=== PATIENT | male | born 1950 | race Caucasian/White ===

== ENCOUNTER 2018-10-08 10:51 | Inpatient (IN) ==
[2018-10-08] MEDS ORDERED: IOPAMIDOL 100 ML BOTTLE IV ONE (10:52)
[2018-10-08] MEDS ORDERED: 0.9 % SODIUM CHLORIDE 1,000 ML IV ONE ×3 (10:55→12:29)
[2018-10-08] MEDS ORDERED: ONDANSETRON 4 MG/2 ML VIAL IV ONE (11:11)
--- NOTE | 2018-10-08 11:21 | Emergency Department Note ---
Abdominal Pain HPI - General Chief Complaint: Abdominal Pain Stated Complaint: L side abd pain, radiates to back Time Seen by Provider: 10/08/18 10:56 Source: patient Mode of arrival: ambulatory Limitations: no limitations - History of Present Illness HPI Narrative: 67-year-old male complaining of midepigastric pain which radiates to his back present for the past 3 days. He has had nausea but there is been no vomiting. He rates the pain is a 6/10 and the pain is located mostly in the midepigastric region. He has had a history of chronic pancreatitis for the past 10 years. He still uses alcohol. He states he drinks 3-4 beers a day but did have a Trang on October 02 in addition to the beer. She has a history of COPD and is oxygen dependent. Also has CHF. He states he uses no other recreational drugs but does use marijuana. Heavy smoker in the past but states he has quit smoking but chews. He states he does not drink much liquids throughout the day. His tongue does appear to be dehydrated. He states he has been told not to drink m uch alcohol or use over the tobacco but he continues. Denies any radiation of pain to the arm or axilla or jaw. Denies any chest pain but is pointing to the midepigastric region. There is been no hematemesis no melena. He is constipated. Denies urgency frequency or dysuria. He has no orthopnea type symptoms he is able to sleep in bed flat he states but is being treated for CHF. He does have some pedal edema 2+ - Related Data Home Medications Medication Instructions Recorded Confirmed [facility] fish oil PO BID 07/28/15 01/16/17 albuterol sulfate HFA 90 2 puff INHALATION .3-4XD g 07/28/15 10/08/18 mcg/actuation aerosol inhaler atorvastatin 20 mg tablet 20 mg PO QDAY 07/28/15 10/08/18 blood sugar diagnostic strips See Dose Instructions .ROUTE 07/28/15 01/16/17 .MEDSUPPLY glipizide 5 mg tablet 10 mg PO BID tab 07/28/15 10/08/18 lancets 28 gauge See Dose Instructions .ROUTE 07/28/15 01/16/17 .MEDSUPPLY metformin 1,000 mg tablet 1,000 mg PO BID 07/28/15 10/08/18 ferrous gluconate 324 mg (37.5 mg 324 mg PO QDAY 11/23/16 01/16/17 iron) tablet furosemide 20 mg tablet 40 mg PO QDAY tab 11/23/16 10/08/18 ibuprofen 200 mg tablet 200 mg PO Q6H tab 11/23/16 10/08/18 ipratropium-albuterol 0.5 mg-3 3 ml INHALATION Q8H 11/23/16 10/08/18 mg(2.5 mg base)/3 mL nebulization soln losartan 100 mg tablet 100 mg PO QDAY tab 11/23/16 10/08/18 magnesium oxide 400 mg (241.3 mg 400 mg PO TID tab 11/23/16 01/16/17 magnesium) tablet oxygen-air delivery systems device See Dose Instructions .ROUTE 11/23/1612/30 .MEDSUPPLY metformin 500 mg tablet 500 mg PO QDAY tab 09/05/18 10/08/18 fluticasone 250 mcg-salmeterol 50 1 inh INHALATION ONCE each 09/08/18 09/08/18 mcg/dose blistr powdr for inhalation Cyanocobalamin [Vitamin B12] 1,000 mcg IM MONTHLY 10/08/18 10/08/18 Allergies Allergy/AdvReac Type Severity Reaction Status Date / Time No Known Drug Allergies Allergy Verified 10/08/18 17:09 Review of Systems All systems ED: reviewed and negative except as stated. Constitutional: Denies: fever, chills Gastrointestinal: Reports: as per HPI, abdominal pain (Midepigastric pain radiating to his back), nausea. Denies: vomiting, diarrhea, constipation, hemat ochezia, melena, hematemesis, acid reflux, heart burn Genitourinary: Denies: dysuria, frequency Musculoskeletal: Denies: back pain, joint swelling Integumentary: Denies: rash, lesions Neurological: Denies: headache, weakness Psychiatric: Denies: anxiety, depression Endocrine: Denies: fatigue, heat or cold intolerance Hematological/Lymphatic: Denies: easy bleeding Allergic/Immunologic: Denies: facial swelling Abdominal Pain PMH - Past Medical History [facility] Narrative: All Active Problems (Last Updated 09/30/18 @ 15:00 by Renea Caldwell) Lobar pneumonia (Chronic) History of tonsillectomy and adenoidectomy (Chronic) Pneumonia (Chronic) Tobacco use (Chronic) Benign prostatic hyperplasia with urinary obstruction (Chronic) Lumbar radiculopathy (Chronic) Obstructive sleep apnea (Chronic) Chronic hypercapnic respiratory failure (Chronic) Chronic hypoxemic respiratory failure (Chronic) Pure hypercholesterolemia, unspecified (Chronic) Leukocytosis (Chronic) Macrocytosis (Chronic) Dependent edema (Chronic) 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) Vitamin B12 deficiency (Chronic) Pancreatitis (Chronic) CHF (congestive heart failure) (Chronic) Anemia (Chronic) Diabetes mellitus, type II (Chronic) Obesity, unspecified (Chronic) GERD (gastroesophageal reflux disease) (Chronic) Hyperglycemia (Chronic) Hyperlipidemia (Chronic) Hypertension (Chronic) Chest pain, precordial (Chronic) Lumbar radiculopathy, right (Chronic) COPD (chronic obstructive pulmonary disease) (Chronic) Hypoxemia (Chronic) Erectile dysfunction (Chronic) Hyponatremia (Chronic) Hypokalemia (Chronic) Drug-induced hepatotoxicity (Chronic) Rectal bleeding (Chronic) Smoker (Chronic) Diabetes mellitus (Chronic) Bilateral leg edema (Chronic) Varicose veins of lower extremity with inflammation, bilateral (Chronic) BPH (benign prostatic hyperplasia) (Chronic) Past Surgical History (Last Updated 09/30/18 @ 14:47 by Renea Caldwell) History of tonsillectomy and adenoidectomy (Chronic) History of colonoscopy (Chronic ~2016) History of inguinal hernia repair (Chronic) History of left cataract surgery (Chronic ~2018) Family History (Last Updated 09/05/18 @ 11:47 by Arabella Chadwick) Mother Arthritis Hypertension Father Lung cancer Hypertension Sister Hypertension Grandfather Myocardial Infarction Other Diabetes mellitus Malignant neoplasm - Social History Smoking status: Former smoker Alcohol use: Reports: Daily (He states 3-4 beers a day) Drug use: Reports: marijuana Physical Exam Limitations: no limitations General appearance: alert Head: atraumatic, normocephalic Eye: Present: normal appearance, PERRL ENT: normal exam, normal oropharynx, mucous membranes dry Neck: Present: normal inspection, full ROM Chest: Present: normal inspection, symmetric chest wall rise Respiratory: Present: normal lung sounds bilaterally. Absent: respiratory distress, rales/crackles Cardiovascular: Present: regular rate, normal rhythm. Absent: bradycardia, tachycardia Abdominal: Present: soft, tenderness, normal bowel sounds. Absent: distention, guarding, rebound, rigidity, diminished bowel sounds, hyperactive bowel sounds, hypoactive bowel sounds, organomegaly Abdominal tenderness: Present: epigastrium Extremities: Present: normal inspection, full ROM. Absent: tenderness Back: Present: normal inspection, full ROM. Absent: tenderness Neurological: Present: alert, oriented X3, CN II-XII intact, normal gait Psychiatric: Present: normal affect, normal mood Skin: Present: warm, cool, dry Course Vital Signs Temperature 97.6 F 10/08/18 10:52 Pulse Rate 125 H 10/08/18 10:52 Respiratory Rate 20 10/08/18 10:52 Blood Pressure 154/97 10/08/18 10:52 Pulse Oximetry (%) 97 10/08/18 10:52 Temperature 98.4 F 10/08/18 17:10 Pulse Rate 115 H 10/08/18 17:10 Respiratory Rate 20 10/08/18 17:10 Blood Pressure 163/95 10/08/18 17:10 Pulse Oximetry (%) 94 10/08/18 17:10 Abdominal Pain - MDM Narrative Medical decision making narrative: WBC is 20,300 the hemoglobin 12.4 hematocrit 37.5 81 segs 3 bands and 6 lymphocytes lactic acid was elevated at 2.1 blood cultures have been drawn sodium is 120 the potassium 3.6 the CO2 is 28 glucose 192 the troponin less than 0.01 lipase elevated at 257 alcohol was less than 0.01 Wild catheter was inserted and 10 probe did reveal that he does have a fever of 99.1 but the nurse did state that the probe to get up to 100 F.. also amylase elevated at 225. Chest x-ray showed a possible infiltrate patient on his third liter of fluids and Zosyn has been started. Awaiting for results of CT . Dr. Fitzgerald here to discuss CT results. The pancreas shows acute on chronic pancreatitis with some enlarged adenopathy posterior and felt continued work-up with possible biopsy of this area in the future. - Lab Data Result diagrams: 10/08/18 11:02 10/08/18 11:02 Lab Results 10/08/18 10/08/18 10/08/18 Range/Units 11:02 11:02 11:02 WBC 20.3 H (4.5-11.0) K/mcL RBC 3.91 L (4.50-5.90) M/mcL Hgb 12.4 L (13.5-16.5) g/dL Hct 37.5 L (41.0-55.0) % POC Hct (41.0-55.0) % MCV 95.8 (80.0-100.0) fL MCH 31.8 (26.0-34.0) pg MCHC 33.2 (31.0-36.0) g/dL RDW 13.2 (11.5-14.5) % Plt Count 310 (140-440) K/mcL MPV 9.0 (7.4-10.4) fL Total Counted 100 Seg Neutrophils % 81 H (38-78) % Band Neutrophils % 3 (0-10) % Lymphocytes % 6 L (15-49) % Monocytes % (Manual) 10 (1-12) % Platelet Estimate Normal (NORMAL) RBC Morphology Normal (NORMAL) VBG Lactic Acid 2.1 H (0.5-2.0) mmol/L POC Sodium (133-145) mmol/L Sodium 123 L (133-145) mmol/L POC Potassium (3.3-5.1) mmol/L Potassium 3.8 (3.3-5.1) mmol/L POC Chloride (96-108) mmol/L Chloride 80 L (96-108) mmol/L Carbon Dioxide 25 (22-30) mmol/L POC Total CO2 (22-30) mmol/L Anion Gap 18.0 H (8-16) POC BUN (8-23) mg/dl BUN 9 (8-23) mg/dl Creatinine 0.7 (0.7-1.2) mg/dl POC Creatinine (0.7-1.2) mg/dl GFR Calculation 97 Glucose 184 H (70-105) mg/dL POC Glucose (70-105) mg/dL Osmolality (280-300) mOSM/kg Uric Acid (2.5-8.0) mg/dL Calcium 8.9 (8.6-10.4) mg/dl POC WB Ioniz Calcium (1.16-1.32) mmol/L Total Bilirubin 1.0 (0.0-1.0) mg/dL AST 16 (0-37) U/l ALT 15 (0-40) U/l Alkaline Phosphatase 57 (39-117) U/L Lactate Dehydrogenase (94-250) U/L Total Creatine Kinase (24-195) IU/L CK-MB (CK-2) (0-4.9) ng/ml Troponin T (0-0.03) ng/ml NT-Pro-B Natriuret Pep (0-125) pg/ml Total Protein 7.2 (5.9-8.4) gm/dL Albumin 4.2 (3.2-5.2) gm/dL Globulin 3.0 (2.2-3.7) gm/dL Albumin/Globulin Ratio 1.4 (1.0-2.3) Amylase (28-100) U/L Lipase (7-60) U/L Procalcitonin (<0.10) ng/mL Urine Color Urine Appearance Urine pH (5.0-9.0) Ur Specific [place] (1.000-1.035) Urine Protein (NEG) mg/dL Urine Glucose (UA) (NEG) mg/dL Urine Ketones (NEG) mg/dL Urine Occult Blood (<0.03) mg/dL Urine Nitrate (NEG) Urine Bilirubin (NEG) mg/dL Urine Urobilinogen (NEG) mg/dL Ur Leukocyte Esterase (NEG) /uL Urine RBC (0-1) /hpf Urine WBC (0-4) /hpf Ur Squamous Epith Cells (0-4) /hpf Urine Bacteria (0) /hpf Urine Mucus (0) /hpf Ur Culture Indicated? Urine Osmolality (80-1000) mOsm/kg Ur Random Sodium mmol/L Urine Opiates Screen (NONDETECTED) Ur Opiates Confirm Ur Oxycodone Screen (NONDETECTED) Urine Methadone Screen (NONDETECTED) Ur Methadone Confirm Ur Barbiturates Screen (NONDETECTED) Ur Barbiturate Confirm Ur Phencyclidine Scrn (NONDETECTED) Urine PCP Confirm Ur Amphetamines Screen (NONDETECTED) U Amphetamines Confirm U Benzodiazepines Scrn (NONDETECTED) U Benzodiazepine Confm Urine Cocaine Screen (NONDETECTED) Urine Cocaine Confirm U Cannabinoids Confirm U Marijuana (THC) Screen (NONDETECTED) Ethyl Alcohol (<0.010) gm/dl 10/08/18 10/08/18 10/08/18 Range/Units 11:02 11:02 11:07 WBC (4.5-11.0) K/mcL RBC (4.50-5.90) M/mcL Hgb (13.5-16.5) g/dL Hct (41.0-55.0) % POC Hct 39.0 L (41.0-55.0) % MCV (80.0-100.0) fL MCH (26.0-34.0) pg MCHC (31.0-36.0) g/dL RDW (11.5-14.5) % Plt Count (140-440) K/mcL MPV (7.4-10.4) fL Total Counted Seg Neutrophils % (38-78) % Band Neutrophils % (0-10) % Lymphocytes % (15-49) % Monocytes % (Manual) (1-12) % Platelet Estimate (NORMAL) RBC Morphology (NORMAL) VBG Lactic Acid (0.5-2.0) mmol/L POC Sodium 120 L (133-145) mmol/L Sodium (133-145) mmol/L POC Potassium 3.6 (3.3-5.1) mmol/L Potassium (3.3-5.1) mmol/L POC Chloride 81 L (96-108) mmol/L Chloride (96-108) mmol/L Carbon Dioxide (22-30) mmol/L POC Total CO2 28 (22-30) mmol/L Anion Gap (8-16) POC BUN 9 (8-23) mg/dl BUN (8-23) mg/dl Creatinine (0.7-1.2) mg/dl POC Creatinine 0.6 L (0.7-1.2) mg/dl GFR Calculation Glucose (70-105) mg/dL POC Glucose 192 H (70-105) mg/dL Osmolality (280-300) mOSM/kg Uric Acid (2.5-8.0) mg/dL Calcium (8.6-10.4) mg/dl POC WB Ioniz Calcium 1.07 L (1.16-1.32) mmol/L Total Bilirubin (0.0-1.0) mg/dL AST (0-37) U/l ALT (0-40) U/l Alkaline Phosphatase (39-117) U/L Lactate Dehydrogenase (94-250) U/L Total Creatine Kinase 97 (24-195) IU/L CK-MB (CK-2) 1.9 (0-4.9) ng/ml Troponin T < 0.01 (0-0.03) ng/ml NT-Pro-B Natriuret Pep (0-125) pg/ml Total Protein (5.9-8.4) gm/dL Albumin (3.2-5.2) gm/dL Globulin (2.2-3.7) gm/dL Albumin/Globulin Ratio (1.0-2.3) Amylase 225 H (28-100) U/L Lipase 257 H (7-60) U/L Procalcitonin (<0.10) ng/mL Urine Color Urine Appearance Urine pH (5.0-9.0) Ur Specific [place] (1.000-1.035) Urine Protein (NEG) mg/dL Urine Glucose (UA) (NEG) mg/dL Urine Ketones (NEG) mg/dL Urine Occult Blood (<0.03) mg/dL Urine Nitrate (NEG) Urine Bilirubin (NEG) mg/dL Urine Urobilinogen (NEG) mg/dL Ur Leukocyte Esterase (NEG) /uL Urine RBC (0-1) /hpf Urine WBC (0-4) /hpf Ur Squamous Epith Cells (0-4) /hpf Urine Bacteria (0) /hpf Urine Mucus (0) /hpf Ur Culture Indicated? Urine Osmolality (80-1000) mOsm/kg Ur Random Sodium mmol/L Urine Opiates Screen (NONDETECTED) Ur Opiates Confirm Ur Oxycodone Screen (NONDETECTED) Urine Methadone Screen (NONDETECTED) Ur Methadone Confirm Ur Barbiturates Screen (NONDETECTED) Ur Barbiturate Confirm Ur Phencyclidine Scrn (NONDETECTED) Urine PCP Confirm Ur Amphetamines Screen (NONDETECTED) U Amphetamines Confirm U Benzodiazepines Scrn (NONDETECTED) U Benzodiazepine Confm Urine Cocaine Screen (NONDETECTED) Urine Cocaine Confirm U Cannabinoids Confirm U Marijuana (THC) Screen (NONDETECTED) Ethyl Alcohol < 0.010 (<0.010) gm/dl 10/08/18 10/08/18 10/08/18 Range/Units 11:07 11:07 11:07 WBC (4.5-11.0) K/mcL RBC (4.50-5.90) M/mcL Hgb (13.5-16.5) g/dL Hct (41.0-55.0) % POC Hct (41.0-55.0) % MCV (80.0-100.0) fL MCH (26.0-34.0) pg MCHC (31.0-36.0) g/dL RDW (11.5-14.5) % Plt Count (140-440) K/mcL MPV (7.4-10.4) fL Total Counted Seg Neutrophils % (38-78) % Band Neutrophils % (0-10) % Lymphocytes % (15-49) % Monocytes % (Manual) (1-12) % Platelet Estimate (NORMAL) RBC Morphology (NORMAL) VBG Lactic Acid (0.5-2.0) mmol/L POC Sodium (133-145) mmol/L Sodium (133-145) mmol/L POC Potassium (3.3-5.1) mmol/L Potassium (3.3-5.1) mmol/L POC Chloride (96-108) mmol/L Chloride (96-108) mmol/L Carbon Dioxide (22-30) mmol/L POC Total CO2 (22-30) mmol/L Anion Gap (8-16) POC BUN (8-23) mg/dl BUN (8-23) mg/dl Creatinine (0.7-1.2) mg/dl POC Creatinine (0.7-1.2) mg/dl GFR Calculation Glucose (70-105) mg/dL POC Glucose (70-105) mg/dL Osmolality 255 L (280-300) mOSM/kg Uric Acid 3.2 (2.5-8.0) mg/dL Calcium (8.6-10.4) mg/dl POC WB Ioniz Calcium (1.16-1.32) mmol/L Total Bilirubin (0.0-1.0) mg/dL AST (0-37) U/l ALT (0-40) U/l Alkaline Phosphatase (39-117) U/L Lactate Dehydrogenase 180 (94-250) U/L Total Creatine Kinase (24-195) IU/L CK-MB (CK-2) (0-4.9) ng/ml Troponin T (0-0.03) ng/ml NT-Pro-B Natriuret Pep 801.6 H (0-125) pg/ml Total Protein (5.9-8.4) gm/dL Albumin (3.2-5.2) gm/dL Globulin (2.2-3.7) gm/dL Albumin/Globulin Ratio (1.0-2.3) Amylase (28-100) U/L Lipase (7-60) U/L Procalcitonin (<0.10) ng/mL Urine Color Urine Appearance Urine pH (5.0-9.0) Ur Specific [place] (1.000-1.035) Urine Protein (NEG) mg/dL Urine Glucose (UA) (NEG) mg/dL Urine Ketones (NEG) mg/dL Urine Occult Blood (<0.03) mg/dL Urine Nitrate (NEG) Urine Bilirubin (NEG) mg/dL Urine Urobilinogen (NEG) mg/dL Ur Leukocyte Esterase (NEG) /uL Urine RBC (0-1) /hpf Urine WBC (0-4) /hpf Ur Squamous Epith Cells (0-4) /hpf Urine Bacteria (0) /hpf Urine Mucus (0) /hpf Ur Culture Indicated? Urine Osmolality (80-1000) mOsm/kg Ur Random Sodium mmol/L Urine Opiates Screen (NONDETECTED) Ur Opiates Confirm Ur Oxycodone Screen (NONDETECTED) Urine Methadone Screen (NONDETECTED) Ur Methadone Confirm Ur Barbiturates Screen (NONDETECTED) Ur Barbiturate Confirm Ur Phencyclidine Scrn (NONDETECTED) Urine PCP Confirm Ur Amphetamines Screen (NONDETECTED) U Amphetamines Confirm U Benzodiazepines Scrn (NONDETECTED) U Benzodiazepine Confm Urine Cocaine Screen (NONDETECTED) Urine Cocaine Confirm U Cannabinoids Confirm U Marijuana (THC) Screen (NONDETECTED) Ethyl Alcohol (<0.010) gm/dl 10/08/18 10/08/18 10/08/18 Range/Units 11:07 12:15 12:15 WBC (4.5-11.0) K/mcL RBC (4.50-5.90) M/mcL Hgb (13.5-16.5) g/dL Hct (41.0-55.0) % POC Hct (41.0-55.0) % MCV (80.0-100.0) fL MCH (26.0-34.0) pg MCHC (31.0-36.0) g/dL RDW (11.5-14.5) % Plt Count (140-440) K/mcL MPV (7.4-10.4) fL Total Counted Seg Neutrophils % (38-78) % Band Neutrophils % (0-10) % Lymphocytes % (15-49) % Monocytes % (Manual) (1-12) % Platelet Estimate (NORMAL) RBC Morphology (NORMAL) VBG Lactic Acid (0.5-2.0) mmol/L POC Sodium (133-145) mmol/L Sodium (133-145) mmol/L POC Potassium (3.3-5.1) mmol/L Potassium (3.3-5.1) mmol/L POC Chloride (96-108) mmol/L Chloride (96-108) mmol/L Carbon Dioxide (22-30) mmol/L POC Total CO2 (22-30) mmol/L Anion Gap (8-16) POC BUN (8-23) mg/dl BUN (8-23) mg/dl Creatinine (0.7-1.2) mg/dl POC Creatinine (0.7-1.2) mg/dl GFR Calculation Glucose (70-105) mg/dL POC Glucose (70-105) mg/dL Osmolality (280-300) mOSM/kg Uric Acid (2.5-8.0) mg/dL Calcium (8.6-10.4) mg/dl POC WB Ioniz Calcium (1.16-1.32) mmol/L Total Bilirubin (0.0-1.0) mg/dL AST (0-37) U/l ALT (0-40) U/l Alkaline Phosphatase (39-117) U/L Lactate Dehydrogenase (94-250) U/L Total Creatine Kinase (24-195) IU/L CK-MB (CK-2) (0-4.9) ng/ml Troponin T (0-0.03) ng/ml NT-Pro-B Natriuret Pep (0-125) pg/ml Total Protein (5.9-8.4) gm/dL Albumin (3.2-5.2) gm/dL Globulin (2.2-3.7) gm/dL Albumin/Globulin Ratio (1.0-2.3) Amylase (28-100) U/L Lipase (7-60) U/L Procalcitonin 0.16 (<0.10) ng/mL Urine Color Straw Urine Appearance Clear Urine pH 7.0 (5.0-9.0) Ur Specific [place] 1.008 (1.000-1.035) Urine Protein Neg (NEG) mg/dL Urine Glucose (UA) Negative (NEG) mg/dL Urine Ketones Neg (NEG) mg/dL Urine Occult Blood 0.03 A (<0.03) mg/dL Urine Nitrate Neg (NEG) Urine Bilirubin Neg (NEG) mg/dL Urine Urobilinogen Neg (NEG) mg/dL Ur Leukocyte Esterase Neg (NEG) /uL Urine RBC 6 H (0-1) /hpf Urine WBC 1 (0-4) /hpf Ur Squamous Epith Cells < 1 (0-4) /hpf Urine Bacteria 0 (0) /hpf Urine Mucus Few (0) /hpf Ur Culture Indicated? No Urine Osmolality (80-1000) mOsm/kg Ur Random Sodium mmol/L Urine Opiates Screen None detected (NONDETECTED) Ur Opiates Confirm Not Reportable Ur Oxycodone Screen Suspect positive A (NONDETECTED) Urine Methadone Screen None detected (NONDETECTED) Ur Methadone Confirm Not Reportable Ur Barbiturates Screen None detected (NONDETECTED) Ur Barbiturate Confirm Not Reportable Ur Phencyclidine Scrn None detected (NONDETECTED) Urine PCP Confirm Not Reportable Ur Amphetamines Screen None detected (NONDETECTED) U Amphetamines Confirm Not Reportable U Benzodiazepines Scrn None detected (NONDETECTED) U Benzodiazepine Confm Not Reportable Urine Cocaine Screen None detected (NONDETECTED) Urine Cocaine Confirm Not Reportable U Cannabinoids Confirm Not Reportable U Marijuana (THC) Screen Suspect positive A (NONDETECTED) Ethyl Alcohol (<0.010) gm/dl 10/08/18 Range/Units 12:15 WBC (4.5-11.0) K/mcL RBC (4.50-5.90) M/mcL Hgb (13.5-16.5) g/dL Hct (41.0-55.0) % POC Hct (41.0-55.0) % MCV (80.0-100.0) fL MCH (26.0-34.0) pg MCHC (31.0-36.0) g/dL RDW (11.5-14.5) % Plt Count (140-440) K/mcL MPV (7.4-10.4) fL Total Counted Seg Neutrophils % (38-78) % Band Neutrophils % (0-10) % Lymphocytes % (15-49) % Monocytes % (Manual) (1-12) % Platelet Estimate (NORMAL) RBC Morphology (NORMAL) VBG Lactic Acid (0.5-2.0) mmol/L POC Sodium (133-145) mmol/L Sodium (133-145) mmol/L POC Potassium (3.3-5.1) mmol/L Potassium (3.3-5.1) mmol/L POC Chloride (96-108) mmol/L Chloride (96-108) mmol/L Carbon Dioxide (22-30) mmol/L POC Total CO2 (22-30) mmol/L Anion Gap (8-16) POC BUN (8-23) mg/dl BUN (8-23) mg/dl Creatinine (0.7-1.2) mg/dl POC Creatinine (0.7-1.2) mg/dl GFR Calculation Glucose (70-105) mg/dL POC Glucose (70-105) mg/dL Osmolality (280-300) mOSM/kg Uric Acid (2.5-8.0) mg/dL Calcium (8.6-10.4) mg/dl POC WB Ioniz Calcium (1.16-1.32) mmol/L Total Bilirubin (0.0-1.0) mg/dL AST (0-37) U/l ALT (0-40) U/l Alkaline Phosphatase (39-117) U/L Lactate Dehydrogenase (94-250) U/L Total Creatine Kinase (24-195) IU/L CK-MB (CK-2) (0-4.9) ng/ml Troponin T (0-0.03) ng/ml NT-Pro-B Natriuret Pep (0-125) pg/ml Total Protein (5.9-8.4) gm/dL Albumin (3.2-5.2) gm/dL Globulin (2.2-3.7) gm/dL Albumin/Globulin Ratio (1.0-2.3) Amylase (28-100) U/L Lipase (7-60) U/L Procalcitonin (<0.10) ng/mL Urine Color Urine Appearance Urine pH (5.0-9.0) Ur Specific [place] (1.000-1.035) Urine Protein (NEG) mg/dL Urine Glucose (UA) (NEG) mg/dL Urine Ketones (NEG) mg/dL Urine Occult Blood (<0.03) mg/dL Urine Nitrate (NEG) Urine Bilirubin (NEG) mg/dL Urine Urobilinogen (NEG) mg/dL Ur Leukocyte Esterase (NEG) /uL Urine RBC (0-1) /hpf Urine WBC (0-4) /hpf Ur Squamous Epith Cells (0-4) /hpf Urine Bacteria (0) /hpf Urine Mucus (0) /hpf Ur Culture Indicated? Urine Osmolality 270 (80-1000) mOsm/kg Ur Random Sodium 62 mmol/L Urine Opiates Screen (NONDETECTED) Ur Opiates Confirm Ur Oxycodone Screen (NONDETECTED) Urine Methadone Screen (NONDETECTED) Ur Methadone Confirm Ur Barbiturates Screen (NONDETECTED) Ur Barbiturate Confirm Ur Phencyclidine Scrn (NONDETECTED) Urine PCP Confirm Ur Amphetamines Screen (NONDETECTED) U Amphetamines Confirm U Benzodiazepines Scrn (NONDETECTED) U Benzodiazepine Confm Urine Cocaine Screen (NONDETECTED) Urine Cocaine Confirm U Cannabinoids Confirm U Marijuana (THC) Screen (NONDETECTED) Ethyl Alcohol (<0.010) gm/dl Disposition Pt seen by [facility] [employer]/PA only: No Clinical Impression: Pancreatitis, Lymphadenopathy, abdominal Disposition: Xfer As Inpt ([facility]) Condition: Fair
[2018-10-08 11:24] LABS: POC Blood Urea Nitrogen 9 mg/dl (8-23); POC CO2 28 mmol/L (22-30); POC Calcium, Ionized 1.07 mmol/L (1.16-1.32); POC Chloride 81 mmol/L (96-108); POC Creatinine 0.6 mg/dl (0.7-1.2); POC Glucose, Random 192 mg/dL (70-105); POC Potassium 3.6 mmol/L (3.3-5.1); POC Sodium 120 mmol/L (133-145)
[2018-10-08] MEDS: HYDROmorphone 2 MG/ML VIAL IV PRN ×4 (11:26→23:25)
[2018-10-08 11:48] LABS: Hematocrit 37.5 % (41.0-55.0); Hemoglobin 12.4 g/dL (13.5-16.5); Mean Cell Volume 95.8 fL (80.0-100.0); Mean Corpuscular HGB Conc 33.2 g/dL (31.0-36.0); Platelet Count 310 K/mcL (140-440); RBC 3.91 M/mcL (4.50-5.90); Red Cell Distribution Width 13.2 % (11.5-14.5); WBC 20.3 K/mcL (4.5-11.0)
[2018-10-08 12:07] LABS: Band Neutrophils % 3 % (0-10); Lymphocytes % 6 % (15-49); Monocytes % (Manual) 10 % (1-12); Platelet Estimate NORMAL (NORMAL); RBC Morphology NORMAL (NORMAL); Segmented Neutrophils % 81 % (38-78)
--- NOTE | 2018-10-08 12:13 | XRay Report ---
CLINICAL INFORMATION: CHEST PAIN COMPARISON: None. FINDINGS: Heart size, mediastinum and pulmonary vessels are normal. Mild patchy bibasilar atelectasis or infiltrate appreciated.. No effusion. IMPRESSION: Mild bibasilar atelectasis or infiltrate. Suggest two-view upright chest x-ray in the next 1-2 days for better evaluation Interpreted and Authenticated by: Jose Eduardo Fitzgerald 10/08/18
[2018-10-08 12:15] LABS: Alcohol, Blood < 10.0 mg/dL (<10); Alcohol,Blood < 0.010 gm/dl (<0.010)
[2018-10-08 12:20] LABS: ALT/SGPT 15 U/l (0-40); AST/SGOT 16 U/l (0-37); Albumin 4.2 gm/dL (3.2-5.2); Albumin/Globulin Ratio 1.4 (1.0-2.3); Alkaline Phosphatase 57 U/L (39-117); Blood Urea Nitrogen 9 mg/dl (8-23); Calcium 8.9 mg/dl (8.6-10.4); Carbon Dioxide 25 mmol/L (22-30); Chloride 80 mmol/L (96-108); Glomerular Filtration Rate 97; Glucose 184 mg/dL (70-105); Potassium 3.8 mmol/L (3.3-5.1); Sodium 123 mmol/L (133-145)
[2018-10-08 12:23] LABS: proBNP 801.6 pg/ml (0-125)
[2018-10-08 12:23] LABS: Amylase 225 U/L (28-100); Creatine Kinase 97 IU/L (24-195); Creatine Kinase MB 1.9 ng/ml (0-4.9); Lipase 257 U/L (7-60)
[2018-10-08] MEDS ORDERED: PIPERACILLIN SODIUM/TAZOBACTAM 3.375 GM in DEXTROSE 5% IN WATER 50 ML IV ONE (12:39)
[2018-10-08 13:00] LABS: Appearance,Urine CLEAR; Bacteria,Urine 0 /hpf (0); Bilirubin,Urine NEG (NEG); Color,Urine STRAW; Culture Indicated,Urine NO; Glucose,Urine (UA) NEGATIVE (NEG); Ketones,Urine NEG (NEG); Leukocyte Esterase,Urine NEG /uL (NEG); Mucus,Urine FEW /hpf (0); Nitrate,Urine NEG (NEG); Protein,Urine NEG (NEG); Specific Gravity,Urine 1.008 (1.000-1.035); Urine Blood 0.03 mg/dL (<0.03); Urine RBC 6 /hpf (0-1); Urine Squamous Epithelial Cell < 1 /hpf (0-4); Urine WBC 1 /hpf (0-4); Urobilinogen,Urine NEG (NEG)
[2018-10-08 13:12] LABS: Amphetamine Screen,Urine NONE DETECTED (NONDETECTED); Barbiturate Screen,Urine NONE DETECTED (NONDETECTED); Benzodiazepines Screen,Urine NONE DETECTED (NONDETECTED); Cannabinoid Screen,Urine SUSPECT POSITIVE (NONDETECTED); Cocaine Screen,Urine NONE DETECTED (NONDETECTED); Opiate Screen,Urine NONE DETECTED (NONDETECTED); Oxycodone, Urine Screen SUSPECT POSITIVE (NONDETECTED); Phencyclidine Screen,Urine NONE DETECTED (NONDETECTED)
--- NOTE | 2018-10-08 13:34 | Cat Scan Report ---
CLINICAL INFORMATION: Abdominal pain. History of pancreatitis COMPARISON: None. TECHNIQUE: Following enteric contrast, 80 cc of Isovue-300 were injected intravenously, and 60 seconds later, 0.625 mm helical slices were obtained from the mid heart through the subtrochanteric regions. Following reconstruction, 2.5 mm sagittal, coronal and axial reformatted images were processed and reviewed at bone, lung and soft tissue windows. Five minutes later, 0.625 mm helical slices were obtained from the mid heart through the kidneys and viewed at soft tissue windows.The exam was performed using radiation dose optimization techniques including, but not limited to, automated exposure control, adjustment of the mA and/or kV according to patient size and use of iterative reconstruction technique. FINDINGS: Lung bases show mild scattered scarring particularly in the left base. No nodules. No effusions. The visualized heart is grossly normal. Images through the abdomen show minimal fatty change of the liver, but no focal lesions. The gallbladder and bile ducts are normal CBD is 5 mm.The pancreas is atrophic with moderate inflammatory change in the adjacent peripancreatic fat. Pancreatic duct is moderately dilated ranging up to 8 mm in Santorini segment. Scattered calcifications throughout the pancreatic parenchyma is compatible with chronic pancreatitis. There is a 5 cm x 2.6 cm retroperitoneal adenopathy conglomerate posterior to the pancreatic head. There is also a massive (8 x 4.2 cm) disease adenopathy conglomerate in the right retroperitoneal region - posterior to the IVC. Both conglomerates demonstrate low attenuation centrally suggesting metastatic infiltration.. A 5 x 2 cm low-attenuation lesion in the medial wall of the descending duodenum may represent periampullary cyst. Both kidneys, adrenal glands, spleen are normal. Mild aneurysmal enlargement of the infrarenal abdominal aorta with diameter of 3 cm noted. The celiac, SMA, LEV and renal arteries are normal. Images through the pelvis show moderate prostatic enlargement 6.3 x 5 cm. A Wild catheter is in satisfactory position. Urinary bladder is normal. Multiple sigmoid diverticula noted, but no evidence of diverticulitis. The remaining colon, appendix and small bowel are normal. Stomach is grossly normal. Bone windows show no osseous abnormality. IMPRESSION: 1. Moderate acute upon chronic pancreatitis. The pancreas is atrophic with multiple calcifications and marked dilatation of the pancreatic duct: 6 mm. Moderate inflammatory change in the peripancreatic soft tissues.. 2. Massive adenopathy conglomerate (8 x 4.2 cm) in the right retroperitoneal region posterior to the IVC. A second 5 x 2.6 cm adenopathy conglomerate is seen posterior to the pancreatic head. Suspect metastases - possibly peripancreatic or other GI malignancy. Non-Hodgkin's lymphoma be less likely. Please correlate with CT 19-9 serologic marker for pancreatic cancer. Suggest CT-guided biopsy of the largest adenopathy conglomerate in the right pericaval region. 3. Marked prostate enlargement with diffuse wall thickening urinary bladder suggesting chronic bladder outlet narrowing. 4. Sigmoid diverticulosis. 5. 3 cm fusiform infrarenal abdominal aortic aneurysm. Suggest follow-up ultrasound in one year Interpreted and Authenticated by: Jose Eduardo Fitzgerald 10/08/18
--- NOTE | 2018-10-08 14:52 | Internal Med History&Physical ---
Medical - H&P: [facility] Patient information: Note initiated : 10/08/18 at 2:48 pm Service Date, if different from initiated Date: [] Patient: Markel Edward 67 y/o M admitted on for L side abd pain, radiates to back. Chief Complaint: [] History of present illness: Mr. Edward is a 67 year old M Presents to the ED with abdominal pain. Patient states that Saturday morning woke up feeling okay had breakfast and then developed dull achy abdominal pain that radiated to his back which felt just like the pancreatitis he has had in the past. He drinks about 3-4 beers per day, typically no liquor, have a Trang about a week prior when he went to a restaurant. He is marijuana but no other drug use. Not smoke anymore but she is tobacco. Denies any fever chills. He has a chronic cough with clear sputum but that is his baseline. Denies any shortness of breath. Feels constipated. No fevers or chills. Has some nausea but no vomiting. In the ED he was mildly tachycardic I found to have elevated lipase mildly elevated lactate and leukocytosis. Chest x-ray with Atelectasis versus other infiltrate. CT showing acute on chronic pancreatitis. CT also did mention a conglomerate of lymphadenopathy which may be felt beneficial to have biopsy in future if her renal abdominal aortic aneurysm which should have annual ultrasound. Blood pressure stable, afebrile. Received 3 L of IV fluid in the ED. Review of Systems: Pertinent positives as above. Denies headache/fever/chills/vomiting/chest pain/dyspnea/diarrhea. Remaining 10 point review of system reviewed negative Medical - H&P: 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) Vitamin B12 deficiency (Chronic) Pancreatitis (Chronic) CHF (congestive heart failure) (Chronic) Anemia (Chronic) Diabetes mellitus, type II (Chronic) Obesity, unspecified (Chronic) GERD (gastroesophageal reflux disease) (Chronic) Hyperglycemia (Chronic) Hyperlipidemia (Chronic) Hypertension (Chronic) Chest pain, precordial (Chronic) Lumbar radiculopathy, right (Chronic) COPD (chronic obstructive pulmonary disease) (Chronic) Hypoxemia (Chronic) Erectile dysfunction (Chronic) Hyponatremia (Chronic) Hypokalemia (Chronic) Drug-induced hepatotoxicity (Chronic) Rectal bleeding (Chronic) Smoker (Chronic) Diabetes mellitus (Chronic) Bilateral leg edema (Chronic) Varicose veins of lower extremity with inflammation, bilateral (Chronic) BPH (benign prostatic hyperplasia) (Chronic) Past Surgical History (Last Updated 09/30/18 @ 14:47 by Renea Caldwell) History of tonsillectomy and adenoidectomy (Chronic) History of colonoscopy (Chronic ~2015) History of inguinal hernia repair (Chronic) History of left cataract surgery (Chronic ~2017) Family History (Last Updated 09/05/18 @ 11:47 by Arabella Chadwick) Mother Arthritis Hypertension Father Lung cancer Hypertension Sister Hypertension Grandfather Myocardial Infarction Other Diabetes mellitus Malignant neoplasm Social History (Last Updated 09/05/18 @ 11:41 by Arabella Chadwick) Patient quit smoking about 3 to 4 years ago,'s uses chewing tobacco now Next 3-4 beers per day Uses marijuana Lives at home with Medical - H&P: Meds Home Medications Medication Instructions Recorded Confirmed Type [facility] fish oil PO BID 07/28/15 01/16/17 History albuterol sulfate HFA 90 2 puff INHALATION .3-4XD g 07/28/15 01/16/17 History mcg/actuation aerosol inhaler atorvastatin 20 mg tablet 20 mg PO QDAY 07/28/15 01/16/17 History blood sugar diagnostic strips See Dose Instructions .ROUTE 07/28/15 01/16/17 History .MEDSUPPLY glipizide 5 mg tablet 5 mg PO QAM tab 07/28/15 01/16/17 History lancets 28 gauge See Dose Instructions .ROUTE 07/28/15 01/16/17 History .MEDSUPPLY metformin 1,000 mg tablet 1,000 mg PO BID 07/28/15 01/16/17 History ferrous gluconate 324 mg (37.5 mg 324 mg PO QDAY 11/23/16 01/16/17 History iron) tablet furosemide 20 mg tablet 40 mg PO QDAY tab 11/23/16 01/16/17 History ibuprofen 200 mg tablet 200 mg PO Q6H tab 11/23/16 01/16/17 History ipratropium-albuterol 0.5 mg-3 3 ml INHALATION Q8H 11/23/16 01/16/17 History mg(2.5 mg base)/3 mL nebulization soln losartan 100 mg tablet 25 mg PO QDAY tab 11/23/16 01/16/17 History magnesium oxide 400 mg (241.3 mg 400 mg PO TID tab 11/23/16 01/16/17 History magnesium) tablet oxygen-air delivery systems device See Dose Instructions .ROUTE 11/23/16 01/16/17 History .MEDSUPPLY ranitidine 150 mg capsule 150 mg PO QHS 11/23/16 01/16/17 History metformin 500 mg tablet 500 mg PO QDAY tab 09/05/18 09/05/18 History fluticasone 250 mcg-salmeterol 50 1 inh INHALATION ONCE each 09/08/18 09/08/18 History mcg/dose blistr powdr for inhalation losartan 50 mg tablet 50 mg PO QDAY 09/08/18 09/08/18 History Allergies Allergy/AdvReac Type Severity Reaction Status Date / Time No Known Drug Allergies Allergy Verified 10/08/18 10:54 Medical - H&P: Exam - Constitutional Vitals: Temp Pulse Resp BP Pulse Ox 99.5 F H 112 H 16 157/73 95 10/08/18 14:46 10/08/18 14:46 10/08/18 14:46 10/08/18 14:46 10/08/18 14:46 Exam: General: Alert, Awake, No acute Distress, obese Eyes/N/T: EOMI, PEERL, MM Head/Neck: neck supple, normocephalic atraumatic CV: Mildly tacky but regular, No murmurs, normal s1/s2 Pulm: Clear b/l, no wheezing/rhonchi/rales Abd: soft, protuberant, tenderness to palpation most prominently in the epigastrium, +BS x4 Ext: no clubbing/cyanosis/edema Neuro: Alert, no focal deficits, moves all extremities, CN 2-12 grossly intact, symmetrical strength b/l upper/lower, sensations intact b/l upper/lower Skin: warm/dry Medical - H&P: Reslt - Labs CBC & Chem 7: 10/08/18 11:02 10/08/18 11:02 Labs: Short CBC 10/08/18 Range/Units 11:02 WBC 20.3 H (4.5-11.0) K/mcL Hgb 12.4 L (13.5-16.5) g/dL Hct 37.5 L (41.0-55.0) % Plt Count 310 (140-440) K/mcL BMP 10/08/18 11:02 Sodium 123 L Potassium 3.8 Chloride 80 L Carbon Dioxide 25 BUN 9 Creatinine 0.7 Glucose 184 H Calcium 8.9 Cardiac Enzymes 10/08/18 10/08/18 Range/Units 11:02 11:02 Total Creatine Kinase 97 (24-195) IU/L CK-MB (CK-2) 1.9 (0-4.9) ng/ml Troponin T < 0.01 (0-0.03) ng/ml Liver Function 10/08/18 Range/Units 11:02 Total Bilirubin 1.0 (0.0-1.0) mg/dL AST 16 (0-37) U/l ALT 15 (0-40) U/l Alkaline Phosphatase 57 (39-117) U/L Albumin 4.2 (3.2-5.2) gm/dL Urine 10/08/18 Range/Units 12:15 Urine Color Straw Urine Appearance Clear Urine pH 7.0 (5.0-9.0) Ur Specific [place] 1.008 (1.000-1.035) Urine Protein Neg (NEG) mg/dL Urine Glucose (UA) Negative (NEG) mg/dL - Impressions Chest x-ray with atelectasis [place] CT abdomen pelvis with acute on chronic pancreatitis a conglomerate of lymph adenopathy which was suggested may benefit from future biopsy and infra renal aortic aneurysm which should have follow-up ultrasound annually Medical - H&P: A/P - Narrative A/P Narrative: A: *Acute on chronic pancreatitis: Patient with continued alcohol use *Hyponatremia: With history of hyponatremia in the past admissions *Atelectasis: *Abdominal lymphadenopathy: Follow-up outpatient and possible biopsy *Obesity: *COPD (4L NC@home and Nocturnal BIPAP): *h/o diastolic (grade II) CHF and Right HF/Cor pulmonale: *HTN/HLD: *GERD: *Tobacco abuse: *DM: * * P: -IVF's -pain control -NPO tonight -Urine studies -Gallbladder ultrasound -CEA and CA19-9 -hold ARB (class Ib pancreatitis med), prn IV BP med -home Bipap and O2 supp -IS -SSI -f/u outpt for abd LAD and possible biopsy, f/u abd u/s for AAA noted on CT - -ppx: Lovenox/home H2-christina Full code
[2018-10-08 14:53] LABS: Uric Acid 3.2 mg/dL (2.5-8.0)
[2018-10-08] MEDS ORDERED: ACETAMINOPHEN 325 MG TABLET PO PRN (16:43)
[2018-10-08] MEDS ORDERED: ONDANSETRON 4 MG/2 ML VIAL IV PRN (16:43)
[2018-10-08] MEDS ORDERED: BISACODYL 10 MG SUPP.RECT PR PRN (16:43)
[2018-10-08] MEDS ORDERED: PROCHLORPERAZINE 10 MG/2 ML VIAL IV PRN (16:43)
[2018-10-08] MEDS ORDERED: POLYETHYLENE GLYCOL 3350 17 GM PACKET PO PRN (16:43)
[2018-10-08] MEDS ORDERED: MAG HYDROX/AL HYDROX/SIMETH 30 ML ORAL.SUSP PO PRN (16:43)
--- NOTE | 2018-10-08 17:01 | Transfer Summary ---
Transfer Discharge Sum: Prov Patient information: Note initiated : 10/08/18 at 4:55 pm Service Date, if different from initiated Date: [] Patient: Markel Edward 67 y/o M admitted on 10/08/18 for L side abd pain, radiates to back. Chief Complaint: [] Date of admission: 10/08/18 16:28 Primary care physician: Vivek Turcios M.D., F.A.A.F.P. Consults: 10/08/18 Consult to Physician [CONS] Stat Comment: Consulting Provider: Regino Lynch Reason For Exam: Physician to Consult Transfer Discharge Sum: Med - Medications Active and Home Medications: Home Medications [facility] fish oil PO BID 07/28/15 [History Confirmed 01/16/17] albuterol sulfate HFA 90 mcg/actuation aerosol inhaler 2 puff INHALATION .3-4XD g 07/28/15 [History Confirmed 10/08/18] atorvastatin 20 mg tablet 20 mg PO QDAY 07/28/15 [History Confirmed 10/08/18] blood sugar diagnostic strips See Dose Instructions .ROUTE .MEDSUPPLY 07/28/15 [History Confirmed 01/16/17] glipizide 5 mg tablet 10 mg PO BID tab 07/28/15 [History Confirmed 10/08/18] lancets 28 gauge See Dose Instructions .ROUTE .MEDSUPPLY 07/28/15 [History Confirmed 01/16/17] metformin 1,000 mg tablet 1,000 mg PO BID 07/28/15 [History Confirmed 10/08/18] ferrous gluconate 324 mg (37.5 mg iron) tablet 324 mg PO QDAY 11/23/16 [History Confirmed 01/16/17] furosemide 20 mg tablet 40 mg PO QDAY tab 11/23/16 [History Confirmed 10/08/18] ibuprofen 200 mg tablet 200 mg PO Q6H tab 11/23/16 [History Confirmed 10/08/18] ipratropium-albuterol 0.5 mg-3 mg(2.5 mg base)/3 mL nebulization soln 3 ml INHALATION Q8H 11/23/16 [History Confirmed 10/08/18] losartan 100 mg tablet 100 mg PO QDAY tab 11/23/16 [History Confirmed 10/08/18] magnesium oxide 400 mg (241.3 mg magnesium) tablet 400 mg PO TID tab 11/23/16 [History Confirmed 01/16/17] oxygen-air delivery systems device See Dose Instructions .ROUTE .MEDSUPPLY 11/23/16 [History Confirmed 01/16/17] metformin 500 mg tablet 500 mg PO QDAY tab 09/05/18 [History Confirmed 10/08/18] fluticasone 250 mcg-salmeterol 50 mcg/dose blistr powdr for inhalation 1 inh INHALATION ONCE each 09/08/18 [History Confirmed 09/08/18] Cyanocobalamin [Vitamin B12] 1,000 mcg IM MONTHLY 10/08/18 [History Confirmed 10/08/18] Active Medications Acetaminophen (Tylenol) 650 mg PO Q6HP PRN PRN Reason: PAIN/FEVER > 101 Al Hydrox/Mg Hydrox/Simethicone (Maalox) 30 ml PO Q6HP PRN PRN Reason: Dyspepsia Albuterol/Ipratropium (Duoneb) 3 ml NEB Q4HRT PRN PRN Reason: Bronchospasm Bisacodyl (Dulcolax) 10 mg [place] Q2-3DAYS PRN PRN Reason: Constipation Calcium Carbonate/Glycine (Tums) 1,000 mg CHEWED Q4HP PRN PRN Reason: Dyspepsia Docusate Sodium (Colace) 100 mg PO BID VIC Enoxaparin Sodium (Lovenox) 40 mg SQ DAILY VIC Famotidine (Pepcid) 20 mg IV Q12 VIC Hydromorphone HCl (Dilaudid) 0.5 mg IV Q2HP PRN PRN Reason: PAIN LEVEL > 6 Sodium Chloride (Sodium Chloride 0.9%) 1,000 mls @ 75 mls/hr IV .[id number] [facility] Insulin Human Lispro (Humalog) 0 unit SQ Q6 VIC; Protocol Labetalol HCl (Trandate) 0 mg IV Q2HP PRN PRN Reason: Hypertension Ondansetron HCl (Zofran) 4 mg IV Q6HP PRN PRN Reason: Nausea And Vomiting Polyethylene Glycol (Miralax) 17 gm PO DAILYP PRN PRN Reason: Constipation Prochlorperazine (Compazine) 5 mg IV Q4HP PRN PRN Reason: Nausea And Vomiting Sodium Chloride (Saline Flush) 10 ml IV Q8 [facility] Transfer Discharge Sum: Hosp Hospital course: Mr. Edward is a 67 year old M - Time Spent with Patient Total time spent providing and/or coordinating transfer services: Transfer Discharge Sum: Exam - Constitutional Vitals: Vital Signs Temp Pulse Resp BP Pulse Ox 10/08/18 16:16 100.2 F H 111 H 20 170/96 94 10/08/18 16:03 100.2 F H 111 H 17 96 10/08/18 16:01 100.2 F H 112 H 17 169/103 96 10/08/18 15:46 100.1 F H 111 H 17 144/80 96 10/08/18 15:39 100.0 F H 116 H 28 H 95 10/08/18 15:32 100.0 F H 114 H 21 139/117 96 10/08/18 15:16 99.8 F H 110 H 17 166/98 96 10/08/18 15:15 99.8 F H 109 H 19 95 10/08/18 15:14 99.7 F H 102 H 18 95 10/08/18 15:13 99.7 F H 17 154/97 10/08/18 15:01 99.7 F H 112 H 19 166/89 94 10/08/18 15:00 99.7 F H 109 H 20 93 10/08/18 14:52 99.6 F H 110 H 19 94 10/08/18 14:46 99.5 F H 112 H 16 157/73 95 10/08/18 14:45 99.5 F H 110 H 18 96 10/08/18 14:42 99.5 F H 110 H 23 H 96 10/08/18 14:31 99.4 F H 104 H 17 150/93 97 10/08/18 14:28 99.4 F H 106 H 23 H 95 10/08/18 14:26 99.4 F H 107 H 20 96 10/08/18 14:16 99.4 F H 109 H 23 H 160/89 95 10/08/18 14:01 99.3 F H 110 H 20 152/87 97 10/08/18 13:46 99.2 F H 109 H 17 145/89 97 10/08/18 13:42 99.2 F H 109 H 17 96 10/08/18 13:31 99.2 F H 107 H 17 148/83 97 10/08/18 13:16 99.3 F H 107 H 18 142/87 96 10/08/18 13:15 99.3 F H 106 H 18 97 10/08/18 13:03 99.3 F H 110 H 18 150/94 95 10/08/18 12:33 25 H 10/08/18 12:31 99.1 F H 22 154/92 10/08/18 12:28 99.0 F 17 149/83 10/08/18 12:16 110 H 18 159/87 95 10/08/18 12:01 110 H 20 156/90 97 10/08/18 11:54 123 H 25 H 97 10/08/18 11:46 111 H 18 153/82 96 10/08/18 11:31 113 H 18 156/88 93 10/08/18 11:30 110 H 15 94 10/08/18 10:52 97.6 F 125 H 20 154/97 97 Intake and Output 10/08/18 10/08/18 10/08/18 05:59 13:59 21:59 Intake Total 1999 1050 Balance 1999 1050 Intake: IV 1999 1050 Sodium Chloride 0.9% 1,000 ml @ 1999 1000 Wide Open IV BOLUS ONE Rx#: [id number] Zosyn 3.375 gm In Dextrose 5% 50 in Water 50 ml @ 100 mls/hr IV ONCE ONE Rx#:[id number] Other: Urine Appearance Uretheral (Wild) Clear Urine Color Uretheral (Wild) Dark Yellow Weight 113.398 kg Patient Weight 10/09/18 05:59 Weight 113.398 kg Transfer Discharge Sum: Data Procedures and tests throughout hospitalization: Pending Orders 10/08/18 Consult to Physician [CONS] Stat 10/08/18 12:28 Blood Culture Stat 10/08/18 14:06 Creatinine, Spot Urine Urgent Osmolality,Urine Stat Sodium, Urine Random Urgent 10/08/18 14:40 Resuscitation Status Routine 10/08/18 14:56 BIPAP PRN 10/08/18 16:43 Admit as Inpatient Routine Ambulate-Progressive TID Condition Routine IV Insertion/Management QSHIFT Intake and Output qshiftio Notify Provider .routine Up to chair PRN Vital Signs Q4 Weight Monitoring QHS NPO Except Ice Chips Diet (NOW) US gall bladder Routine Cancer Antigen 19-9 Urgent Carcinoembryonic Antigen Urgent 0.9 % Sodium Chloride [Sodium Chloride 0.9%] 1,000 ml IV 75 mls/hr Acetaminophen [Tylenol] 650 mg PO Q6HP PRN Bisacodyl [Dulcolax] 10 mg [place] Q2-3DAYS PRN Calcium Carbonate [Tums] 1,000 mg CHEWED Q4HP PRN HYDROmorphone [Dilaudid] 0.5 mg IV Q2HP PRN Ipratropium/Albuterol [Duoneb] 3 ml NEB Q4HRT PRN Mag Hydrox/Al Hydrox/Simeth [Maalox] 30 ml PO Q6HP PRN Ondansetron [Zofran] 4 mg IV Q6HP PRN Polyethylene Glycol 3350 [Miralax] 17 gm PO DAILYP PRN Prochlorperazine [Compazine] [address] to Adjust Diet/Supplements as Needed Routine Incentive Spirometry Assess/Tx Q1HWA Nebulizer management .Routine 10/08/18 16:51 Labetalol [Trandate] See Dose Instructions IV Q2HP PRN 10/08/18 18:00 Basic Metabolic Panel Urgent Insulin Lispro [HumaLOG] See Protocol SQ Q6 10/08/18 21:00 Docusate Sodium [Colace] 100 mg PO BID Famotidine/Pf [Pepcid] 20 mg IV Q12 10/08/18 22:00 0.9 % Sodium Chloride [Saline Flush] 10 ml IV Q8 10/09/18 04:00 Complete Blood Count Routine Inpatient Panel Routine Lipase Routine 10/09/18 09:00 Enoxaparin [Lovenox] 40 mg SQ DAILY
[2018-10-08] MEDS: 0.9 % SODIUM CHLORIDE 1,000 ML IV SCH (17:03)
[2018-10-08 17:46] LABS: Osmolality,Urine 270 mOsm/kg (80-1000)
[2018-10-08] MEDS: NICOTINE 21 MG PATCH TOPICAL SCH (17:46)
[2018-10-08 17:47] LABS: Sodium, Urine Random 62 mmol/L
[2018-10-08] MEDS: INSULIN LISPRO 1 UNIT/0.01 ML UNIT SQ SCH ×2 (17:54→23:24)
[2018-10-08] MEDS ORDERED: INSULIN LISPRO 1 UNIT/0.01 ML UNIT SQ SCH (18:00)
[2018-10-08] MEDS: CALCIUM CARBONATE 500 MG TAB.CHEW CHEWED PRN (18:01)
--- NOTE | 2018-10-08 18:36 | Ultrasound Report ---
CLINICAL INFORMATION: pancreatitis COMPARISON: None. FINDINGS: Liver is mildly enlarged vertebral dimension of 19 cm. Echotexture is hyperechoic compatible with fatty change. No focal hepatic lesion. Gallbladder and bile ducts are normal CBD is 6 mm. IMPRESSION: Mild hepatomegaly. Gallbladder and bile ducts are normal. Interpreted and Authenticated by: Jose Eduardo Fitzgerald 10/08/18
[2018-10-08 19:03] LABS: Blood Urea Nitrogen 7 mg/dl (8-23); Calcium 8.4 mg/dl (8.6-10.4); Carbon Dioxide 27 mmol/L (22-30); Chloride 81 mmol/L (96-108); Glomerular Filtration Rate 97; Glucose 154 mg/dL (70-105); Potassium 3.7 mmol/L (3.3-5.1); Sodium 124 mmol/L (133-145)
[2018-10-08 19:11] LABS: Cancer Antigen 19-9 98.4 U/mL (0.0-35.0)
[2018-10-08] MEDS ORDERED: SODIUM CHLORIDE 1 GM TABLET PO ONE (19:13)
[2018-10-08 19:17] LABS: Carcinoembryonic Antigen 3.6 ng/mL (0.0-3.4)
[2018-10-08] MEDS: LABETALOL 5 MG/ML ML IV PRN (19:35)
[2018-10-08] MEDS: IPRATROPIUM/ALBUTEROL 3 ML AMPUL.NEB NEB PRN (20:48)
[2018-10-08] MEDS: FAMOTIDINE/PF 20 MG/2 ML VIAL IV SCH (20:54)
[2018-10-08] MEDS: DOCUSATE SODIUM 100 MG CAPSULE PO SCH (20:54)
[2018-10-08] MEDS ORDERED: OXYGEN AIR DELIVERY SYSTEMS DEVICE SCH (21:30)
[2018-10-08] MEDS: 0.9 % SODIUM CHLORIDE 10 ML SYRINGE IV SCH (21:47)
[2018-10-09] MEDS: HYDROmorphone 2 MG/ML VIAL IV PRN ×7 (02:55→20:10)
[2018-10-09] MEDS: 0.9 % SODIUM CHLORIDE 1,000 ML IV SCH ×3 (02:56→23:50)
[2018-10-09 05:29] LABS: Basophils # (Auto) 0 K/mcL (0.0-0.3); Basophils % (Auto) 0.1 % (0.0-2.0); Eosinophils # (Auto) 0 K/mcL (0.0-0.7); Eosinophils % (Auto) 0.2 % (0.0-7.0); Granulocytes % (Auto) 87.3 % (38.0-78.0); Hematocrit 34.2 % (41.0-55.0); Hemoglobin 11.2 g/dL (13.5-16.5); Lymphocytes # (Auto) 0.8 K/mcL (1.5-4.8); Lymphocytes % (Auto) 3.6 % (15.5-49.0); Mean Cell Volume 96.7 fL (80.0-100.0); Mean Corpuscular HGB Conc 32.8 g/dL (31.0-36.0); Mean Platelet Volume 9.1 fL (7.4-10.4); Monocytes % (Auto) 8.8 % (1.0-12.0); Platelet Count 271 K/mcL (140-440); RBC 3.54 M/mcL (4.50-5.90); Red Cell Distribution Width 13.5 % (11.5-14.5); WBC 23.1 K/mcL (4.5-11.0)
[2018-10-09] MEDS: 0.9 % SODIUM CHLORIDE 10 ML SYRINGE IV SCH ×3 (05:38→21:28)
[2018-10-09] MEDS: INSULIN LISPRO 1 UNIT/0.01 ML UNIT SQ SCH ×3 (05:38→18:01)
[2018-10-09 05:59] LABS: ALT/SGPT 14 U/l (0-40); AST/SGOT 16 U/l (0-37); Albumin 3.5 gm/dL (3.2-5.2); Albumin/Globulin Ratio 1.2 (1.0-2.3); Alkaline Phosphatase 55 U/L (39-117); Bilirubin,Direct < 0.2 mg/dL (0.0-0.3); Bilirubin,Total 0.7 mg/dL (0.0-1.0); Blood Urea Nitrogen 6 mg/dl (8-23); Calcium 7.8 mg/dl (8.6-10.4); Carbon Dioxide 26 mmol/L (22-30); Chloride 86 mmol/L (96-108); Globulin 2.9 gm/dL (2.2-3.7); Glomerular Filtration Rate 103; Glucose 123 mg/dL (70-105); Lactate Dehydrogenase 188 U/L (94-250); Lipase 77 U/L (7-60); Magnesium 1.4 mg/dL (1.6-2.5); Potassium 3.7 mmol/L (3.3-5.1); Sodium 124 mmol/L (133-145); Triglycerides 42 mg/dl (<150); Uric Acid 2.8 mg/dL (2.5-8.0)
[2018-10-09] MEDS ORDERED: MAGNESIUM SULFATE 2 GM/50 ML BAG IV ONE (07:09)
--- NOTE | 2018-10-09 07:10 | Internal Med Progress Note ---
Medical - PN: Subj Patient information: Note initiated : 10/09/18 at 6:54 am Service Date, if different from initiated Date: [] Patient: Markel Edward 67 y/o M admitted on 10/08/18 for L side abd pain, radiates to back. Chief Complaint: [] Interval history: Mr. Edward is a 67 year old M Presents to the ED with abdominal pain. Patient states that Saturday morning woke up feeling okay had breakfast and then developed dull achy abdominal pain that radiated to his back which felt just like the pancreatitis he has had in the past. He drinks about 3-4 beers per day, typically no liquor, have a Trang about a week prior when he went to a restaurant. He is marijuana but no other drug use. Not smoke anymore but she is tobacco. Denies any fever chills. He has a chronic cough with clear sputum but that is his baseline. Denies any shortness of breath. Feels constipated. No fevers or chills. Has some nausea but no vomiting. In the ED he was mildly tachycardic I found to have elevated lipase mildly elevated lactate and leukocytosis. Chest x-ray with Atelectasis versus other infiltrate. CT showing acute on chronic pancreatitis. CT also did mention a conglomerate of lymphadenopathy which may be felt beneficial to have biopsy in future if her renal abdominal aortic aneurysm which should have annual ultrasound. Blood pressure stable, afebrile. Received 3 L of IV fluid in the ED. 10/09 Slept well. Feeling a little better, still has abdominal pain but slowly improving. Tolerated ice chips last night and will advance to liquids today. Plan for MRCP. no nausea or vomiting. States constipation. Review of Systems: denies headache/fever/chills/nausea/vomiting/chest pain/cough/dyspnea/diarrhea. Otherwise see above. - Constitutional Vitals: Vital Signs Temp Pulse Resp BP Pulse Ox 98.8 F 104 H 18 144/83 97 10/09/18 03:37 10/09/18 03:37 10/09/18 03:37 10/09/18 03:37 10/09/18 03:37 Period Temp Pulse Resp BP Sys/Yoder Pulse Ox Last 24 Hr 97.5 F-100.2 F 102-125 15-28 139-170/73-117 93-97 Intake and Output 10/08/18 10/09/18 10/09/18 21:59 05:59 13:59 Intake Total 1050 871 Output Total 1150 1400 Balance -100 -529 Weight 115.439 kg Intake & Output: Intake & Output 10/08/18 10/09/18 10/09/18 21:59 05:59 13:59 Intake Total 1050 871 Output Total 1150 1400 Balance -100 -529 Weight 115.439 kg Intake: IV 1050 741 Sodium Chloride 0.9% 1,000 ml @ 1000 741 75 mls/hr IV .[id number] VIC Rx#: [id number] Zosyn 3.375 gm In Dextrose 5% 50 in Water 50 ml @ 100 mls/hr IV ONCE ONE Rx#:[id number] Oral 130 Output: Urine Catheter Amount 1150 1400 Other: Urine Appearance Clear Urine Color Straw Bright Yellow Urine Odor Normal Exam: General: Alert, Awake, No acute Distress, obese Eyes/N/T: EOMI, Head/Neck: neck supple, CV: Mildly tacky but regular, No murmurs, Pulm: Clear b/l, no wheezing/rhonchi/rales Abd: soft, protuberant, tenderness to palpation most prominently in the epigastrium, +BS x4 Ext: no clubbing/cyanosis, trace b/l LE edema Neuro: Alert, no focal deficits, moves all extremities, Skin: warm/dry Medical - PN: Obj Da - Labs CBC & Chem 7: 10/09/18 04:00 10/09/18 04:00 Labs: Abnormal Lab Results 10/09/18 10/09/18 10/08/18 04:00 04:00 18:04 WBC 23.1 H RBC 3.54 L Hgb 11.2 L Hct 34.2 L POC Hct Gran % 87.3 H Lymph % (Auto) 3.6 L Gran # 20.1 H Lymph # (Auto) 0.8 L [place] # (Auto) 2.0 H Seg Neutrophils % Lymphocytes % VBG Lactic Acid POC Sodium Sodium 124 L POC Chloride Chloride 86 L Anion Gap BUN 6 L Creatinine 0.6 L POC Creatinine Glucose 123 H POC Glucose Osmolality Calcium 7.8 L POC WB Ioniz Calcium Phosphorus 2.0 L Magnesium 1.4 L NT-Pro-B Natriuret Pep Amylase Lipase 77 H Carcinoembryonic Ag 3.6 H CA 19-9 Antigen 98.4 H Urine Occult Blood Urine RBC Ur Oxycodone Screen U Marijuana (THC) Screen 10/08/18 10/08/18 10/08/18 18:04 12:15 12:15 WBC RBC Hgb Hct POC Hct Gran % Lymph % (Auto) Gran # Lymph # (Auto) [place] # (Auto) Seg Neutrophils % Lymphocytes % VBG Lactic Acid POC Sodium Sodium 124 L POC Chloride Chloride 81 L Anion Gap BUN 7 L Creatinine POC Creatinine Glucose 154 H POC Glucose Osmolality Calcium 8.4 L POC WB Ioniz Calcium Phosphorus Magnesium NT-Pro-B Natriuret Pep Amylase Lipase Carcinoembryonic Ag CA 19-9 Antigen Urine Occult Blood 0.03 A Urine RBC 6 H Ur Oxycodone Screen Suspect positive A U Marijuana (THC) Screen Suspect positive A 10/08/18 10/08/18 10/08/18 11:07 11:07 11:02 WBC RBC Hgb Hct POC Hct 39.0 L Gran % Lymph % (Auto) Gran # Lymph # (Auto) [place] # (Auto) Seg Neutrophils % Lymphocytes % VBG Lactic Acid POC Sodium 120 L Sodium POC Chloride 81 L Chloride Anion Gap BUN Creatinine POC Creatinine 0.6 L Glucose POC Glucose 192 H Osmolality 255 L Calcium POC WB Ioniz Calcium 1.07 L Phosphorus Magnesium NT-Pro-B Natriuret Pep 801.6 H Amylase 225 H Lipase 257 H Carcinoembryonic Ag CA 19-9 Antigen Urine Occult Blood Urine RBC Ur Oxycodone Screen U Marijuana (THC) Screen 10/08/18 10/08/18 10/08/18 11:02 11:02 11:02 WBC 20.3 H RBC 3.91 L Hgb 12.4 L Hct 37.5 L POC Hct Gran % Lymph % (Auto) Gran # Lymph # (Auto) [place] # (Auto) Seg Neutrophils % 81 H Lymphocytes % 6 L VBG Lactic Acid 2.1 H POC Sodium Sodium 123 L POC Chloride Chloride 80 L Anion Gap 18.0 H BUN Creatinine POC Creatinine Glucose 184 H POC Glucose Osmolality Calcium POC WB Ioniz Calcium Phosphorus Magnesium NT-Pro-B Natriuret Pep Amylase Lipase Carcinoembryonic Ag CA 19-9 Antigen Urine Occult Blood Urine RBC Ur Oxycodone Screen U Marijuana (THC) Screen Meds: Medications Acetaminophen (Tylenol) 650 mg PO Q6HP PRN PRN Reason: PAIN/FEVER > 101 Al Hydrox/Mg Hydrox/Simethicone (Maalox) 30 ml PO Q6HP PRN PRN Reason: Dyspepsia Last Admin: 10/08/18 17:03 Dose: 30 ml Documented by: Albuterol/Ipratropium (Duoneb) 3 ml NEB Q4HRT PRN PRN Reason: Bronchospasm Last Admin: 10/08/18 20:48 Dose: 3 ml Documented by: Bisacodyl (Dulcolax) 10 mg [place] Q2-3DAYS PRN PRN Reason: Constipation Calcium Carbonate/Glycine (Tums) 1,000 mg CHEWED Q4HP PRN PRN Reason: Dyspepsia Last Admin: 10/08/18 18:01 Dose: 1,000 mg Documented by: Diagnostic Test (Pha) (Accu-Chek) 1 each FS Q6 [facility] Last Admin: 10/09/18 05:37 Dose: 1 each Documented by: Docusate Sodium (Colace) 100 mg PO BID [facility] Last Admin: 10/08/18 20:54 Dose: 100 mg Documented by: Enoxaparin Sodium (Lovenox) 40 mg SQ DAILY [facility] Famotidine (Pepcid) 20 mg IV Q12 [facility] Last Admin: 10/08/18 20:54 Dose: 20 mg Documented by: Hydromorphone HCl (Dilaudid) 0.5 mg IV Q2HP PRN PRN Reason: PAIN LEVEL > 6 Last Admin: 10/09/18 06:01 Dose: 0.5 mg Documented by: Sodium Chloride (Sodium Chloride 0.9%) 1,000 mls @ 75 mls/hr IV .[id number] [facility] Last Admin: 10/09/18 02:56 Dose: 75 mls/hr Documented by: Insulin Human Lispro (Humalog) 0 unit SQ Q6 [facility]; Protocol Last Admin: 10/09/18 05:38 Dose: Not Given Documented by: Labetalol HCl (Trandate) 0 mg IV Q2HP PRN PRN Reason: Hypertension Last Admin: 10/08/18 19:35 Dose: 10 mg Documented by: Nicotine (Nicoderm) 21 mg TOPICAL DAILY@1000 [facility]IC Last Admin: 10/08/18 17:46 Dose: 21 mg Documented by: Ondansetron HCl (Zofran) 4 mg IV Q6HP PRN PRN Reason: Nausea And Vomiting Polyethylene Glycol (Miralax) 17 gm PO DAILYP PRN PRN Reason: Constipation Prochlorperazine (Compazine) 5 mg IV Q4HP PRN PRN Reason: Nausea And Vomiting Fluticasone/Salmeterol (Advair 250-50 Diskus) 1 puff INH HS VIC Sodium Chloride (Saline Flush) 10 ml IV Q8 [facility] Last Admin: 10/09/18 05:38 Dose: Not Given Documented by: Medical - PN: A/P - Time Spent With Patient Total time spent is greater than 50% in coordination of care (as documented) at patient's floor/unit and/or counseling patient: - Narrative A/P Narrative: A: *Acute on chronic pancreatitis: Patient with continued alcohol use -GB u/s ok *Hyponatremia, hypotonic: With history of hyponatremia in the past admissions -possible SIADH *Atelectasis: *Retroperi Lymphadenopathy posterior to Pancreatic head, low attenuation suggests possible metastatic infiltration: -eventually biopsy likely -elevated ca19-9 *Obesity: *COPD (4L NC@home and Nocturnal BIPAP): *h/o diastolic (grade II) CHF and Right HF/Cor pulmonale: *HTN/HLD: *GERD: *Tobacco abuse: *DM: * P: -IVF's -pain control -start clears -possible MRCP to better eval LAD -hold ARB (class Ib pancreatitis med), prn IV BP med -home BIPAP and O2 supp -IS -SSI -f/u outpt for abd LAD and possible biopsy, f/u abd u/s for AAA noted on CT - -ppx: Lovenox/home H2-christina Full code Medical - PN: Qual - VTE Deep Vein Thrombosis/Pulmonary Embolism Present on Admission: No
[2018-10-09 07:49] LABS: Band Neutrophils % 3 % (0-10); Lymphocytes % 7 % (15-49); Monocytes % (Manual) 5 % (1-12); Platelet Estimate NORMAL (NORMAL); RBC Morphology NORMAL (NORMAL); Segmented Neutrophils % 85 % (38-78)
[2018-10-09 07:56] LABS: C-Reactive Protein 20.5 mg/dl (0.0-0.8)
[2018-10-09 08:20] LABS: Erythrocyte Sedimentation Rate 57 mm/hr (0-15)
[2018-10-09] MEDS: FAMOTIDINE/PF 20 MG/2 ML VIAL IV SCH ×2 (08:45→20:10)
[2018-10-09] MEDS: NICOTINE 21 MG PATCH TOPICAL SCH (08:45)
[2018-10-09] MEDS: ENOXAPARIN 40 MG/0.4 ML SYRINGE SQ SCH (08:48)
--- NOTE | 2018-10-09 10:45 | Discharge Summary ---
Medical - DS: Prov Patient information: Note initiated : 10/09/18 at 10:43 am Service Date, if different from initiated Date: [] Patient: Markel Edward 67 y/o M admitted on 10/08/18 for L side abd pain, radiates to back. Chief Complaint: [] Date of admission: 10/08/18 16:28 Discharge date: 10/10/18 Primary care physician: Vivek Turcios M.D., F.A.A.F.P. Consults: 10/08/18 Consult to Physician [CONS] Stat Comment: Consulting Provider: Regino Lynch Reason For Exam: Physician to Consult Medical - DS: Meds - Discharge Medications Active and Home Medications: Home Medications [facility] fish oil 1,200 mg PO BID 07/28/15 [History Confirmed 10/08/18 Last Taken 10/08/18] albuterol sulfate HFA 90 mcg/actuation aerosol inhaler 2 puff INHALATION QIDP PRN g 07/28/15 [History Confirmed 10/08/18 Last Taken 10/08/18] atorvastatin 20 mg tablet 20 mg PO QDAY 07/28/15 [History Confirmed 10/08/18 Last Taken 10/07/18] blood sugar diagnostic strips See Protocol .ROUTE .MEDSUPPLY 07/28/15 [History Confirmed 10/09/18 Last Taken Unknown] glipizide 5 mg tablet 5 mg PO BID tab 07/28/15 [History Confirmed 10/08/18 Last Taken 10/08/18] lancets 28 gauge See Dose Instructions .ROUTE .MEDSUPPLY 07/28/15 [History Confirmed 10/09/18 Last Taken Unknown] metformin 1,000 mg tablet 1,000 mg PO DAILY 07/28/15 [History Confirmed 10/08/18 Last Taken 10/08/18] furosemide 20 mg tablet 40 mg PO QDAY tab 11/23/16 [History Confirmed 10/08/18 Last Taken 10/08/18] ibuprofen 200 mg tablet 200 mg PO Q6H tab 11/23/16 [History Confirmed 10/08/18 Last Taken 10/07/18] ipratropium-albuterol 0.5 mg-3 mg(2.5 mg base)/3 mL nebulization soln 3 ml INHALATION QID 11/23/16 [History Confirmed 10/08/18 Last Taken 10/08/18] oxygen-air delivery systems device 4 each .ROUTE .MEDSUPPLY 11/23/16 [History Confirmed 10/08/18 Last Taken Unknown] metformin 500 mg tablet 1,500 mg PO QPM tab 09/05/18 [History Confirmed 10/08/18 Last Taken 10/07/18] Cyanocobalamin [Vitamin B12] 1,000 mcg IM MONTHLY 10/08/18 [History Confirmed 10/08/18 Last Taken Unknown] Fluticasone/Salmeterol [Advair 250-50 Diskus] 1 puff INH HS 10/08/18 [History Confirmed 10/08/18 Last Taken 10/07/18] Losartan [Cozaar] 1 tab PO DAILY 10/08/18 [History Confirmed 10/08/18 Last Taken 10/08/18] Ranitidine HCl [Acid Sex Therapist] 1 tab PO HS 10/08/18 [History Confirmed 10/08/18 Last Taken 10/07/18] Medical - DS: Hosp Hospital course: Mr. Edward is a 67 year old M Mr. Edward is a 67 year old M Presents to the ED with abdominal pain. Patient states that Saturday morning woke up feeling okay had breakfast and then developed dull achy abdominal pain that radiated to his back which felt just like the pancreatitis he has had in the past. He drinks about 3-4 beers per day, typically no liquor, have a Trang about a week prior when he went to a restaurant. He is marijuana but no other drug use. Not smoke anymore but she is tobacco. Denies any fever chills. He has a chronic cough with clear sputum but that is his baseline. Denies any shortness of breath. Feels constipated. No fevers or chills. Has some nausea but no vomiting. In the ED he was mildly tachycardic I found to have elevated lipase mildly elevated lactate and leukocytosis. Chest x-ray with Atelectasis versus other infiltrate. CT showing acute on chronic pancreatitis. CT also did mention a conglomerate of lymphadenopathy which may be felt beneficial to have biopsy in future if her renal abdominal aortic aneurysm which should have annual ultrasound. Blood pressure stable, afebrile. Received 3 L of IV fluid in the ED. 10/09 Slept well. Feeling a little better, still has abdominal pain but slowly improving. Tolerated ice chips last night and will advance to liquids today. Plan for MRCP. no nausea or vomiting. States constipation. 10/10 No overnight events. Patient's abdomen is feeling better. Also less tender. Tolerating clear liquids just fine. Scheduled for retroperitoneal lymph node biopsy today. Possible discharge later in the day after trialing full liquid for lunch after procedure. Possible d/c later today if tolerating advanced diet. A: *Acute on chronic pancreatitis: Patient with continued alcohol use -GB u/s ok *Hyponatremia, hypotonic: With history of hyponatremia in the past admissions -improved *Atelectasis: *Retroperi Lymphadenopathy posterior to Pancreatic head, low attenuation concerning for possible metastatic infiltration: -Elevated ca19-9 -MRCP no masses *Obesity: *COPD (4L NC@home and Nocturnal BIPAP): *h/o diastolic (grade II) CHF and Right HF/Cor pulmonale: *HTN/HLD: *GERD: *Tobacco abuse: *DM: * P: -IVF's until procedure then d/c -pain control -advance to full liquid after procedure -pending CT guided biopsy -hold ARB (class Ib pancreatitis med), restart as etiology more likely etoh or underlying pathology undergoing w/u -home BIPAP and O2 supp -IS -SSI -f/u abd u/s for AAA noted on CT -Possible d/c this afternoon if tolerating advanced diet -ppx: Lovenox/home H2-christina Discharge diagnosis: Acute on chronic pancreatitis hyponatremia atelectasis lymphadenopathy Secondary discharge diagnosis: Obesity COPD diastolic heart failure hypertension GERD tobacco abuse diabetes - Time Spent with Patient Total time spent providing and/or coordinating discharge services: Greater than 30 minutes Medical - DS: Exam - Constitutional Vitals: Vital Signs Temp Pulse Pulse Pulse Pulse Resp BP 10/09/18 08:00 99.6 F H 20 10/09/18 03:37 98.8 F 104 H 18 10/08/18 23:24 97.6 F 102 H 18 10/08/18 20:48 102 H 18 10/08/18 19:44 102 H 10/08/18 19:22 124 H 18 10/08/18 19:21 97.5 F 10/08/18 19:00 10/08/18 17:10 98.4 F 115 H 20 10/08/18 16:20 100.2 F H 111 H 20 170/96 10/08/18 16:16 100.2 F H 111 H 20 170/96 10/08/18 16:03 100.2 F H 111 H 17 10/08/18 16:01 100.2 F H 112 H 17 169/103 10/08/18 15:46 100.1 F H 111 H 17 144/80 10/08/18 15:39 100.0 F H 116 H 28 H 10/08/18 15:32 100.0 F H 114 H 21 139/117 10/08/18 15:16 99.8 F H 110 H 17 166/98 10/08/18 15:15 99.8 F H 109 H 19 10/08/18 15:14 99.7 F H 102 H 18 10/08/18 15:13 99.7 F H 17 154/97 10/08/18 15:01 99.7 F H 112 H 19 166/89 10/08/18 15:00 99.7 F H 109 H 20 10/08/18 14:52 99.6 F H 110 H 19 10/08/18 14:46 99.5 F H 112 H 16 157/73 10/08/18 14:45 99.5 F H 110 H 18 10/08/18 14:42 99.5 F H 110 H 23 H 10/08/18 14:31 99.4 F H 104 H 17 150/93 10/08/18 14:28 99.4 F H 106 H 23 H 10/08/18 14:26 99.4 F H 107 H 20 10/08/18 14:16 99.4 F H 109 H 23 H 160/89 10/08/18 14:01 99.3 F H 110 H 20 152/87 10/08/18 13:46 99.2 F H 109 H 17 145/89 10/08/18 13:42 99.2 F H 109 H 17 10/08/18 13:31 99.2 F H 107 H 17 148/83 10/08/18 13:16 99.3 F H 107 H 18 142/87 10/08/18 13:15 99.3 F H 106 H 18 10/08/18 13:03 99.3 F H 110 H 18 150/94 10/08/18 12:33 25 H 07/10/19 12:31 99.1 F H 22 154/92 10/08/18 12:28 99.0 F 17 149/83 10/08/18 12:16 110 H 18 159/87 10/08/18 12:01 110 H 20 156/90 10/08/18 11:54 123 H 25 H 10/08/18 11:46 111 H 18 153/82 10/08/18 11:31 113 H 18 156/88 10/08/18 11:30 110 H 15 10/08/18 10:52 97.6 F 125 H 20 154/97 BP BP Pulse Ox 10/09/18 08:00 146/79 97 10/09/18 03:37 144/83 97 10/08/18 23:24 146/90 97 10/08/18 20:48 10/08/18 19:44 142/84 10/08/18 19:22 157/87 93 10/08/18 19:21 10/08/18 19:00 93 10/08/18 17:10 163/95 94 10/08/18 16:20 94 10/08/18 16:16 94 10/08/18 16:03 96 10/08/18 16:01 96 10/08/18 15:46 96 10/08/18 15:39 95 10/08/18 15:32 96 10/08/18 15:16 96 10/08/18 15:15 95 10/08/18 15:14 95 10/08/18 15:13 10/08/18 15:01 94 10/08/18 15:00 93 10/08/18 14:52 94 10/08/18 14:46 95 10/08/18 14:45 96 10/08/18 14:42 96 10/08/18 14:31 97 10/08/18 14:28 95 10/08/18 14:26 96 10/08/18 14:16 95 10/08/18 14:01 97 10/08/18 13:46 97 10/08/18 13:42 96 10/08/18 13:31 97 10/08/18 13:16 96 10/08/18 13:15 97 10/08/18 13:03 95 10/08/18 12:33 10/08/18 12:31 10/08/18 12:28 10/08/18 12:16 95 10/08/18 12:01 97 10/08/18 11:54 97 10/08/18 11:46 96 10/08/18 11:31 93 10/08/18 11:30 94 10/08/18 10:52 97 Intake and Output 10/08/18 10/09/18 10/09/18 21:59 05:59 13:59 Intake Total 1050 871 Output Total 1150 1400 900 Balance -100 -529 -900 Intake: IV 1050 741 Sodium Chloride 0.9% 1,000 ml @ 1000 741 75 mls/hr IV .[id number] VIC Rx#: [id number] Zosyn 3.375 gm In Dextrose 5% 50 in Water 50 ml @ 100 mls/hr IV ONCE ONE Rx#:[id number] Oral 130 Output: Urine Catheter Amount 1150 1400 900 Other: Urine Appearance Clear Cloudy Uretheral (Wild) Clear Urine Color Straw Bright Yellow Bright Red Uretheral (Wild) Dark Yellow Urine Odor Normal Normal # Voids 1 Weight 115.439 kg Medical - DS: Data Labs on day of discharge: Labs from last 24 hours 10/09/18 10/09/18 10/09/18 04:00 04:00 04:00 WBC RBC Hgb Hct POC Hct MCV MCH MCHC RDW Plt Count MPV Gran % Lymph % (Auto) [place] % (Auto) Eos % (Auto) Baso % (Auto) Gran # Lymph # (Auto) Morgan # (Auto) Eos # (Auto) Baso # (Auto) Total Counted 100 Seg Neutrophils % 85 H Band Neutrophils % 3 Lymphocytes % 7 L Monocytes % (Manual) 5 Differential Comment Platelet Estimate Normal RBC Morphology Normal ESR 57 H VBG Lactic Acid POC Sodium Sodium POC Potassium Potassium POC Chloride Chloride Carbon Dioxide POC Total CO2 Anion Gap POC BUN BUN Creatinine POC Creatinine GFR Calculation Glucose POC Glucose Osmolality Uric Acid Calcium POC WB Ioniz Calcium Phosphorus Magnesium Total Bilirubin Direct Bilirubin GGT AST ALT Alkaline Phosphatase Lactate Dehydrogenase Total Creatine Kinase CK-MB (CK-2) Troponin T C-Reactive Protein 20.5 H NT-Pro-B Natriuret Pep Total Protein Albumin Globulin Albumin/Globulin Ratio Triglycerides Amylase Lipase Carcinoembryonic Ag CA 19-9 Antigen Procalcitonin TSH Cortisol AM Sample 16.2 Urine Color Urine Appearance Urine pH Ur Specific [place] Urine Protein Urine Glucose (UA) Urine Ketones Urine Occult Blood Urine Nitrate Urine Bilirubin Urine Urobilinogen Ur Leukocyte Esterase Urine RBC Urine WBC Ur Squamous Epith Cells Urine Bacteria Urine Mucus Ur Culture Indicated? Urine Osmolality Ur Random Creatinine Ur Random Sodium Urine Urea Nitrogen Pending Urine Opiates Screen Ur Opiates Confirm Ur Oxycodone Screen Urine Methadone Screen Ur Methadone Confirm Ur Barbiturates Screen Ur Barbiturate Confirm Ur Phencyclidine Scrn Urine PCP Confirm Ur Amphetamines Screen U Amphetamines Confirm U Benzodiazepines Scrn U Benzodiazepine Confm Urine Cocaine Screen Urine Cocaine Confirm U Cannabinoids Confirm U Marijuana (THC) Screen Ethyl Alcohol 10/09/18 10/09/18 10/09/18 04:00 04:00 04:00 WBC 23.1 H RBC 3.54 L Hgb 11.2 L Hct 34.2 L POC Hct MCV 96.7 MCH 31.7 MCHC 32.8 RDW 13.5 Plt Count 271 MPV 9.1 Gran % 87.3 H Lymph % (Auto) 3.6 L Morgan % (Auto) 8.8 Eos % (Auto) 0.2 Baso % (Auto) 0.1 Gran # 20.1 H Lymph # (Auto) 0.8 L Morgan # (Auto) 2.0 H Eos # (Auto) 0 Baso # (Auto) 0 Total Counted Seg Neutrophils % Band Neutrophils % Lymphocytes % Monocytes % (Manual) Differential Comment Platelet Estimate RBC Morphology ESR VBG Lactic Acid POC Sodium Sodium 124 L POC Potassium Potassium 3.7 POC Chloride Chloride 86 L Carbon Dioxide 26 POC Total CO2 Anion Gap 12.0 POC BUN BUN 6 L Creatinine 0.6 L POC Creatinine GFR Calculation 103 Glucose 123 H POC Glucose Osmolality Uric Acid 2.8 Calcium 7.8 L POC WB Ioniz Calcium Phosphorus 2.0 L Magnesium 1.4 L Total Bilirubin 0.7 Direct Bilirubin < 0.2 GGT 27 AST 16 ALT 14 Alkaline Phosphatase 55 Lactate Dehydrogenase 188 Total Creatine Kinase CK-MB (CK-2) Troponin T C-Reactive Protein NT-Pro-B Natriuret Pep Total Protein 6.4 Albumin 3.5 Globulin 2.9 Albumin/Globulin Ratio 1.2 Triglycerides 42 Amylase Lipase 77 H Carcinoembryonic Ag CA 19-9 Antigen Procalcitonin TSH 2.04 Cortisol AM Sample Urine Color Urine Appearance Urine pH Ur Specific [place] Urine Protein Urine Glucose (UA) Urine Ketones Urine Occult Blood Urine Nitrate Urine Bilirubin Urine Urobilinogen Ur Leukocyte Esterase Urine RBC Urine WBC Ur Squamous Epith Cells Urine Bacteria Urine Mucus Ur Culture Indicated? Urine Osmolality Ur Random Creatinine Ur Random Sodium Urine Urea Nitrogen Urine Opiates Screen Ur Opiates Confirm Ur Oxycodone Screen Urine Methadone Screen Ur Methadone Confirm Ur Barbiturates Screen Ur Barbiturate Confirm Ur Phencyclidine Scrn Urine PCP Confirm Ur Amphetamines Screen U Amphetamines Confirm U Benzodiazepines Scrn U Benzodiazepine Confm Urine Cocaine Screen Urine Cocaine Confirm U Cannabinoids Confirm U Marijuana (THC) Screen Ethyl Alcohol 10/08/18 10/08/18 10/08/18 18:04 18:04 12:15 WBC RBC Hgb Hct POC Hct MCV MCH MCHC RDW Plt Count MPV Gran % Lymph % (Auto) [place] % (Auto) Eos % (Auto) Baso % (Auto) Gran # Lymph # (Auto) [place] # (Auto) Eos # (Auto) Baso # (Auto) Total Counted Seg Neutrophils % Band Neutrophils % Lymphocytes % Monocytes % (Manual) Differential Comment Platelet Estimate RBC Morphology ESR VBG Lactic Acid POC Sodium Sodium 124 L POC Potassium Potassium 3.7 POC Chloride Chloride 81 L Carbon Dioxide 27 POC Total CO2 Anion Gap 16.0 POC BUN BUN 7 L Creatinine 0.7 POC Creatinine GFR Calculation 97 Glucose 154 H POC Glucose Osmolality Uric Acid Calcium 8.4 L POC WB Ioniz Calcium Phosphorus Magnesium Total Bilirubin Direct Bilirubin GGT AST ALT Alkaline Phosphatase Lactate Dehydrogenase Total Creatine Kinase CK-MB (CK-2) Troponin T C-Reactive Protein NT-Pro-B Natriuret Pep Total Protein Albumin Globulin Albumin/Globulin Ratio Triglycerides Amylase Lipase Carcinoembryonic Ag 3.6 H CA 19-9 Antigen 98.4 H Procalcitonin TSH Cortisol AM Sample Urine Color Urine Appearance Urine pH Ur Specific [place] Urine Protein Urine Glucose (UA) Urine Ketones Urine Occult Blood Urine Nitrate Urine Bilirubin Urine Urobilinogen Ur Leukocyte Esterase Urine RBC Urine WBC Ur Squamous Epith Cells Urine Bacteria Urine Mucus Ur Culture Indicated? Urine Osmolality Ur Random Creatinine 23.2 Ur Random Sodium Urine Urea Nitrogen Urine Opiates Screen Ur Opiates Confirm Ur Oxycodone Screen Urine Methadone Screen Ur Methadone Confirm Ur Barbiturates Screen Ur Barbiturate Confirm Ur Phencyclidine Scrn Urine PCP Confirm Ur Amphetamines Screen U Amphetamines Confirm U Benzodiazepines Scrn U Benzodiazepine Confm Urine Cocaine Screen Urine Cocaine Confirm U Cannabinoids Confirm U Marijuana (THC) Screen Ethyl Alcohol 10/08/18 10/08/18 10/08/18 12:15 12:15 12:15 WBC RBC Hgb Hct POC Hct MCV MCH MCHC RDW Plt Count MPV Gran % Lymph % (Auto) [place] % (Auto) Eos % (Auto) Baso % (Auto) Gran # Lymph # (Auto) [place] # (Auto) Eos # (Auto) Baso # (Auto) Total Counted Seg Neutrophils % Band Neutrophils % Lymphocytes % Monocytes % (Manual) Differential Comment Platelet Estimate RBC Morphology ESR VBG Lactic Acid POC Sodium Sodium POC Potassium Potassium POC Chloride Chloride Carbon Dioxide POC Total CO2 Anion Gap POC BUN BUN Creatinine POC Creatinine GFR Calculation Glucose POC Glucose Osmolality Uric Acid Calcium POC WB Ioniz Calcium Phosphorus Magnesium Total Bilirubin Direct Bilirubin GGT AST ALT Alkaline Phosphatase Lactate Dehydrogenase Total Creatine Kinase CK-MB (CK-2) Troponin T C-Reactive Protein NT-Pro-B Natriuret Pep Total Protein Albumin Globulin Albumin/Globulin Ratio Triglycerides Amylase Lipase Carcinoembryonic Ag CA 19-9 Antigen Procalcitonin TSH Cortisol AM Sample Urine Color Straw Urine Appearance Clear Urine pH 7.0 Ur Specific [place] 1.008 Urine Protein Neg Urine Glucose (UA) Negative Urine Ketones Neg Urine Occult Blood 0.03 A Urine Nitrate Neg Urine Bilirubin Neg Urine Urobilinogen Neg Ur Leukocyte Esterase Neg Urine RBC 6 H Urine WBC 1 Ur Squamous Epith Cells < 1 Urine Bacteria 0 Urine Mucus Few Ur Culture Indicated? No Urine Osmolality 270 Ur Random Creatinine Ur Random Sodium 62 Urine Urea Nitrogen Urine Opiates Screen None detected Ur Opiates Confirm Not Reportable Ur Oxycodone Screen Suspect positive A Urine Methadone Screen None detected Ur Methadone Confirm Not Reportable Ur Barbiturates Screen None detected Ur Barbiturate Confirm Not Reportable Ur Phencyclidine Scrn None detected Urine PCP Confirm Not Reportable Ur Amphetamines Screen None detected U Amphetamines Confirm Not Reportable U Benzodiazepines Scrn None detected U Benzodiazepine Confm Not Reportable Urine Cocaine Screen None detected Urine Cocaine Confirm Not Reportable U Cannabinoids Confirm Not Reportable U Marijuana (THC) Screen Suspect positive A Ethyl Alcohol 10/08/18 10/08/18 10/08/18 11:07 11:07 11:07 WBC RBC Hgb Hct POC Hct MCV MCH MCHC RDW Plt Count MPV Gran % Lymph % (Auto) [place] % (Auto) Eos % (Auto) Baso % (Auto) Gran # Lymph # (Auto) [place] # (Auto) Eos # (Auto) Baso # (Auto) Total Counted Seg Neutrophils % Band Neutrophils % Lymphocytes % Monocytes % (Manual) Differential Comment Platelet Estimate RBC Morphology ESR VBG Lactic Acid POC Sodium Sodium POC Potassium Potassium POC Chloride Chloride Carbon Dioxide POC Total CO2 Anion Gap POC BUN BUN Creatinine POC Creatinine GFR Calculation Glucose POC Glucose Osmolality 255 L Uric Acid 3.2 Calcium POC WB Ioniz Calcium Phosphorus Magnesium Total Bilirubin Direct Bilirubin GGT AST ALT Alkaline Phosphatase Lactate Dehydrogenase 180 Total Creatine Kinase CK-MB (CK-2) Troponin T C-Reactive Protein NT-Pro-B Natriuret Pep Total Protein Albumin Globulin Albumin/Globulin Ratio Triglycerides Amylase Lipase Carcinoembryonic Ag CA 19-9 Antigen Procalcitonin 0.16 TSH Cortisol AM Sample Urine Color Urine Appearance Urine pH Ur Specific [place] Urine Protein Urine Glucose (UA) Urine Ketones Urine Occult Blood Urine Nitrate Urine Bilirubin Urine Urobilinogen Ur Leukocyte Esterase Urine RBC Urine WBC Ur Squamous Epith Cells Urine Bacteria Urine Mucus Ur Culture Indicated? Urine Osmolality Ur Random Creatinine Ur Random Sodium Urine Urea Nitrogen Urine Opiates Screen Ur Opiates Confirm Ur Oxycodone Screen Urine Methadone Screen Ur Methadone Confirm Ur Barbiturates Screen Ur Barbiturate Confirm Ur Phencyclidine Scrn Urine PCP Confirm Ur Amphetamines Screen U Amphetamines Confirm U Benzodiazepines Scrn U Benzodiazepine Confm Urine Cocaine Screen Urine Cocaine Confirm U Cannabinoids Confirm U Marijuana (THC) Screen Ethyl Alcohol 10/08/18 10/08/18 10/08/18 11:07 11:07 11:02 WBC RBC Hgb Hct POC Hct MCV MCH MCHC RDW Plt Count MPV Gran % Lymph % (Auto) [place] % (Auto) Eos % (Auto) Baso % (Auto) Gran # Lymph # (Auto) [place] # (Auto) Eos # (Auto) Baso # (Auto) Total Counted Seg Neutrophils % Band Neutrophils % Lymphocytes % Monocytes % (Manual) Differential Comment Platelet Estimate RBC Morphology ESR VBG Lactic Acid POC Sodium Sodium POC Potassium Potassium POC Chloride Chloride Carbon Dioxide POC Total CO2 Anion Gap POC BUN BUN Creatinine POC Creatinine GFR Calculation Glucose POC Glucose Osmolality Uric Acid Calcium POC WB Ioniz Calcium Phosphorus Magnesium Total Bilirubin Direct Bilirubin GGT AST ALT Alkaline Phosphatase Lactate Dehydrogenase Total Creatine Kinase CK-MB (CK-2) Troponin T < 0.01 C-Reactive Protein NT-Pro-B Natriuret Pep 801.6 H Total Protein Albumin Globulin Albumin/Globulin Ratio Triglycerides Amylase Lipase Carcinoembryonic Ag CA 19-9 Antigen Procalcitonin TSH Cortisol AM Sample Urine Color Urine Appearance Urine pH Ur Specific [place] Urine Protein Urine Glucose (UA) Urine Ketones Urine Occult Blood Urine Nitrate Urine Bilirubin Urine Urobilinogen Ur Leukocyte Esterase Urine RBC Urine WBC Ur Squamous Epith Cells Urine Bacteria Urine Mucus Ur Culture Indicated? Urine Osmolality Ur Random Creatinine Ur Random Sodium Urine Urea Nitrogen Urine Opiates Screen Ur Opiates Confirm Ur Oxycodone Screen Urine Methadone Screen Ur Methadone Confirm Ur Barbiturates Screen Ur Barbiturate Confirm Ur Phencyclidine Scrn Urine PCP Confirm Ur Amphetamines Screen U Amphetamines Confirm U Benzodiazepines Scrn U Benzodiazepine Confm Urine Cocaine Screen Urine Cocaine Confirm U Cannabinoids Confirm U Marijuana (THC) Screen Ethyl Alcohol < 0.010 10/08/18 10/08/18 10/08/18 11:02 11:02 11:02 WBC RBC Hgb Hct POC Hct 39.0 L MCV MCH MCHC RDW Plt Count MPV Gran % Lymph % (Auto) [place] % (Auto) Eos % (Auto) Baso % (Auto) Gran # Lymph # (Auto) [place] # (Auto) Eos # (Auto) Baso # (Auto) Total Counted Seg Neutrophils % Band Neutrophils % Lymphocytes % Monocytes % (Manual) Differential Comment Platelet Estimate RBC Morphology ESR VBG Lactic Acid 2.1 H POC Sodium 120 L Sodium 123 L POC Potassium 3.6 Potassium 3.8 POC Chloride 81 L Chloride 80 L Carbon Dioxide 25 POC Total CO2 28 Anion Gap 18.0 H POC BUN 9 BUN 9 Creatinine 0.7 POC Creatinine 0.6 L GFR Calculation 97 Glucose 184 H POC Glucose 192 H Osmolality Uric Acid Calcium 8.9 POC WB Ioniz Calcium 1.07 L Phosphorus Magnesium Total Bilirubin 1.0 Direct Bilirubin GGT AST 16 ALT 15 Alkaline Phosphatase 57 Lactate Dehydrogenase Total Creatine Kinase 97 CK-MB (CK-2) 1.9 Troponin T C-Reactive Protein NT-Pro-B Natriuret Pep Total Protein 7.2 Albumin 4.2 Globulin 3.0 Albumin/Globulin Ratio 1.4 Triglycerides Amylase 225 H Lipase 257 H Carcinoembryonic Ag CA 19-9 Antigen Procalcitonin TSH Cortisol AM Sample Urine Color Urine Appearance Urine pH Ur Specific [place] Urine Protein Urine Glucose (UA) Urine Ketones Urine Occult Blood Urine Nitrate Urine Bilirubin Urine Urobilinogen Ur Leukocyte Esterase Urine RBC Urine WBC Ur Squamous Epith Cells Urine Bacteria Urine Mucus Ur Culture Indicated? Urine Osmolality Ur Random Creatinine Ur Random Sodium Urine Urea Nitrogen Urine Opiates Screen Ur Opiates Confirm Ur Oxycodone Screen Urine Methadone Screen Ur Methadone Confirm Ur Barbiturates Screen Ur Barbiturate Confirm Ur Phencyclidine Scrn Urine PCP Confirm Ur Amphetamines Screen U Amphetamines Confirm U Benzodiazepines Scrn U Benzodiazepine Confm Urine Cocaine Screen Urine Cocaine Confirm U Cannabinoids Confirm U Marijuana (THC) Screen Ethyl Alcohol 10/08/18 11:02 WBC 20.3 H RBC 3.91 L Hgb 12.4 L Hct 37.5 L POC Hct MCV 95.8 MCH 31.8 MCHC 33.2 RDW 13.2 Plt Count 310 MPV 9.0 Gran % Lymph % (Auto) [place] % (Auto) Eos % (Auto) Baso % (Auto) Gran # Lymph # (Auto) [place] # (Auto) Eos # (Auto) Baso # (Auto) Total Counted 100 Seg Neutrophils % 81 H Band Neutrophils % 3 Lymphocytes % 6 L Monocytes % (Manual) 10 Differential Comment Platelet Estimate Normal RBC Morphology Normal ESR VBG Lactic Acid POC Sodium Sodium POC Potassium Potassium POC Chloride Chloride Carbon Dioxide POC Total CO2 Anion Gap POC BUN BUN Creatinine POC Creatinine GFR Calculation Glucose POC Glucose Osmolality Uric Acid Calcium POC WB Ioniz Calcium Phosphorus Magnesium Total Bilirubin Direct Bilirubin GGT AST ALT Alkaline Phosphatase Lactate Dehydrogenase Total Creatine Kinase CK-MB (CK-2) Troponin T C-Reactive Protein NT-Pro-B Natriuret Pep Total Protein Albumin Globulin Albumin/Globulin Ratio Triglycerides Amylase Lipase Carcinoembryonic Ag CA 19-9 Antigen Procalcitonin TSH Cortisol AM Sample Urine Color Urine Appearance Urine pH Ur Specific [place] Urine Protein Urine Glucose (UA) Urine Ketones Urine Occult Blood Urine Nitrate Urine Bilirubin Urine Urobilinogen Ur Leukocyte Esterase Urine RBC Urine WBC Ur Squamous Epith Cells Urine Bacteria Urine Mucus Ur Culture Indicated? Urine Osmolality Ur Random Creatinine Ur Random Sodium Urine Urea Nitrogen Urine Opiates Screen Ur Opiates Confirm Ur Oxycodone Screen Urine Methadone Screen Ur Methadone Confirm Ur Barbiturates Screen Ur Barbiturate Confirm Ur Phencyclidine Scrn Urine PCP Confirm Ur Amphetamines Screen U Amphetamines Confirm U Benzodiazepines Scrn U Benzodiazepine Confm Urine Cocaine Screen Urine Cocaine Confirm U Cannabinoids Confirm U Marijuana (THC) Screen Ethyl Alcohol Medical - DS: A/P - Patient/Caregiver Discharge Instructions Activity: increase activity as tolerated Diet: Low Fat (Abstain from alcohol and tobacco) Additional Instructions: Follow-up with PCP regarding Biopsy results. Follow-up with PCP regarding monitoring of incidentally found 3cm infrarenal abdominal aortic aneurysm - Follow up Plan Follow up with: Vivek Turcios MD, FAAFP [Primary Care Provider] - Disposition: Home, Self-Care Prognosis: Fair Rehab Potential: Fair Overall status at discharge: patient is progressing back to baseline Medical - DS: Qual - VTE Deep Vein Thrombosis/Pulmonary Embolism Present on Admission: No
[2018-10-09] MEDS: SODIUM CHLORIDE 1 GM TABLET PO SCH ×3 (11:16→20:10)
[2018-10-09] MEDS: DOCUSATE SODIUM 100 MG CAPSULE PO SCH ×2 (11:16→20:10)
[2018-10-09] MEDS: IPRATROPIUM/ALBUTEROL 3 ML AMPUL.NEB NEB PRN ×2 (11:29→20:05)
[2018-10-09] MEDS: CALCIUM CARBONATE 500 MG TAB.CHEW CHEWED PRN ×2 (13:41→17:40)
[2018-10-09] MEDS: FLUTICASONE/SALMETEROL 250/50 INHALER #14 INH SCH (20:12)
[2018-10-09] MEDS ORDERED: RANITIDINE HCL PO SCH (21:00)
[2018-10-10] MEDS: HYDROmorphone 2 MG/ML VIAL IV PRN ×6 (01:55→16:20)
[2018-10-10] MEDS: INSULIN LISPRO 1 UNIT/0.01 ML UNIT SQ SCH ×4 (02:01→16:25)
[2018-10-10 05:23] LABS: Basophils # (Auto) 0 K/mcL (0.0-0.3); Basophils % (Auto) 0.1 % (0.0-2.0); Eosinophils # (Auto) 0.1 K/mcL (0.0-0.7); Eosinophils % (Auto) 0.8 % (0.0-7.0); Granulocytes % (Auto) 82.8 % (38.0-78.0); Hematocrit 30.9 % (41.0-55.0); Hemoglobin 10.3 g/dL (13.5-16.5); Lymphocytes # (Auto) 1.1 K/mcL (1.5-4.8); Lymphocytes % (Auto) 7.3 % (15.5-49.0); Mean Cell Volume 95.8 fL (80.0-100.0); Mean Corpuscular HGB Conc 33.3 g/dL (31.0-36.0); Mean Platelet Volume 8.8 fL (7.4-10.4); Monocytes # (Auto) 1.3 K/mcL (0.1-0.9); Platelet Count 265 K/mcL (140-440); RBC 3.23 M/mcL (4.50-5.90); Red Cell Distribution Width 13.6 % (11.5-14.5); WBC 14.8 K/mcL (4.5-11.0)
[2018-10-10] MEDS: 0.9 % SODIUM CHLORIDE 10 ML SYRINGE IV SCH ×2 (05:49→16:21)
[2018-10-10 05:59] LABS: ALT/SGPT 12 U/l (0-40); AST/SGOT 13 U/l (0-37); Albumin 3.2 gm/dL (3.2-5.2); Albumin/Globulin Ratio 1.1 (1.0-2.3); Alkaline Phosphatase 61 U/L (39-117); Bilirubin,Direct < 0.2 mg/dL (0.0-0.3); Bilirubin,Total 0.4 mg/dL (0.0-1.0); Blood Urea Nitrogen 5 mg/dl (8-23); Calcium 7.9 mg/dl (8.6-10.4); Carbon Dioxide 27 mmol/L (22-30); Chloride 93 mmol/L (96-108); Glomerular Filtration Rate 111; Glucose 135 mg/dL (70-105); Lactate Dehydrogenase 184 U/L (94-250); Magnesium 1.9 mg/dL (1.6-2.5); Phosphorous 1.5 mg/dL (2.7-4.5); Potassium 3.7 mmol/L (3.3-5.1); Sodium 131 mmol/L (133-145); Triglycerides 60 mg/dl (<150); Uric Acid 3.8 mg/dL (2.5-8.0)
[2018-10-10 06:01] LABS: INR 1.2 (0.9-1.1); Prothrombin Time 15.4 sec (11.9-14.5)
[2018-10-10] MEDS ORDERED: POTASSIUM PHOSPHATE 40 MEQ in DEXTROSE 5% IN WATER 500 ML IV ONE (06:50)
--- NOTE | 2018-10-10 06:53 | Internal Med Progress Note ---
Medical - PN: Subj Patient information: Note initiated : 10/10/18 at 6:47 am Service Date, if different from initiated Date: [] Patient: Markel Edward 67 y/o M admitted on 10/08/18 for L side abd pain, radiates to back. Chief Complaint: [] Interval history: Mr. Edward is a 67 year old M Presents to the ED with abdominal pain. Patient states that Saturday morning woke up feeling okay had breakfast and then developed dull achy abdominal pain that radiated to his back which felt just like the pancreatitis he has had in the past. He drinks about 3-4 beers per day, typically no liquor, have a Trang about a week prior when he went to a restaurant. He is marijuana but no other drug use. Not smoke anymore but she is tobacco. Denies any fever chills. He has a chronic cough with clear sputum but that is his baseline. Denies any shortness of breath. Feels constipated. No fevers or chills. Has some nausea but no vomiting. In the ED he was mildly tachycardic I found to have elevated lipase mildly elevated lactate and leukocytosis. Chest x-ray with Atelectasis versus other infiltrate. CT showing acute on chronic pancreatitis. CT also did mention a conglomerate of lymphadenopathy which may be felt beneficial to have biopsy in future if her renal abdominal aortic aneurysm which should have annual ultrasound. Blood pressure stable, afebrile. Received 3 L of IV fluid in the ED. 10/09 Slept well. Feeling a little better, still has abdominal pain but slowly improving. Tolerated ice chips last night and will advance to liquids today. Plan for MRCP. no nausea or vomiting. States constipation. 10/10 No overnight events. Patient's abdomen is feeling better. Also less tender. Tolerating clear liquids just fine. Scheduled for retroperitoneal lymph node biopsy today. Possible discharge later in the day after trialing full liquid for lunch after procedure. Review of Systems: denies headache/fever/chills/nausea/vomiting/chest pain/cough/dyspnea/diarrhea. Otherwise see above. - Constitutional Vitals: Vital Signs Temp Pulse Resp BP Pulse Ox 98.5 F 100 H 20 175/86 95 10/10/18 06:32 10/10/18 03:51 10/10/18 06:32 10/10/18 06:32 10/10/18 06:32 Period Temp Pulse Resp BP Sys/Yoder Pulse Ox Last 24 Hr 98.2 F-99.6 F 86-110 16-24 124-175/78-95 91-98 Intake and Output 10/09/18 10/10/18 10/10/18 21:59 05:59 13:59 Intake Total 2020 0 Output Total 1375 600 Balance 645 -600 Weight 115.439 kg Intake & Output: Intake & Output 10/09/18 10/10/18 10/10/18 21:59 05:59 13:59 Intake Total 2020 0 Output Total 1375 600 Balance 645 -600 Weight 115.439 kg Intake: IV 1000 Sodium Chloride 0.9% 1,000 ml @ 1000 75 mls/hr IV .[id number] [facility] Rx#: [id number] Oral 1020 0 Output: Void Amount 1375 600 Other: Meal Dinner Percent of Meal Consumed 75% Feeding Ability Independent Urine Appearance Clear Clear Urine Color Bright Yellow Bright Yellow Urine Odor Normal Normal # Bowel Movements 0 Exam: General: Alert, Awake, No acute Distress, obese Eyes/N/T: EOMI, Head/Neck: neck supple, CV: Mildly tacky but regular, No murmurs, Pulm: Clear b/l, no wheezing/rhonchi/rales Abd: soft, protuberant, tenderness to palpation is much improved, +BS x4 Ext: no clubbing/cyanosis, trace b/l LE edema Neuro: Alert, no focal deficits, moves all extremities, Skin: warm/dry Medical - PN: Obj Da - Labs CBC & Chem 7: 10/10/18 03:50 10/10/18 03:50 Labs: Abnormal Lab Results 10/10/18 10/10/18 10/10/18 03:50 03:50 03:50 WBC RBC Hgb Hct POC Hct Gran % Lymph % (Auto) Gran # Lymph # (Auto) [place] # (Auto) Seg Neutrophils % Lymphocytes % ESR PT 15.4 H INR 1.2 H VBG Lactic Acid POC Sodium Sodium 131 L POC Chloride Chloride 93 L Anion Gap BUN 5 L Creatinine 0.5 L POC Creatinine Glucose 135 H POC Glucose Osmolality Calcium 7.9 L POC WB Ioniz Calcium Phosphorus 1.5 L Magnesium C-Reactive Protein 16.9 H NT-Pro-B Natriuret Pep Amylase Lipase Carcinoembryonic Ag CA 19-9 Antigen Urine Occult Blood Urine RBC Ur Oxycodone Screen U Marijuana (THC) Screen 10/10/18 10/09/18 10/09/18 03:50 04:00 04:00 WBC 14.8 H RBC 3.23 L Hgb 10.3 L Hct 30.9 L POC Hct Gran % 82.8 H Lymph % (Auto) 7.3 L Gran # 12.2 H Lymph # (Auto) 1.1 L [place] # (Auto) 1.3 H Seg Neutrophils % 85 H Lymphocytes % 7 L ESR 57 H PT INR VBG Lactic Acid POC Sodium Sodium POC Chloride Chloride Anion Gap BUN Creatinine POC Creatinine Glucose POC Glucose Osmolality Calcium POC WB Ioniz Calcium Phosphorus Magnesium C-Reactive Protein 20.5 H NT-Pro-B Natriuret Pep Amylase Lipase Carcinoembryonic Ag CA 19-9 Antigen Urine Occult Blood Urine RBC Ur Oxycodone Screen U Marijuana (THC) Screen 10/09/18 10/09/18 10/08/18 04:00 04:00 18:04 WBC 23.1 H RBC 3.54 L Hgb 11.2 L Hct 34.2 L POC Hct Gran % 87.3 H Lymph % (Auto) 3.6 L Gran # 20.1 H Lymph # (Auto) 0.8 L [place] # (Auto) 2.0 H Seg Neutrophils % Lymphocytes % ESR PT INR VBG Lactic Acid POC Sodium Sodium 124 L POC Chloride Chloride 86 L Anion Gap BUN 6 L Creatinine 0.6 L POC Creatinine Glucose 123 H POC Glucose Osmolality Calcium 7.8 L POC WB Ioniz Calcium Phosphorus 2.0 L Magnesium 1.4 L C-Reactive Protein NT-Pro-B Natriuret Pep Amylase Lipase 77 H Carcinoembryonic Ag 3.6 H CA 19-9 Antigen 98.4 H Urine Occult Blood Urine RBC Ur Oxycodone Screen U Marijuana (THC) Screen 10/08/18 10/08/18 10/08/18 18:04 12:15 12:15 WBC RBC Hgb Hct POC Hct Gran % Lymph % (Auto) Gran # Lymph # (Auto) [place] # (Auto) Seg Neutrophils % Lymphocytes % ESR PT INR VBG Lactic Acid POC Sodium Sodium 124 L POC Chloride Chloride 81 L Anion Gap BUN 7 L Creatinine POC Creatinine Glucose 154 H POC Glucose Osmolality Calcium 8.4 L POC WB Ioniz Calcium Phosphorus Magnesium C-Reactive Protein NT-Pro-B Natriuret Pep Amylase Lipase Carcinoembryonic Ag CA 19-9 Antigen Urine Occult Blood 0.03 A Urine RBC 6 H Ur Oxycodone Screen Suspect positive A U Marijuana (THC) Screen Suspect positive A 10/08/18 10/08/18 10/08/18 11:07 11:07 11:02 WBC RBC Hgb Hct POC Hct 39.0 L Gran % Lymph % (Auto) Gran # Lymph # (Auto) [place] # (Auto) Seg Neutrophils % Lymphocytes % ESR PT INR VBG Lactic Acid POC Sodium 120 L Sodium POC Chloride 81 L Chloride Anion Gap BUN Creatinine POC Creatinine 0.6 L Glucose POC Glucose 192 H Osmolality 255 L Calcium POC WB Ioniz Calcium 1.07 L Phosphorus Magnesium C-Reactive Protein NT-Pro-B Natriuret Pep 801.6 H Amylase 225 H Lipase 257 H Carcinoembryonic Ag CA 19-9 Antigen Urine Occult Blood Urine RBC Ur Oxycodone Screen U Marijuana (THC) Screen 10/08/18 10/08/18 10/08/18 11:02 11:02 11:02 WBC 20.3 H RBC 3.91 L Hgb 12.4 L Hct 37.5 L POC Hct Gran % Lymph % (Auto) Gran # Lymph # (Auto) [place] # (Auto) Seg Neutrophils % 81 H Lymphocytes % 6 L ESR PT INR VBG Lactic Acid 2.1 H POC Sodium Sodium 123 L POC Chloride Chloride 80 L Anion Gap 18.0 H BUN Creatinine POC Creatinine Glucose 184 H POC Glucose Osmolality Calcium POC WB Ioniz Calcium Phosphorus Magnesium C-Reactive Protein NT-Pro-B Natriuret Pep Amylase Lipase Carcinoembryonic Ag CA 19-9 Antigen Urine Occult Blood Urine RBC Ur Oxycodone Screen U Marijuana (THC) Screen Meds: Medications Acetaminophen (Tylenol) 650 mg PO Q6HP PRN PRN Reason: PAIN/FEVER > 101 Al Hydrox/Mg Hydrox/Simethicone (Maalox) 30 ml PO Q6HP PRN PRN Reason: Dyspepsia Last Admin: 10/08/18 17:03 Dose: 30 ml Documented by: Albuterol/Ipratropium (Duoneb) 3 ml NEB Q4HRT PRN PRN Reason: Bronchospasm Last Admin: 10/09/18 20:05 Dose: 3 ml Documented by: Bisacodyl (Dulcolax) 10 mg NJ Q2-3DAYS PRN PRN Reason: Constipation Calcium Carbonate/Glycine (Tums) 1,000 mg CHEWED Q4HP PRN PRN Reason: Dyspepsia Last Admin: 10/09/18 17:40 Dose: 1,000 mg Documented by: Diagnostic Test (Pha) (Accu-Chek) 1 each FS Q6 [facility] Last Admin: 10/10/18 05:50 Dose: 1 each Documented by: Docusate Sodium (Colace) 100 mg PO BID [facility] Last Admin: 10/09/18 20:10 Dose: 100 mg Documented by: Enoxaparin Sodium (Lovenox) 40 mg SQ DAILY [facility] Last Admin: 10/09/18 08:48 Dose: 40 mg Documented by: Famotidine (Pepcid) 20 mg IV Q12 [facility] Last Admin: 10/09/18 20:10 Dose: 20 mg Documented by: Hydromorphone HCl (Dilaudid) 0.5 mg IV Q2HP PRN PRN Reason: PAIN LEVEL > 6 Last Admin: 10/10/18 05:46 Dose: 0.5 mg Documented by: Sodium Chloride (Sodium Chloride 0.9%) 1,000 mls @ 75 mls/hr IV .[id number] [facility] Last Admin: 10/09/18 23:50 Dose: Not Given Documented by: Insulin Human Lispro (Humalog) 0 unit SQ Q6 [facility]; Protocol Last Admin: 10/10/18 05:50 Dose: Not Given Documented by: Labetalol HCl (Trandate) 0 mg IV Q2HP PRN PRN Reason: Hypertension Last Admin: 10/08/18 19:35 Dose: 10 mg Documented by: Nicotine (Nicoderm) 21 mg TOPICAL DAILY@1000 VIC Last Admin: 10/09/18 08:45 Dose: 21 mg Documented by: Ondansetron HCl (Zofran) 4 mg IV Q6HP PRN PRN Reason: Nausea And Vomiting Polyethylene Glycol (Miralax) 17 gm PO DAILYP PRN PRN Reason: Constipation Last Admin: 10/09/18 11:18 Dose: 17 gm Documented by: Prochlorperazine (Compazine) 5 mg IV Q4HP PRN PRN Reason: Nausea And Vomiting Fluticasone/Salmeterol (Advair 250-50 Diskus) 1 puff INH HS [facility] Last Admin: 10/09/18 20:12 Dose: 1 puff Documented by: Sodium Chloride (Saline Flush) 10 ml IV Q8 [facility] Last Admin: 10/10/18 05:49 Dose: Not Given Documented by: Sodium Chloride (Sodium Chloride) 1 gm PO TID [facility] Last Admin: 10/09/18 20:10 Dose: 1 gm Documented by: Medical - PN: A/P - Time Spent With Patient Total time spent is greater than 50% in coordination of care (as documented) at patient's floor/unit and/or counseling patient: - Narrative A/P Narrative: A: *Acute on chronic pancreatitis: Patient with continued alcohol use -GB u/s ok *Hyponatremia, hypotonic: With history of hyponatremia in the past admissions -improved *Atelectasis: *Retroperi Lymphadenopathy posterior to Pancreatic head, low attenuation suggests possible metastatic infiltration: -elevated ca19-9 -MRCP no masses *Obesity: *COPD (4L NC@home and Nocturnal BIPAP): *h/o diastolic (grade II) CHF and Right HF/Cor pulmonale: *HTN/HLD: *GERD: *Tobacco abuse: *DM: * P: -IVF's until procedure then d/c -pain control -advance to full liquid after procedure -pending CT guided biopsy -hold ARB (class Ib pancreatitis med), restart as etiology so more likely etoh or underlying pathology undergoing w/u -home BIPAP and O2 supp -IS -SSI - f/u abd u/s for AAA noted on CT -Possible d/c this afternoon if tolerating advanced diet -ppx: Lovenox/home H2-christina Full code Medical - PN: Qual - VTE Deep Vein Thrombosis/Pulmonary Embolism Present on Admission: No
[2018-10-10] MEDS: IPRATROPIUM/ALBUTEROL 3 ML AMPUL.NEB NEB PRN ×2 (08:01→12:19)
[2018-10-10] MEDS ORDERED: MIDAZOLAM 2 MG/2 ML VIAL IV ONE (11:00)
[2018-10-10] MEDS ORDERED: fentaNYL 100 MCG/2 ML VIAL IV ONE (11:00)
[2018-10-10] MEDS ORDERED: LIDOCAINE 1% 20 ML VIAL SQ ONE (11:26)
[2018-10-10] MEDS: FAMOTIDINE/PF 20 MG/2 ML VIAL IV SCH ×2 (13:07→21:23)
[2018-10-10] MEDS: LOSARTAN 50 MG TABLET PO SCH (13:08)
[2018-10-10] MEDS: DOCUSATE SODIUM 100 MG CAPSULE PO SCH ×2 (13:08→21:23)
[2018-10-10] MEDS: SODIUM CHLORIDE 1 GM TABLET PO SCH ×3 (13:08→21:23)
[2018-10-10] MEDS: NICOTINE 21 MG PATCH TOPICAL SCH (13:08)
[2018-10-10] MEDS: ENOXAPARIN 40 MG/0.4 ML SYRINGE SQ SCH (13:09)
[2018-10-10] MEDS: 0.9 % SODIUM CHLORIDE 1,000 ML IV SCH (14:40)
--- NOTE | 2018-10-10 14:55 | Cat Scan Report ---
CLINICAL INFORMATION: 8 cm adenopathy conglomerate in the upper retrocaval region of the upper abdomen TECHNIQUE: Procedure and risks including possibility of bleeding, infection, bowel perforation inadequate tissue sampling requiring rebiopsy were explained to the patient. He understood and wished to proceed. He was medicated prior to, during the procedure IV versed and fentanyl in divided dosages - please see medication sheet for dosages. Blood pressure and pulse oximetry were monitored and he maintain consciousness during the examination. Total sedation time 25 minutes. With the patient in prone position, the the right retroperitoneal conglomerative adenopathy is for CT scan localized. Skin overlying the lesion was marked, prepped and locally anesthetized 1% lidocaine using 25-gauge spinal needle. A 17-gauge Temno guide was advanced under CT guidance to the posterior aspect of the lesion. Through this guiding, an 18-gauge Temno needle was used to obtain six core samples through the mass. Samples were sent in formalin to pathology.. Postprocedure scanning shows no hemorrhage or other complication. The patient tolerated the procedure procedure well. IMPRESSION: CT-guided percutaneous biopsy of right retroperitoneal conglomerative adenopathy. Pathology pending. No apparent complication Interpreted and Authenticated by: Jose Eduardo Fitzgerald 10/10/18
[2018-10-10] MEDS ORDERED: HYDROcodone/APAP 5/325MG TABLET PO PRN (16:22)
[2018-10-10] MEDS: LABETALOL 5 MG/ML ML IV PRN (19:37)
[2018-10-10] MEDS: FLUTICASONE/SALMETEROL 250/50 INHALER #14 INH SCH (21:23)
[2018-10-11] MEDS: INSULIN LISPRO 1 UNIT/0.01 ML UNIT SQ SCH ×2 (00:18→05:44)
[2018-10-11] MEDS: LABETALOL 5 MG/ML ML IV PRN ×2 (00:22→06:57)
[2018-10-11] MEDS: CALCIUM CARBONATE 500 MG TAB.CHEW CHEWED PRN ×2 (01:45→06:32)
[2018-10-11 05:30] LABS: Basophils # (Auto) 0 K/mcL (0.0-0.3); Basophils % (Auto) 0.4 % (0.0-2.0); Eosinophils # (Auto) 0.3 K/mcL (0.0-0.7); Eosinophils % (Auto) 2.5 % (0.0-7.0); Granulocytes % (Auto) 79.7 % (38.0-78.0); Hematocrit 30.2 % (41.0-55.0); Hemoglobin 9.9 g/dL (13.5-16.5); Lymphocytes # (Auto) 0.9 K/mcL (1.5-4.8); Lymphocytes % (Auto) 8.5 % (15.5-49.0); Mean Corpuscular HGB Conc 32.7 g/dL (31.0-36.0); Mean Platelet Volume 8.8 fL (7.4-10.4); Monocytes # (Auto) 0.9 K/mcL (0.1-0.9); Monocytes % (Auto) 8.9 % (1.0-12.0); Platelet Count 274 K/mcL (140-440); RBC 3.11 M/mcL (4.50-5.90); Red Cell Distribution Width 13.7 % (11.5-14.5); WBC 10.6 K/mcL (4.5-11.0)
[2018-10-11 05:52] LABS: ALT/SGPT 14 U/l (0-40); AST/SGOT 13 U/l (0-37); Albumin/Globulin Ratio 1.1 (1.0-2.3); Alkaline Phosphatase 87 U/L (39-117); Bilirubin,Direct < 0.2 mg/dL (0.0-0.3); Bilirubin,Total 0.4 mg/dL (0.0-1.0); Blood Urea Nitrogen 4 mg/dl (8-23); Carbon Dioxide 27 mmol/L (22-30); Chloride 93 mmol/L (96-108); Globulin 2.8 gm/dL (2.2-3.7); Glomerular Filtration Rate 111; Glucose 141 mg/dL (70-105); Lactate Dehydrogenase 215 U/L (94-250); Magnesium 1.9 mg/dL (1.6-2.5); Phosphorous 2.2 mg/dL (2.7-4.5); Potassium 4.1 mmol/L (3.3-5.1); Sodium 129 mmol/L (133-145); Triglycerides 63 mg/dl (<150); Uric Acid 3.5 mg/dL (2.5-8.0)
[2018-10-11] MEDS: FAMOTIDINE/PF 20 MG/2 ML VIAL IV SCH (08:54)
[2018-10-11] MEDS: SODIUM CHLORIDE 1 GM TABLET PO SCH (08:54)
[2018-10-11] MEDS: DOCUSATE SODIUM 100 MG CAPSULE PO SCH (08:54)
[2018-10-11] MEDS: LOSARTAN 50 MG TABLET PO SCH (08:54)
[2018-10-11] MEDS: ENOXAPARIN 40 MG/0.4 ML SYRINGE SQ SCH (08:54)
[2018-10-11] MEDS: NICOTINE 21 MG PATCH TOPICAL SCH (09:02)
[2018-10-11] MEDS: IPRATROPIUM/ALBUTEROL 3 ML AMPUL.NEB NEB PRN (09:44)
--- NOTE | 2018-10-11 10:32 | Discharge Summary ---
Medical - DS: Prov Patient information: Note initiated : 10/11/18 at 10:30 am Service Date, if different from initiated Date: [] Patient: Markel Edward 67 y/o M admitted on 10/08/18 for L side abd pain, radiates to back. Chief Complaint: [] Date of admission: 10/08/18 16:28 Discharge date: 10/11/18 Primary care physician: Vivek Turcios M.D., F.A.A.F.P. Consults: 10/08/18 Consult to Physician [CONS] Stat Comment: Consulting Provider: Regino Lynch Reason For Exam: Physician to Consult Medical - DS: Meds - Discharge Medications Prescriptions: HYDROcodone/APAP 5/325MG [Stem 5-325Mg] 0 tab PO Q4HP PRN #30 tab PRN Reason: Pain Level 3-6 Active and Home Medications: Home Medications [facility] fish oil 1,200 mg PO BID 07/28/15 [History Confirmed 10/08/18 Last Taken 10/08/18] albuterol sulfate HFA 90 mcg/actuation aerosol inhaler 2 puff INHALATION QIDP PRN g 07/28/15 [History Confirmed 10/08/18 Last Taken 10/08/18] atorvastatin 20 mg tablet 20 mg PO QDAY 07/28/15 [History Confirmed 10/08/18 Last Taken 10/07/18] blood sugar diagnostic strips See Protocol .ROUTE .MEDSUPPLY 07/28/15 [History Confirmed 10/09/18 Last Taken Unknown] glipizide 5 mg tablet 5 mg PO BID tab 07/28/15 [History Confirmed 10/08/18 Last Taken 10/08/18] lancets 28 gauge See Dose Instructions .ROUTE .MEDSUPPLY 07/28/15 [History Confirmed 10/09/18 Last Taken Unknown] metformin 1,000 mg tablet 1,000 mg PO DAILY 07/28/15 [History Confirmed 10/08/18 Last Taken 10/08/18] furosemide 20 mg tablet 40 mg PO QDAY tab 11/23/16 [History Confirmed 10/08/18 Last Taken 10/08/18] ibuprofen 200 mg tablet 200 mg PO Q6H tab 11/23/16 [History Confirmed 10/08/18 Last Taken 10/07/18] ipratropium-albuterol 0.5 mg-3 mg(2.5 mg base)/3 mL nebulization soln 3 ml I NHALATION QID 11/23/16 [History Confirmed 10/08/18 Last Taken 10/08/18] oxygen-air delivery systems device 4 each .ROUTE .MEDSUPPLY 11/23/16 [History Confirmed 10/08/18 Last Taken Unknown] metformin 500 mg tablet 1,500 mg PO QPM tab 09/05/18 [History Confirmed 10/08/18 Last Taken 10/07/18] Cyanocobalamin [Vitamin B12] 1,000 mcg IM MONTHLY 10/08/18 [History Confirmed 10/08/18 Last Taken Unknown] Fluticasone/Salmeterol [Advair 250-50 Diskus] 1 puff INH HS 10/08/18 [History Confirmed 10/08/18 Last Taken 10/07/18] Losartan [Cozaar] 1 tab PO DAILY 10/08/18 [History Confirmed 10/08/18 Last Taken 10/08/18] Ranitidine HCl [Acid Cfd Engineer] 1 tab PO HS 10/08/18 [History Confirmed 10/08/18 Last Taken 10/07/18] HYDROcodone/APAP 5/325MG [Stem 5-325Mg] 0 tab PO Q4HP PRN #30 tab 10/11/18 [Rx Last Taken Unknown] Medical - DS: Hosp Hospital course: Discharge diagnosis * Acute on chronic alcoholic pancreatitis-managed conservatively. Clinically improved. Gradual advancement diet to low-fat. Counseled to refrain from alcohol use to prevent future flares. * Abdominal pain managed on as needed opioids. * Massive retroperitoneal lymphadenopathy status post biopsy. Follow-up with PCP for biopsy results followup. Suspect metastatic infiltration/lymphoma as per abdominal imaging, elevated CA 19.9. * Hyponatremia-stable. Chronic * History of COPD on continued home oxygen/nocturnal BiPAP/bronchodilators * History of diastolic CHF/cor pulmonale. Stable * Hyperlipidemia managed on statin * DM type II continue glipizide/metformin Brief hospital course Mr. Edward is a 67 year old M Presents to the ED with abdominal pain. Patient states that Saturday morning woke up feeling okay had breakfast and then developed dull achy abdominal pain that radiated to his back which felt just like the pancreatitis he has had in the past. He drinks about 3-4 beers per day, typically no liquor, have a Trnag about a week prior when he went to a restaurant. He is marijuana but no other drug use. Not smoke anymore but she is tobacco. Denies any fever chills. He has a chronic cough with clear sputum but that is his baseline. Denies any shortness of breath. Feels constipated. No fevers or chills. Has some nausea but no vomiting. In the ED he was mildly tachycardic I found to have elevated lipase mildly elevated lactate and leukocytosis. Chest x-ray with Atelectasis versus other infiltrate. CT showing acute on chronic pancreatitis. CT also did mention a conglomerate of lymphadenopathy which may be felt beneficial to have biopsy in future if her renal abdominal aortic aneurysm which should have annual ultrasound. Blood pressure stable, afebrile. Received 3 L of IV fluid in the ED. 10/09 Slept well. Feeling a little better, still has abdominal pain but slowly improving. Tolerated ice chips last night and will advance to liquids today. Plan for MRCP. no nausea or vomiting. States constipation. 10/10 No overnight events. Patient's abdomen is feeling better. Also less tender. Tolerating clear liquids just fine. Scheduled for retroperitoneal lymph node biopsy today. Possible discharge later in the day after trialing full liquid for lunch after procedure. 10/11-patient did well post biopsy. No overnight events. Pain good control. Discharging today with advised to follow with primary care physician Vivek Turcios for further follow-up of biopsy results/3 cm infrarenal abdominal aortic aneurysm outpatient follow-up. No other concerns per nursing staff. Discharge diagnosis: . - Time Spent with Patient Total time spent providing and/or coordinating discharge services: Greater than 30 minutes Medical - DS: Exam - Constitutional Vitals: Vital Signs Temp Pulse Pulse Pulse Resp BP BP 10/11/18 09:44 105 H 16 10/11/18 06:54 98.2 F 20 188/102 10/11/18 06:36 102 H 20 10/11/18 04:00 90 20 139/76 10/11/18 01:43 88 156/94 10/11/18 00:00 97.8 F 106 H 24 H 187/103 10/10/18 20:30 95 H 147/87 10/10/18 20:00 97.9 F 108 H 20 179/93 10/10/18 15:50 98.3 F 84 16 138/75 10/10/18 13:31 92 H 146/84 10/10/18 12:44 106 H 16 10/10/18 12:30 107 H 146/74 10/10/18 12:19 106 H 16 10/10/18 12:16 111 H 155/83 10/10/18 12:01 103 H 164/62 10/10/18 12:00 98.3 F 20 143/86 10/10/18 11:45 100 H 143/86 10/10/18 11:35 102 H 16 143/79 10/10/18 11:30 102 H 143/79 10/10/18 11:20 113 H 16 143/86 10/10/18 11:15 106 H 16 151/101 10/10/18 11:10 107 H 16 125/95 10/10/18 11:05 107 H 16 172/104 10/10/18 10:50 109 H 18 166/99 Pulse Ox 10/11/18 09:44 95 10/11/18 06:54 95 10/11/18 06:36 96 10/11/18 04:00 90 10/11/18 01:43 10/11/18 00:00 90 10/10/18 20:30 10/10/18 20:00 97 10/10/18 15:50 94 10/10/18 13:31 94 10/10/18 12:44 95 10/10/18 12:30 94 10/10/18 12:19 10/10/18 12:16 95 10/10/18 12:01 96 10/10/18 12:00 96 10/10/18 11:45 97 10/10/18 11:35 96 10/10/18 11:30 95 10/10/18 11:20 92 10/10/18 11:15 99 10/10/18 11:10 99 10/10/18 11:05 99 10/10/18 10:50 100 Intake and Output 10/10/18 10/11/18 10/11/18 21:59 05:59 13:59 Intake Total 1959.0909 600 Output Total 1050 550 Balance 909.0909 50 Intake: IV 559.0909 Oral 1400 600 Output: Void Amount 1050 550 Other: Meal Dinner Percent of Meal Consumed 100% Feeding Ability Independent Urine Appearance Clear Clear Urine Color Dark Yellow Dark Yellow Urine Odor Normal Weight 254 lb Medical - DS: Data Labs on day of discharge: Labs from last 24 hours 10/11/18 10/11/18 04:08 04:08 WBC 10.6 RBC 3.11 L Hgb 9.9 L Hct 30.2 L MCV 97.0 MCH 31.8 MCHC 32.7 RDW 13.7 Plt Count 274 MPV 8.8 Gran % 79.7 H Lymph % (Auto) 8.5 L [place] % (Auto) 8.9 Eos % (Auto) 2.5 Baso % (Auto) 0.4 Gran # 8.4 H Lymph # (Auto) 0.9 L [place] # (Auto) 0.9 Eos # (Auto) 0.3 Baso # (Auto) 0 Sodium 129 L Potassium 4.1 Chloride 93 L Carbon Dioxide 27 Anion Gap 9.0 BUN 4 L Creatinine 0.5 L GFR Calculation 111 Glucose 141 H Uric Acid 3.5 Calcium 8.0 L Phosphorus 2.2 L Magnesium 1.9 Total Bilirubin 0.4 Direct Bilirubin < 0.2 GGT 37 AST 13 ALT 14 Alkaline Phosphatase 87 Lactate Dehydrogenase 215 Total Protein 5.8 L Albumin 3.0 L Globulin 2.8 Albumin/Globulin Ratio 1.1 Triglycerides 63 Preliminary micro results at discharge 10/08/18 12:21 Blood Culture - Preliminary Blood 10/08/18 12:28 Blood Culture - Preliminary Blood Medical - DS: A/P - Patient/Caregiver Discharge Instructions Activity: increase activity as tolerated Diet: Low Fat Additional Instructions: Follow-up with PCP regarding Biopsy results. Please fax biopsy results to Dr. Lucy london's office Follow-up with PCP regarding monitoring of incidentally found 3cm infrarenal abdominal aortic aneurysm Continue low-fat diet Abstinence from alcohol to prevent future pancreatitis flare Return to ER if worsening abdominal pain nausea vomiting Prescriptions: HYDROcodone/APAP 5/325MG [Stem 5-325Mg] 0 tab PO Q4HP PRN #30 tab PRN Reason: Pain Level 3-6 - Follow up Plan Follow up with: Vivek Turcios MD, FAAFP [Primary Care Provider] - Disposition: Home, Self-Care Prognosis: Fair Rehab Potential: Fair I certify that the patient requires SNF services: No Overall status at discharge: patient is progressing back to baseline Medical - DS: Qual - VTE Deep Vein Thrombosis/Pulmonary Embolism Present on Admission: No
[2018-10-11 19:26] LABS: Cannabinoid Confirmation POSITIVE (N); Opiate Confirmation POSITIVE (N)
--- NOTE | 2018-10-14 16:27 | Surgical Pathology Report ---
HISTOLOGY SPECIMEN MICROSCOPIC DIAGNOSIS RIGHT PERICAVAL LYMPH NODE, NEEDLE BIOPSY: -- LYMPHOID INFILTRATE INVOLVING FIBROTIC TISSUE, SEE COMMENT. -- NO METASTATIC CARCINOMA IDENTIFIED. (EBD:christina) COMMENT: The pericaval lymph node biopsy shows a small focus of CD45 positive lymphocytes within fibrotic tissue by immunohistochemistry. Additional immunohistochemical stains for involvement by metastatic carcinoma are negative including CK5/6, CK7, CK20, pancytokeratin and TTF1. All stains show adequate technical control. Subsequent immunohistochemical studies for melanoma are non-contributory as the cell population of interest was exhausted in the tissue block. The sampling is scant preventing additional immunohistochemical studies. The clinical and radiologic concern is noted and additional tissue sampling is recommended. MICROSCOPIC DESCRIPTION Histiologic sections of the right pericaval lymph node biopsy show fibrotic tissue with an infiltrative population of cells with high nuclear to cytoplasmic ratios and crush artifact. The following immunohistochemical stains are performed with the following results: CD45: Positive. CK5/6: Negative. CK7: Negative. CK20: Negative. Pancytokeratin plus: Negative. SOX-10: Non-contributory. Melan-A: Non-contributory TTF-1: Negative. (EBD:christina) Some of the tests reported here may not have been cleared or approved by the U.[place]. Food and Drug Administration (FDA). However, the FDA has determined that such clearance or approval is not necessary. Pursuant to the requirements of CLIA, this laboratory has established and verified the accuracy and precision of all tests, and additional information about these tests is available upon request. All technical controls are adequate. CLINICAL HISTORY Left side abdominal pain, radiates to back. PROCEDURAL IMPRESSION Metastasis (?). GROSS DESCRIPTION Received in formalin labeled right paraclavicle lymph node, are multiple cores and fragments of pink-lake to red-lake tissue ranging in size from less than 0.1 to 0.3 cm in length and less than 0.1 cm in diameter. Totally submitted - two cassettes. (KGW:sln) Electronically Signed by: Elida Hernandez M.D.
--- NOTE | 2018-10-16 09:23 | Magnetic Resonance Report ---
CLINICAL INFORMATION: Acute on chronic pancreatitis. Conglomerates of adenopathy in the retropancreatic and retrocaval regions. Evaluate COMPARISON: None. TECHNIQUE: MRCP was performed using 3D FRFSE respiratory triggered and single-shot FSE thick slab technique. Axial T2 SSFSE and coronal SSFSE images were obtained through the upper abdomen as well. FINDINGS: Liver is normal in size, configuration and echotexture without evidence of metastatic disease or other focal lesion. Gallbladder is unremarkable. The 3.4 x 1.4 cm cystic lesion in the medial wall of the descending duodenum, described on CT, and may actually represent a dilated tortuous cystic duct which contains a distal 12 mm stone. Intrahepatic, common hepatic and common bile ducts are normal caliber: CBD is 4 mm. There is moderate dilatation and tortuosity of the pancreatic duct with diameter of 8 mm. Scattered low signal foci in the pancreatic parenchyma is compatible with chronic pancreatitis. There is also mild edema in the peripancreatic fat planes compatible with acute on chronic pancreatitis. Retroperitoneal conglomerative adenopathy are again seen: 3.6 cm in the retrocaval region and 2.1 cm in the retropancreatic head region. IMPRESSION: 1. Acute on chronic pancreatitis. No evidence of necrosis, pseudocyst or other pancreatitis complication. 2. Two conglomerates of adenopathy, seen on recent CT, again noted: 3.6 cm the retrocaval region and 2.1 cm the retropancreatic region. CT-guided biopsy was performed today of the retrocaval conglomerate. Malignancy is suspected 3. 3.4 x 1.4 cm cystic region, originally thought to represent a cyst in the medial wall of the descending duodenum on recent CT, may actually represents an tortuous dilated cystic duct containing a 12 mm stone. Consider conventional ERCP for more definitive evaluation. Interpreted and Authenticated by: Jose Eduardo Fitzgerald 10/10/18
== END 2018-10-11 11:37 | disposition home or self-care (01) | DRG 439 ==
LOC: ED 10:51 → MEDSUR 16:20
PROVIDERS: ADMIT Internal Medicine; ATTEND Internal Medicine

== ENCOUNTER 2022-03-05 07:06 | Inpatient (IN) ==
[2022-03-05] MEDS ORDERED: IODIXANOL 100 ML BOTTLE IV ONE (07:07)
[2022-03-05] MEDS ORDERED: ALBUTEROL SULFATE 5 MG/ML NEB SOLUTION BOTTLE NEB ONE (07:18)
[2022-03-05] MEDS ORDERED: ALBUTEROL SULFATE 2.5 MG/3 ML NEBULIZER ONE (07:21)
--- NOTE | 2022-03-05 07:24 | Emergency Department Note ---
SOB HPI General Chief Complaint: Shortness of Breath/Dyspnea Stated Complaint: Shortness of Breath Time Seen by Provider: 03/05/22 07:18 Source: EMS Mode of arrival: EMS Limitations: no limitations History of Present Illness HPI Narrative: Narrative: Please note that history is limited as patient is on a BiPAP. Patient is able to nod or shake his head. Most of the history is per paramedics. The patient presents on CPAP for acute onset of shortness of breath this morning after waking. Reportedly the patient was in his normal state of health yesterday. The patient has a history of both COPD and CHF. He was given Solu- Medrol in route as well as 2 DuoNeb's. Patient is on oxygen chronically and the family had turned him up to high flow. Paramedics state that the patient was having extreme respiratory distress with accessory muscle use and diaphoresis. They placed him on a CPAP and noticed a remarkable clinical improvement. Patient shakes his head when I ask if he has chest pain. He nods his head when I ask if he has had a cough. He denies any fever. No report of vomiting or diarrhea. Related Data Home Medications Medication Instructions Recorded Confirmed albuterol sulfate 90 mcg/actuation 2 puff inhalation QIDP PRN 07/28/15 03/05/22 aerosol inhaler (Proventil HFA) Shortness Of Breath oxygen-air delivery systems 11/23/16 03/05/22 BIPAP #1 ea 09/07/19 03/05/22 acetaminophen 325 mg PO 02/07/22 02/07/22 Previous Rx's Medication Instructions Recorded lancets 28 gauge (FreeStyle #100 ea 06/17/20 Lancets) sildenafil 25 mg tablet 25 mg PO QDAY PRN sexual activity 11/29/20 #30 tabs insulin detemir U-100 100 unit/mL 20 unit (0.2 mL) subcut QHS 02/10/21 (3 mL) subcutaneous pen (Levemir Diabetes with hyperglycemia #15 mL FlexTouch U-100 Insulin) metformin 1,000 mg tablet See Rx Instructions .Route 02/10/21 .COMPLEX #180 tabs atorvastatin 20 mg tablet (Lipitor) 20 mg PO QDAY #90 tabs 04/04/21 pen needle, diabetic 29 gauge x #100 ea 07/04/21 1/2" (Ultra-Thin II Insulin Pen Redfield) ipratropium 0.5 mg-albuterol 3 mg 3 ml inhalation QID #360 mL 07/14/21 (2.5 mg base)/3 mL nebulization soln blood sugar diagnostic (FreeStyle #150 ea 08/24/21 Lite Strips) fluticasone 250 mcg-salmeterol 50 1 inh inhalation BID #180 ea 09/20/21 mcg/dose blistr powdr for inhalation (Advair Diskus) omeprazole 40 mg capsule,delayed 40 mg PO QDAY #30 caps 11/04/21 release furosemide 40 mg tablet 40 mg PO QDAY #30 tabs 01/22/22 losartan 100 mg tablet 100 mg PO QDAY #90 tabs 02/01/22 tramadol 50 mg tablet 50 mg PO Q6H PRN pain #56 tabs 02/07/22 Allergies Allergy/AdvReac Type Severity Reaction Status Date / Time NSAIDS (Non-Steroidal AdvReac Severe Other Verified 02/07/22 11:26 Anti-Inflamma Review of Systems ROS ROS Narrative: Narrative: All systems ED: reviewed and negative except as stated. [facility] Narrative Patient History Narrative: Narrative: Medical/Surgical/Family History All Active Problems (Updated 03/05/22 @ 13:07 by Len Urbano MD) Flash pulmonary edema (Acute) Leukocytosis (Acute) Cough (Acute) Acute GI bleeding (Acute) Anemia (Acute) Subscapular pain (Acute) Medicare annual wellness visit, subsequent (Acute) Respiratory failure with hypoxia and hypercapnia (Chronic) Abdominal aortic aneurysm (Acute) History of onychomycosis (Acute) Hypoventilation syndrome (Chronic) Hypercapnia (Chronic) Diabetes mellitus with hyperglycemia (Acute) Immunization deficiency (Acute) Bronchitis (Chronic) Emphysema, unspecified (Chronic) Elevated d-dimer (Chronic) Dyspnea on exertion (Chronic) Pleural effusion (Chronic) Lymphadenopathy, abdominal (Acute) Lobar pneumonia (Chronic) History of tonsillectomy and adenoidectomy (Chronic) Tobacco use (Chronic) Benign prostatic hyperplasia with urinary obstruction (Chronic) Lumbar radiculopathy (Chronic) Pure hypercholesterolemia, unspecified (Chronic) Leukocytosis (Chronic) Macrocytosis (Chronic) Dependent edema (Chronic) 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) Vitamin B12 deficiency (Chronic) Pancreatitis (Chronic) CHF (congestive heart failure) (Chronic) Anemia (Chronic) Obesity, unspecified (Chronic) GERD (gastroesophageal reflux disease) (Chronic) Hyperlipidemia (Chronic) Hypertension (Chronic) Chest pain, precordial (Chronic) Lumbar radiculopathy, right (Chronic) COPD (chronic obstructive pulmonary disease) (Chronic) Hypoxemia (Chronic) Erectile dysfunction (Chronic) Hyponatremia (Chronic) Hypokalemia (Chronic) Drug-induced hepatotoxicity (Chronic) Rectal bleeding (Chronic) Smoker (Chronic) Varicose veins of lower extremity with inflammation, bilateral (Chronic) BPH (benign prostatic hyperplasia) (Chronic) Medical History Abdominal aortic aneurysm Anemia Benign prostatic hyperplasia with urinary obstruction BiPAP (biphasic positive airway pressure) dependence BPH (benign prostatic hyperplasia) Bronchitis Chest pain, precordial CHF (congestive heart failure) Chronic combined systolic and diastolic heart failure Chronic hypercapnic respiratory failure Chronic hypoxemic respiratory failure COPD (chronic obstructive pulmonary disease) Dependent edema Diabetes mellitus with hyperglycemia Drug-induced hepatotoxicity Dyspnea on exertion Elevated d-dimer Emphysema, unspecified Erectile dysfunction GERD (gastroesophageal reflux disease) History of onychomycosis Hypercapnia Hyperlipidemia Hypertension Hypokalemia Hyponatremia Hypoventilation syndrome Hypoxemia Immunization deficiency Leukocytosis Lobar pneumonia Lumbar radiculopathy Lumbar radiculopathy, right Macrocytosis Medicare annual wellness visit, subsequent Obesity, unspecified Obstructive sleep apnea Pancreatitis Pleural effusion bilateral, right sided complex Pure hypercholesterolemia, unspecified Rectal bleeding Smoker Tobacco use Varicose veins of lower extremity with inflammation, bilateral with pain Vitamin B12 deficiency Surgical History History of chest tube placement History of colonoscopy (~2016) History of inguinal hernia repair History of left cataract surgery (~2018) History of tonsillectomy and adenoidectomy Family History Mother Arthritis Hypertension Father Lung cancer Hypertension Sister Hypertension Grandfather Myocardial Infarction Paternal Other Diabetes mellitus Malignant neoplasm Social History Smoking Status: Former smoker Alcohol Intake Frequency: does not drink Substance Use: does not use Exam Narrative Narrative: Narrative: General Limitations: no limitations General appearance: Present alert; Absent in no apparent distress (On BiPAP, mild respiratory distress) Head Head: Present atraumatic and normal inspection Eye Eye: Present normal appearance and EOMI Neck Neck: Present normal inspection, full ROM and trachea midline Chest Chest: Present normal inspection and symmetric chest wall rise Respiratory Respiratory: Present respiratory distress (Mild), wheezes, accessory muscle use and decreased breath sounds; Absent normal lung sounds bilaterally Cardiovascular Cardiovascular: Present normal rhythm, tachycardia and other (Bilateral radial 2+) Adbominal Abdominal: Present soft; Absent distention or tenderness Extremities Extremities: Present normal inspection and full ROM; Absent pedal edema or calf tenderness Back Back: Present normal inspection Neurological Neurological: Present alert and oriented X3 (Patient seems awake and aware but due to BiPAP, orientation questions are difficult) Psychiatric Psychiatric: Present normal affect and normal mood Skin Skin: Present warm (WNL) and dry Course Reevaluation(s) Reevaluation #1: As patient's chest x-ray does appear to show fluid overload, plan to place a Wild catheter and start diuresis with Lasix.Patient's VBG does show acidosis with a high lactic acid. Plan to do a repeat lactic acid and VBG to reassess after patient has been on BiPAP. Given the lack of hypotension and the low probability of infectious etiology, I do not think IV fluid at this point is necessary and may actually be detrimental to the patient. Time: 07:37 Reevaluation #2: The patient does have a significantly elevated white blood cell count. His lactic acid is better but still elevated. The possibility of superimposed infection is considered. I will give him a dose of Rocephin and Zithromax to cover for any possible pulmonary pathogens. Time: 09:33 Reevaluation #3: The patient has had significant clinical improvement. He is now off BiPAP and on his baseline oxygen. A chest x-ray which showed pulmonary edema was shown to be minimal on the CAT scan. I still think patient should be admitted but I do not think he needs to go to the ICU now. Time: 12:30 Consultations Consultation #1: I spoke to the hospitalist, Dr. Thayer. He agreed to admit this patient. Time: 13:00 Vital Signs Vital signs: Vital Signs Pulse Rate 122 H 03/05/22 07:09 Respiratory Rate 20 03/05/22 07:09 Blood Pressure 155/90 03/05/22 07:09 Pulse Oximetry (%) 100 03/05/22 07:09 Oxygen Delivery Method 03/05/22 07:09 Pulse Rate 120 H 03/05/22 12:16 Respiratory Rate 21 03/05/22 12:16 Blood Pressure 127/76 12/05/22 12:16 Pulse Oximetry (%) 98 03/05/22 12:16 Oxygen Delivery Method 03/05/22 10:58 Oxygen Flow Rate (L/min) 4 03/05/22 10:58 MDM MDM Narrative Medical decision making narrative: Narrative: The patient presents with acute onset shortness of breath. Flash pulmonary edema is considered. COPD exacerbation is considered. Acute CO is considered. Pulmonary embolism is considered. Infectious etiology such as pneumonia, flu, COVID, or other viral infection is considered. I doubt pneumothorax as patient has breath sounds bilaterally but a small pneumothorax is considered. Plan to obtain appropriate labs and a chest x-ray. We will obtain cultures and lactate. At this point, infectious etiology is not definitive and so although patient is tachycardic, I do not think we need to go the septic pathway just yet. Blood pressure seems more than adequate. Lab Data Lab results reviewed: Yes I reviewed the patient's lab results. Result diagrams: 03/05/22 07:22 03/05/22 07:22 Labs: Lab Results 03/05/22 03/05/22 03/05/22 Range/Units 07:22 07:22 07:22 WBC 18.6 H (4.5-11.0) K/mcL RBC 3.28 L (4.63-6.08) M/mcL Hgb 8.4 L (13.7-17.5) g/dL Hct 28.5 L (40.1-51.0) % POC Hct (41-55) MCV 86.9 (80.0-100.0) fL MCH 25.6 L (26.0-34.0) pg MCHC 29.5 L (31.0-36.0) g/dL RDW 15.0 H (11.5-14.5) % Plt Count 467 H (140-440) K/mcL MPV 9.9 (8.8-12.5) fL Immature Gran % (Auto) 0.5 (0.0-0.5) % Neut % (Auto) 70.5 (38.0-78.0) % Lymph % (Auto) 17.6 (15.5-49.0) % [place] % (Auto) 8.1 (1.0-12.0) % Eos % (Auto) 2.7 (0.0-7.0) % Baso % (Auto) 0.6 (0.0-2.0) % Lymph # (Auto) 3.26 (1.50-4.80) K/mcL [place] # (Auto) 1.50 H (0.10-0.90) K/mcL Eos # (Auto) 0.50 (0.00-0.70) K/mcL Baso # (Auto) 0.12 (0.00-0.30) K/mcL Immature Gran # 0.09 H (0.00-0.05) K/mcl Absolute Neutrophils 13.09 H (1.80-8.00) K/mcL D-Dimer TNP POC VBG pH (7.32-7.42) POC VBG pCO2 at Temp (41-51) POC VBG pO2 (25-40) POC VBG HCO3 (24-28) POC VBG Total CO2 (25-29) POC Venous O2 Sat (40-70) POC VBG Base Excess (-2-2) VBG Lactic Acid (0.5-2) POC Sodium (133-145) Sodium 135 (133-145) mmol/L POC Potassium (3.3-5.1) Potassium 4.4 (3.3-5.1) mmol/L POC Chloride (96-108) Chloride 93 L (96-108) mmol/L Carbon Dioxide 30 (22-30) mmol/L POC Total CO2 (22-30) Anion Gap 12.0 (8.0-16.0) POC BUN (6-20) BUN 16 (8-23) mg/dL Creatinine 1.0 (0.7-1.2) mg/dL POC Creatinine (0.6-1.2) GFR Calculation 75 Glucose 302 H (70-105) mg/dL POC Glucose (70-105) Calcium 8.9 (8.6-10.4) mg/dL POC WB Ioniz Calcium (1.16-1.32) Total Bilirubin 0.2 (0.1-1.0) mg/dL AST 26 (<40) U/L ALT 26 (<40) U/L Alkaline Phosphatase 58 (39-117) U/L NT-Pro-B Natriuret Pep 2759.0 H (<125.0) pg/mL Total Protein 7.3 (5.9-8.4) gm/dL Albumin 4.3 (3.2-5.2) gm/dL Globulin 3.0 (2.2-3.7) gm/dL Albumin/Globulin Ratio 1.4 (1.0-2.3) POC Troponin I (0.00-0.08) 03/05/22 03/05/22 03/05/22 Range/Units 07:23 07:25 07:41 WBC (4.5-11.0) K/mcL RBC (4.63-6.08) M/mcL Hgb (13.7-17.5) g/dL Hct (40.1-51.0) % POC Hct 30.0 L (41-55) MCV (80.0-100.0) fL MCH (26.0-34.0) pg MCHC (31.0-36.0) g/dL RDW (11.5-14.5) % Plt Count (140-440) K/mcL MPV (8.8-12.5) fL Immature Gran % (Auto) (0.0-0.5) % Neut % (Auto) (38.0-78.0) % Lymph % (Auto) (15.5-49.0) % [place] % (Auto) (1.0-12.0) % Eos % (Auto) (0.0-7.0) % Baso % (Auto) (0.0-2.0) % Lymph # (Auto) (1.50-4.80) K/mcL [place] # (Auto) (0.10-0.90) K/mcL Eos # (Auto) (0.00-0.70) K/mcL Baso # (Auto) (0.00-0.30) K/mcL Immature Gran # (0.00-0.05) K/mcl Absolute Neutrophils (1.80-8.00) K/mcL D-Dimer POC VBG pH 7.15 L* (7.32-7.42) POC VBG pCO2 at Temp 91.6 H* (41-51) POC VBG pO2 47 H (25-40) POC VBG HCO3 31.7 H (24-28) POC VBG Total CO2 34.0 H (25-29) POC Venous O2 Sat 67.0 (40-70) POC VBG Base Excess 3.0 H (-2-2) VBG Lactic Acid 3.1 H (0.5-2) POC Sodium 134 (133-145) Sodium (133-145) mmol/L POC Potassium 4.3 (3.3-5.1) Potassium (3.3-5.1) mmol/L POC Chloride 93 L (96-108) Chloride (96-108) mmol/L Carbon Dioxide (22-30) mmol/L POC Total CO2 32.0 H (22-30) Anion Gap (8.0-16.0) POC BUN 18 (6-20) BUN (8-23) mg/dL Creatinine (0.7-1.2) mg/dL POC Creatinine 1.0 (0.6-1.2) GFR Calculation Glucose (70-105) mg/dL POC Glucose 317 H (70-105) Calcium (8.6-10.4) mg/dL POC WB Ioniz Calcium 1.18 (1.16-1.32) Total Bilirubin (0.1-1.0) mg/dL AST (<40) U/L ALT (<40) U/L Alkaline Phosphatase (39-117) U/L NT-Pro-B Natriuret Pep (<125.0) pg/mL Total Protein (5.9-8.4) gm/dL Albumin (3.2-5.2) gm/dL Globulin (2.2-3.7) gm/dL Albumin/Globulin Ratio (1.0-2.3) POC Troponin I 0.04 (0.00-0.08) 03/05/22 03/05/22 03/05/22 Range/Units 08:23 09:13 10:55 WBC (4.5-11.0) K/mcL RBC (4.63-6.08) M/mcL Hgb (13.7-17.5) g/dL Hct (40.1-51.0) % POC Hct (41-55) MCV (80.0-100.0) fL MCH (26.0-34.0) pg MCHC (31.0-36.0) g/dL RDW (11.5-14.5) % Plt Count (140-440) K/mcL MPV (8.8-12.5) fL Immature Gran % (Auto) (0.0-0.5) % Neut % (Auto) (38.0-78.0) % Lymph % (Auto) (15.5-49.0) % [place] % (Auto) (1.0-12.0) % Eos % (Auto) (0.0-7.0) % Baso % (Auto) (0.0-2.0) % Lymph # (Auto) (1.50-4.80) K/mcL [place] # (Auto) (0.10-0.90) K/mcL Eos # (Auto) (0.00-0.70) K/mcL Baso # (Auto) (0.00-0.30) K/mcL Immature Gran # (0.00-0.05) K/mcl Absolute Neutrophils (1.80-8.00) K/mcL D-Dimer 1.32 H POC VBG pH 7.41 (7.32-7.42) POC VBG pCO2 at Temp 43.4 (41-51) POC VBG pO2 46 H (25-40) POC VBG HCO3 27.6 (24-28) POC VBG Total CO2 29.0 (25-29) POC Venous O2 Sat 82.0 H (40-70) POC VBG Base Excess 3.0 H (-2-2) VBG Lactic Acid 2.7 H 1.7 (0.5-2) POC Sodium (133-145) Sodium (133-145) mmol/L POC Potassium (3.3-5.1) Potassium (3.3-5.1) mmol/L POC Chloride (96-108) Chloride (96-108) mmol/L Carbon Dioxide (22-30) mmol/L POC Total CO2 (22-30) Anion Gap (8.0-16.0) POC BUN (6-20) BUN (8-23) mg/dL Creatinine (0.7-1.2) mg/dL POC Creatinine (0.6-1.2) GFR Calculation Glucose (70-105) mg/dL POC Glucose (70-105) Calcium (8.6-10.4) mg/dL POC WB Ioniz Calcium (1.16-1.32) Total Bilirubin (0.1-1.0) mg/dL AST (<40) U/L ALT (<40) U/L Alkaline Phosphatase (39-117) U/L NT-Pro-B Natriuret Pep (<125.0) pg/mL Total Protein (5.9-8.4) gm/dL Albumin (3.2-5.2) gm/dL Globulin (2.2-3.7) gm/dL Albumin/Globulin Ratio (1.0-2.3) POC Troponin I (0.00-0.08) ED POC Tests ED POC Tests: BRITTANY - Influenza A Negative BRITTANY - Influenza B Negative BRITTANY - SARS Antigen Negative Radiology Data Radiology results reviewed: Yes I reviewed the patient's radiology results. EKG Data EKG #1: EKG attestation: Yes I reviewed and interpreted this EKG. and Yes There are no EKG findings of acute coronary syndrome EKG results narrative: Sinus, rate 120, Normal axis, QTC 455, PA 161, narrow complex QRS, no acute ST or T changes concerning for acute infarction CC TIME Critical Care Time Critical Care Time: Yes Total Critical Care Time: 85 Attestation: Without emergent intervention, patient most likely would have had a deleterious outcome Discharge Plan Patient/Caregiver Discharge Instructions Pt seen by SOFTWARE VALIDATION TECHNICIAN/PA only: No Clinical Impression: Flash pulmonary edema Leukocytosis Qualifiers: Leukocytosis type: unspecified Qualified Code(s): D72.829 - Elevated white blood cell count, unspecified Cough Qualifiers: Cough type: acute Qualified Code(s): R05.1 - Acute cough Patient Disposition: Xfer As Inpt ([facility]) Condition: Critical Follow up with: Marcus Smith MD [Primary Care Provider] - Prescriptions: No Action (DME) lancets [FreeStyle Lancets] 28 gauge misc See Protocol .ROUTE .MEDSUPPLY Qty: 100 4RF Protocol: Insulin Sliding Scale, Low Condition: HUMALOG/NOVALOG SC SLIDING Dose/Route: SCALE Condition: FSBS < 70 Dose/Route: Give 4 Oz juice, or 15gm oral Instruction: Glucose, or 25ml D50W IV if Dose/Route: unable to take PO. Recheck in Instruction: 15 min and repeat if FSBS < 70 Condition: FSBS 71-140 Dose/Route: NO COVERAGE Condition: FSBS 141-170 Dose/Route: 1 UNITS Condition: FSBS 171-200 Dose/Route: 2 UNITS Condition: FSBS 201-250 Dose/Route: 3 UNITS Condition: FSBS 251-300 Dose/Route: 4 UNITS Condition: FSBS 301-350 Dose/Route: 6 UNITS Condition: FSBS 351-400 Dose/Route: 8 UNITS Condition: FSBS > 400 Dose/Route: 10 UNITS; REPEAT Q2H X2 Instruction: CONTINUE FOLLOWING SLIDING Condition: SCALE; IF STILL > 400; CALL Dose/Route: PHYSICIAN Rx Instructions: Test twice daily am and pm atorvastatin [Lipitor] 20 mg tablet 20 mg PO QDAY Qty: 90 3RF (DME) pen needle, diabetic [Ultra-Thin II Ins Pen [place]field] 29 gauge x 1/2" needle See Rx Instructions .ROUTE .MEDSUPPLY Qty: 100 6RF Rx Instructions: As directed once daily with Levemir pen ipratropium-albuterol 0.5 mg-3 mg(2.5 mg base)/3 mL solution for nebulization 3 ml INHALATION QID Qty: 360 6RF (DME) FreeStyle Lite Strips Strip See Rx Instructions .Route Qty: 150 3RF Rx Instructions: Use to test blood sugars morning and evening. fluticasone propion-salmeterol [Advair Diskus] 250-50 mcg/dose blister with device 1 inh INHALATION BID Qty: 180 3RF omeprazole 40 mg capsule,delayed release(DR/EC) 40 mg PO QDAY Qty: 30 5RF furosemide 40 mg tablet 40 mg PO QDAY Qty: 30 5RF Rx Instructions: Note dose change. 40mg daily. losartan 100 mg tablet 100 mg PO QDAY Qty: 90 3RF albuterol sulfate [Proventil HFA] 90 mcg/actuation HFA aerosol inhaler 2 puff INHALATION QIDP PRN (Reason: Shortness Of Breath) sildenafil 25 mg tablet 25 mg PO QDAY PRN (Reason: sexual activity) Qty: 30 7RF Rx Instructions: administer 30 minutes to 4 hours before activity metformin 1,000 mg tablet See Rx Instructions .ROUTE .COMPLEX Qty: 180 2RF Dose Instruction: TAKE 1 TABLET BY MOUTH TWICE DAILY Rx Instructions: TAKE 1 TABLET BY MOUTH TWICE DAILY Levemir FlexTouch U-100 Insuln 100 unit/mL (3 mL) insulin pen 20 unit SUB-Q QHS Qty: 15 7RF Rx Instructions: Dose change acetaminophen 325 mg PO tramadol 50 mg tablet 50 mg PO Q6H PRN (Reason: pain) Qty: 56 0RF (DME) BIPAP Qty: 1 Rx Instructions: As directed (DME) oxygen-air delivery systems device 4 each .ROUTE .MEDSUPPLY Rx Instructions: 4 L continuously
[2022-03-05 07:36] LABS: POC Calcium, Ionized 1.18 (1.16-1.32); POC Potassium 4.3 (3.3-5.1)
[2022-03-05] MEDS ORDERED: FUROSEMIDE 40 MG/4 ML VIAL IV ONE (07:36)
--- NOTE | 2022-03-05 07:47 | XRay Report ---
INDICATION: dyspnea TECHNIQUE: AP portable semiupright chest x-ray COMPARISON: Previous chest x-rays dated 04/11/2020, 10/08/2018 FINDINGS: Diffuse interstitial abnormality consistent with interstitial pulmonary edema. Interstitial pneumonia is less likely. This is new since previous examination. No focal areas of pulmonary parenchymal consolidation. There is mild cardiomegaly. No definite pleural effusions identified on this AP radiograph. IMPRESSION: 1. Findings consistent with congestive heart failure. Interlobular septal thickening consistent with interstitial edema 2. No focal pulmonary parenchymal consolidation Interpreted and Authenticated by: Jose Eduardo Ansari 03/05/22
[2022-03-05 08:38] LABS: Basophils # (Auto) 0.12 K/mcL (0.00-0.30); Basophils % (Auto) 0.6 % (0.0-2.0); Eosinophils % (Auto) 2.7 % (0.0-7.0); Hematocrit 28.5 % (40.1-51.0); Hemoglobin 8.4 g/dL (13.7-17.5); Lymphocytes # (Auto) 3.26 K/mcL (1.50-4.80); Lymphocytes % (Auto) 17.6 % (15.5-49.0); Mean Cell Volume 86.9 fL (80.0-100.0); Mean Corpuscular HGB Conc 29.5 g/dL (31.0-36.0); Mean Platelet Volume 9.9 fL (8.8-12.5); Monocytes % (Auto) 8.1 % (1.0-12.0); Neutrophils % (Auto) 70.5 % (38.0-78.0); Platelet Count 467 K/mcL (140-440); RBC 3.28 M/mcL (4.63-6.08); WBC 18.6 K/mcL (4.5-11.0)
[2022-03-05 08:48] LABS: ALT/SGPT 26 U/L (<40); AST/SGOT 26 U/L (<40); Albumin 4.3 gm/dL (3.2-5.2); Albumin/Globulin Ratio 1.4 (1.0-2.3); Alkaline Phosphatase 58 U/L (39-117); Bilirubin,Total 0.2 mg/dL (0.1-1.0); Blood Urea Nitrogen 16 mg/dL (8-23); Calcium 8.9 mg/dL (8.6-10.4); Carbon Dioxide 30 mmol/L (22-30); Chloride 93 mmol/L (96-108); Glomerular Filtration Rate 75; Glucose 302 mg/dL (70-105)
[2022-03-05] MEDS ORDERED: LORazepam 2 MG/ML VIAL IV ONE (08:59)
--- NOTE | 2022-03-05 09:26 | EKG ---
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 Measurements Intervals [place] Rate: 120 P: 80 IN: 161 QRS: 44 QRSD: 88 T: 93 QT: 322 QTc: 455 Interpretive Statements Sinus tachycardia Ventricular premature complex Borderline low voltage, extremity leads Nonspecific T abnormalities, lateral leads Electronically Signed On 03-05-2022 9:26:21 PST by Jose Eduardo Do M.D. /[id number]
[2022-03-05] MEDS ORDERED: cefTRIAXone 1 GM VIAL IV ONE (09:32)
[2022-03-05] MEDS ORDERED: AZITHROMYCIN 500 MG in DEXTROSE 5% IN WATER 250 ML IV ONE (09:32)
[2022-03-05] MEDS ORDERED: NICOTINE 14 MG PATCH TOPICAL ONE (10:59)
--- NOTE | 2022-03-05 10:59 | Cat Scan Report ---
INDICATION: sob, elevated ddimer COMPARISON: None TECHNIQUE: Axial images obtained through the chest. 80ml Isovue 370 injected intravenously, and scanning was performed during pulmonary arterial phase. Sagittally and coronally reformatted images were obtained. MIP reformatted images. FINDINGS: Lungs:Severe centrilobular and paraseptal emphysema. There is mild reticular abnormality. There is peribronchial thickening. Appearance is consistent with interstitial pulmonary edema. There are noncalcified pulmonary parenchymal nodules: - 8 mm subpleural left upper lobe, image 20 - 6 mm subpleural right upper lobe, image 37 - 10 mm subpleural right upper lobe, image 43 - 10 mm right lower lobe, image 75 Fleischner Society recommendations: 3-[address] follow-up Mediastinum, vascular:Main pulmonary artery, right pulmonary artery, left pulmonary artery are negative. No intraluminal filling defects. No lobar, segmental, or subsegmental emboli. Thoracic aorta is negative. No aneurysmal dilatation No pathologic mediastinal or hilar adenopathy Heart:No cardiomegaly. No pericardial effusion. Mild reflux of contrast material into the inferior vena cava consistent with right heart strain. There is prominent coronary artery calcification Pleura:No significant pleural effusion. No pleural mass or calcification Axilla, supraclavicular regions, chest wall:No pathologic axillary or supraclavicular adenopathy. Musculoskeletal:Negative thoracic spine. No compression fracture. No lytic lesion. No rib or sternal lesions Upper Abdomen:Extensive pancreatic calcification consistent with chronic pancreatitis IMPRESSION: 1. Negative pulmonary CTA 2. Coronary artery calcification. 3. Mild reflux of contrast material into the inferior vena cava consistent with right heart strain 4. Centrilobular and paraseptal emphysema 5. Probable interstitial pulmonary edema 6. Noncalcified pulmonary parenchymal nodules. 3-[address] follow-up recommended 7. Pancreatic calcifications consistent with chronic pancreatitis The exam was performed using radiation dose optimization techniques including, but not limited to, automated exposure control, adjustment of the mA and/or kV according to patient size and use of iterative reconstruction technique. Interpreted and Authenticated by: Jose Eduardo Ansari 03/05/22
[2022-03-05] MEDS ORDERED: traMADol 50 MG TABLET PO ONE (11:24)
[2022-03-05] MEDS ORDERED: ACETAMINOPHEN 325 MG TABLET PO ONE (11:24)
[2022-03-05] MEDS ORDERED: ALBUTEROL SULFATE 60 PUFF INHALER INH PRN (13:03)
--- NOTE | 2022-03-05 13:36 | Internal Med History&Physical ---
HPI History of Present Illness Patient information: Note initiated : 03/05/22 at 1:28 pm Service Date, if different from initiated Date: [] Patient: Markel Edward 71 y/o M admitted on for Shortness of Breath. Chief Complaint: [shortness of breath, cough, diaphoresis] Chief complaint: shortness of breath, cough, diaphoresi History of present illness: Mr. Edward is a 71 year old M history of CHF, COPD, type 2 diabetes mellitus, presenting with 2 weeks history of gradually worsening shortness of breath, productive cough with white sputum, and diaphoresis. He is complaining of 2 weeks of gradually worsening shortness of breath, productive cough with white sputum, wheezing, diaphoresis. He denies any subjective fever or chills. He denies any leg swelling. He denies any orthopnea and he sleeps on 1 pillows. H hector does have dyspnea on exertions with 50 feet's. He denies any unintentional weight gain. He denies any change in his appetite. He uses oxygen at home up to 4 L/min. Earlier today his symptoms were so bad that he could no longer hold his breath so he called EMS to be sent to our ED for further evaluation and treatments. He was placed on BiPAP initially, currently is back down to 4 L/min nasal cannula oxygen's. Labs significant for leukocytosis with WBC 18.6. Lactic acid 3.1 with repeat of 2.7. Blood sugar level 302. D-dimer elevated at 1.32. Screening for COVID and influenza a and B are negative. Chest x-ray showing findings consistent with congestive heart failure. No focal pulmonary parenchymal consolidations. CTA of the chest negative for any pulmonary embolism. It again showing interstitial pulmonary edema. It does not show any focal infiltrates. It shows noncalcified pulmonary parenchymal nodules. 3 to 6-month CT follow-up recommended. Admission request was called for COPD and CHF exacerbations. Constitutional Constitutional: Present excessive sweating; Absent chills, fatigue, fever(s) or weakness EENT Eyes: Absent blurry vision, change in vision, loss of vision or other visual disturbances Ears: Absent decreased hearing or tinnitus Nose, mouth and throat: Absent abnormal hearing, dry mouth, headache(s), nasal congestion or sore throat Cardiovascular Cardiovascular: Absent chest pain, chest pain at rest, edema, irregular heart rhythm or palpatations Respiratory Respiratory: Present cough, dyspnea, dyspnea on exertion, wheezing and excessive phlegm production Gastrointestinal Gastrointestinal: Absent abdominal pain, constipation, diarrhea, nausea or vomiting Musculoskeletal Musculoskeletal: Absent back pain, deformity, limited range of motion, muscle cramps, muscle weakness or numbness Integumentary Integumentary: Absent lesions, rash or wounds Neurological Neurological: Absent focal weakness, headache(s) or numbness Psychiatric Psychiatric: Absent anxiety, depression or hallucinations PFSH PFSH All Active Problems (Updated 03/05/22 @ 13:35 by Wilian Thayer MD) COPD exacerbation (Acute) CHF exacerbation (Acute) Pulmonary nodules/lesions, multiple (Acute) Flash pulmonary edema (Acute) Leukocytosis (Acute) Cough (Acute) Acute GI bleeding (Acute) Anemia (Acute) Subscapular pain (Acute) Medicare annual wellness visit, subsequent (Acute) Respiratory failure with hypoxia and hypercapnia (Chronic) Abdominal aortic aneurysm (Acute) History of onychomycosis (Acute) Hypoventilation syndrome (Chronic) Hypercapnia (Chronic) Diabetes mellitus with hyperglycemia (Acute) Immunization deficiency (Acute) Bronchitis (Chronic) Emphysema, unspecified (Chronic) Elevated d-dimer (Chronic) Dyspnea on exertion (Chronic) Pleural effusion (Chronic) Lymphadenopathy, abdominal (Acute) Lobar pneumonia (Chronic) History of tonsillectomy and adenoidectomy (Chronic) Tobacco use (Chronic) Benign prostatic hyperplasia with urinary obstruction (Chronic) Lumbar radiculopathy (Chronic) Pure hypercholesterolemia, unspecified (Chronic) Leukocytosis (Chronic) Macrocytosis (Chronic) Dependent edema (Chronic) 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) Vitamin B12 deficiency (Chronic) Pancreatitis (Chronic) CHF (congestive heart failure) (Chronic) Anemia (Chronic) Obesity, unspecified (Chronic) GERD (gastroesophageal reflux disease) (Chronic) Hyperlipidemia (Chronic) Hypertension (Chronic) Chest pain, precordial (Chronic) Lumbar radiculopathy, right (Chronic) COPD (chronic obstructive pulmonary disease) (Chronic) Hypoxemia (Chronic) Erectile dysfunction (Chronic) Hyponatremia (Chronic) Hypokalemia (Chronic) Drug-induced hepatotoxicity (Chronic) Rectal bleeding (Chronic) Smoker (Chronic) Varicose veins of lower extremity with inflammation, bilateral (Chronic) BPH (benign prostatic hyperplasia) (Chronic) Medical History Abdominal aortic aneurysm Anemia Benign prostatic hyperplasia with urinary obstruction BiPAP (biphasic positive airway pressure) dependence BPH (benign prostatic hyperplasia) Bronchitis Chest pain, precordial CHF (congestive heart failure) Chronic combined systolic and diastolic heart failure Chronic hypercapnic respiratory failure Chronic hypoxemic respiratory failure COPD (chronic obstructive pulmonary disease) Dependent edema Diabetes mellitus with hyperglycemia Drug-induced hepatotoxicity Dyspnea on exertion Elevated d-dimer Emphysema, unspecified Erectile dysfunction GERD (gastroesophageal reflux disease) History of onychomycosis Hypercapnia Hyperlipidemia Hypertension Hypokalemia Hyponatremia Hypoventilation syndrome Hypoxemia Immunization deficiency Leukocytosis Lobar pneumonia Lumbar radiculopathy Lumbar radiculopathy, right Macrocytosis Medicare annual wellness visit, subsequent Obesity, unspecified Obstructive sleep apnea Pancreatitis Pleural effusion bilateral, right sided complex Pure hypercholesterolemia, unspecified Rectal bleeding Smoker Tobacco use Varicose veins of lower extremity with inflammation, bilateral with pain Vitamin B12 deficiency Surgical History History of chest tube placement History of colonoscopy (~2015) History of inguinal hernia repair History of left cataract surgery (~2017) History of tonsillectomy and adenoidectomy Family History Mother Arthritis Hypertension Father Lung cancer Hypertension Sister Hypertension Grandfather Myocardial Infarction Paternal Other Diabetes mellitus Malignant neoplasm Social History household members: spouse housing: house lives independently: Yes marital status: occupational status: retired smoking status: Former smoker smoking status start date: 04/01/78 smoking status stop date: 04/01/14 alcohol intake frequency: does not drink substance use type: does not use MEDS/ALLERGIES Home Medications and Allergies Home Medications Medication Instructions Recorded Confirmed Type albuterol sulfate 90 mcg/actuation 2 puff inhalation QIDP PRN 07/28/15 03/05/22 History aerosol inhaler (Proventil HFA) Shortness Of Breath oxygen-air delivery systems 11/23/16 03/05/22 History BIPAP #1 ea 09/07/19 03/05/22 History lancets 28 gauge (FreeStyle #100 ea 06/17/20 03/05/22 Rx Lancets) sildenafil 25 mg tablet 25 mg PO QDAY PRN sexual activity 11/29/20 03/05/22 Rx #30 tabs insulin detemir U-100 100 unit/mL 20 unit (0.2 mL) subcut QHS 02/10/21 03/05/22 Rx (3 mL) subcutaneous pen (Levemir Diabetes with hyperglycemia #15 mL FlexTouch U-100 Insulin) metformin 1,000 mg tablet See Rx Instructions .Route 02/10/21 03/05/22 Rx .COMPLEX #180 tabs atorvastatin 20 mg tablet (Lipitor) 20 mg PO QDAY #90 tabs 04/04/21 03/05/22 Rx pen needle, diabetic 29 gauge x #100 ea 07/04/21 03/05/22 Rx 1/2" (Ultra-Thin II Insulin Pen [place]) ipratropium 0.5 mg-albuterol 3 mg 3 ml inhalation QID #360 mL 07/14/21 03/05/22 Rx (2.5 mg base)/3 mL nebulization soln blood sugar diagnostic (FreeStyle #150 ea 08/24/21 03/05/22 Rx Lite Strips) fluticasone 250 mcg-salmeterol 50 1 inh inhalation BID #180 ea 09/20/21 03/05/22 Rx mcg/dose blistr powdr for inhalation (Advair Diskus) omeprazole 40 mg capsule,delayed 40 mg PO QDAY #30 caps 11/04/21 03/05/22 Rx release furosemide 40 mg tablet 40 mg PO QDAY #30 tabs 01/22/22 03/05/22 Rx losartan 100 mg tablet 100 mg PO QDAY #90 tabs 02/01/22 03/05/22 Rx acetaminophen 325 mg PO 02/07/22 02/07/22 History tramadol 50 mg tablet 50 mg PO Q6H PRN pain #56 tabs 02/07/22 03/05/22 Rx Allergies Allergy/AdvReac Type Severity Reaction Status Date / Time NSAIDS (Non-Steroidal AdvReac Severe Other Verified 02/07/22 11:26 Anti-Inflamma EXAM Constitutional Vitals: Pulse Resp BP Pulse Ox O2 Del Method O2 Flow Rate 120 H 21 127/76 98 4 03/05/22 12:16 03/05/22 12:16 03/05/22 12:16 03/05/22 12:16 03/05/22 10:58 03/05/22 10:58 General appearance: cooperative and no acute distress Head Head exam: Present atraumatic and normocephalic Eye Eye exam: Present EOMI and PERRL ENT ENT exam: Present mucous membranes moist, normal exam and normal external ear exam Additional comments: Nasal cannula in place Neck Neck exam: Present normal inspection; Absent lymphadenopathy, tenderness or thyromegaly Respiratory Respiratory exam: Present decreased breath sounds, prolonged expiratory phase and wheezes; Absent accessory muscle use or respiratory distress Cardiovascular Cardiovascular exam: Present normal rate and rhythm and tachycardia; Absent JVD GI/Abdominal GI/Abdominal exam: Present normal bowel sounds and soft; Absent organomegaly or tenderness Rectal Rectal exam: Present deferred Extremities Exam Extremities exam: Present full ROM, normal capillary refill and normal inspection; Absent tenderness Neurological Exam Neurological exam: Present alert, CN II-XII intact and oriented X3; Absent motor sensory deficit Psychiatric Psychiatric exam: Present normal affect and normal mood; Absent anxious or depressed Skin Skin exam: Present dry and intact DATA Data Completed and Pending Labs: Labs from last 24 hours 03/05/22 03/05/22 03/05/22 10:55 09:13 08:23 WBC RBC Hgb Hct POC Hct MCV MCH MCHC RDW Plt Count MPV Immature Gran % (Auto) Neut % (Auto) Lymph % (Auto) Barry % (Auto) Eos % (Auto) Baso % (Auto) Lymph # (Auto) Barry # (Auto) Eos # (Auto) Baso # (Auto) Immature Gran # Absolute Neutrophils D-Dimer 1.32 H POC VBG pH 7.41 POC VBG pCO2 at Temp 43.4 POC VBG pO2 46 H POC VBG HCO3 27.6 POC VBG Total CO2 29.0 POC Venous O2 Sat 82.0 H POC VBG Base Excess 3.0 H VBG Lactic Acid 1.7 2.7 H POC Sodium Sodium POC Potassium Potassium POC Chloride Chloride Carbon Dioxide POC Total CO2 Anion Gap POC BUN BUN Creatinine POC Creatinine GFR Calculation Glucose POC Glucose Calcium POC WB Ioniz Calcium Total Bilirubin AST ALT Alkaline Phosphatase NT-Pro-B Natriuret Pep Total Protein Albumin Globulin Albumin/Globulin Ratio POC Troponin I 03/05/22 03/05/22 03/05/22 07:41 07:25 07:23 WBC RBC Hgb Hct POC Hct 30.0 L MCV MCH MCHC RDW Plt Count MPV Immature Gran % (Auto) Neut % (Auto) Lymph % (Auto) Barry % (Auto) Eos % (Auto) Baso % (Auto) Lymph # (Auto) Barry # (Auto) Eos # (Auto) Baso # (Auto) Immature Gran # Absolute Neutrophils D-Dimer POC VBG pH 7.15 L* POC VBG pCO2 at Temp 91.6 H* POC VBG pO2 47 H POC VBG HCO3 31.7 H POC VBG Total CO2 34.0 H POC Venous O2 Sat 67.0 POC VBG Base Excess 3.0 H VBG Lactic Acid 3.1 H POC Sodium 134 Sodium POC Potassium 4.3 Potassium POC Chloride 93 L Chloride Carbon Dioxide POC Total CO2 32.0 H Anion Gap POC BUN 18 BUN Creatinine POC Creatinine 1.0 GFR Calculation Glucose POC Glucose 317 H Calcium POC WB Ioniz Calcium 1.18 Total Bilirubin AST ALT Alkaline Phosphatase NT-Pro-B Natriuret Pep Total Protein Albumin Globulin Albumin/Globulin Ratio POC Troponin I 0.04 03/05/22 03/05/22 03/05/22 07:22 07:22 07:22 WBC 18.6 H RBC 3.28 L Hgb 8.4 L Hct 28.5 L POC Hct MCV 86.9 MCH 25.6 L MCHC 29.5 L RDW 15.0 H Plt Count 467 H MPV 9.9 Immature Gran % (Auto) 0.5 Neut % (Auto) 70.5 Lymph % (Auto) 17.6 Barry % (Auto) 8.1 Eos % (Auto) 2.7 Baso % (Auto) 0.6 Lymph # (Auto) 3.26 Barry # (Auto) 1.50 H Eos # (Auto) 0.50 Baso # (Auto) 0.12 Immature Gran # 0.09 H Absolute Neutrophils 13.09 H D-Dimer TNP POC VBG pH POC VBG pCO2 at Temp POC VBG pO2 POC VBG HCO3 POC VBG Total CO2 POC Venous O2 Sat POC VBG Base Excess VBG Lactic Acid POC Sodium Sodium 135 POC Potassium Potassium 4.4 POC Chloride Chloride 93 L Carbon Dioxide 30 POC Total CO2 Anion Gap 12.0 POC BUN BUN 16 Creatinine 1.0 POC Creatinine GFR Calculation 75 Glucose 302 H POC Glucose Calcium 8.9 POC WB Ioniz Calcium Total Bilirubin 0.2 AST 26 ALT 26 Alkaline Phosphatase 58 NT-Pro-B Natriuret Pep 2759.0 H Total Protein 7.3 Albumin 4.3 Globulin 3.0 Albumin/Globulin Ratio 1.4 POC Troponin I A/P Assessment and plan (1) Flash pulmonary edema: Status: Acute (2) Pulmonary nodules/lesions, multiple: Status: Acute (3) GERD (gastroesophageal reflux disease): Status: Chronic (4) Anemia: Status: Acute Qualifiers: Anemia type: unspecified type Qualified Code(s): D64.9 - Anemia, unspecified (5) CHF exacerbation: Status: Acute (6) COPD exacerbation: Status: Acute (7) Diabetes mellitus with hyperglycemia: Status: Acute Narrative A/P Narrative: Assessment and Plans: 1. CHF exacerbation: Inpatient med surg telemetry Supplemental oxygen therapy (home O2 baseline of 4L/min) CEPHEID CoVID PCR pending Instrict intake and output Daily weigh 2L/day fluid restriction Lasix 40mg IV BID Losartan No beta christina at time of exacerbation 2D echocardiogram Physical therapy evaluation and treatment 2. COPD exacerbation: Prednisone DuoNeb NEB q4hr scheduled ProAir PRN wheezing Advair Diskus Azithromycin 3. Anemia, hypochromic: cbc w/ auto diff in the morning to trend H/H 4. T2DM with hyperglycemia: HgA1c Hold oral hypoglycemics Lantus 20 unit HS High scale Insulin Lispro SSI AC HS Accu Check AC HS Hypoglycemia protocol Diabetic diet (2000cc/day restriction) 5. GERD: Continue oral PPI from home regimen GI ppx: Continue oral PPI from home regimen DV ppx: Lovenox Code status: Full Prognosis: Guarded Disposition: inpatient med tele; PT Time Spent With Patient Time: Total time spent is greater than 50% in coordination of care (as documented) at patient's floor/unit and/or counseling patient: Total time spent with greater than 50% in coordination of care (as documented) at patient's floor/unit and/or counseling patient:: 50 - 70 minutes
[2022-03-05] MEDS ORDERED: guaiFENesin/DEXTROMETHORPHAN ORAL SOL PO PRN (14:46)
[2022-03-05] MEDS ORDERED: DEXTROSE 31 GM ORAL.SUSP PO PRN (14:46)
[2022-03-05] MEDS ORDERED: DEXTROSE 50% 50 ML VIAL IV PRN (14:46)
[2022-03-05] MEDS ORDERED: ONDANSETRON 4 MG/2 ML VIAL IV PRN (14:46)
[2022-03-05] MEDS: FUROSEMIDE 40 MG/4 ML VIAL IV SCH (15:17)
[2022-03-05] MEDS: IPRATROPIUM/ALBUTEROL 3 ML AMPUL.NEB NEB SCH ×3 (15:23→23:00)
[2022-03-05 15:30] LABS: Hemoglobin A1C 6.1 % Hgb (4.0-6.0)
[2022-03-05] MEDS: 0.9 % SODIUM CHLORIDE 10 ML SYRINGE IV SCH ×2 (16:02→20:26)
[2022-03-05] MEDS: predniSONE 20 MG TABLET PO SCH (16:42)
[2022-03-05] MEDS: INSULIN LISPRO 1 UNIT/0.01 ML UNIT SQ SCH ×2 (16:53→20:25)
[2022-03-05] MEDS ORDERED: IPRATROPIUM/ALBUTEROL 3 ML AMPUL.NEB NEB SCH (17:00)
[2022-03-05] MEDS: DOCUSATE SODIUM 100 MG CAPSULE PO SCH (20:25)
[2022-03-05] MEDS: FLUTICASONE/SALMETEROL 250/50 INHALER #14 INH SCH (20:25)
[2022-03-05] MEDS: SENNOSIDES 1 TABLET PO SCH (20:25)
[2022-03-05] MEDS: INSULIN GLARGINE, HUMAN 1 UNIT/0.01 ML SQ SCH (20:25)
[2022-03-05] MEDS: traZODone HCL 50 MG TABLET PO PRN (20:32)
[2022-03-05] MEDS: ACETAMINOPHEN 325 MG TABLET PO PRN (20:32)
[2022-03-05] MEDS: traMADol 50 MG TABLET PO PRN (20:32)
[2022-03-05] MEDS ORDERED: METOPROLOL TARTRATE 5 MG/5 ML VIAL IV ONE ×2 (21:21→21:25)
[2022-03-06] MEDS: ACETAMINOPHEN 325 MG TABLET PO PRN ×4 (02:58→21:25)
[2022-03-06] MEDS: IPRATROPIUM/ALBUTEROL 3 ML AMPUL.NEB NEB SCH ×6 (02:58→23:09)
[2022-03-06] MEDS: 0.9 % SODIUM CHLORIDE 10 ML SYRINGE IV SCH ×3 (06:06→21:00)
[2022-03-06] MEDS: INSULIN LISPRO 1 UNIT/0.01 ML UNIT SQ SCH ×4 (07:10→20:59)
[2022-03-06] MEDS: OMEPRAZOLE 20 MG CAPSULE PO SCH (07:11)
[2022-03-06] MEDS: FUROSEMIDE 40 MG/4 ML VIAL IV SCH (08:45)
[2022-03-06] MEDS: predniSONE 20 MG TABLET PO SCH (08:46)
[2022-03-06] MEDS: LOSARTAN 50 MG TABLET PO SCH (08:46)
[2022-03-06] MEDS: DOCUSATE SODIUM 100 MG CAPSULE PO SCH ×2 (08:46→21:00)
[2022-03-06] MEDS: ATORVASTATIN 20 MG TABLET PO SCH (08:46)
[2022-03-06] MEDS: traMADol 50 MG TABLET PO PRN ×2 (08:50→18:55)
[2022-03-06] MEDS ORDERED: ENOXAPARIN 40 MG/0.4 ML SYRINGE SQ SCH (09:00)
[2022-03-06 09:22] LABS: Basophils # (Auto) 0.01 K/mcL (0.00-0.30); Basophils % (Auto) 0.1 % (0.0-2.0); Eosinophils # (Auto) 0 K/mcL (0.00-0.70); Eosinophils % (Auto) 0 % (0.0-7.0); Hematocrit 23.4 % (40.1-51.0); Hemoglobin 7.1 g/dL (13.7-17.5); Lymphocytes # (Auto) 0.64 K/mcL (1.50-4.80); Lymphocytes % (Auto) 6.3 % (15.5-49.0); Mean Cell Volume 84.5 fL (80.0-100.0); Mean Corpuscular HGB Conc 30.3 g/dL (31.0-36.0); Mean Platelet Volume 10.1 fL (8.8-12.5); Monocytes # (Auto) 0.93 K/mcL (0.10-0.90); Monocytes % (Auto) 9.2 % (1.0-12.0); Platelet Count 333 K/mcL (140-440); RBC 2.77 M/mcL (4.63-6.08); Red Cell Distribution Width 15.6 % (11.5-14.5); WBC 10.1 K/mcL (4.5-11.0)
[2022-03-06] MEDS: AZITHROMYCIN 250 MG in DEXTROSE 5% IN WATER 250 ML IV SCH (09:50)
[2022-03-06] MEDS: FLUTICASONE/SALMETEROL 250/50 INHALER #14 INH SCH ×2 (09:50→21:00)
[2022-03-06] MEDS: NICOTINE 21 MG PATCH TOPICAL SCH (10:18)
[2022-03-06 10:38] LABS: ALT/SGPT 21 U/L (<40); AST/SGOT 24 U/L (<40); Albumin 3.9 gm/dL (3.2-5.2); Albumin/Globulin Ratio 1.3 (1.0-2.3); Alkaline Phosphatase 48 U/L (39-117); Bilirubin,Total 0.2 mg/dL (0.1-1.0); Blood Urea Nitrogen 21 mg/dL (8-23); Carbon Dioxide 29 mmol/L (22-30); Chloride 91 mmol/L (96-108); Glomerular Filtration Rate 85; Glucose 161 mg/dL (70-105)
--- NOTE | 2022-03-06 11:48 | Internal Med Progress Note ---
SUBJECTIVE Subjective Patient information: Note initiated : 03/06/22 at 11:47 am Service Date, if different from initiated Date: [] Patient: Markel Edward 71 y/o M admitted on 03/05/22 for Shortness of Breath. Chief Complaint: [] Interval history: Mr. Edward is a 71 year old M history of CHF, COPD, type 2 diabetes mellitus, presenting with 2 weeks history of gradually worsening shortness of breath, productive cough with white sputum, and diaphoresis. He is complaining of 2 weeks of gradually worsening shortness of breath, productive cough with white sputum, wheezing, diaphoresis. He denies any subjective fever or chills. He denies any leg swelling. He denies any orthopnea and he sleeps on 1 pillows. He does have dyspnea on exertions with 50 feet's. He denies any unintentional weight gain. He denies any change in his appetite. He uses oxygen at home up to 4 L/min. Earlier today his symptoms were so bad that he could no longer hold his breath so he called EMS to be sent to our ED for further evaluation and treatments. He was placed on BiPAP initially, currently is back down to 4 L/min nasal cannula oxygen's. Labs significant for leukocytosis with WBC 18.6. Lactic acid 3.1 with repeat of 2.7. Blood sugar level 302. D-dimer elevated at 1.32. Screening for COVID and influenza a and B are negative. Chest x-ray sh owing findings consistent with congestive heart failure. No focal pulmonary parenchymal consolidations. CTA of the chest negative for any pulmonary embolism. It again showing interstitial pulmonary edema. It does not show any focal infiltrates. It shows noncalcified pulmonary parenchymal nodules. 3 to 6-month CT follow-up recommended. Admission request was called for COPD and CHF exacerbations. 03/06: Influenza AMB and COVID PCR negative. Hemoglobin dropped about one-point this morning relative to yesterday, currently at 7.1. Patient is currently on 5 L/min of nasal cannula oxygen. He was on BiPAP at night while sleeping. His degree of shortness of breath has improved. He is still complaining of productive cough with white and clear sputum. He is still complaining of respiratory wheezings. He denies any chest pain or chest tightness or palpitations. He denies any fever, chills, or diaphoresis. Continue to wean down nasal cannula supplemental oxygen as tolerated titrate to achieve spo2 >=88%. COPD exacerbation: Continue azithromycin's, systemic steroid, and bronchodila tors. CHF exacerbation: Switch Lasix from IV back to p.o. Continue losartan. No beta-blockers during time of exacerbations. Pending echocardiogram report. Hypoventilation syndrome: Continue BiPAP at night while sleeping (baseline) Constitutional Vitals: Vital Signs Temp Pulse Resp BP Pulse Ox O2 Del Method O2 Flow Rate 36.4 C 102 H 16 121/73 97 5 03/06/22 08:00 03/06/22 11:12 03/06/22 11:12 03/06/22 08:00 03/06/22 11:12 03/06/22 11:12 03/06/22 11:12 Period Temp Pulse Resp BP Sys/Yoder Pulse Ox O2 Del Method O2 Flow Rate Last 24 Hr 36.4 C-36.8 C 75-121 03-22 87-131/60-86 94-100 BiPAP-Nasal Cannula, Bubble Humidifier 4-5 Intake and Output 03/05/22 03/06/22 03/06/22 19:59 03:59 11:59 Intake Total 1210 300 250 Output Total 1300 650 400 Balance -90 -350 -150 Weight 102.058 kg 96.524 kg Intake & Output: Intake & Output 03/05/22 03/06/22 03/06/22 19:59 03:59 11:59 Intake Total 1210 300 250 Output Total 1300 650 400 Balance -90 -350 -150 Weight 102.058 kg 96.524 kg Intake: IV 250 250 Zithromax 250 mg In Dextrose 5% 250 250 in Water 250 ml @ 250 mls/hr IV Q24H [facility] Rx#:[id number] Oral 960 300 Output: Urine Catheter Amount 1300 650 400 Other: Urine Appearance Clear Clear Uretheral (Wild) Clear Clear Clear Urine Color Yellow Yellow Uretheral (Wild) Yellow Pale Pale Urine Odor Normal Head Head exam: Present atraumatic and normal inspection Eye Eye exam: Present normal appearance ENT ENT exam: Present mucous membranes moist, normal exam and normal external ear exam Additional comments: Nasal cannula in place Neck Neck exam: Present normal inspection Respiratory Respiratory exam: Present decreased breath sounds, rhonchi and wheezes Cardiovascular Cardiovascular exam: Present normal rate and rhythm GI/Abdominal GI/Abdominal exam: Present normal bowel sounds Back Exam Back exam: Present normal inspection Neurological Exam Neurological exam: Present alert and oriented X3 Skin Skin exam: Present intact and warm OBJ DATA Labs CBC & Chem 7: 03/06/22 06:30 03/06/22 06:30 Labs: Abnormal Lab Results 03/06/22 03/06/22 03/05/22 06:30 06:30 09:13 WBC RBC 2.77 L Hgb 7.1 L Hct 23.4 L POC Hct MCH 25.6 L MCHC 30.3 L RDW 15.6 H Plt Count Neut % (Auto) 84.0 H Lymph % (Auto) 6.3 L Lymph # (Auto) 0.64 L [place] # (Auto) 0.93 H Immature Gran # Absolute Neutrophils 8.47 H D-Dimer POC VBG pH POC VBG pCO2 at Temp POC VBG pO2 46 H POC VBG HCO3 POC VBG Total CO2 POC Venous O2 Sat 82.0 H POC VBG Base Excess 3.0 H VBG Lactic Acid 2.7 H Sodium 131 L POC Chloride Chloride 91 L POC Total CO2 Glucose 161 H POC Glucose Hemoglobin A1c NT-Pro-B Natriuret Pep 03/05/22 03/05/22 03/05/22 08:23 07:25 07:23 WBC RBC Hgb Hct POC Hct 30.0 L MCH MCHC RDW Plt Count Neut % (Auto) Lymph % (Auto) Lymph # (Auto) [place] # (Auto) Immature Gran # Absolute Neutrophils D-Dimer 1.32 H POC VBG pH 7.15 L* POC VBG pCO2 at Temp 91.6 H* POC VBG pO2 47 H POC VBG HCO3 31.7 H POC VBG Total CO2 34.0 H POC Venous O2 Sat POC VBG Base Excess 3.0 H VBG Lactic Acid 3.1 H Sodium POC Chloride 93 L Chloride POC Total CO2 32.0 H Glucose POC Glucose 317 H Hemoglobin A1c NT-Pro-B Natriuret Pep 03/05/22 03/05/22 03/05/22 07:22 07:22 07:22 WBC 18.6 H RBC 3.28 L Hgb 8.4 L Hct 28.5 L POC Hct MCH 25.6 L MCHC 29.5 L RDW 15.0 H Plt Count 467 H Neut % (Auto) Lymph % (Auto) Lymph # (Auto) [place] # (Auto) 1.50 H Immature Gran # 0.09 H Absolute Neutrophils 13.09 H D-Dimer POC VBG pH POC VBG pCO2 at Temp POC VBG pO2 POC VBG HCO3 POC VBG Total CO2 POC Venous O2 Sat POC VBG Base Excess VBG Lactic Acid Sodium POC Chloride Chloride 93 L POC Total CO2 Glucose 302 H POC Glucose Hemoglobin A1c 6.1 H NT-Pro-B Natriuret Pep 2759.0 H Meds: Medications Acetaminophen (Acetaminophen 325 Mg Tablet) 650 mg PO Q6HP PRN; Protocol PRN Reason: Per Pain Protocol/Fever > 101 Last Admin: 03/06/22 08:50 Dose: 650 mg Albuterol/Ipratropium (Ipratropium/Albuterol 3 Ml Ampul.Neb) 3 ml NEB Q4HRT [facility] Last Admin: 03/06/22 11:11 Dose: 3 ml Atorvastatin Calcium (Atorvastatin 20 Mg Tablet) 20 mg PO QDAY [facility] Last Admin: 03/06/22 08:46 Dose: 20 mg Dextrose (Dextrose 50% 50 Ml Vial) 0 ml IV UD PRN PRN Reason: Per Sliding Scale Diagnostic Test (Pha) (Accu-Chek 1 Each Strip) 1 each FS ACHS [facility] Last Admin: 03/06/22 11:18 Dose: 1 each Docusate Sodium (Docusate Sodium 100 Mg Capsule) 100 mg PO BID [facility] Last Admin: 03/06/22 08:46 Dose: 100 mg Furosemide (Furosemide 40 Mg/4 Ml Vial) 40 mg IV BIDD [facility] Last Admin: 03/06/22 08:45 Dose: 40 mg Glucose (Dextrose 31 Gm Oral.Susp) 15 gm PO PRN PRN PRN Reason: Hypoglycemia Guaifenesin (Guaifenesin/Dextromethorphan Oral Jessica) 10 ml PO Q4HP PRN PRN Reason: Cough Azithromycin 250 mg/ Dextrose 250 mls @ 250 mls/hr IV Q24H [facility]; Protocol Stop: 03/07/22 10:59 Last Infusion: 03/06/22 10:50 Dose: Infused Insulin Glargine (Insulin Glargine, Human 1 Unit/0.01 Ml) 20 unit SQ HS [facility] Last Admin: 03/05/22 20:25 Dose: 20 units Insulin Human Lispro (Insulin Lispro 1 Unit/0.01 Ml Unit) 0 unit SQ ACHS [facility]; Protocol Last Admin: 03/06/22 11:03 Dose: 12 unit Losartan Potassium (Losartan 50 Mg Tablet) 100 mg PO DAILY [facility] Last Admin: 03/06/22 08:46 Dose: 100 mg Nicotine (Nicotine 21 Mg Patch) 21 mg TOPICAL DAILY@1000 [facility] Last Admin: 03/06/22 10:18 Dose: 21 mg Omeprazole (Omeprazole 20 Mg Capsule) 40 mg PO ACB [facility] Last Admin: 03/06/22 07:11 Dose: 40 mg Ondansetron HCl (Ondansetron 4 Mg/2 Ml Vial) 4 mg IV Q6HP PRN PRN Reason: Nausea And Vomiting Prednisone ([facility] 20 Mg Tablet) [facility] Last Admin: 03/06/22 08:46 Dose: 40 mg Fluticasone/Salmeterol (Fluticasone/Salmeterol 250/50 Inhaler #14) 1 puff INH BID [facility] Last Admin: 03/06/22 09:50 Dose: 1 puff Senna (Sennosides 1 Tablet) 2 tab PO HS [facility] Last Admin: 03/05/22 20:25 Dose: 2 tab Sodium Chloride (0.9 % Sodium Chloride 10 Ml Syringe) 10 ml IV Q8 [facility] Last Admin: 03/06/22 06:06 Dose: 10 ml Tramadol HCl (Tramadol 50 Mg Tablet) 50 mg PO Q6HP PRN PRN Reason: Pain Last Admin: 03/06/22 08:50 Dose: 50 mg Trazodone HCl (Trazodone Hcl 50 Mg Tablet) 25 mg PO HSP PRN PRN Reason: Insomnia Last Admin: 03/05/22 20:32 Dose: 25 mg A/P Assessment and plan (1) Flash pulmonary edema: Status: Acute (2) Pulmonary nodules/lesions, multiple: Status: Acute (3) GERD (gastroesophageal reflux disease): Status: Chronic (4) Anemia: Status: Acute Qualifiers: Anemia type: unspecified type Qualified Code(s): D64.9 - Anemia, unspecified (5) CHF exacerbation: Status: Acute (6) COPD exacerbation: Status: Acute (7) Diabetes mellitus with hyperglycemia: Status: Acute (8) Hypoventilation syndrome: Status: Chronic (9) Cigarette smoker: Status: Acute Narrative A/P Narrative: Assessment and Plans: 1. CHF exacerbation: Inpatient med surg telemetry Continue to wean down nasal cannula supplemental oxygen as tolerated titrate to achieve spo2 >=88% (home O2 baseline of 4L/min) CEPHEID CoVID Influenza A/B all negative Instrict intake and output Daily weigh 2L/day fluid restriction Switch Lasix from IV back to p.o. Losartan No beta christina at time of exacerbation 2D echocardiogram results pending Physical therapy evaluation and treatment 2. COPD exacerbation: Prednisone DuoNeb NEB q4hr scheduled ProAir PRN wheezing Advair Diskus Azithromycin 3. Anemia, hypochromic: cbc w/ auto diff in the morning to trend H/H d/c Lovenox, switch to SCDs 4. T2DM with hyperglycemia: HgA1c 6.1 Hold oral hypoglycemics Lantus 20 unit HS High scale Insulin Lispro SSI AC HS Accu Check AC HS Hypoglycemia protocol Diabetic diet (2000cc/day restriction) 5. GERD: Continue oral PPI from home regimen 6. Hypoventilation syndrome: Continue BiPAP at night while sleeping (baseline) 7. Cigarette smoker: Nicotine replacement therapy 8. Multiple pulmonary nodules: Repeat CT chest imaging in 3-6 months recommended GI ppx: Continue oral PPI from home regimen DV ppx: SCDs Code status: Full Prognosis: Guarded Disposition: inpatient med tele; PT Time Spent With Patient Time: Total time spent is greater than 50% in coordination of care (as documented) at patient's floor/unit and/or counseling patient: Total time spent with greater than 50% in coordination of care (as documented) at patient's floor/unit and/or counseling patient:: 25 - 35 minutes QUALITY VTE Deep Vein Thrombosis/Pulmonary Embolism Present on Admission: No
[2022-03-06] MEDS ORDERED: METOPROLOL TARTRATE 5 MG/5 ML VIAL IV PRN ×2 (18:54→21:39)
[2022-03-06] MEDS: INSULIN GLARGINE, HUMAN 1 UNIT/0.01 ML SQ SCH (20:59)
[2022-03-06] MEDS: SENNOSIDES 1 TABLET PO SCH (21:00)
[2022-03-06] MEDS ORDERED: CARVEDILOL 12.5 MG TABLET PO SCH (21:15)
[2022-03-06] MEDS: traZODone HCL 50 MG TABLET PO PRN (21:25)
[2022-03-07] MEDS: IPRATROPIUM/ALBUTEROL 3 ML AMPUL.NEB NEB SCH ×6 (03:02→23:09)
[2022-03-07] MEDS: 0.9 % SODIUM CHLORIDE 10 ML SYRINGE IV SCH ×3 (04:16→20:12)
[2022-03-07 07:32] LABS: Basophils # (Auto) 0.02 K/mcL (0.00-0.30); Basophils % (Auto) 0.2 % (0.0-2.0); Eosinophils # (Auto) 0.04 K/mcL (0.00-0.70); Eosinophils % (Auto) 0.4 % (0.0-7.0); Hematocrit 23.1 % (40.1-51.0); Hemoglobin 7.2 g/dL (13.7-17.5); Lymphocytes # (Auto) 1.44 K/mcL (1.50-4.80); Lymphocytes % (Auto) 12.6 % (15.5-49.0); Mean Cell Volume 85.2 fL (80.0-100.0); Mean Corpuscular HGB Conc 31.2 g/dL (31.0-36.0); Mean Platelet Volume 10.2 fL (8.8-12.5); Monocytes % (Auto) 9.6 % (1.0-12.0); Neutrophils % (Auto) 76.8 % (38.0-78.0); Platelet Count 325 K/mcL (140-440); RBC 2.71 M/mcL (4.63-6.08); Red Cell Distribution Width 15.9 % (11.5-14.5); WBC 11.4 K/mcL (4.5-11.0)
[2022-03-07] MEDS: predniSONE 20 MG TABLET PO SCH (07:42)
[2022-03-07] MEDS: INSULIN LISPRO 1 UNIT/0.01 ML UNIT SQ SCH ×4 (07:42→20:11)
[2022-03-07] MEDS: CARVEDILOL 12.5 MG TABLET PO SCH ×3 (07:42→15:07)
[2022-03-07] MEDS: ATORVASTATIN 20 MG TABLET PO SCH (07:42)
[2022-03-07] MEDS: DOCUSATE SODIUM 100 MG CAPSULE PO SCH ×2 (07:43→20:12)
[2022-03-07] MEDS: OMEPRAZOLE 20 MG CAPSULE PO SCH (07:43)
[2022-03-07] MEDS: LOSARTAN 50 MG TABLET PO SCH ×2 (07:43→08:05)
[2022-03-07] MEDS: FLUTICASONE/SALMETEROL 250/50 INHALER #14 INH SCH ×2 (07:44→20:12)
[2022-03-07 08:01] LABS: ALT/SGPT 35 U/L (<40); AST/SGOT 33 U/L (<40); Albumin 3.8 gm/dL (3.2-5.2); Albumin/Globulin Ratio 1.4 (1.0-2.3); Alkaline Phosphatase 45 U/L (39-117); Bilirubin,Total 0.2 mg/dL (0.1-1.0); Blood Urea Nitrogen 25 mg/dL (8-23); Calcium 9.1 mg/dL (8.6-10.4); Carbon Dioxide 33 mmol/L (22-30); Chloride 91 mmol/L (96-108); Globulin 2.7 gm/dL (2.2-3.7); Glomerular Filtration Rate 85; Glucose 101 mg/dL (70-105)
[2022-03-07] MEDS ORDERED: FUROSEMIDE 40 MG TABLET PO SCH (09:00)
[2022-03-07] MEDS: NICOTINE 21 MG PATCH TOPICAL SCH (11:36)
[2022-03-07] MEDS: traMADol 50 MG TABLET PO PRN ×2 (11:58→18:41)
[2022-03-07] MEDS: ACETAMINOPHEN 325 MG TABLET PO PRN ×2 (11:58→18:39)
[2022-03-07] MEDS: AZITHROMYCIN 250 MG in DEXTROSE 5% IN WATER 250 ML IV SCH (11:59)
[2022-03-07] MEDS ORDERED: NON FORMULARY MEDICATION 1 DOSE MISCELL (Acetaminophen 650 MG) PO PRN (13:31)
--- NOTE | 2022-03-07 14:00 | Internal Med Progress Note ---
SUBJECTIVE Subjective Patient information: Note initiated : 03/07/22 at 1:33 pm Service Date, if different from initiated Date: [] Patient: Markel Edward 71 y/o M admitted on 03/05/22 for Shortness of Breath. Chief Complaint: [] Interval history: Mr. Edward is a 71 year old M history of CHF, COPD, type 2 diabetes mellitus, presenting with 2 weeks history of gradually worsening shortness of breath, productive cough with white sputum, and diaphoresis. He is complaining of 2 weeks of gradually worsening shortness of breath, productive cough with white sputum, wheezing, diaphoresis. He denies any subjective fever or chills. He denies any leg swelling. He denies any orthopnea and he sleeps on 1 pillows. He does have dyspnea on exertions with 50 feet's. He denies any unintentional weight gain. He denies any change in his appetite. He uses oxygen at home up to 4 L/min. Earlier today his symptoms were so bad that he could no longer hold his breath so he called EMS to be sent to our ED for further evaluation and treatments. He was placed on BiPAP initially, currently is back down to 4 L/min nasal cannula oxygen's. Labs significant for leukocytosis with WBC 18.6. Lactic acid 3.1 with repeat of 2.7. Blood sugar level 302. D-dimer elevated at 1.32. Screening for COVID and influenza a and B are negative. Chest x-ray sergio wing findings consistent with congestive heart failure. No focal pulmonary parenchymal consolidations. CTA of the chest negative for any pulmonary embolism. It again showing interstitial pulmonary edema. It does not show any focal infiltrates. It shows noncalcified pulmonary parenchymal nodules. 3 to 6-month CT follow-up recommended. Admission request was called for COPD and CHF exacerbations. 03/06: Influenza AMB and COVID PCR negative. Hemoglobin dropped about one-point this morning relative to yesterday, currently at 7.1. Patient is currently on 5 L/min of nasal cannula oxygen. He was on BiPAP at night while sleeping. His degree of shortness of breath has improved. He is still complaining of productive cough with white and clear sputum. He is still complaining of respiratory wheezings. He denies any chest pain or chest tightness or palpitations. He denies any fever, chills, or diaphoresis. Continue to wean down nasal cannula supplemental oxygen as tolerated titrate to achieve spo2 >=88%. COPD exacerbation: Continue azithromycin's, systemic steroid, and bronchodilat ors. CHF exacerbation: Switch Lasix from IV back to p.o. Continue losartan. No beta-blockers during time of exacerbations. Pending echocardiogram report. Hypoventilation syndrome: Continue BiPAP at night while sleeping (baseline) 03/07: Patient had an episode of hypoglycemia with blood sugar 38 at around 1 AM this morning. Patient was symptomatic with near syncope diaphoresis and shakiness at that time. Multiple rounds of juices was given and blood sugar normalized. 2D echocardiogram showing severely reduced LVEF estimated to be 10 to 15% with global hypokinesis. This afternoon patient is complaining of improving degree of shortness of breath. He is complaining of productive cough with gracia sputum production. He is complaining of respiratory wheezings. He denies any fever chills or diaphoresis. Will add Aldactone while continuing oral Lasix, losartan, and Coreg as part of treatment for CHF exacerbations. 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 Will continue DuoNEB, Prednisone, and Zithromax for COPD exacerbation. Reduce insulin Lantus from 20 to 10 unit HS starting tonight to avoid hypoglycemia. Physical therapy evaluation and treatment. Constitutional Vitals: Vital Signs Temp Pulse Resp BP Pulse Ox O2 Del Method O2 Flow Rate 36.3 C 88 18 118/76 98 5 03/07/22 12:43 03/07/22 11:42 03/07/22 11:42 03/07/22 08:00 03/07/22 11:42 03/07/22 11:42 03/07/22 11:42 Period Temp Pulse Resp BP Sys/Yoder Pulse Ox O2 Del Method O2 Flow Rate Last 24 Hr 35.6 C-37.1 C 51-123 16-20 99-138/69-83 97-100 BiPAP, Bubble Humidifier-Nasal Cannula, Bubble Humidifier 4-98 Intake and Output 03/07/22 03/07/22 03/07/22 03:59 11:59 19:59 Intake Total 760 120 250 Output Total 360 Balance 400 120 250 Intake & Output: Intake & Output 03/07/22 03/07/22 03/07/22 03:59 11:59 19:59 Intake Total 760 120 250 Output Total 360 Balance 400 120 250 Intake: IV 250 Zithromax 250 mg In Dextrose 5% 250 in Water 250 ml @ 250 mls/hr IV Q24H [facility] Rx#:[id number] Oral 760 120 Output: Void Amount 360 Other: Urine Appearance Clear Urine Color Yellow Urine Odor Normal Head Head exam: Present atraumatic and normal inspection Eye Eye exam: Present normal appearance ENT ENT exam: Present mucous membranes moist, normal exam and normal external ear exam Additional comments: Nasal cannula in place Neck Neck exam: Present normal inspection Respiratory Respiratory exam: Present rhonchi and wheezes Cardiovascular Cardiovascular exam: Present normal rate and rhythm GI/Abdominal GI/Abdominal exam: Present normal bowel sounds Extremities Exam Extremities exam: Present pedal edema Back Exam Back exam: Present normal inspection Neurological Exam Neurological exam: Present alert and oriented X3 Skin Skin exam: Present intact and warm OBJ DATA Labs CBC & Chem 7: 03/07/22 06:02 03/07/22 06:02 Labs: Abnormal Lab Results 03/07/22 03/07/22 03/06/22 06:02 06:02 06:30 WBC 11.4 H RBC 2.71 L Hgb 7.2 L Hct 23.1 L POC Hct MCH MCHC RDW 15.9 H Plt Count Neut % (Auto) Lymph % (Auto) 12.6 L Lymph # (Auto) 1.44 L [place] # (Auto) 1.10 H Immature Gran # Absolute Neutrophils 8.76 H D-Dimer POC VBG pH POC VBG pCO2 at Temp POC VBG pO2 POC VBG HCO3 POC VBG Total CO2 POC Venous O2 Sat POC VBG Base Excess VBG Lactic Acid Sodium 131 L 131 L POC Chloride Chloride 91 L 91 L Carbon Dioxide 33 H POC Total CO2 Anion Gap 7.0 L BUN 25 H Glucose 161 H POC Glucose Hemoglobin A1c NT-Pro-B Natriuret Pep 03/06/22 03/05/22 03/05/22 06:30 09:13 08:23 WBC RBC 2.77 L Hgb 7.1 L Hct 23.4 L POC Hct MCH 25.6 L MCHC 30.3 L RDW 15.6 H Plt Count Neut % (Auto) 84.0 H Lymph % (Auto) 6.3 L Lymph # (Auto) 0.64 L [place] # (Auto) 0.93 H Immature Gran # Absolute Neutrophils 8.47 H D-Dimer 1.32 H POC VBG pH POC VBG pCO2 at Temp POC VBG pO2 46 H POC VBG HCO3 POC VBG Total CO2 POC Venous O2 Sat 82.0 H POC VBG Base Excess 3.0 H VBG Lactic Acid 2.7 H Sodium POC Chloride Chloride Carbon Dioxide POC Total CO2 Anion Gap BUN Glucose POC Glucose Hemoglobin A1c NT-Pro-B Natriuret Pep 03/05/22 03/05/22 03/05/22 07:25 07:23 07:22 WBC RBC Hgb Hct POC Hct 30.0 L MCH MCHC RDW Plt Count Neut % (Auto) Lymph % (Auto) Lymph # (Auto) [place] # (Auto) Immature Gran # Absolute Neutrophils D-Dimer POC VBG pH 7.15 L* POC VBG pCO2 at Temp 91.6 H* POC VBG pO2 47 H POC VBG HCO3 31.7 H POC VBG Total CO2 34.0 H POC Venous O2 Sat POC VBG Base Excess 3.0 H VBG Lactic Acid 3.1 H Sodium POC Chloride 93 L Chloride Carbon Dioxide POC Total CO2 32.0 H Anion Gap BUN Glucose POC Glucose 317 H Hemoglobin A1c 6.1 H NT-Pro-B Natriuret Pep 03/05/22 03/05/22 07:22 07:22 WBC 18.6 H RBC 3.28 L Hgb 8.4 L Hct 28.5 L POC Hct MCH 25.6 L MCHC 29.5 L RDW 15.0 H Plt Count 467 H Neut % (Auto) Lymph % (Auto) Lymph # (Auto) [place] # (Auto) 1.50 H Immature Gran # 0.09 H Absolute Neutrophils 13.09 H D-Dimer POC VBG pH POC VBG pCO2 at Temp POC VBG pO2 POC VBG HCO3 POC VBG Total CO2 POC Venous O2 Sat POC VBG Base Excess VBG Lactic Acid Sodium POC Chloride Chloride 93 L Carbon Dioxide POC Total CO2 Anion Gap BUN Glucose 302 H POC Glucose Hemoglobin A1c NT-Pro-B Natriuret Pep 2759.0 H Meds: Medications Acetaminophen (Acetaminophen 325 Mg Tablet) 650 mg PO Q6HP PRN; Protocol PRN Reason: Per Pain Protocol/Fever > 101 Last Admin: 03/07/22 11:58 Dose: 650 mg Albuterol/Ipratropium (Ipratropium/Albuterol 3 Ml Ampul.Neb) 3 ml NEB Q4HRT [facility] Last Admin: 03/07/22 11:40 Dose: 3 ml Atorvastatin Calcium (Atorvastatin 20 Mg Tablet) 20 mg PO QDAY [facility] Last Admin: 03/07/22 07:42 Dose: 20 mg Carvedilol (Carvedilol 12.5 Mg Tablet) 25 mg PO BIDCC [facility] Last Admin: 03/07/22 08:03 Dose: Not Given Carvedilol (Carvedilol 12.5 Mg Tablet) 25 mg PO ONCE [facility] Last Admin: 03/06/22 21:24 Dose: 25 mg Dextrose (Dextrose 50% 50 Ml Vial) 0 ml IV UD PRN PRN Reason: Per Sliding Scale Diagnostic Test (Pha) (Accu-Chek 1 Each Strip) 1 each FS [facility] Last Admin: 03/07/22 12:30 Dose: 1 each Docusate Sodium (Docusate Sodium 100 Mg Capsule) 100 mg PO BID [facility] Last Admin: 03/07/22 07:43 Dose: 100 mg Furosemide (Furosemide 40 Mg Tablet) 40 mg PO QDAY [facility] Last Admin: 03/07/22 07:43 Dose: 40 mg Glucose (Dextrose 31 Gm Oral.Susp) 15 gm PO PRN PRN PRN Reason: Hypoglycemia Guaifenesin (Guaifenesin/Dextromethorphan Oral Jessica) 10 ml PO Q4HP PRN PRN Reason: Cough Insulin Human Lispro (Insulin Lispro 1 Unit/0.01 Ml Unit) 0 unit SQ [facility]; Protocol Last Admin: 03/07/22 07:42 Dose: Not Given Losartan Potassium (Losartan 50 Mg Tablet) 100 mg PO DAILY [facility] Last Admin: 03/07/22 08:05 Dose: Not Given Metoprolol Tartrate (Metoprolol Tartrate 5 Mg/5 Ml Vial) 5 mg IV Q5M PRN PRN Reason: Tachyarrhythmias Nicotine (Nicotine 21 Mg Patch) 21 mg TOPICAL DAILY@1000 [facility] Last Admin: 03/07/22 11:36 Dose: 21 mg Omeprazole (Omeprazole 20 Mg Capsule) 40 mg PO ACB [facility] Last Admin: 03/07/22 07:43 Dose: 40 mg Ondansetron HCl (Ondansetron 4 Mg/2 Ml Vial) 4 mg IV Q6HP PRN PRN Reason: Nausea And Vomiting Prednisone (Pred[facility] 20 Mg Tablet) [facility] Last Admin: 03/07/22 07:42 Dose: 40 mg Fluticasone/Salmeterol (Fluticasone/Salmeterol 250/50 Inhaler #14) 1 puff INH BID [facility] Last Admin: 03/07/22 07:44 Dose: 1 puff Senna (Sennosides 1 Tablet) 2 tab PO HS [facility] Last Admin: 03/06/22 21:00 Dose: 2 tab Sodium Chloride (0.9 % Sodium Chloride 10 Ml Syringe) 10 ml IV Q8 [facility] Last Admin: 03/07/22 04:16 Dose: 10 ml Tramadol HCl (Tramadol 50 Mg Tablet) 50 mg PO Q6HP PRN PRN Reason: Pain Last Admin: 03/07/22 11:58 Dose: 50 mg Trazodone HCl (Trazodone Hcl 50 Mg Tablet) 25 mg PO HSP PRN PRN Reason: Insomnia Last Admin: 03/06/22 21:25 Dose: 25 mg A/P Assessment and plan (1) Flash pulmonary edema: Status: Acute (2) Pulmonary nodules/lesions, multiple: Status: Acute (3) GERD (gastroesophageal reflux disease): Status: Chronic (4) Anemia: Status: Acute Qualifiers: Anemia type: unspecified type Qualified Code(s): D64.9 - Anemia, unspecified (5) CHF exacerbation: Status: Acute (6) COPD exacerbation: Status: Acute (7) Diabetes mellitus with hyperglycemia: Status: Acute (8) Hypoventilation syndrome: Status: Chronic (9) Cigarette smoker: Status: Acute Narrative A/P Narrative: Assessment and Plans: 1. CHF exacerbation: Inpatient med surg telemetry Continue to wean down nasal cannula supplemental oxygen as tolerated titrate to achieve spo2 >=88% (home O2 baseline of 4L/min) CEPHEID CoVID Influenza A/B all negative Strict intake and output Daily weigh 2L/day fluid restriction PO Lasix Losartan Coreg Aldactone 2D echocardiogram: It shows severe systolic dysfunction with LVEF estimated to be 10 to 15% with global hypokinesis Physical therapy evaluation and treatment Tele-cardiology consultation, recs. appreciated 2. COPD exacerbation: Prednisone DuoNeb NEB q4hr scheduled ProAir PRN wheezing Advair Diskus Azithromycin 3. Anemia, hypochromic: cbc w/ auto diff in the morning to trend H/H d/c Lovenox, switch to SCDs 4. T2DM with hyperglycemia: HgA1c 6.1 Hold oral hypoglycemics Lantus 20-->10 unit HS to avoid hypoglycemia High scale Insulin Lispro SSI AC HS Accu Check AC HS Hypoglycemia protocol Diabetic diet (2000cc/day restriction) 5. GERD: Continue oral PPI from home regimen 6. Hypoventilation syndrome: Continue BiPAP at night while sleeping (baseline) 7. Cigarette smoker: Nicotine replacement therapy 8. Multiple pulmonary nodules: Repeat CT chest imaging in 3-6 months recommended GI ppx: Continue oral PPI from home regimen DV ppx: SCDs Code status: Full Prognosis: Guarded Disposition: inpatient med tele; PT Time Spent With Patient Time: Total time spent is greater than 50% in coordination of care (as documented) at patient's floor/unit and/or counseling patient: Total time spent with greater than 50% in coordination of care (as documented) at patient's floor/unit and/or counseling patient:: 35 - 50 minutes QUALITY VTE Deep Vein Thrombosis/Pulmonary Embolism Present on Admission: No
[2022-03-07] MEDS ORDERED: 0.9 % SODIUM CHLORIDE 250 ML IV SCH (16:00)
[2022-03-07] MEDS ORDERED: FUROSEMIDE 40 MG/4 ML VIAL IV SCH (16:00)
[2022-03-07] MEDS: CARVEDILOL 3.125 MG TABLET PO SCH (18:00)
[2022-03-07] MEDS: SENNOSIDES 1 TABLET PO SCH (20:12)
[2022-03-07] MEDS: traZODone HCL 50 MG TABLET PO PRN (20:12)
[2022-03-07] MEDS ORDERED: INSULIN GLARGINE, HUMAN 1 UNIT/0.01 ML SQ SCH (21:00)
[2022-03-08] MEDS: traMADol 50 MG TABLET PO PRN ×3 (00:51→21:16)
[2022-03-08] MEDS: ACETAMINOPHEN 325 MG TABLET PO PRN ×3 (00:52→21:17)
[2022-03-08] MEDS: IPRATROPIUM/ALBUTEROL 3 ML AMPUL.NEB NEB SCH ×6 (03:06→22:41)
[2022-03-08] MEDS: 0.9 % SODIUM CHLORIDE 10 ML SYRINGE IV SCH ×3 (05:46→21:27)
[2022-03-08 07:22] LABS: Basophils # (Auto) 0.02 K/mcL (0.00-0.30); Basophils % (Auto) 0.2 % (0.0-2.0); Eosinophils # (Auto) 0.11 K/mcL (0.00-0.70); Eosinophils % (Auto) 1.1 % (0.0-7.0); Hematocrit 23.1 % (40.1-51.0); Hemoglobin 7.1 g/dL (13.7-17.5); Lymphocytes # (Auto) 2.44 K/mcL (1.50-4.80); Lymphocytes % (Auto) 24.4 % (15.5-49.0); Mean Cell Volume 83.4 fL (80.0-100.0); Mean Corpuscular HGB Conc 30.7 g/dL (31.0-36.0); Mean Platelet Volume 10.2 fL (8.8-12.5); Monocytes # (Auto) 1.12 K/mcL (0.10-0.90); Monocytes % (Auto) 11.2 % (1.0-12.0); Neutrophils % (Auto) 62.8 % (38.0-78.0); Platelet Count 324 K/mcL (140-440); RBC 2.77 M/mcL (4.63-6.08); Red Cell Distribution Width 15.9 % (11.5-14.5)
[2022-03-08 07:43] LABS: ALT/SGPT 28 U/L (<40); AST/SGOT 19 U/L (<40); Albumin 3.5 gm/dL (3.2-5.2); Albumin/Globulin Ratio 1.3 (1.0-2.3); Alkaline Phosphatase 41 U/L (39-117); Bilirubin,Total 0.2 mg/dL (0.1-1.0); Blood Urea Nitrogen 25 mg/dL (8-23); Calcium 8.7 mg/dL (8.6-10.4); Carbon Dioxide 35 mmol/L (22-30); Chloride 92 mmol/L (96-108); Globulin 2.8 gm/dL (2.2-3.7); Glomerular Filtration Rate 85; Glucose 118 mg/dL (70-105)
[2022-03-08] MEDS: INSULIN LISPRO 1 UNIT/0.01 ML UNIT SQ SCH ×5 (08:37→21:17)
[2022-03-08] MEDS: ATORVASTATIN 20 MG TABLET PO SCH (08:56)
[2022-03-08] MEDS: CARVEDILOL 3.125 MG TABLET PO SCH ×2 (08:56→18:23)
[2022-03-08] MEDS: OMEPRAZOLE 20 MG CAPSULE PO SCH (08:56)
[2022-03-08] MEDS: DOCUSATE SODIUM 100 MG CAPSULE PO SCH ×2 (08:56→21:16)
[2022-03-08] MEDS: LOSARTAN 50 MG TABLET PO SCH (08:56)
[2022-03-08] MEDS: predniSONE 20 MG TABLET PO SCH (08:56)
[2022-03-08] MEDS: SPIRONOLACTONE 25 MG TABLET PO SCH (08:57)
[2022-03-08] MEDS: FUROSEMIDE 40 MG/4 ML VIAL IV SCH ×2 (08:57→17:40)
[2022-03-08] MEDS: NICOTINE 21 MG PATCH TOPICAL SCH (08:57)
[2022-03-08] MEDS: FLUTICASONE/SALMETEROL 250/50 INHALER #14 INH SCH ×2 (08:57→21:27)
[2022-03-08] MEDS ORDERED: DEXTROSE 50% 50 ML VIAL IV PRN (10:22)
[2022-03-08] MEDS ORDERED: DEXTROSE 31 GM ORAL.SUSP PO PRN (10:22)
--- NOTE | 2022-03-08 10:46 | Internal Med Progress Note ---
SUBJECTIVE Subjective Patient information: Note initiated : 03/08/22 at 10:40 am Service Date, if different from initiated Date: [] Patient: Markel Edward 71 y/o M admitted on 03/05/22 for Shortness of Breath. Chief Complaint: [] Interval history: Mr. Edward is a 71 year old M history of CHF, COPD, type 2 diabetes mellitus, presenting with 2 weeks history of gradually worsening shortness of breath, productive cough with white sputum, and diaphoresis. He is complaining of 2 weeks of gradually worsening shortness of breath, productive cough with white sputum, wheezing, diaphoresis. He denies any subjective fever or chills. He denies any leg swelling. He denies any orthopnea and he sleeps on 1 pillows. He does have dyspnea on exertions with 50 feet's. He denies any unintentional weight gain. He denies any change in his appetite. He uses oxygen at home up to 4 L/min. Earlier today his symptoms were so bad that he could no longer hold his breath so he called EMS to be sent to our ED for further evaluation and treatments. He was placed on BiPAP initially, currently is back down to 4 L/min nasal cannula oxygen's. Labs significant for leukocytosis with WBC 18.6. Lactic acid 3.1 with repeat of 2.7. Blood sugar level 302. D-dimer elevated at 1.32. Screening for COVID and influenza a and B are negative. Chest x-ray sh owing findings consistent with congestive heart failure. No focal pulmonary parenchymal consolidations. CTA of the chest negative for any pulmonary embolism. It again showing interstitial pulmonary edema. It does not show any focal infiltrates. It shows noncalcified pulmonary parenchymal nodules. 3 to 6-month CT follow-up recommended. Admission request was called for COPD and CHF exacerbations. 03/06: Influenza AMB and COVID PCR negative. Hemoglobin dropped about one-point this morning relative to yesterday, currently at 7.1. Patient is currently on 5 L/min of nasal cannula oxygen. He was on BiPAP at night while sleeping. His degree of shortness of breath has improved. He is still complaining of productive cough with white and clear sputum. He is still complaining of respiratory wheezings. He denies any chest pain or chest tightness or palpitations. He denies any fever, chills, or diaphoresis. Continue to wean down nasal cannula supplemental oxygen as tolerated titrate to achieve spo2 >=88%. COPD exacerbation: Continue azithromycin's, systemic steroid, and bronchodila tors. CHF exacerbation: Switch Lasix from IV back to p.o. Continue losartan. No beta-blockers during time of exacerbations. Pending echocardiogram report. Hypoventilation syndrome: Continue BiPAP at night while sleeping (baseline) 03/07: Patient had an episode of hypoglycemia with blood sugar 38 at around 1 AM this morning. Patient was symptomatic with near syncope diaphoresis and shakiness at that time. Multiple rounds of juices was given and blood sugar normalized. 2D echocardiogram showing severely reduced LVEF estimated to be 10 to 15% with global hypokinesis. This afternoon patient is complaining of improving degree of shortness of breath. He is complaining of productive cough with gracia sputum production. He is complaining of respiratory wheezings. He denies any fever chills or diaphoresis. Will add Aldactone while continuing oral Lasix, losartan, and Coreg as part of treatment for CHF exacerbations. We will consult tele-service representative. Will continue DuoNEB, Prednisone, and Zithromax for COPD exacerbation. Reduce insulin Lantus from 20 to 10 unit HS starting tonight to avoid hypoglycemia. Physical therapy evaluation and treatment. 03/08: Another episode of hypoglycemia with blood glucose 48 early this morning. Tele- cardiology consultation made a few recommendations: 1) Aggressive diuretics with Lasix 80mg IV once on 03/07, then 60mg IV BID starting today 03/08, then switch to PO Lasix 80mg AM and 40mg PM. 2) 1 unit pRBC transfusion today 03/08, 3) Outpatient Entresto/Jardiance, 4) Decreases Coreg from 25mg to 3.125mg PO BID, 5) Transfer to [place] for cardiac catheterization. I spoke with the patient at the bedside, he prefer to have the catheterizations to be done locally. We agree to rest of the medical treatments, and once he reached medical stability, will discharge patient with referral to local service representative to proceed with outpatient selective catheter catheterizations. We will cut Lantus from 10 units to 5 units addressed tonight and will also decrease the sliding scale insulin from high scale to medium scale to avoid hypoglycemia. Constitutional Vitals: Vital Signs Temp Pulse Resp BP Pulse Ox O2 Del Method O2 Flow Rate 36.3 C 98 H 18 99/56 98 4.5 03/08/22 07:37 03/08/22 07:56 03/08/22 07:56 03/08/22 07:37 03/08/22 07:56 03/08/22 07:56 03/08/22 07:56 Period Temp Pulse Resp BP Sys/Yoder Pulse Ox O2 Del Method O2 Flow Rate Last 24 Hr 36.2 C-37.1 C 83-116 16-20 99-144/56-89 93-100 BiPAP-Nasal Cannula, Bubble Humidifier 4-5 Intake and Output 03/07/22 03/08/22 03/08/22 19:59 03:59 11:59 Intake Total 1550 880 Output Total 2275 Balance -725 880 Weight 97.341 kg 98.339 kg Intake & Output: Intake & Output 03/07/22 03/08/22 03/08/22 19:59 03:59 11:59 Intake Total 1550 880 Output Total 2275 Balance -725 880 Weight 97.341 kg 98.339 kg Intake: IV 250 Zithromax 250 mg In Dextrose 5% 250 in Water 250 ml @ 250 mls/hr IV Q24H [facility] Rx#:[id number] Oral 1300 880 Output: Void Amount 2275 Other: Meal Lunch Percent of Meal Consumed 100% Urine Appearance Clear Urine Color Pale Urine Odor Normal Head Head exam: Present atraumatic and normal inspection Eye Eye exam: Present normal appearance ENT ENT exam: Present mucous membranes moist, normal exam and normal external ear exam Neck Neck exam: Present normal inspection Respiratory Respiratory exam: Present rhonchi Cardiovascular Cardiovascular exam: Present normal rate and rhythm GI/Abdominal GI/Abdominal exam: Present normal bowel sounds Extremities Exam Extremities exam: Present pedal edema Back Exam Back exam: Present normal inspection Neurological Exam Neurological exam: Present alert and oriented X3 Skin Skin exam: Present intact and warm OBJ DATA Labs CBC & Chem 7: 03/08/22 05:46 03/08/22 05:46 Labs: Abnormal Lab Results 03/08/22 03/08/22 03/07/22 05:46 05:46 06:02 WBC RBC 2.77 L Hgb 7.1 L Hct 23.1 L MCH 25.6 L MCHC 30.7 L RDW 15.9 H Neut % (Auto) Lymph % (Auto) Lymph # (Auto) [place] # (Auto) 1.12 H Absolute Neutrophils Sodium 131 L Chloride 92 L 91 L Carbon Dioxide 35 H 33 H Anion Gap 7.0 L 7.0 L BUN 25 H 25 H Glucose 118 H Hemoglobin A1c 03/07/22 03/06/22 03/06/22 06:02 06:30 06:30 WBC 11.4 H RBC 2.71 L 2.77 L Hgb 7.2 L 7.1 L Hct 23.1 L 23.4 L MCH 25.6 L MCHC 30.3 L RDW 15.9 H 15.6 H Neut % (Auto) 84.0 H Lymph % (Auto) 12.6 L 6.3 L Lymph # (Auto) 1.44 L 0.64 L [place] # (Auto) 1.10 H 0.93 H Absolute Neutrophils 8.76 H 8.47 H Sodium 131 L Chloride 91 L Carbon Dioxide Anion Gap BUN Glucose 161 H Hemoglobin A1c 03/05/22 07:22 WBC RBC Hgb Hct MCH MCHC RDW Neut % (Auto) Lymph % (Auto) Lymph # (Auto) [place] # (Auto) Absolute Neutrophils Sodium Chloride Carbon Dioxide Anion Gap BUN Glucose Hemoglobin A1c 6.1 H Meds: Medications Acetaminophen (Acetaminophen 325 Mg Tablet) 650 mg PO Q6HP PRN; Protocol PRN Reason: Per Pain Protocol/Fever > 101 Last Admin: 03/08/22 00:52 Dose: 650 mg Albuterol/Ipratropium (Ipratropium/Albuterol 3 Ml Ampul.Neb) 3 ml NEB Q4HRT [facility] Last Admin: 03/08/22 07:54 Dose: 3 ml Atorvastatin Calcium (Atorvastatin 20 Mg Tablet) 20 mg PO QDAY [facility] Last Admin: 03/08/22 08:56 Dose: 20 mg Carvedilol (Carvedilol 3.125 Mg Tablet) 3.125 mg PO BIDCC [facility] Last Admin: 03/08/22 08:56 Dose: 3.125 mg Dextrose (Dextrose 50% 50 Ml Vial) 0 ml IV UD PRN PRN Reason: Per Sliding Scale Diagnostic Test (Pha) (Accu-Chek 1 Each Strip) 1 each FS ACHS [facility] Docusate Sodium (Docusate Sodium 100 Mg Capsule) 100 mg PO BID [facility] Last Admin: 03/08/22 08:56 Dose: 100 mg Furosemide (Furosemide 40 Mg/4 Ml Vial) 60 mg IV BIDD [facility] Last Admin: 03/08/22 08:57 Dose: 60 mg Glucose (Dextrose 31 Gm Oral.Susp) 15 gm PO PRN PRN PRN Reason: Hypoglycemia Guaifenesin (Guaifenesin/Dextromethorphan Oral Jessica) 10 ml PO Q4HP PRN PRN Reason: Cough Insulin Glargine (Insulin Glargine, Human 1 Unit/0.01 Ml) 5 unit SQ [facility] Insulin Human Lispro (Insulin Lispro 1 Unit/0.01 Ml Unit) 0 unit SQ [facility]; Protocol Losartan Potassium (Losartan 50 Mg Tablet) 100 mg PO DAILY [facility] Last Admin: 03/08/22 08:56 Dose: 100 mg Metoprolol Tartrate (Metoprolol Tartrate 5 Mg/5 Ml Vial) 5 mg IV Q5M PRN PRN Reason: Tachyarrhythmias Nicotine (Nicotine 21 Mg Patch) 21 mg TOPICAL DAILY@1000 [facility] Last Admin: 03/08/22 08:57 Dose: 21 mg Omeprazole (Omeprazole 20 Mg Capsule) 40 mg PO ACB [facility] Last Admin: 03/08/22 08:56 Dose: 40 mg Ondansetron HCl (Ondansetron 4 Mg/2 Ml Vial) 4 mg IV Q6HP PRN PRN Reason: Nausea And Vomiting Prednisone (Prednisone 20 Mg Tablet) [facility] Last Admin: 03/08/22 08:56 Dose: 40 mg Fluticasone/Salmeterol (Fluticasone/Salmeterol 250/50 Inhaler #14) 1 puff INH BID [facility] Last Admin: 03/08/22 08:57 Dose: 1 puff Senna (Sennosides 1 Tablet) 2 tab PO [facility] Last Admin: 03/07/22 20:12 Dose: 2 tab Sodium Chloride (0.9 % Sodium Chloride 10 Ml Syringe) 10 ml IV Q8 [facility] Last Admin: 03/08/22 05:46 Dose: 10 ml Spironolactone (Spironolactone 25 Mg Tablet) 25 mg PO DAILY [facility] Last Admin: 03/08/22 08:57 Dose: 25 mg Tramadol HCl (Tramadol 50 Mg Tablet) 50 mg PO Q6HP PRN PRN Reason: Pain Last Admin: 03/08/22 00:51 Dose: 50 mg Trazodone HCl (Trazodone Hcl 50 Mg Tablet) 25 mg PO HSP PRN PRN Reason: Insomnia Last Admin: 03/07/22 20:12 Dose: 25 mg A/P Assessment and plan (1) Flash pulmonary edema: Status: Acute (2) Pulmonary nodules/lesions, multiple: Status: Acute (3) GERD (gastroesophageal reflux disease): Status: Chronic (4) Anemia: Status: Acute Qualifiers: Anemia type: unspecified type Qualified Code(s): D64.9 - Anemia, unspecified (5) CHF exacerbation: Status: Acute (6) COPD exacerbation: Status: Acute (7) Diabetes mellitus with hyperglycemia: Status: Acute (8) Hypoventilation syndrome: Status: Chronic (9) Cigarette smoker: Status: Acute Narrative A/P Narrative: Assessment and Plans: 1. CHF exacerbation: Inpatient med surg telemetry Continue to wean down nasal cannula supplemental oxygen as tolerated titrate to achieve spo2 >=88% (home O2 baseline of 4L/min) CEPHEID CoVID Influenza A/B all negative Strict intake and output Daily weigh 2L/day fluid restriction Lasix 60mg IV BID, then switch to PO with 80mg AM and 40mg PO at time of hospital discharge Losartan Coreg, 3.125mg PO BID Aldactone 2D echocardiogram: It shows severe systolic dysfunction with LVEF estimated to be 10 to 15% with global hypokinesis Physical therapy evaluation and treatment Tele-cardiology consultation made a few recommendations: 1) Aggressive diuretics with Lasix 80mg IV once on 03/07, then 60mg IV BID starting today 03/08, then switch to PO Lasix 80mg AM and 40mg PM. 2) 1 unit pRBC transfusion today 03/08, 3) Outpatient Entresto/Jardiance, 4) Decreases Coreg from 25mg to 3.125mg PO BID, 5) Transfer to [place] for cardiac catheterization. I spoke with the patient at the bedside, he prefer to have the catheterizations to be done locally. We agree to rest of the medical treatments, and once he reached medical stability, will discharge patient with referral to local service representative to proceed with outpatient selective catheter catheterizations. 2. COPD exacerbation: Prednisone DuoNeb NEB q4hr scheduled ProAir PRN wheezing Advair Diskus Finished Azithromycin 3. Anemia, hypochromic: cbc w/ auto diff in the morning to trend H/H d/c Lovenox, switch to SCDs 4. T2DM with hyperglycemia: HgA1c 6.1 Hold oral hypoglycemics Lantus 10-->5 unit HS to avoid hypoglycemia Medium scale Insulin Lispro SSI AC HS to avoid hypoglycemia Encourage night time snacking to avoid hypoglycemia Accu Check AC HS Hypoglycemia protocol Diabetic diet (2000cc/day restriction) 5. GERD: Continue oral PPI from home regimen 6. Hypoventilation syndrome: Continue BiPAP at night while sleeping (baseline) 7. Cigarette smoker: Nicotine replacement therapy 8. Multiple pulmonary nodules: Repeat CT chest imaging in 3-6 months recommended GI ppx: Continue oral PPI from home regimen DV ppx: SCDs Code status: Full Prognosis: Guarded Disposition: inpatient med tele; PT Time Spent With Patient Time: Total time spent is greater than 50% in coordination of care (as documented) at patient's floor/unit and/or counseling patient: Total time spent with greater than 50% in coordination of care (as documented) at patient's floor/unit and/or counseling patient:: 35 - 50 minutes QUALITY VTE Deep Vein Thrombosis/Pulmonary Embolism Present on Admission: No
[2022-03-08] MEDS ORDERED: INSULIN GLARGINE, HUMAN 1 UNIT/0.01 ML SQ SCH (21:00)
[2022-03-08] MEDS: traZODone HCL 50 MG TABLET PO PRN (21:16)
[2022-03-08] MEDS: SENNOSIDES 1 TABLET PO SCH (21:16)
[2022-03-09] MEDS: IPRATROPIUM/ALBUTEROL 3 ML AMPUL.NEB NEB SCH ×2 (03:42→07:54)
[2022-03-09] MEDS: 0.9 % SODIUM CHLORIDE 10 ML SYRINGE IV SCH (05:38)
[2022-03-09 07:20] LABS: Basophils # (Auto) 0.02 K/mcL (0.00-0.30); Basophils % (Auto) 0.2 % (0.0-2.0); Eosinophils % (Auto) 1.1 % (0.0-7.0); Hemoglobin 8.5 g/dL (13.7-17.5); Lymphocytes # (Auto) 2.63 K/mcL (1.50-4.80); Lymphocytes % (Auto) 27.8 % (15.5-49.0); Mean Cell Volume 84.6 fL (80.0-100.0); Mean Corpuscular HGB Conc 31.5 g/dL (31.0-36.0); Mean Platelet Volume 10.2 fL (8.8-12.5); Monocytes # (Auto) 1.18 K/mcL (0.10-0.90); Monocytes % (Auto) 12.5 % (1.0-12.0); Neutrophils % (Auto) 57.8 % (38.0-78.0); Platelet Count 304 K/mcL (140-440); RBC 3.19 M/mcL (4.63-6.08); Red Cell Distribution Width 15.7 % (11.5-14.5); WBC 9.5 K/mcL (4.5-11.0)
[2022-03-09] MEDS: INSULIN LISPRO 1 UNIT/0.01 ML UNIT SQ SCH ×2 (07:42→11:54)
[2022-03-09] MEDS: OMEPRAZOLE 20 MG CAPSULE PO SCH (07:42)
[2022-03-09] MEDS: CARVEDILOL 3.125 MG TABLET PO SCH (07:42)
[2022-03-09] MEDS: predniSONE 20 MG TABLET PO SCH (07:43)
[2022-03-09] MEDS: FUROSEMIDE 40 MG/4 ML VIAL IV SCH (07:43)
[2022-03-09 08:05] LABS: ALT/SGPT 26 U/L (<40); AST/SGOT 14 U/L (<40); Albumin 3.6 gm/dL (3.2-5.2); Albumin/Globulin Ratio 1.4 (1.0-2.3); Alkaline Phosphatase 39 U/L (39-117); Bilirubin,Total 0.3 mg/dL (0.1-1.0); Blood Urea Nitrogen 26 mg/dL (8-23); Calcium 8.7 mg/dL (8.6-10.4); Carbon Dioxide 34 mmol/L (22-30); Chloride 94 mmol/L (96-108); Globulin 2.6 gm/dL (2.2-3.7); Glomerular Filtration Rate 85; Glucose 127 mg/dL (70-105)
[2022-03-09] MEDS: NICOTINE 21 MG PATCH TOPICAL SCH (08:19)
[2022-03-09] MEDS: FLUTICASONE/SALMETEROL 250/50 INHALER #14 INH SCH (08:34)
[2022-03-09] MEDS: LOSARTAN 50 MG TABLET PO SCH (08:34)
[2022-03-09] MEDS: SPIRONOLACTONE 25 MG TABLET PO SCH (08:34)
[2022-03-09] MEDS: DOCUSATE SODIUM 100 MG CAPSULE PO SCH (08:35)
[2022-03-09] MEDS: ATORVASTATIN 20 MG TABLET PO SCH (08:35)
[2022-03-09] MEDS: traMADol 50 MG TABLET PO PRN (08:38)
[2022-03-09] MEDS: ACETAMINOPHEN 325 MG TABLET PO PRN (08:38)
[2022-03-09] MEDS ORDERED: FUROSEMIDE 80 MG TABLET PO SCH (09:00)
--- NOTE | 2022-03-09 10:30 | Discharge Summary ---
Discharge Provider Provider IMPORTANT FOLLOW-UP INFORMATION FOR PCP: Patient information: Note initiated : 03/09/22 at 10:27 am Service Date, if different from initiated Date: [] Patient: Markel Edward 71 y/o M admitted on 03/05/22 for Shortness of Breath. Chief Complaint: [] Date of admission: 03/05/22 14:28 Discharge date: 03/09/22 Primary care physician: Marcus Smith MD Attending physician on admission: Wilian Thayer Consults: 03/05/22 10:12 Consult to Physician [CONS] Stat Comment: Consulting Provider: Wilian Thayer Reason For Exam: Physician to Consult 03/07/22 13:54 Consult to Physician [CONS] Routine Comment: Consulting Provider: Yassine López Cardiology Reason For Exam: Physician to Consult Attending physician on discharge: Wilian Thayer COURSE Hospital Course Hospital course: Mr. Edward is a 71 year old M history of CHF, COPD, type 2 diabetes mellitus, presenting with 2 weeks history of gradually worsening shortness of breath, productive cough with white sputum, and diaphoresis. He is complaining of 2 weeks of gradually worsening shortness of breath, productive cough with white sputum, wheezing, diaphoresis. He denies any subjective fever or chills. He denies any leg swelling. He denies any orthopnea and he sleeps on 1 pillows. He does have dyspnea on exertions with 50 feet's. He denies any unintentional weight gain. He denies any change in his appetite. He uses oxygen at home up to 4 L/min. Earlier today his symptoms were so bad that he could no longer hold his breath so he called EMS to be sent to our ED for further evaluation and treatments. He was placed on BiPAP initially, currently is back down to 4 L/min nasal cannula oxygen's. Labs significant for leukocytosis with WBC 18.6. Lactic acid 3.1 with repeat of 2.7. Blood sugar level 302. D-dimer elevated at 1.32. Screening for COVID and influenza a and B are negative. Chest x-ray showing findings consistent with congestive heart failure. No focal pulmonary parenchymal consolidations. CTA of the chest negative for any pulmonary embolism. It again showing interstitial pulmonary edema. It does not show any focal infiltrates. It shows noncalcified pulmonary parenchymal nodules. 3 to 6-month CT follow-up recommended. Admission request was called for COPD and CHF exacerbations. 03/06: Influenza AMB and COVID PCR negative. Hemoglobin dropped about one-point this morning relative to yesterday, currently at 7.1. Patient is currently on 5 L/min of nasal cannula oxygen. He was on BiPAP at night while sleeping. His degree of shortness of breath has improved. He is still complaining of productive cough with white and clear sputum. He is still complaining of respiratory wheezings. He denies any chest pain or chest tightness or palpitations. He denies any fever, chills, or diaphoresis. Continue to wean down nasal cannula supplemental oxygen as tolerated titrate to achieve spo2 >=88%. COPD exacerbation: Continue azithromycin's, systemic steroid, and bronchodilators. CHF exacerbation: Switch Lasix from IV back to p.o. Continue losartan. No beta-blockers during time of exacerbations. Pending echocardiogram report. Hypoventilation syndrome: Continue BiPAP at night while sleeping (baseline) 03/07: Patient had an episode of hypoglycemia with blood sugar 38 at around 1 AM this morning. Patient was symptomatic with near syncope diaphoresis and shakiness at that time. Multiple rounds of juices was given and blood sugar normalized. 2D echocardiogram showing severely reduced LVEF estimated to be 10 to 15% with global hypokinesis. This afternoon patient is complaining of improving degree of shortness of breath. He is complaining of productive cough with gracia sputum production. He is complaining of respiratory wheezings. He denies any fever chills or diaphoresis. Will add Aldactone while continuing oral Lasix, losartan, and Coreg as part of treatment for CHF exacerbations. We will consult tele-meat inspector. Will continue DuoNEB, Prednisone, and Zithromax for COPD exacerbation. Reduce insulin Lantus from 20 to 10 unit HS starting tonight to avoid hypoglycemia. Physical therapy evaluation and treatment. 03/08: Another episode of hypoglycemia with blood glucose 48 early this morning. Tele- cardiology consultation made a few recommendations: 1) Aggressive diuretics with Lasix 80mg IV once on 03/07, then 60mg IV BID starting today 03/08, then switch to PO Lasix 80mg AM and 40mg PM. 2) 1 unit pRBC transfusion today 03/08, 3) Outpatient Entresto/Jardiance, 4) Decreases Coreg from 25mg to 3.125mg PO BID, 5) Transfer to [facility] for cardiac catheterization. I spoke with the patient at the bedside, he prefer to have the catheterizations to be done locally. We agree to rest of the medical treatments, and once he reached medical stability, will discharge patient with referral to local meat inspector to proceed with outpatient selective catheter catheterizations. We will cut Lantus from 10 units to 5 units addressed tonight and will also decrease the sliding scale insulin from high scale to medium scale to avoid hypoglycemia. 03/09: Discharged home with Rx sent to pharmacy. 1 week PCP follow up appointment made. Cardiology referral also made for him. Semi-urgent cardiac catheterization recommended. All questions were answered prior to patient being physically discharged. Discharge diagnosis: CHF exacerbation/ COPD exacerbation Time Spent with Patient Time attestation: Total time spent providing and/or coordinating discharge services: Time spent: Greater than 30 minutes EXAM Constitutional Vitals: Temp Pulse Resp BP Pulse Ox O2 Del Method O2 Flow Rate 36.6 C 96 H 14 136/83 97 4 03/09/22 06:47 03/09/22 06:47 03/09/22 06:47 03/09/22 06:47 03/09/22 06:47 03/09/22 06:47 03/09/22 06:47 General appearance: cooperative and no acute distress Head Head exam: Present atraumatic and normocephalic Eye Eye exam: Present EOMI and PERRL ENT ENT exam: Present mucous membranes moist, normal exam and normal external ear exam Neck Neck exam: Present normal inspection; Absent lymphadenopathy, tenderness or thyromegaly Respiratory Respiratory exam: Absent accessory muscle use, respiratory distress or wheezes Cardiovascular Cardiovascular exam: Present normal rate and rhythm; Absent JVD GI/Abdominal GI/Abdominal exam: Present normal bowel sounds and soft; Absent organomegaly or tenderness Rectal Rectal exam: Present deferred Extremities Exam Extremities exam: Present full ROM, normal capillary refill and normal inspection; Absent tenderness Neurological Exam Neurological exam: Present alert, CN II-XII intact and oriented X3; Absent motor sensory deficit Psychiatric Psychiatric exam: Present normal affect and normal mood; Absent anxious or depressed Skin Skin exam: Present dry and intact Discharge Data Data Completed and Pending Labs on day of discharge: Labs from last 24 hours 03/09/22 03/09/22 06:05 05:00 WBC 9.5 RBC 3.19 L Hgb 8.5 L Hct 27.0 L MCV 84.6 MCH 26.6 MCHC 31.5 RDW 15.7 H Plt Count 304 MPV 10.2 Immature Gran % (Auto) 0.6 H Neut % (Auto) 57.8 Lymph % (Auto) 27.8 [place] % (Auto) 12.5 H Eos % (Auto) 1.1 Baso % (Auto) 0.2 Lymph # (Auto) 2.63 [place] # (Auto) 1.18 H Eos # (Auto) 0.10 Baso # (Auto) 0.02 Immature Gran # 0.06 H Absolute Neutrophils 5.48 Sodium 136 Potassium 3.9 Chloride 94 L Carbon Dioxide 34 H Anion Gap 8.0 BUN 26 H Creatinine 0.9 GFR Calculation 85 Glucose 127 H Calcium 8.7 Magnesium 1.9 Total Bilirubin 0.3 AST 14 ALT 26 Alkaline Phosphatase 39 Total Protein 6.2 Albumin 3.6 Globulin 2.6 Albumin/Globulin Ratio 1.4 Preliminary micro results at discharge 03/05/22 08:25 Blood Culture - Preliminary Blood 03/05/22 07:50 Blood Culture - Preliminary Blood Discharge Plan Patient/Caregiver Discharge Instructions Activity: increase activity as tolerated Diet: Consistent Carbohydrate Prescriptions: New Entresto 24-26 mg tablet 1 tab PO BID Qty: 60 0RF furosemide 40 mg Tablet 40 mg PO 1600 Qty: 30 2RF dextromethorphan-guaifenesin [Diabetic Tussin DM] 10-100 mg/5 mL Liquid 10 ml PO Q4HP PRN (Reason: Cough) Qty: 500 0RF carvedilol 3.125 mg Tablet 3.125 mg PO BIDCC Qty: 60 2RF furosemide 80 mg Tablet 80 mg PO 0800 Qty: 30 2RF spironolactone 25 mg Tablet 25 mg PO DAILY Qty: 30 2RF nicotine 21 mg/24 hr Patch 24 Hour 21 mg topical DAILY@1000 Qty: 21 2RF Continued (DME) lancets [FreeStyle Lancets] 28 gauge misc See Protocol .ROUTE .MEDSUPPLY Qty: 100 4RF Protocol: Insulin Sliding Scale, Low Condition: HUMALOG/NOVALOG SC SLIDING Dose/Route: SCALE Condition: FSBS < 70 Dose/Route: Give 4 Oz juice, or 15gm oral Instruction: Glucose, or 25ml D50W IV if Dose/Route: unable to take PO. Recheck in Instruction: 15 min and repeat if FSBS < 70 Condition: FSBS 71-140 Dose/Route: NO COVERAGE Condition: FSBS 141-170 Dose/Route: 1 UNITS Condition: FSBS 171-200 Dose/Route: 2 UNITS Condition: FSBS 201-250 Dose/Route: 3 UNITS Condition: FSBS 251-300 Dose/Route: 4 UNITS Condition: FSBS 301-350 Dose/Route: 6 UNITS Condition: FSBS 351-400 Dose/Route: 8 UNITS Condition: FSBS > 400 Dose/Route: 10 UNITS; REPEAT Q2H X2 Instruction: CONTINUE FOLLOWING SLIDING Condition: SCALE; IF STILL > 400; CALL Dose/Route: PHYSICIAN Rx Instructions: Test twice daily am and pm atorvastatin [Lipitor] 20 mg tablet 20 mg PO QDAY Qty: 90 3RF (DME) pen needle, diabetic [Ultra-Thin II Ins Pen [place]] 29 gauge x 1/2" needle See Rx Instructions .ROUTE .MEDSUPPLY Qty: 100 6RF Rx Instructions: As directed once daily with Levemir pen ipratropium-albuterol 0.5 mg-3 mg(2.5 mg base)/3 mL solution for nebulization 3 ml INHALATION QID Qty: 360 6RF (DME) FreeStyle Lite Strips Strip See Rx Instructions .Route Qty: 150 3RF Rx Instructions: Use to test blood sugars morning and evening. fluticasone propion-salmeterol [Advair Diskus] 250-50 mcg/dose blister with device 1 inh INHALATION BID Qty: 180 3RF omeprazole 40 mg capsule,delayed release(DR/EC) 40 mg PO QDAY Qty: 30 5RF albuterol sulfate [Proventil HFA] 90 mcg/actuation HFA aerosol inhaler 2 puff INHALATION QIDP PRN (Reason: Shortness Of Breath) sildenafil 25 mg tablet 25 mg PO QDAY PRN (Reason: sexual activity) Qty: 30 7RF Rx Instructions: administer 30 minutes to 4 hours before activity metformin 1,000 mg tablet See Rx Instructions .ROUTE .COMPLEX Qty: 180 2RF Dose Instruction: TAKE 1 TABLET BY MOUTH TWICE DAILY Rx Instructions: TAKE 1 TABLET BY MOUTH TWICE DAILY acetaminophen 650 mg PO Q6HP PRN (Reason: Pain) tramadol 50 mg tablet 50 mg PO Q6H PRN (Reason: pain) Qty: 56 0RF (DME) BIPAP Qty: 1 Rx Instructions: As directed (DME) oxygen-air delivery systems device 4 each .ROUTE .MEDSUPPLY Rx Instructions: 4 L continuously Changed Levemir FlexTouch U-100 Insuln 100 unit/mL (3 mL) insulin pen 5 unit SUB-Q QHS Qty: 15 7RF Rx Instructions: Dose change Discontinued furosemide 40 mg tablet 40 mg PO QDAY Qty: 30 5RF Rx Instructions: Note dose change. 40mg daily. losartan 100 mg tablet 100 mg PO QDAY Qty: 90 3RF Follow Up Plan Follow up with: Antoine Mares [Physician] - Marcus Smith MD [Primary Care Provider] - Patient Disposition: Home, Self-Care Prognosis: Critical Rehab Potential: Good I certify that the patient requires SNF services: No Overall status at discharge: patient is progressing back to baseline Discharge Orders: Discharge Order (Routine); Ordered 03/09/22 Ordered By: Wilian DE LA CRUZ VTE Deep Vein Thrombosis/Pulmonary Embolism Present on Admission: No
[2022-03-09] MEDS ORDERED: FUROSEMIDE 40 MG TABLET PO SCH (16:00)
== END 2022-03-09 13:35 | disposition home or self-care (01) | DRG 291 ==
LOC: ED 07:06 → MEDSUR 14:28
PROVIDERS: ADMIT Internal Medicine; ATTEND Internal Medicine

== ENCOUNTER 2022-07-25 14:28 | Inpatient (IN) ==
[2022-07-25] MEDS ORDERED: IOPAMIDOL 100 ML BOTTLE IV ONE (14:29)
[2022-07-25 15:13] LABS: POC Calcium, Ionized 1.11 (1.16-1.32); POC Creatinine 0.7 (0.6-1.2); POC Potassium 4.1 (3.3-5.1)
[2022-07-25] MEDS ORDERED: 0.9 % SODIUM CHLORIDE 250 ML IV SCH ×2 (15:30→16:45)
[2022-07-25 15:48] LABS: Basophils # (Auto) 0.04 K/mcL (0.00-0.30); Basophils % (Auto) 0.5 % (0.0-2.0); Eosinophils # (Auto) 0.18 K/mcL (0.00-0.70); Eosinophils % (Auto) 2.1 % (0.0-7.0); Hematocrit 22.5 % (40.1-51.0); Hemoglobin 6.7 g/dL (13.7-17.5); Lymphocytes # (Auto) 1.48 K/mcL (1.50-4.80); Lymphocytes % (Auto) 17.1 % (15.5-49.0); Mean Cell Volume 83.6 fL (80.0-100.0); Mean Corpuscular HGB Conc 29.8 g/dL (31.0-36.0); Mean Platelet Volume 9.5 fL (8.8-12.5); Monocytes # (Auto) 1.07 K/mcL (0.10-0.90); Monocytes % (Auto) 12.4 % (1.0-12.0); Neutrophils % (Auto) 67.6 % (38.0-78.0); Platelet Count 270 K/mcL (140-440); RBC 2.69 M/mcL (4.63-6.08); Red Cell Distribution Width 15.7 % (11.5-14.5); WBC 8.7 K/mcL (4.5-11.0)
[2022-07-25 16:04] LABS: Prothrombin Time 13.9 sec (11.9-14.5)
[2022-07-25] MEDS ORDERED: PANTOPRAZOLE 40 MG VIAL IV ONE (16:34)
--- NOTE | 2022-07-25 17:22 | Cat Scan Report ---
CLINICAL INFORMATION: GI bleed. History of diverticular bleed COMPARISON: Abdomen and pelvic CT 01/23/2022 TECHNIQUE: 80 cc of Isovue-370 were injected intravenously, 20 and 70 seconds later, 0.625 mm helical slices were obtained from the mid heart through the subtrochanteric regions of the femurs. . Following reconstruction, 2.5 mm sagittal, coronal and axial reformatted images were processed and reviewed at bone, lung and soft tissue windows. Five minutes later, 0.625 mm helical slices were obtained from the mid heart through the kidneys and viewed at soft tissue windows.The exam was performed using radiation dose optimization techniques including, but not limited to, automated exposure control, adjustment of the mA and/or kV according to patient size and use of iterative reconstruction technique. FINDINGS: Lung bases show 6 mm nodule lateral basilar segment right lower lobe new from the previous exam.1 there are no effusions. The visualized heart is mildly enlarged but unchanged Abdominal images show the liver and gallbladder are unremarkable. A complex multiloculated solid cystic mass in the pancreatic head and neck show slight increase in size it spans 5.2 x 3.8 cm. There is a necrotic lymph node in the superior peripancreatic region spanning 3.4 cm which increased in size. The masses obstructing the pancreatic duct the [place] pancreatic duct is markedly dilated with a diameter of 12 mm. There is also scattered calcifications the pancreatic parenchyma compatible remote history of chronic pancreatitis. Common bile duct is also dilated due to obstruction by the mass 12 mm. Both adrenal glands, spleen, kidneys and are normal. There is mild aneurysmal enlargement of the infrarenal abdominal aorta maximal diameter 3.2 cm. There is no free air, free fluid or adenopathy Pelvic images show moderate prostate enlargement 6.2 cm diffuse wall thickening urinary bladder stressing chronic bladder outlet narrowing. Multiple sigmoid diverticula appreciated no significant diverticulitis. The remaining large bowel and appendix region small bowel and stomach are normal. No cause identified for GI blood loss. IMPRESSION: No cause identified for GI blood loss. Sigmoid diverticulosis noted, but does not appear to be a source of hemorrhage. 5.2 cm complex solid cystic mass dominating the pancreatic head and neck. This has increased in size slightly from previous exam. There is a 3.5 cm necrotic lymph node in the adjacent superior peripancreatic region. This could also be a mass component. No definite distant metastases. The mass obstructs the pancreatic duct resulting in marked dilatation and also obstructs the common bile duct with moderate common bile duct dilatation. 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 Moderate prostate enlargement Mild aneurysmal enlargement infrarenal abdominal aorta-no change Interpreted and Authenticated by: Jose Eduardo Fitzgerald 07/25/22
[2022-07-25] MEDS ORDERED: NICOTINE 14 MG PATCH TOPICAL ONE (19:11)
--- NOTE | 2022-07-25 19:16 | Emergency Department Note ---
HPI General Chief complaint: Rectal Bleed Stated complaint: rectal bleeding Time Seen by Provider: 07/25/22 14:36 Mode of arrival: EMS History of Present Illness HPI Narrative: Narrative: Patient presents to the emergency department with dark stools. Patient has a prior history of diverticular bleed. Patient also is being worked up for pancreatic mass and had endoscopic ultrasound and biopsy performed yesterday. He denies any hematemesis or abdominal pain. Related Data Home Medications Medication Instructions Recorded Confirmed albuterol sulfate 90 mcg/actuation 2 puff inhalation QIDP PRN 07/28/15 07/25/22 aerosol inhaler (Proventil HFA) Shortness Of Breath oxygen-air delivery systems 11/23/16 07/16/22 BIPAP #1 ea 09/07/19 07/16/22 acetaminophen 650 mg PO Q6HP PRN Pain 02/07/22 07/16/22 furosemide 40 mg tablet 20 mg PO QAM 05/14/22 07/16/22 spironolactone 25 mg tablet 12.5 mg PO QAM 05/14/22 07/16/22 insulin degludec 100 unit/mL (3 20 unit subcut QPM 07/16/22 07/25/22 mL) subcutaneous pen (Tresiba FlexTouch U-100 insulin) Previous Rx's Medication Instructions Recorded lancets 28 gauge (FreeStyle #100 ea 06/17/20 Lancets) sildenafil 25 mg tablet 25 mg PO QDAY PRN sexual activity 11/29/20 #30 tabs pen needle, diabetic 29 gauge x #100 ea 07/04/21 1/2" (Ultra-Thin II Insulin Pen [place]) blood sugar diagnostic (FreeStyle #150 ea 08/24/21 Lite Strips) tramadol 50 mg tablet 50 mg PO Q6H PRN pain #56 tabs 02/07/22 carvedilol 3.125 mg tablet 3.125 mg PO BIDCC #60 tabs 03/09/22 atorvastatin 20 mg tablet (Lipitor) 20 mg PO QDAY #90 tabs 04/09/22 metformin 1,000 mg tablet 1,000 mg PO BID #180 tabs 05/01/22 omeprazole 40 mg capsule,delayed 40 mg PO QDAY #30 caps 05/07/22 release Entresto 24 mg-26 mg tablet 1 tab PO BID #180 tabs 05/24/22 (sacubitril-valsartan) fluticasone 250 mcg-salmeterol 50 1 inh inhalation BID #180 ea 06/05/22 mcg/dose blistr powdr for inhalation (Advair Diskus) ipratropium 0.5 mg-albuterol 3 mg 3 ml inhalation QID #360 mL 07/18/22 (2.5 mg base)/3 mL nebulization soln Allergies Allergy/AdvReac Type Severity Reaction Status Date / Time NSAIDS (Non-Steroidal AdvReac Severe Other Verified 07/25/22 14:38 Anti-Inflamma Review of Systems ROS ROS Narrative: Narrative: All systems ED: reviewed and negative except as stated. [facility] Narrative Patient History Narrative: Narrative: Medical/Surgical/Family History All Active Problems (Updated 07/26/22 @ 07:52 by John Casarez MD) Melena (Acute) Acute blood loss anemia (Acute) Cigarette smoker (Acute) COPD exacerbation (Acute) CHF exacerbation (Acute) Pulmonary nodules/lesions, multiple (Chronic) Flash pulmonary edema (Acute) Leukocytosis (Acute) Cough (Acute) Acute GI bleeding (Acute) Anemia (Acute) Subscapular pain (Acute) Medicare annual wellness visit, subsequent (Acute) Respiratory failure with hypoxia and hypercapnia (Chronic) Abdominal aortic aneurysm (Acute) History of onychomycosis (Acute) Hypoventilation syndrome (Chronic) Hypercapnia (Chronic) Diabetes mellitus with hyperglycemia (Acute) Immunization deficiency (Acute) Bronchitis (Chronic) Emphysema, unspecified (Chronic) Elevated d-dimer (Chronic) Dyspnea on exertion (Chronic) Pleural effusion (Chronic) Lymphadenopathy, abdominal (Acute) Lobar pneumonia (Chronic) History of tonsillectomy and adenoidectomy (Chronic) Tobacco use (Chronic) Benign prostatic hyperplasia with urinary obstruction (Chronic) Lumbar radiculopathy (Chronic) Pure hypercholesterolemia, unspecified (Chronic) Leukocytosis (Chronic) Macrocytosis (Chronic) Dependent edema (Chronic) 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) Vitamin B12 deficiency (Chronic) Pancreatitis (Chronic) CHF (congestive heart failure) (Chronic) Anemia (Chronic) Obesity, unspecified (Chronic) GERD (gastroesophageal reflux disease) (Chronic) Hyperlipidemia (Chronic) Hypertension (Chronic) Chest pain, precordial (Chronic) Lumbar radiculopathy, right (Chronic) COPD (chronic obstructive pulmonary disease) (Chronic) Hypoxemia (Chronic) Erectile dysfunction (Chronic) Hyponatremia (Chronic) Hypokalemia (Chronic) Drug-induced hepatotoxicity (Chronic) Rectal bleeding (Chronic) Smoker (Chronic) Varicose veins of lower extremity with inflammation, bilateral (Chronic) BPH (benign prostatic hyperplasia) (Chronic) Medical History Abdominal aortic aneurysm Anemia Benign prostatic hyperplasia with urinary obstruction BiPAP (biphasic positive airway pressure) dependence BPH (benign prostatic hyperplasia) Bronchitis Chest pain, precordial CHF (congestive heart failure) Chronic combined systolic and diastolic heart failure Chronic hypercapnic respiratory failure Chronic hypoxemic respiratory failure COPD (chronic obstructive pulmonary disease) Dependent edema Diabetes mellitus with hyperglycemia Drug-induced hepatotoxicity Dyspnea on exertion Elevated d-dimer Emphysema, unspecified Erectile dysfunction GERD (gastroesophageal reflux disease) History of onychomycosis Hypercapnia Hyperlipidemia Hypertension Hypokalemia Hyponatremia Hypoventilation syndrome Hypoxemia Immunization deficiency Leukocytosis Lobar pneumonia Lumbar radiculopathy Lumbar radiculopathy, right Macrocytosis Medicare annual wellness visit, subsequent Obesity, unspecified Obstructive sleep apnea Pancreatitis Pleural effusion bilateral, right sided complex Pure hypercholesterolemia, unspecified Rectal bleeding Smoker Tobacco use Varicose veins of lower extremity with inflammation, bilateral with pain Vitamin B12 deficiency Surgical History History of chest tube placement History of colonoscopy (~2016) History of inguinal hernia repair History of left cataract surgery (~2018) History of tonsillectomy and adenoidectomy Family History Mother Arthritis Hypertension Father Lung cancer Hypertension Sister Hypertension Grandfather Myocardial Infarction Paternal Other Diabetes mellitus Malignant neoplasm Social History Smoking Status: Former smoker and Smokeless tobacco Alcohol Intake Frequency: does not drink Substance Use: does not use Exam Narrative Narrative: Narrative: Vital signs noted General: Awake. Alert. No distress. HEENT: NCAT PERRL EOMI. No conjunctivitis. Membranes moist. Neck: Supple, trachea midline Cardiovascular: RRR. No murmur. No rubs. No gallops. Respiratory: No respiratory distress. Breath sounds equal. Lungs clear. Gastrointestinal: Soft. No tenderness, rectal exam shows no hemorrhoids patient is guaiac positive Musculoskeletal: No pain. No soft tissue swelling. Good ROM. No signs injury Skin: Warm. Dry. No rash Neurologic: Alert and oriented x3 moves all extremities equally and fully, speech is fluent face is symmetric Course Vital Signs Vital signs: Vital Signs Temperature 98.4 F 07/25/22 14:28 Pulse Rate 90 07/25/22 14:28 Respiratory Rate 19 07/25/22 14:28 Blood Pressure 149/86 07/25/22 14:28 Pulse Oximetry (%) 98 07/25/22 14:28 Oxygen Delivery Method Room Air 07/25/22 14:28 Temperature 98.4 F 07/25/22 14:28 Pulse Rate 89 07/25/22 22:02 Respiratory Rate 20 07/26/22 06:42 Blood Pressure 151/90 07/26/22 06:42 Pulse Oximetry (%) 97 07/26/22 06:42 Oxygen Delivery Method Nasal Cannula 07/25/22 14:53 Oxygen Flow Rate (L/min) 4 07/25/22 14:53 MDM MDM Narrative Medical decision making narrative: Narrative: Patient presents to the emergency department with dark stools. She does have a history of diverticular bleed in the past and last year required cauterization. Patient did have an endoscopic ultrasound biopsy on the pancreatic mass. We do not have any beds at our hospital. Patient is hemodynamically stable. I did try to reach out to our outpatient business applications analyst who is not on-call but was unsuccessful. CTA was performed that showed no identifiable source of bleed. No findings of acute diverticulitis. It did show patient's pancreatic mass. I did talk with Dr. Mcnamara who performed the biopsy and endoscopic ultrasound yesterday there is no complications. [place] patient could be evaluated by general business applications analyst. Patient's hemoglobin was 6.7 he was transfused 2 units he does have a history of heart disease. Patient also given 80 mg of Protonix. He has no history of cirrhosis or esophageal varices. At this point in time we do not have any beds at our hospital we will attempt to transfer patient he is signed out to oncoming physician. Lab Data 07/26/22 04:11 Labs: Lab Results 07/25/22 07/25/22 07/25/22 Range/Units 15:03 15:03 15:08 WBC 8.7 (4.5-11.0) K/mcL RBC 2.69 L (4.63-6.08) M/mcL Hgb 6.7 L* (13.7-17.5) g/dL Hct 22.5 L (40.1-51.0) % POC Hct 22.0 L (41-55) MCV 83.6 (80.0-100.0) fL MCH 24.9 L (26.0-34.0) pg MCHC 29.8 L (31.0-36.0) g/dL RDW 15.7 H (11.5-14.5) % Plt Count 270 (140-440) K/mcL MPV 9.5 (8.8-12.5) fL Immature Gran % (Auto) 0.3 (0.0-0.5) % Neut % (Auto) 67.6 (38.0-78.0) % Lymph % (Auto) 17.1 (15.5-49.0) % [place]ansom % (Auto) 12.4 H (1.0-12.0) % Eos % (Auto) 2.1 (0.0-7.0) % Baso % (Auto) 0.5 (0.0-2.0) % Lymph # (Auto) 1.48 L (1.50-4.80) K/mcL [place] # (Auto) 1.07 H (0.10-0.90) K/mcL Eos # (Auto) 0.18 (0.00-0.70) K/mcL Baso # (Auto) 0.04 (0.00-0.30) K/mcL Immature Gran # 0.03 (0.00-0.05) K/mcl Absolute Neutrophils 5.86 (1.80-8.00) K/mcL PT 13.9 (11.9-14.5) sec INR 1.0 (0.9-1.1) POC Sodium 131 L (133-145) POC Potassium 4.1 (3.3-5.1) POC Chloride 93 L (96-108) POC Total CO2 28.0 (22-30) POC BUN 17 (6-20) POC Creatinine 0.7 (0.6-1.2) POC Glucose 134 H (70-105) POC WB Ioniz Calcium 1.11 L (1.16-1.32) 04/07/25/22 07/26/22 Range/Units 22:49 23:03 04:11 WBC (4.5-11.0) K/mcL RBC (4.63-6.08) M/mcL Hgb 9.0 L 8.9 L (13.7-17.5) g/dL Hct 28.6 L 28.6 L (40.1-51.0) % POC Hct 29.0 L (41-55) MCV (80.0-100.0) fL MCH (26.0-34.0) pg MCHC (31.0-36.0) g/dL RDW (11.5-14.5) % Plt Count (140-440) K/mcL MPV (8.8-12.5) fL Immature Gran % (Auto) (0.0-0.5) % Neut % (Auto) (38.0-78.0) % Lymph % (Auto) (15.5-49.0) % Ransom % (Auto) (1.0-12.0) % Eos % (Auto) (0.0-7.0) % Baso % (Auto) (0.0-2.0) % Lymph # (Auto) (1.50-4.80) K/mcL [place] # (Auto) (0.10-0.90) K/mcL Eos # (Auto) (0.00-0.70) K/mcL Baso # (Auto) (0.00-0.30) K/mcL Immature Gran # (0.00-0.05) K/mcl Absolute Neutrophils (1.80-8.00) K/mcL PT (11.9-14.5) sec INR (0.9-1.1) POC Sodium 132 L (133-145) POC Potassium 4.1 (3.3-5.1) POC Chloride 94 L (96-108) POC Total CO2 29.0 (22-30) POC BUN 16 (6-20) POC Creatinine 0.6 (0.6-1.2) POC Glucose 258 H (70-105) POC WB Ioniz Calcium 1.19 (1.16-1.32) CC TIME Critical Care Time Critical Care Time: Yes Total Critical Care Time: 35 Attestation: Total critical care time of 35 min including performance of history and physical exam, review of results, re-examinations, time spent documenting, border measurer and cutter, review of old records, discussions with patient and family, discussions with hr business partner consultant(s), discussion with admitting physician, completion of admission/transfer paperwork. This does not include time for any separately documented procedures. Discharge Plan Patient/Caregiver Discharge Instructions Pt seen by FOREST AIDE/PA only: No Clinical Impression: Melena, Acute blood loss anemia Activity: resume usual activities as tolerated Patient Disposition: Still a Patient Follow up with: Marcus Smith MD [Primary Care Provider] - Prescriptions: No Action (DME) lancets [FreeStyle Lancets] 28 gauge misc See Protocol .ROUTE .MEDSUPPLY Qty: 100 4RF Protocol: Insulin Sliding Scale, Low Condition: HUMALOG/NOVALOG SC SLIDING Dose/Route: SCALE Condition: FSBS < 70 Dose/Route: Give 4 Oz juice, or 15gm oral Instruction: Glucose, or 25ml D50W IV if Dose/Route: unable to take PO. Recheck in Instruction: 15 min and repeat if FSBS < 70 Condition: FSBS 71-140 Dose/Route: NO COVERAGE Condition: FSBS 141-170 Dose/Route: 1 UNITS Condition: FSBS 171-200 Dose/Route: 2 UNITS Condition: FSBS 201-250 Dose/Route: 3 UNITS Condition: FSBS 251-300 Dose/Route: 4 UNITS Condition: FSBS 301-350 Dose/Route: 6 UNITS Condition: FSBS 351-400 Dose/Route: 8 UNITS Condition: FSBS > 400 Dose/Route: 10 UNITS; REPEAT Q2H X2 Instruction: CONTINUE FOLLOWING SLIDING Condition: SCALE; IF STILL > 400; CALL Dose/Route: PHYSICIAN Rx Instructions: Test twice daily am and pm (DME) pen needle, diabetic [Ultra-Thin II Ins Pen [place]] 29 gauge x 1/2" needle See Rx Instructions .ROUTE .MEDSUPPLY Qty: 100 6RF Rx Instructions: As directed once daily with Levemir pen (DME) FreeStyle Lite Strips Strip See Rx Instructions .Route Qty: 150 3RF Rx Instructions: Use to test blood sugars morning and evening. atorvastatin [Lipitor] 20 mg tablet 20 mg PO QDAY Qty: 90 3RF metformin 1,000 mg tablet 1,000 mg PO BID Qty: 180 3RF omeprazole 40 mg capsule,delayed release(DR/EC) 40 mg PO QDAY Qty: 30 5RF Entresto 24-26 mg tablet 1 tab PO BID Qty: 180 3RF fluticasone propion-salmeterol [Advair Diskus] 250-50 mcg/dose blister with device 1 inh INHALATION BID Qty: 180 3RF insulin degludec [Tresiba FlexTouch U-100] 100 unit/mL (3 mL) insulin pen 20 unit subcut QPM ipratropium-albuterol 0.5 mg-3 mg(2.5 mg base)/3 mL solution for nebulization 3 ml INHALATION QID Qty: 360 6RF albuterol sulfate [Proventil HFA] 90 mcg/actuation HFA aerosol inhaler 2 puff INHALATION QIDP PRN (Reason: Shortness Of Breath) sildenafil 25 mg tablet 25 mg PO QDAY PRN (Reason: sexual activity) Qty: 30 7RF Rx Instructions: administer 30 minutes to 4 hours before activity acetaminophen 650 mg PO Q6HP PRN (Reason: Pain) tramadol 50 mg tablet 50 mg PO Q6H PRN (Reason: pain) Qty: 56 0RF furosemide 40 mg tablet 20 mg PO QAM spironolactone 25 mg tablet 12.5 mg PO QAM (DME) BIPAP Qty: 1 Rx Instructions: As directed carvedilol 3.125 mg Tablet 3.125 mg PO BIDCC Qty: 60 2RF (DME) oxygen-air delivery systems device 4 each .ROUTE .MEDSUPPLY Rx Instructions: 4 L continuously
[2022-07-25] MEDS ORDERED: metFORMIN 500 MG TABLET PO ONE ×2 (19:39→19:59)
[2022-07-25] MEDS ORDERED: CARVEDILOL 3.125 MG TABLET PO ONE (19:39)
[2022-07-25] MEDS ORDERED: OMEPRAZOLE 20 MG CAPSULE PO ONE ×2 (19:40→20:00)
[2022-07-25] MEDS ORDERED: ASPIRIN 81 MG TAB.CHEW ONE (19:56)
[2022-07-25] MEDS ORDERED: ATORVASTATIN 20 MG TABLET PO ONE (19:58)
[2022-07-25] MEDS ORDERED: ATORVASTATIN 20 MG TABLET PO SCH (20:15)
[2022-07-25] MEDS ORDERED: metFORMIN 500 MG TABLET PO SCH (20:15)
[2022-07-25] MEDS: INSULIN LISPRO 1 UNIT/0.01 ML UNIT SQ SCH (20:32)
[2022-07-25] MEDS ORDERED: FLUTICASONE/SALMETEROL 250/50 INHALER #14 INH ONE (21:23)
--- NOTE | 2022-07-25 21:53 | Emergency Department Note ---
Course Course Course Narrative: Patient is a 71-year-old male signed out to me by Dr. Casarez. Briefly, patient has concern for rectal bleed with melanotic stool. Patient was found to have a hemoglobin of 6.7, so 2 units of PRBCs were ordered. Transfer was pending at time of signout. Vital Signs Vital signs: Vital Signs Temperature 98.4 F 07/25/22 14:28 Pulse Rate 90 07/25/22 14:28 Respiratory Rate 19 07/25/22 14:28 Blood Pressure 149/86 07/25/22 14:28 Pulse Oximetry (%) 98 07/25/22 14:28 Oxygen Delivery Method Room Air 07/25/22 14:28 Temperature 98.4 F 07/25/22 14:28 Pulse Rate 89 07/25/22 22:02 Respiratory Rate 20 07/26/22 06:42 Blood Pressure 151/90 07/26/22 06:42 Pulse Oximetry (%) 97 07/26/22 06:42 Oxygen Delivery Method Nasal Cannula 07/25/22 14:53 Oxygen Flow Rate (L/min) 4 07/25/22 14:53 [facility] MDM Narrative Medical decision making narrative: Narrative: Patient is a 71-year-old male who presented to the emergency department due to concern for rectal bleeding. Unfortunately there are no beds available in [facility], and patient stated that he would not like to be transferred further than this. Dr. Meneses is on tomorrow, so we will keep patient in the emergency department overnight. Chem-8 will be ordered after 2 units of PRBCs are completed. Patient's hemoglobin is 9. H&H was repeated after approximately 4 hours and was 8.9. Patient has been signed back out to Dr. Casarez. Lab Data 07/26/22 04:11 Labs: Lab Results 07/25/22 07/25/22 07/25/22 Range/Units 15:03 15:03 15:08 WBC 8.7 (4.5-11.0) K/mcL RBC 2.69 L (4.63-6.08) M/mcL Hgb 6.7 L* (13.7-17.5) g/dL Hct 22.5 L (40.1-51.0) % POC Hct 22.0 L (41-55) MCV 83.6 (80.0-100.0) fL MCH 24.9 L (26.0-34.0) pg MCHC 29.8 L (31.0-36.0) g/dL RDW 15.7 H (11.5-14.5) % Plt Count 270 (140-440) K/mcL MPV 9.5 (8.8-12.5) fL Immature Gran % (Auto) 0.3 (0.0-0.5) % Neut % (Auto) 67.6 (38.0-78.0) % Lymph % (Auto) 17.1 (15.5-49.0) % Barnes % (Auto) 12.4 H (1.0-12.0) % Eos % (Auto) 2.1 (0.0-7.0) % Baso % (Auto) 0.5 (0.0-2.0) % Lymph # (Auto) 1.48 L (1.50-4.80) K/mcL Barnes # (Auto) 1.07 H (0.10-0.90) K/mcL Eos # (Auto) 0.18 (0.00-0.70) K/mcL Baso # (Auto) 0.04 (0.00-0.30) K/mcL Immature Gran # 0.03 (0.00-0.05) K/mcl Absolute Neutrophils 5.86 (1.80-8.00) K/mcL PT 13.9 (11.9-14.5) sec INR 1.0 (0.9-1.1) POC Sodium 131 L (133-145) POC Potassium 4.1 (3.3-5.1) POC Chloride 93 L (96-108) POC Total CO2 28.0 (22-30) POC BUN 17 (6-20) POC Creatinine 0.7 (0.6-1.2) POC Glucose 134 H (70-105) POC WB Ioniz Calcium 1.11 L (1.16-1.32) 07/25/22 07/25/22 07/26/22 Range/Units 22:49 23:03 04:11 WBC (4.5-11.0) K/mcL RBC (4.63-6.08) M/mcL Hgb 9.0 L 8.9 L (13.7-17.5) g/dL Hct 28.6 L 28.6 L (40.1-51.0) % POC Hct 29.0 L (41-55) MCV (80.0-100.0) fL MCH (26.0-34.0) pg MCHC (31.0-36.0) g/dL RDW (11.5-14.5) % Plt Count (140-440) K/mcL MPV (8.8-12.5) fL Immature Gran % (Auto) (0.0-0.5) % Neut % (Auto) (38.0-78.0) % Lymph % (Auto) (15.5-49.0) % Barnes % (Auto) (1.0-12.0) % Eos % (Auto) (0.0-7.0) % Baso % (Auto) (0.0-2.0) % Lymph # (Auto) (1.50-4.80) K/mcL Barnes # (Auto) (0.10-0.90) K/mcL Eos # (Auto) (0.00-0.70) K/mcL Baso # (Auto) (0.00-0.30) K/mcL Immature Gran # (0.00-0.05) K/mcl Absolute Neutrophils (1.80-8.00) K/mcL PT (11.9-14.5) sec INR (0.9-1.1) POC Sodium 132 L (133-145) POC Potassium 4.1 (3.3-5.1) POC Chloride 94 L (96-108) POC Total CO2 29.0 (22-30) POC BUN 16 (6-20) POC Creatinine 0.6 (0.6-1.2) POC Glucose 258 H (70-105) POC WB Ioniz Calcium 1.19 (1.16-1.32) Discharge Plan Patient/Caregiver Discharge Instructions Pt seen by WOVEN LABEL DESIGNER/PA only: No Clinical Impression: Melena Patient Disposition: Still a Patient Follow up with: Marcus Smith MD [Primary Care Provider] - Prescriptions: No Action (DME) lancets [FreeStyle Lancets] 28 gauge misc See Protocol .ROUTE .MEDSUPPLY Qty: 100 4RF Protocol: Insulin Sliding Scale, Low Condition: HUMALOG/NOVALOG SC SLIDING Dose/Route: SCALE Condition: FSBS < 70 Dose/Route: Give 4 Oz juice, or 15gm oral Instruction: Glucose, or 25ml D50W IV if Dose/Route: unable to take PO. Recheck in Instruction: 15 min and repeat if FSBS < 70 Condition: FSBS 71-140 Dose/Route: NO COVERAGE Condition: FSBS 141-170 Dose/Route: 1 UNITS Condition: FSBS 171-200 Dose/Route: 2 UNITS Condition: FSBS 201-250 Dose/Route: 3 UNITS Condition: FSBS 251-300 Dose/Route: 4 UNITS Condition: FSBS 301-350 Dose/Route: 6 UNITS Condition: FSBS 351-400 Dose/Route: 8 UNITS Condition: FSBS > 400 Dose/Route: 10 UNITS; REPEAT Q2H X2 Instruction: CONTINUE FOLLOWING SLIDING Condition: SCALE; IF STILL > 400; CALL Dose/Route: PHYSICIAN Rx Instructions: Test twice daily am and pm (DME) pen needle, diabetic [Ultra-Thin II Ins Pen [place]] 29 gauge x 1/2" needle See Rx Instructions .ROUTE .MEDSUPPLY Qty: 100 6RF Rx Instructions: As directed once daily with Levemir pen (DME) FreeStyle Lite Strips Strip See Rx Instructions .Route Qty: 150 3RF Rx Instructions: Use to test blood sugars morning and evening. atorvastatin [Lipitor] 20 mg tablet 20 mg PO QDAY Qty: 90 3RF metformin 1,000 mg tablet 1,000 mg PO BID Qty: 180 3RF omeprazole 40 mg capsule,delayed release(DR/EC) 40 mg PO QDAY Qty: 30 5RF Entresto 24-26 mg tablet 1 tab PO BID Qty: 180 3RF fluticasone propion-salmeterol [Advair Diskus] 250-50 mcg/dose blister with device 1 inh INHALATION BID Qty: 180 3RF insulin degludec [Tresiba FlexTouch U-100] 100 unit/mL (3 mL) insulin pen 20 unit subcut QPM ipratropium-albuterol 0.5 mg-3 mg(2.5 mg base)/3 mL solution for nebulization 3 ml INHALATION QID Qty: 360 6RF albuterol sulfate [Proventil HFA] 90 mcg/actuation HFA aerosol inhaler 2 puff INHALATION QIDP PRN (Reason: Shortness Of Breath) sildenafil 25 mg tablet 25 mg PO QDAY PRN (Reason: sexual activity) Qty: 30 7RF Rx Instructions: administer 30 minutes to 4 hours before activity acetaminophen 650 mg PO Q6HP PRN (Reason: Pain) tramadol 50 mg tablet 50 mg PO Q6H PRN (Reason: pain) Qty: 56 0RF furosemide 40 mg tablet 20 mg PO QAM spironolactone 25 mg tablet 12.5 mg PO QAM (DME) BIPAP Qty: 1 Rx Instructions: As directed carvedilol 3.125 mg Tablet 3.125 mg PO BIDCC Qty: 60 2RF (DME) oxygen-air delivery systems device 4 each .ROUTE .MEDSUPPLY Rx Instructions: 4 L continuously
[2022-07-25 22:52] LABS: POC Calcium, Ionized 1.19 (1.16-1.32); POC Creatinine 0.6 (0.6-1.2); POC Potassium 4.1 (3.3-5.1)
[2022-07-25 23:28] LABS: Hematocrit 28.6 % (40.1-51.0)
[2022-07-26 04:35] LABS: Hematocrit 28.6 % (40.1-51.0); Hemoglobin 8.9 g/dL (13.7-17.5)
[2022-07-26] MEDS: INSULIN LISPRO 1 UNIT/0.01 ML UNIT SQ SCH ×3 (07:37→18:01)
[2022-07-26] MEDS ORDERED: IPRATROPIUM/ALBUTEROL 3 ML AMPUL.NEB NEB ONE (07:48)
--- NOTE | 2022-07-26 07:53 | Emergency Department Note ---
Course Vital Signs Vital signs: Vital Signs Temperature 98.4 F 07/25/22 14:28 Pulse Rate 90 07/25/22 14:28 Respiratory Rate 19 07/25/22 14:28 Blood Pressure 149/86 07/25/22 14:28 Pulse Oximetry (%) 98 07/25/22 14:28 Oxygen Delivery Method Room Air 07/25/22 14:28 Temperature 98.4 F 07/25/22 14:28 Pulse Rate 85 07/26/22 10:43 Respiratory Rate 19 07/26/22 11:24 Blood Pressure 159/79 07/26/22 11:24 Pulse Oximetry (%) 99 07/26/22 10:43 Oxygen Delivery Method Nasal Cannula 07/25/22 14:53 Oxygen Flow Rate (L/min) 4 07/25/22 14:53 MDM MDM Narrative Medical decision making narrative: Narrative: Patient signed out to me by oncoming physician patient is in the process of being transferred. His hemoglobin has held steady overnight no episodes of melena. I did speak with Dr. Meneses who graciously agreed to consult on the patient and perform upper endoscopy later today. I have spoke with the hospitalist who has agreed to admit the patient. Lab Data 07/26/22 04:11 Labs: Lab Results 07/25/22 07/25/22 07/25/22 Range/Units 15:03 15:03 15:08 WBC 8.7 (4.5-11.0) K/mcL RBC 2.69 L (4.63-6.08) M/mcL Hgb 6.7 L* (13.7-17.5) g/dL Hct 22.5 L (40.1-51.0) % POC Hct 22.0 L (41-55) MCV 83.6 (80.0-100.0) fL MCH 24.9 L (26.0-34.0) pg MCHC 29.8 L (31.0-36.0) g/dL RDW 15.7 H (11.5-14.5) % Plt Count 270 (140-440) K/mcL MPV 9.5 (8.8-12.5) fL Immature Gran % (Auto) 0.3 (0.0-0.5) % Neut % (Auto) 67.6 (38.0-78.0) % Lymph % (Auto) 17.1 (15.5-49.0) % [place] % (Auto) 12.4 H (1.0-12.0) % Eos % (Auto) 2.1 (0.0-7.0) % Baso % (Auto) 0.5 (0.0-2.0) % Lymph # (Auto) 1.48 L (1.50-4.80) K/mcL [place] # (Auto) 1.07 H (0.10-0.90) K/mcL Eos # (Auto) 0.18 (0.00-0.70) K/mcL Baso # (Auto) 0.04 (0.00-0.30) K/mcL Immature Gran # 0.03 (0.00-0.05) K/mcl Absolute Neutrophils 5.86 (1.80-8.00) K/mcL PT 13.9 (11.9-14.5) sec INR 1.0 (0.9-1.1) POC Sodium 131 L (133-145) POC Potassium 4.1 (3.3-5.1) POC Chloride 93 L (96-108) POC Total CO2 28.0 (22-30) POC BUN 17 (6-20) POC Creatinine 0.7 (0.6-1.2) POC Glucose 134 H (70-105) POC WB Ioniz Calcium 1.11 L (1.16-1.32) 07/25/22 07/25/22 07/26/22 Range/Units 22:49 23:03 04:11 WBC (4.5-11.0) K/mcL RBC (4.63-6.08) M/mcL Hgb 9.0 L 8.9 L (13.7-17.5) g/dL Hct 28.6 L 28.6 L (40.1-51.0) % POC Hct 29.0 L (41-55) MCV (80.0-100.0) fL MCH (26.0-34.0) pg MCHC (31.0-36.0) g/dL RDW (11.5-14.5) % Plt Count (140-440) K/mcL MPV (8.8-12.5) fL Immature Gran % (Auto) (0.0-0.5) % Neut % (Auto) (38.0-78.0) % Lymph % (Auto) (15.5-49.0) % [place] % (Auto) (1.0-12.0) % Eos % (Auto) (0.0-7.0) % Baso % (Auto) (0.0-2.0) % Lymph # (Auto) (1.50-4.80) K/mcL [place] # (Auto) (0.10-0.90) K/mcL Eos # (Auto) (0.00-0.70) K/mcL Baso # (Auto) (0.00-0.30) K/mcL Immature Gran # (0.00-0.05) K/mcl Absolute Neutrophils (1.80-8.00) K/mcL PT (11.9-14.5) sec INR (0.9-1.1) POC Sodium 132 L (133-145) POC Potassium 4.1 (3.3-5.1) POC Chloride 94 L (96-108) POC Total CO2 29.0 (22-30) POC BUN 16 (6-20) POC Creatinine 0.6 (0.6-1.2) POC Glucose 258 H (70-105) POC WB Ioniz Calcium 1.19 (1.16-1.32) Discharge Plan Patient/Caregiver Discharge Instructions Pt seen by [employer]PERINTENDENT/PA only: No Clinical Impression: Melena, Acute blood loss anemia Activity: resume usual activities as tolerated Patient Disposition: Xfer As Inpt ([facility]) Condition: Fair Follow up with: Marcus Smith MD [Primary Care Provider] - Prescriptions: No Action (DME) lancets [FreeStyle Lancets] 28 gauge misc See Protocol .ROUTE .MEDSUPPLY Qty: 100 4RF Protocol: Insulin Sliding Scale, Low Condition: HUMALOG/NOVALOG SC SLIDING Dose/Route: SCALE Condition: FSBS < 70 Dose/Route: Give 4 Oz juice, or 15gm oral Instruction: Glucose, or 25ml D50W IV if Dose/Route: unable to take PO. Recheck in Instruction: 15 min and repeat if FSBS < 70 Condition: FSBS 71-140 Dose/Route: NO COVERAGE Condition: FSBS 141-170 Dose/Route: 1 UNITS Condition: FSBS 171-200 Dose/Route: 2 UNITS Condition: FSBS 201-250 Dose/Route: 3 UNITS Condition: FSBS 251-300 Dose/Route: 4 UNITS Condition: FSBS 301-350 Dose/Route: 6 UNITS Condition: FSBS 351-400 Dose/Route: 8 UNITS Condition: FSBS > 400 Dose/Route: 10 UNITS; REPEAT Q2H X2 Instruction: CONTINUE FOLLOWING SLIDING Condition: SCALE; IF STILL > 400; CALL Dose/Route: PHYSICIAN Rx Instructions: Test twice daily am and pm (DME) pen needle, diabetic [Ultra-Thin II Ins Pen [place]] 29 gauge x 1/2" needle See Rx Instructions .ROUTE .MEDSUPPLY Qty: 100 6RF Rx Instructions: As directed once daily with Levemir pen (DME) FreeStyle Lite Strips Strip See Rx Instructions .Route Qty: 150 3RF Rx Instructions: Use to test blood sugars morning and evening. atorvastatin [Lipitor] 20 mg tablet 20 mg PO QDAY Qty: 90 3RF metformin 1,000 mg tablet 1,000 mg PO BID Qty: 180 3RF omeprazole 40 mg capsule,delayed release(DR/EC) 40 mg PO QDAY Qty: 30 5RF Entresto 24-26 mg tablet 1 tab PO BID Qty: 180 3RF fluticasone propion-salmeterol [Advair Diskus] 250-50 mcg/dose blister with device 1 inh INHALATION BID Qty: 180 3RF insulin degludec [Tresiba FlexTouch U-100] 100 unit/mL (3 mL) insulin pen 20 unit subcut QPM ipratropium-albuterol 0.5 mg-3 mg(2.5 mg base)/3 mL solution for nebulization 3 ml INHALATION QID Qty: 360 6RF albuterol sulfate [Proventil HFA] 90 mcg/actuation HFA aerosol inhaler 2 puff INHALATION QIDP PRN (Reason: Shortness Of Breath) sildenafil 25 mg tablet 25 mg PO QDAY PRN (Reason: sexual activity) Qty: 30 7RF Rx Instructions: administer 30 minutes to 4 hours before activity acetaminophen 650 mg PO Q6HP PRN (Reason: Pain) tramadol 50 mg tablet 50 mg PO Q6H PRN (Reason: pain) Qty: 56 0RF furosemide 40 mg tablet 20 mg PO QAM spironolactone 25 mg tablet 12.5 mg PO QAM (DME) BIPAP Qty: 1 Rx Instructions: As directed carvedilol 3.125 mg Tablet 3.125 mg PO BIDCC Qty: 60 2RF (DME) oxygen-air delivery systems device 4 each .ROUTE .MEDSUPPLY Rx Instructions: 4 L continuously
[2022-07-26] MEDS ORDERED: PANTOPRAZOLE 40 MG VIAL IV ONE (08:16)
[2022-07-26] MEDS ORDERED: NICOTINE 21 MG PATCH TOPICAL ONE (08:51)
[2022-07-26] MEDS ORDERED: ASPIRIN 81 MG TAB.CHEW CHEWED SCH (09:00)
[2022-07-26] MEDS ORDERED: ATORVASTATIN 20 MG TABLET PO SCH (09:00)
[2022-07-26] MEDS ORDERED: ALBUTEROL SULFATE 60 PUFF INHALER INH PRN (10:55)
--- NOTE | 2022-07-26 11:20 | Internal Med History&Physical ---
HPI History of Present Illness Patient information: Note initiated : 07/26/22 at 11:09 am Service Date, if different from initiated Date: [] Patient: Markel Edward 71 y/o M admitted on for rectal bleeding. Chief Complaint: [Melena] Chief complaint: Melena History of present illness: Mr. Edward is a 71 year old M history of COPD, CHF, essential hypertensions, dyslipidemia, type 2 diabetes mellitus, presenting with 3-day history of melena. Patient had a history of diverticular bleed from January 2022. Patient had a recently diagnosed pancreatic mass. He had EUS with pancreatic mass biopsy 3 days ago. On the morning of the same day of the procedures, he started to noticed melena with black stool with some blood spotted on the surface. He continued to have such episode of black stool admixed with blood with the last episode earlier this morning. He denies any hematemesis. He denies any abdominal pain or rectal pain. His hemoglobin and hematocrit last night when he presented to our ER were 6.7/22.5, respectively. After transfusions of 2 unit PRBC, his H&H improved to 9.0 and 28.6, respectively. Vital signs significant for intermittent tachycardia. Latest blood pressure 159 over 79 mmHg. ER ph ysician get a hold of the GI specialist Dr. Urrutia who agreed to preformed EGD later this evening. Admission request is called for suspected upper GI bleeding. Constitutional Constitutional: Absent chills, excessive sweating, fatigue, fever(s) or weakness EENT Eyes: Absent blurry vision, change in vision, loss of vision or other visual disturbances Ears: Absent decreased hearing or tinnitus Nose, mouth and throat: Absent abnormal hearing, dry mouth, headache(s), nasal congestion or sore throat Cardiovascular Cardiovascular: Absent chest pain, chest pain at rest, edema, irregular heart rhythm or palpatations Respiratory Respiratory: Absent cough, dyspnea or wheezing Gastrointestinal Gastrointestinal: Present melena; Absent abdominal pain, constipation, diarrhea, nausea or vomiting Musculoskeletal Musculoskeletal: Absent back pain, deformity, limited range of motion, muscle cramps, muscle weakness or numbness Integumentary Integumentary: Absent lesions, rash or wounds Neurological Neurological: Absent focal weakness, headache(s) or numbness Psychiatric Psychiatric: Absent anxiety, depression or hallucinations PFSH PFSH All Active Problems (Updated 07/26/22 @ 11:17 by Wilian Thayer MD) Pancreatic mass (Acute) Upper GI bleeding (Acute) Melena (Acute) Acute blood loss anemia (Acute) Cigarette smoker (Acute) COPD exacerbation (Acute) CHF exacerbation (Acute) Pulmonary nodules/lesions, multiple (Chronic) Flash pulmonary edema (Acute) Leukocytosis (Acute) Cough (Acute) Acute GI bleeding (Acute) Anemia (Acute) Subscapular pain (Acute) Medicare annual wellness visit, subsequent (Acute) Respiratory failure with hypoxia and hypercapnia (Chronic) Abdominal aortic aneurysm (Acute) History of onychomycosis (Acute) Hypoventilation syndrome (Chronic) Hypercapnia (Chronic) Diabetes mellitus with hyperglycemia (Acute) Immunization deficiency (Acute) Bronchitis (Chronic) Emphysema, unspecified (Chronic) Elevated d-dimer (Chronic) Dyspnea on exertion (Chronic) Pleural effusion (Chronic) Lymphadenopathy, abdominal (Acute) Lobar pneumonia (Chronic) History of tonsillectomy and adenoidectomy (Chronic) Tobacco use (Chronic) Benign prostatic hyperplasia with urinary obstruction (Chronic) Lumbar radiculopathy (Chronic) Pure hypercholesterolemia, unspecified (Chronic) Leukocytosis (Chronic) Macrocytosis (Chronic) Dependent edema (Chronic) 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) Vitamin B12 deficiency (Chronic) Pancreatitis (Chronic) CHF (congestive heart failure) (Chronic) Anemia (Chronic) Obesity, unspecified (Chronic) GERD (gastroesophageal reflux disease) (Chronic) Hyperlipidemia (Chronic) Hypertension (Chronic) Chest pain, precordial (Chronic) Lumbar radiculopathy, right (Chronic) COPD (chronic obstructive pulmonary disease) (Chronic) Hypoxemia (Chronic) Erectile dysfunction (Chronic) Hyponatremia (Chronic) Hypokalemia (Chronic) Drug-induced hepatotoxicity (Chronic) Rectal bleeding (Chronic) Smoker (Chronic) Varicose veins of lower extremity with inflammation, bilateral (Chronic) BPH (benign prostatic hyperplasia) (Chronic) Medical History Abdominal aortic aneurysm Anemia Benign prostatic hyperplasia with urinary obstruction BiPAP (biphasic positive airway pressure) dependence BPH (benign prostatic hyperplasia) Bronchitis Chest pain, precordial CHF (congestive heart failure) Chronic combined systolic and diastolic heart failure Chronic hypercapnic respiratory failure Chronic hypoxemic respiratory failure COPD (chronic obstructive pulmonary disease) Dependent edema Diabetes mellitus with hyperglycemia Drug-induced hepatotoxicity Dyspnea on exertion Elevated d-dimer Emphysema, unspecified Erectile dysfunction GERD (gastroesophageal reflux disease) History of onychomycosis Hypercapnia Hyperlipidemia Hypertension Hypokalemia Hyponatremia Hypoventilation syndrome Hypoxemia Immunization deficiency Leukocytosis Lobar pneumonia Lumbar radiculopathy Lumbar radiculopathy, right Macrocytosis Medicare annual wellness visit, subsequent Obesity, unspecified Obstructive sleep apnea Pancreatitis Pleural effusion bilateral, right sided complex Pure hypercholesterolemia, unspecified Rectal bleeding Smoker Tobacco use Varicose veins of lower extremity with inflammation, bilateral with pain Vitamin B12 deficiency Surgical History History of chest tube placement History of colonoscopy (~2015) History of inguinal hernia repair History of left cataract surgery (~2018) History of tonsillectomy and adenoidectomy Family History Mother Arthritis Hypertension Father Lung cancer Hypertension Sister Hypertension Grandfather Myocardial Infarction Paternal Other Diabetes mellitus Malignant neoplasm Social History household members: spouse housing: house lives independently: Yes marital status: occupational status: retired smoking status: Former smoker and Smokeless tobacco Smokeless tobacco user details: 1 can every 2-3 days smoking status start date: 04/01/78 smoking status stop date: 04/01/14 alcohol intake frequency: does not drink substance use type: does not use MEDS/ALLERGIES Home Medications and Allergies Home Medications Medication Instructions Recorded Confirmed Type albuterol sulfate 90 mcg/actuation 2 puff inhalation QIDP PRN 07/28/15 07/25/22 History aerosol inhaler (Proventil HFA) Shortness Of Breath oxygen-air delivery systems 11/23/16 07/16/22 History BIPAP #1 ea 09/07/19 07/16/22 History lancets 28 gauge (FreeStyle #100 ea 06/17/20 07/16/22 Rx Lancets) sildenafil 25 mg tablet 25 mg PO QDAY PRN sexual activity 11/29/20 07/16/22 Rx #30 tabs pen needle, diabetic 29 gauge x #100 ea 07/04/21 07/16/22 Rx 1/2" (Ultra-Thin II Insulin Pen [place]) blood sugar diagnostic (FreeStyle #150 ea 08/24/21 07/16/22 Rx Lite Strips) acetaminophen 650 mg PO Q6HP PRN Pain 02/07/22 07/16/22 History tramadol 50 mg tablet 50 mg PO Q6H PRN pain #56 tabs 02/07/22 07/16/22 Rx carvedilol 3.125 mg tablet 3.125 mg PO BIDCC #60 tabs 03/09/22 07/25/22 Rx atorvastatin 20 mg tablet (Lipitor) 20 mg PO QDAY #90 tabs 04/09/22 07/25/22 Rx metformin 1,000 mg tablet 1,000 mg PO BID #180 tabs 05/01/22 07/25/22 Rx omeprazole 40 mg capsule,delayed 40 mg PO QDAY #30 caps 05/07/22 07/25/22 Rx release furosemide 40 mg tablet 20 mg PO QAM 05/14/22 07/16/22 History spironolactone 25 mg tablet 12.5 mg PO QAM 05/14/22 07/16/22 History Entresto 24 mg-26 mg tablet 1 tab PO BID #180 tabs 05/24/22 07/25/22 Rx (sacubitril-valsartan) fluticasone 250 mcg-salmeterol 50 1 inh inhalation BID #180 ea 06/05/22 07/16/22 Rx mcg/dose blistr powdr for inhalation (Advair Diskus) insulin degludec 100 unit/mL (3 20 unit subcut QPM 07/16/22 07/25/22 History mL) subcutaneous pen (Tresiba FlexTouch U-100 insulin) ipratropium 0.5 mg-albuterol 3 mg 3 ml inhalation QID #360 mL 07/18/22 07/26/22 Rx (2.5 mg base)/3 mL nebulization soln Allergies Allergy/AdvReac Type Severity Reaction Status Date / Time NSAIDS (Non-Steroidal AdvReac Severe Other Verified 07/25/22 14:38 Anti-Inflamma EXAM Constitutional Vitals: Temp Pulse Resp BP Pulse Ox O2 Del Method O2 Flow Rate 36.9 C 85 25 H 159/79 99 Nasal Cannula 4 07/25/22 14:28 07/26/22 10:43 07/26/22 11:04 07/26/22 11:04 07/26/22 10:43 07/25/22 14:53 07/25/22 14:53 General appearance: cooperative and no acute distress Head Head exam: Present atraumatic and normocephalic Eye Eye exam: Present EOMI and PERRL ENT ENT exam: Present mucous membranes moist, normal exam and normal external ear exam Additional comments: Nasal cannula in place Neck Neck exam: Present normal inspection; Absent lymphadenopathy, tenderness or thyromegaly Respiratory Respiratory exam: Present wheezes; Absent accessory muscle use or respiratory distress Cardiovascular Cardiovascular exam: Present normal rate and rhythm; Absent JVD GI/Abdominal GI/Abdominal exam: Present normal bowel sounds and soft; Absent organomegaly or tenderness Rectal Rectal exam: Present deferred Extremities Exam Extremities exam: Present full ROM, normal capillary refill and normal inspection; Absent tenderness Neurological Exam Neurological exam: Present alert, CN II-XII intact and oriented X3; Absent motor sensory deficit Psychiatric Psychiatric exam: Present normal affect and normal mood; Absent anxious or depressed Skin Skin exam: Present dry and intact DATA Data Completed and Pending Labs: Labs from last 24 hours 07/26/22 07/26/22 07/25/22 11:00 04:11 23:03 WBC RBC Hgb Pending 8.9 L 9.0 L Hct Pending 28.6 L 28.6 L POC Hct MCV MCH MCHC RDW Plt Count MPV Immature Gran % (Auto) Neut % (Auto) Lymph % (Auto) [place] % (Auto) Eos % (Auto) Baso % (Auto) Lymph # (Auto) [place] # (Auto) Eos # (Auto) Baso # (Auto) Immature Gran # Absolute Neutrophils PT INR POC Sodium POC Potassium POC Chloride POC Total CO2 POC BUN POC Creatinine POC Glucose POC WB Ioniz Calcium 07/25/22 07/25/22 07/25/22 22:49 15:08 15:03 WBC RBC Hgb Hct POC Hct 29.0 L 22.0 L MCV MCH MCHC RDW Plt Count MPV Immature Gran % (Auto) Neut % (Auto) Lymph % (Auto) [place] % (Auto) Eos % (Auto) Baso % (Auto) Lymph # (Auto) [place] # (Auto) Eos # (Auto) Baso # (Auto) Immature Gran # Absolute Neutrophils PT 13.9 INR 1.0 POC Sodium 132 L 131 L POC Potassium 4.1 4.1 POC Chloride 94 L 93 L POC Total CO2 29.0 28.0 POC BUN 16 17 POC Creatinine 0.6 0.7 POC Glucose 258 H 134 H POC WB Ioniz Calcium 1.19 1.11 L 07/25/22 15:03 WBC 8.7 RBC 2.69 L Hgb 6.7 L* Hct 22.5 L POC Hct MCV 83.6 MCH 24.9 L MCHC 29.8 L RDW 15.7 H Plt Count 270 MPV 9.5 Immature Gran % (Auto) 0.3 Neut % (Auto) 67.6 Lymph % (Auto) 17.1 [place] % (Auto) 12.4 H Eos % (Auto) 2.1 Baso % (Auto) 0.5 Lymph # (Auto) 1.48 L [place] # (Auto) 1.07 H Eos # (Auto) 0.18 Baso # (Auto) 0.04 Immature Gran # 0.03 Absolute Neutrophils 5.86 PT INR POC Sodium POC Potassium POC Chloride POC Total CO2 POC BUN POC Creatinine POC Glucose POC WB Ioniz Calcium A/P Assessment and plan (1) Melena: Status: Acute (2) Upper GI bleeding: Status: Acute (3) CHF (congestive heart failure): Status: Chronic (4) Hyperlipidemia: Status: Chronic (5) COPD (chronic obstructive pulmonary disease): Status: Chronic Qualifiers: COPD type: emphysema Emphysema type: panlobular Qualified Code(s): J43.1 - Panlobular emphysema (6) Hypertension: Status: Chronic (7) Anemia: Status: Chronic (8) Diabetes mellitus with hyperglycemia: Status: Acute (9) Pancreatic mass: Status: Acute Narrative A/P Narrative: Assessment and Plans: 1. Melena, upper vs lower GI bleeding: Observation med surg telemetry Consulting Dr. Johnson for EGD +/- colonoscopy this evening Hold Aspirin Protonix 40mg IV BID H/H q12hr to trend NPO with D5NS@75cc/hr 2. h/o CHF: Entresto Coreg Hold diuretics Supplemental oxygen therapy titrate to achieve spo2>=88% 3. h/o COPD: Supplemental oxygen therapy titrate to achieve spo2>=88% Continue bronchodilators from home regimen 4. Essential hypertension: Entresto Coreg Hold diuretics 5. Mixed dyslipidemia: Continue statin therapy 6. Type 2 diabetes mellitus: HgA1c Hold Metformin Lantus HS Insulin Lispro SSI q6hr Accu Check q6hr Hypoglycemia protocol NPO with D5NS@75cc/hr 7. h/o recently diagnosed pancreatic mass: s/p biopsy, continue to monitor GI ppx: Protonix IV DVT: SCDs Code status: Full Prognosis: guarded Disposition: observation med surg tele Time Spent With Patient Time: Total time spent is greater than 50% in coordination of care (as documented) at patient's floor/unit and/or counseling patient: Initial: Total time with patient: 55 - 74 minutes
[2022-07-26] MEDS ORDERED: traZODone HCL 50 MG TABLET PO PRN (11:53)
[2022-07-26] MEDS ORDERED: ONDANSETRON 4 MG/2 ML VIAL IV PRN (11:53)
[2022-07-26] MEDS ORDERED: DEXTROSE 50% 50 ML VIAL IV PRN ×2 (11:53→18:42)
[2022-07-26] MEDS ORDERED: DEXTROSE 31 GM ORAL.SUSP PO PRN ×2 (11:53→18:42)
[2022-07-26] MEDS: DEXTROSE 5%-NS 1,000 ML IV SCH (11:57)
[2022-07-26 12:13] LABS: Hematocrit 27.7 % (40.1-51.0); Hemoglobin 8.5 g/dL (13.7-17.5)
[2022-07-26] MEDS ORDERED: KETAMINE 50 MG/ML ML IV PRN ×3 (12:37→16:22)
[2022-07-26] MEDS ORDERED: PEG 3350/NA SULF,BICARB,CL/KCL 4,000 ML ORAL.SOL PO SCH (12:45)
[2022-07-26] MEDS ORDERED: MIDAZOLAM 2 MG/2 ML VIAL IV SCH ×3 (12:45→16:30)
[2022-07-26] MEDS ORDERED: PROPOFOL 200 MG/20 ML VIAL IV SCH ×3 (12:45→16:30)
[2022-07-26] MEDS: IPRATROPIUM/ALBUTEROL 3 ML AMPUL.NEB NEB SCH ×3 (13:02→21:23)
--- NOTE | 2022-07-26 13:11 | Internal Medicine Consult Note ---
HPI Date of Consult Consult Date: 07/26/22 Primary Care Provider: Marcus Smith MD Consult Narrative Patient Information: Note initiated : 07/26/22 at 1:02 pm Service Date, if different from initiated Date: [] Patient: Markel Edward 71 y/o M admitted on 07/26/22 for rectal bleeding. Chief Complaint: [GI bleed] 71 year old white male with a history of diverticular bleed last fall who presents for evaluation of hematochezia. He had several maroon stools 07/[address] to [facility] for EUS with biopsy of cystic pancreatic head mass. He did not want to delay his procedure so did not disclose this to any staff. He had 3 bloody BMs that day and then when bleeding persisted the followin day, he became worried. He has had 3 dark maroon stools daily for the last 3 days and presented to ER with Hgb 6.9. He has been transfused and Hgb landy to 8.9. He denies melena. He denies NSAID use aside from 81mg chewable ASA. he is planning to see hepatobiliary surgeon Dr Raymond Saturday for surgical resection of pancreatic mass. cc:: CC: Wilian Thayer MD Review of Systems All systems: reviewed and no additional remarkable complaints except as stated PFSH PFSH All Active Problems (Updated 07/26/22 @ 13:09 by Zahida Holloway, [facility]) Hematochezia (Acute) Pancreatic mass (Acute) Upper GI bleeding (Acute) Melena (Acute) Acute blood loss anemia (Acute) Cigarette smoker (Acute) COPD exacerbation (Acute) CHF exacerbation (Acute) Pulmonary nodules/lesions, multiple (Chronic) Flash pulmonary edema (Acute) Leukocytosis (Acute) Cough (Acute) Acute GI bleeding (Acute) Anemia (Acute) Subscapular pain (Acute) Medicare annual wellness visit, subsequent (Acute) Respiratory failure with hypoxia and hypercapnia (Chronic) Abdominal aortic aneurysm (Acute) History of onychomycosis (Acute) Hypoventilation syndrome (Chronic) Hypercapnia (Chronic) Diabetes mellitus with hyperglycemia (Acute) Immunization deficiency (Acute) Bronchitis (Chronic) Emphysema, unspecified (Chronic) Elevated d-dimer (Chronic) Dyspnea on exertion (Chronic) Pleural effusion (Chronic) Lymphadenopathy, abdominal (Acute) Lobar pneumonia (Chronic) History of tonsillectomy and adenoidectomy (Chronic) Tobacco use (Chronic) Benign prostatic hyperplasia with urinary obstruction (Chronic) Lumbar radiculopathy (Chronic) Pure hypercholesterolemia, unspecified (Chronic) Leukocytosis (Chronic) Macrocytosis (Chronic) Dependent edema (Chronic) 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) Vitamin B12 deficiency (Chronic) Pancreatitis (Chronic) CHF (congestive heart failure) (Chronic) Anemia (Chronic) Obesity, unspecified (Chronic) GERD (gastroesophageal reflux disease) (Chronic) Hyperlipidemia (Chronic) Hypertension (Chronic) Chest pain, precordial (Chronic) Lumbar radiculopathy, right (Chronic) COPD (chronic obstructive pulmonary disease) (Chronic) Hypoxemia (Chronic) Erectile dysfunction (Chronic) Hyponatremia (Chronic) Hypokalemia (Chronic) Drug-induced hepatotoxicity (Chronic) Rectal bleeding (Chronic) Smoker (Chronic) Varicose veins of lower extremity with inflammation, bilateral (Chronic) BPH (benign prostatic hyperplasia) (Chronic) Medical History Abdominal aortic aneurysm Anemia Benign prostatic hyperplasia with urinary obstruction BiPAP (biphasic positive airway pressure) dependence BPH (benign prostatic hyperplasia) Bronchitis Chest pain, precordial CHF (congestive heart failure) Chronic combined systolic and diastolic heart failure Chronic hypercapnic respiratory failure Chronic hypoxemic respiratory failure COPD (chronic obstructive pulmonary disease) Dependent edema Diabetes mellitus with hyperglycemia Drug-induced hepatotoxicity Dyspnea on exertion Elevated d-dimer Emphysema, unspecified Erectile dysfunction GERD (gastroesophageal reflux disease) History of onychomycosis Hypercapnia Hyperlipidemia Hypertension Hypokalemia Hyponatremia Hypoventilation syndrome Hypoxemia Immunization deficiency Leukocytosis Lobar pneumonia Lumbar radiculopathy Lumbar radiculopathy, right Macrocytosis Medicare annual wellness visit, subsequent Obesity, unspecified Obstructive sleep apnea Pancreatitis Pleural effusion bilateral, right sided complex Pure hypercholesterolemia, unspecified Rectal bleeding Smoker Tobacco use Varicose veins of lower extremity with inflammation, bilateral with pain Vitamin B12 deficiency Surgical History History of chest tube placement History of colonoscopy (~2016) History of inguinal hernia repair History of left cataract surgery (~2018) History of tonsillectomy and adenoidectomy Family History Mother Arthritis Hypertension Father Lung cancer Hypertension Sister Hypertension Grandfather Myocardial Infarction Paternal Other Diabetes mellitus Malignant neoplasm Social History household members: spouse housing: house lives independently: Yes marital status: occupational status: retired smoking status: Former smoker and Smokeless tobacco Smokeless tobacco user details: 1 can every 2-3 days smoking status start date: 04/01/78 smoking status stop date: 04/01/14 alcohol intake frequency: does not drink substance use type: does not use MEDS/ALLERGIES Home Medications and Allergies Home Medications Medication Instructions Recorded Confirmed Type albuterol sulfate 90 mcg/actuation 2 puff inhalation QIDP PRN 07/28/15 07/25/22 History aerosol inhaler (Proventil HFA) Shortness Of Breath oxygen-air delivery systems 11/23/16 07/26/22 History BIPAP #1 ea 09/07/19 07/26/22 History lancets 28 gauge (FreeStyle #100 ea 06/17/20 07/26/22 Rx Lancets) sildenafil 25 mg tablet 25 mg PO QDAY PRN sexual activity 11/29/20 07/26/22 Rx #30 tabs pen needle, diabetic 29 gauge x #100 ea 07/04/21 07/26/22 Rx 1/2" (Ultra-Thin II Insulin Pen [place]) blood sugar diagnostic (FreeStyle #150 ea 08/24/21 07/26/22 Rx Lite Strips) acetaminophen 1,000 mg PO Q6HP PRN Pain 02/07/22 07/26/22 History carvedilol 3.125 mg tablet 3.125 mg PO BIDCC #60 tabs 03/09/22 07/26/22 Rx atorvastatin 20 mg tablet (Lipitor) 20 mg PO QDAY #90 tabs 04/09/22 07/26/22 Rx metformin 1,000 mg tablet 1,000 mg PO BID #180 tabs 05/01/22 07/26/22 Rx omeprazole 40 mg capsule,delayed 40 mg PO QDAY #30 caps 05/07/22 07/25/22 Rx release furosemide 40 mg tablet 20 mg PO QAM 05/14/22 07/26/22 History spironolactone 25 mg tablet 12.5 mg PO QAM 05/14/22 07/26/22 History Entresto 24 mg-26 mg tablet 1 tab PO BID #180 tabs 05/24/22 07/26/22 Rx (sacubitril-valsartan) fluticasone 250 mcg-salmeterol 50 1 inh inhalation BID #180 ea 06/05/22 07/26/22 Rx mcg/dose blistr powdr for inhalation (Advair Diskus) insulin degludec 100 unit/mL (3 20 unit subcut QPM 07/16/22 07/26/22 History mL) subcutaneous pen (Tresiba FlexTouch U-100 insulin) ipratropium 0.5 mg-albuterol 3 mg 3 ml inhalation QID #360 mL 07/18/22 07/26/22 Rx (2.5 mg base)/3 mL nebulization soln aspirin 81 mg chewable tablet 81 mg PO QDAY 07/26/22 07/26/22 History Allergies Allergy/AdvReac Type Severity Reaction Status Date / Time NSAIDS (Non-Steroidal AdvReac Severe Other Verified 07/25/22 14:38 Anti-Inflamma EXAM Constitutional Vitals: Temp Pulse Resp BP Pulse Ox O2 Del Method O2 Flow Rate 98.4 F 85 19 159/79 99 Nasal Cannula 4 07/26/22 11:48 07/26/22 11:48 07/26/22 11:48 07/26/22 11:48 07/26/22 11:48 07/25/22 14:53 07/25/22 14:53 General appearance: cooperative, no acute distress and obese Head Head exam: Present atraumatic, normal inspection and normocephalic Eye Eye exam: Present normal appearance ENT ENT exam: Present mucous membranes moist Neck Neck exam: Present normal inspection Respiratory Respiratory exam: Present normal respiratory exam and CTAB GI/Abdominal GI/Abdominal exam: Present normal bowel sounds; Absent mass Psychiatric Psychiatric exam: Present normal affect and normal mood DATA Data Completed and Pending Labs: Labs from last 24 hours 07/26/22 07/26/22 07/26/22 11:00 11:00 04:11 WBC RBC Hgb 8.5 L 8.9 L Hct 27.7 L 28.6 L POC Hct MCV MCH MCHC RDW Plt Count MPV Immature Gran % (Auto) Neut % (Auto) Lymph % (Auto) [place] % (Auto) Eos % (Auto) Baso % (Auto) Lymph # (Auto) [place] # (Auto) Eos # (Auto) Baso # (Auto) Immature Gran # Absolute Neutrophils PT INR POC Sodium POC Potassium POC Chloride POC Total CO2 POC BUN POC Creatinine POC Glucose Hemoglobin A1c Pending Estim Average Glucose Pending POC WB Ioniz Calcium 07/25/22 07/25/22 07/25/22 23:03 22:49 15:08 WBC RBC Hgb 9.0 L Hct 28.6 L POC Hct 29.0 L 22.0 L MCV MCH MCHC RDW Plt Count MPV Immature Gran % (Auto) Neut % (Auto) Lymph % (Auto) [place] % (Auto) Eos % (Auto) Baso % (Auto) Lymph # (Auto) [place] # (Auto) Eos # (Auto) Baso # (Auto) Immature Gran # Absolute Neutrophils PT INR POC Sodium 132 L 131 L POC Potassium 4.1 4.1 POC Chloride 94 L 93 L POC Total CO2 29.0 28.0 POC BUN 16 17 POC Creatinine 0.6 0.7 POC Glucose 258 H 134 H Hemoglobin A1c Estim Average Glucose POC WB Ioniz Calcium 1.19 1.11 L 07/25/22 07/25/22 15:03 15:03 WBC 8.7 RBC 2.69 L Hgb 6.7 L* Hct 22.5 L POC Hct MCV 83.6 MCH 24.9 L MCHC 29.8 L RDW 15.7 H Plt Count 270 MPV 9.5 Immature Gran % (Auto) 0.3 Neut % (Auto) 67.6 Lymph % (Auto) 17.1 [place] % (Auto) 12.4 H Eos % (Auto) 2.1 Baso % (Auto) 0.5 Lymph # (Auto) 1.48 L [place] # (Auto) 1.07 H Eos # (Auto) 0.18 Baso # (Auto) 0.04 Immature Gran # 0.03 Absolute Neutrophils 5.86 PT 13.9 INR 1.0 POC Sodium POC Potassium POC Chloride POC Total CO2 POC BUN POC Creatinine POC Glucose Hemoglobin A1c Estim Average Glucose POC WB Ioniz Calcium A/P Assessment and plan (1) Hematochezia: Assessment and plan: Discussed case with Dr Johnson. Will proceed with EGD today and prep with Colyte early tomorrow morning for colonoscopy tomorrow. Suspect recurrent diverticular bleed but given recent EUS, will check for brisk upper GI bleed as well. Status: Acute Time Spent With Patient Time: Total time spent is greater than 50% in coordination of care (as documented) at patient's floor/unit and/or counseling patient:
[2022-07-26 13:50] LABS: Hemoglobin A1C 7.2 % Hgb (4.0-6.0)
[2022-07-26] MEDS: ACETAMINOPHEN 650 MG/65 ML BAG IV PRN (14:23)
[2022-07-26] MEDS: 0.9 % SODIUM CHLORIDE 10 ML SYRINGE IV SCH ×2 (14:25→22:00)
[2022-07-26] MEDS ORDERED: MIDAZOLAM 2 MG/2 ML VIAL ONE (16:27)
[2022-07-26] MEDS ORDERED: PROPOFOL 200 MG/20 ML VIAL IV ONE (16:27)
[2022-07-26] MEDS: CARVEDILOL 3.125 MG TABLET PO SCH (18:00)
[2022-07-26] MEDS: PANTOPRAZOLE 40 MG VIAL IV SCH (18:00)
[2022-07-26] MEDS: ACETAMINOPHEN 325 MG TABLET PO PRN (20:50)
[2022-07-26] MEDS: FLUTICASONE/SALMETEROL 250/50 INHALER #14 INH SCH (20:51)
[2022-07-26] MEDS: Sacubitril-Valsartan [Entresto] 24-26 mg tablet PO SCH (20:54)
[2022-07-26] MEDS ORDERED: INSULIN GLARGINE, HUMAN 1 UNIT/0.01 ML SQ SCH (21:00)
[2022-07-26 22:11] LABS: Hematocrit 24.9 % (40.1-51.0); Hemoglobin 7.6 g/dL (13.7-17.5)
[2022-07-26] MEDS ORDERED: 0.9 % SODIUM CHLORIDE 250 ML IV SCH (23:00)
[2022-07-27] MEDS: INSULIN LISPRO 1 UNIT/0.01 ML UNIT SQ SCH ×4 (00:20→11:58)
[2022-07-27] MEDS: DEXTROSE 5%-NS 1,000 ML IV SCH (04:52)
[2022-07-27] MEDS: ACETAMINOPHEN 325 MG TABLET PO PRN (05:07)
[2022-07-27] MEDS: 0.9 % SODIUM CHLORIDE 10 ML SYRINGE IV SCH ×2 (06:27→13:19)
[2022-07-27] MEDS: PANTOPRAZOLE 40 MG VIAL IV SCH (07:39)
[2022-07-27] MEDS: IPRATROPIUM/ALBUTEROL 3 ML AMPUL.NEB NEB SCH ×2 (08:28→13:30)
[2022-07-27] MEDS: CARVEDILOL 3.125 MG TABLET PO SCH (08:31)
[2022-07-27] MEDS: FLUTICASONE/SALMETEROL 250/50 INHALER #14 INH SCH (08:32)
[2022-07-27] MEDS: Sacubitril-Valsartan [Entresto] 24-26 mg tablet PO SCH (08:32)
[2022-07-27] MEDS ORDERED: KETAMINE 50 MG/ML ML IV PRN (08:34)
[2022-07-27] MEDS ORDERED: MIDAZOLAM 2 MG/2 ML VIAL IV SCH (08:45)
[2022-07-27] MEDS ORDERED: PROPOFOL 200 MG/20 ML VIAL IV SCH (08:45)
[2022-07-27 08:50] LABS: Basophils # (Auto) 0.04 K/mcL (0.00-0.30); Basophils % (Auto) 0.6 % (0.0-2.0); Eosinophils # (Auto) 0.19 K/mcL (0.00-0.70); Eosinophils % (Auto) 2.6 % (0.0-7.0); Hematocrit 27.8 % (40.1-51.0); Hemoglobin 8.5 g/dL (13.7-17.5); Lymphocytes # (Auto) 1.19 K/mcL (1.50-4.80); Lymphocytes % (Auto) 16.6 % (15.5-49.0); Mean Cell Volume 87.7 fL (80.0-100.0); Mean Corpuscular HGB Conc 30.6 g/dL (31.0-36.0); Mean Platelet Volume 9.4 fL (8.8-12.5); Monocytes # (Auto) 0.94 K/mcL (0.10-0.90); Monocytes % (Auto) 13.1 % (1.0-12.0); Neutrophils % (Auto) 66.8 % (38.0-78.0); Platelet Count 260 K/mcL (140-440); RBC 3.17 M/mcL (4.63-6.08); Red Cell Distribution Width 15.6 % (11.5-14.5); WBC 7.2 K/mcL (4.5-11.0)
[2022-07-27] MEDS ORDERED: ATORVASTATIN 20 MG TABLET PO SCH (09:00)
[2022-07-27 09:16] LABS: ALT/SGPT 7 U/L (<40); AST/SGOT 10 U/L (<40); Albumin 3.7 gm/dL (3.2-5.2); Albumin/Globulin Ratio 1.5 (1.0-2.3); Alkaline Phosphatase 43 U/L (39-117); Bilirubin,Direct < 0.2 mg/dL (0-0.3); Bilirubin,Total 0.5 mg/dL (0.1-1.0); Blood Urea Nitrogen 8 mg/dL (8-23); Calcium 8.6 mg/dL (8.6-10.4); Carbon Dioxide 26 mmol/L (22-30); Chloride 99 mmol/L (96-108); Globulin 2.5 gm/dL (2.2-3.7); Glomerular Filtration Rate 108; Glucose 186 mg/dL (70-105); Lactate Dehydrogenase 124 U/L (135-225); Phosphorous 2.5 mg/dL (2.5-4.5); Triglycerides 60 mg/dL (<150); Uric Acid 3.2 mg/dL (2.5-8.0)
[2022-07-27] MEDS ORDERED: EPINEPHrine 1 MG/ML VIAL IV ONE (09:37)
[2022-07-27] MEDS ORDERED: EPINEPHrine 1 MG/ML VIAL IJ ONE (10:00)
[2022-07-27] MEDS: ACETAMINOPHEN 650 MG/65 ML BAG IV PRN (10:36)
--- NOTE | 2022-07-27 11:30 | EGD Procedure Note ---
EGD Procedure Notes Procedure Information Patient information: Note initiated : 07/27/22 at 11:28 am Patient: Markel Edward 71 y/o M admitted on 07/26/22 for rectal bleeding. Date of Procedure: 07/26/22 Pre-Op Diagnosis: Anemia. Melena. S/p EUS. Post-Op Diagnosis: Normal EGD. Procedure: egd Procedure Narrative: The procedure, alternatives and risks were discussed with the patient and the patient's questions were answered. With endoscopist-administered intravenous sedation, the Olympus video endoscope was introduced into the esophagus. The esophagus, stomach, and duodenum were examined sequentially. No abnormality seen. There is no esophagitis nor hiatal hernia. The gastric mucosa, antrum, pyloric ring and duodenum otherwise normal. No bleeding nor bleeding site was identified. The scope was withdrawn. Grafts/Implants: No Anesthesia: conscious sedation Findings: Normal EGD. Proceed with colonoscopy tomorrow. Complications: none Surgeon: Juan Luis Johnson Estimated blood loss: 0 Specimens Removed/Pathology: none sent Condition: stable Disposition: same day Assessment: Normal EGD.
--- NOTE | 2022-07-27 11:57 | Discharge Summary ---
Discharge Provider Provider IMPORTANT FOLLOW-UP INFORMATION FOR PCP: Patient information: Note initiated : 07/27/22 at 11:54 am Service Date, if different from initiated Date: [] Patient: Markel Edward 71 y/o M admitted on 07/26/22 for rectal bleeding. Chief Complaint: [] Date of admission: 07/26/22 11:45 Discharge date: 07/27/22 Primary care physician: Marcus Smith MD Attending physician on admission: Wilian Thayer Consults: 07/26/22 Consult to Physician [CONS] Stat Comment: Consulting Provider: JuanL uis Johnson Reason For Exam: Physician to Consult Consult to Physician [CONS] Stat Comment: Consulting Provider: Wilian Thayer Reason For Exam: Physician to Consult 07/26/22 11:53 Consult to Physician [CONS] Stat Comment: Consulting Provider: Juan Luis Johnson Reason For Exam: Physician to Consult Attending physician on discharge: Wilian Leonardo Pui COURSE Hospital Course Hospital course: Mr. Edward is a 71 year old M history of COPD, CHF, essential hypertensions, dyslipidemia, type 2 diabetes mellitus, presenting with 3-day history of melena. Patient had a history of diverticular bleed from January 2022. Beatrice guadarrama had a recently diagnosed pancreatic mass. He had EUS with pancreatic mass biopsy 3 days ago. On the morning of the same day of the procedures, he started to noticed melena with black stool with some blood spotted on the surface. He continued to have such episode of black stool admixed with blood with the last episode earlier this morning. He denies any hematemesis. He denies any abdominal pain or rectal pain. His hemoglobin and hematocrit last night when he presented to our ER were 6.7/22.5, respectively. After transfusions of 2 unit PRBC, his H&H improved to 9.0 and 28.6, respectively. Vital signs significant for intermittent tachycardia. Latest blood pressure 159 over 79 mmHg. ER physician get a hold of the GI specialist Dr. Urrutia who agreed to preformed EGD later this evening. Admission request is called for suspected upper GI bleeding. 07/27: Discharged home with follow up appointment with Dr. Johnson made for him. All questions were answered prior to patient being physically discharged. Discharge diagnosis: Lower GI bleeding Time Spent with Patient Time attestation: Total time spent providing and/or coordinating discharge services: Time spent: Less than 30 minutes EXAM Constitutional Vitals: Temp Pulse Resp BP Pulse Ox O2 Del Method O2 Flow Rate 36.8 C 91 H 23 H 160/90 99 Nasal Cannula 2 07/27/22 11:47 07/27/22 11:47 07/27/22 11:47 07/27/22 11:47 07/27/22 11:47 07/27/22 11:47 07/27/22 11:47 General appearance: cooperative and no acute distress Head Head exam: Present atraumatic and normocephalic Eye Eye exam: Present EOMI and PERRL ENT ENT exam: Present mucous membranes moist, normal exam and normal external ear exam Additional comments: Nasal cannula in place Neck Neck exam: Present normal inspection; Absent lymphadenopathy, tenderness or thyromegaly Respiratory Respiratory exam: Absent accessory muscle use, respiratory distress or wheezes Cardiovascular Cardiovascular exam: Present normal rate and rhythm; Absent JVD GI/Abdominal GI/Abdominal exam: Present normal bowel sounds and soft; Absent organomegaly or tenderness Rectal Rectal exam: Present deferred Extremities Exam Extremities exam: Present full ROM, normal capillary refill and normal insp ection; Absent tenderness Neurological Exam Neurological exam: Present alert, CN II-XII intact and oriented X3; Absent motor sensory deficit Psychiatric Psychiatric exam: Present normal affect and normal mood; Absent anxious or depressed Skin Skin exam: Present dry and intact Discharge Data Data Completed and Pending Labs on day of discharge: Labs from last 24 hours 07/27/22 07/27/22 07/26/22 08:12 08:12 21:03 WBC 7.2 RBC 3.17 L Hgb 8.5 L 7.6 L Hct 27.8 L 24.9 L MCV 87.7 MCH 26.8 MCHC 30.6 L RDW 15.6 H Plt Count 260 MPV 9.4 Immature Gran % (Auto) 0.3 Neut % (Auto) 66.8 Lymph % (Auto) 16.6 [place] % (Auto) 13.1 H Eos % (Auto) 2.6 Baso % (Auto) 0.6 Lymph # (Auto) 1.19 L [place] # (Auto) 0.94 H Eos # (Auto) 0.19 Baso # (Auto) 0.04 Immature Gran # 0.02 Absolute Neutrophils 4.80 Sodium 132 L Potassium 3.6 Chloride 99 Carbon Dioxide 26 Anion Gap 7.0 L BUN 8 Creatinine 0.5 L GFR Calculation 108 Glucose 186 H Hemoglobin A1c Estim Average Glucose Uric Acid 3.2 Calcium 8.6 Phosphorus 2.5 Magnesium 1.7 Total Bilirubin 0.5 Direct Bilirubin < 0.2 GGT 17 AST 10 ALT 7 Alkaline Phosphatase 43 Lactate Dehydrogenase 124 L Total Protein 6.2 Albumin 3.7 Globulin 2.5 Albumin/Globulin Ratio 1.5 Triglycerides 60 07/26/22 07/26/22 11:00 11:00 WBC RBC Hgb 8.5 L Hct 27.7 L MCV MCH MCHC RDW Plt Count MPV Immature Gran % (Auto) Neut % (Auto) Lymph % (Auto) [place] % (Auto) Eos % (Auto) Baso % (Auto) Lymph # (Auto) [place] # (Auto) Eos # (Auto) Baso # (Auto) Immature Gran # Absolute Neutrophils Sodium Potassium Chloride Carbon Dioxide Anion Gap BUN Creatinine GFR Calculation Glucose Hemoglobin A1c 7.2 H Estim Average Glucose 160 Uric Acid Calcium Phosphorus Magnesium Total Bilirubin Direct Bilirubin GGT AST ALT Alkaline Phosphatase Lactate Dehydrogenase Total Protein Albumin Globulin Albumin/Globulin Ratio Triglycerides Discharge Plan Patient/Caregiver Discharge Instructions Activity: resume usual activities as tolerated Diet: Consistent Carbohydrate Prescriptions: Continued (DME) lancets [FreeStyle Lancets] 28 gauge misc See Protocol .ROUTE .MEDSUPPLY Qty: 100 4RF Protocol: Insulin Sliding Scale, Low Condition: HUMALOG/NOVALOG SC SLIDING Dose/Route: SCALE Condition: FSBS < 70 Dose/Route: Give 4 Oz juice, or 15gm oral Instruction: Glucose, or 25ml D50W IV if Dose/Route: unable to take PO. Recheck in Instruction: 15 min and repeat if FSBS < 70 Condition: FSBS 71-140 Dose/Route: NO COVERAGE Condition: FSBS 141-170 Dose/Route: 1 UNITS Condition: FSBS 171-200 Dose/Route: 2 UNITS Condition: FSBS 201-250 Dose/Route: 3 UNITS Condition: FSBS 251-300 Dose/Route: 4 UNITS Condition: FSBS 301-350 Dose/Route: 6 UNITS Condition: FSBS 351-400 Dose/Route: 8 UNITS Condition: FSBS > 400 Dose/Route: 10 UNITS; REPEAT Q2H X2 Instruction: CONTINUE FOLLOWING SLIDING Condition: SCALE; IF STILL > 400; CALL Dose/Route: PHYSICIAN Rx Instructions: Test twice daily am and pm (DME) pen needle, diabetic [Ultra-Thin II Ins Pen [place]] 29 gauge x 1/2" needle See Rx Instructions .ROUTE .MEDSUPPLY Qty: 100 6RF Rx Instructions: As directed once daily with Levemir pen (DME) FreeStyle Lite Strips Strip See Rx Instructions .Route Qty: 150 3RF Rx Instructions: Use to test blood sugars morning and evening. atorvastatin [Lipitor] 20 mg tablet 20 mg PO QDAY Qty: 90 3RF Patient Comments: Pt thinks it may be 40 mg a day. Will recheck metformin 1,000 mg tablet 1,000 mg PO BID Qty: 180 3RF omeprazole 40 mg capsule,delayed release(DR/EC) 40 mg PO QDAY Qty: 30 5RF Entresto 24-26 mg tablet 1 tab PO BID Qty: 180 3RF fluticasone propion-salmeterol [Advair Diskus] 250-50 mcg/dose blister with device 1 inh INHALATION BID Qty: 180 3RF insulin degludec [Tresiba FlexTouch U-100] 100 unit/mL (3 mL) insulin pen 20 unit subcut QPM ipratropium-albuterol 0.5 mg-3 mg(2.5 mg base)/3 mL solution for nebulization 3 ml INHALATION QID Qty: 360 6RF albuterol sulfate [Proventil HFA] 90 mcg/actuation HFA aerosol inhaler 2 puff INHALATION QIDP PRN (Reason: Shortness Of Breath) sildenafil 25 mg tablet 25 mg PO QDAY PRN (Reason: sexual activity) Qty: 30 7RF Rx Instructions: administer 30 minutes to 4 hours before activity acetaminophen 1,000 mg PO Q6HP PRN (Reason: Pain) furosemide 40 mg tablet 20 mg PO QAM spironolactone 25 mg tablet 12.5 mg PO QAM (DME) BIPAP Qty: 1 Rx Instructions: As directed carvedilol 3.125 mg Tablet 3.125 mg PO BIDCC Qty: 60 2RF (DME) oxygen-air delivery systems device 4 each .ROUTE .MEDSUPPLY Rx Instructions: 4 L continuously Discontinued aspirin [Adult Aspirin] 81 mg Tablet,Chewable 81 mg PO QDAY Follow Up Plan Follow up with: Marcus Smith MD [Primary Care Provider] - Juan Luis Johnson MD [Physician] - Patient Disposition: Home, Self-Care Prognosis: Fair Rehab Potential: Good I certify that the patient requires SNF services: No Overall status at discharge: patient is back to baseline Discharge Orders: Discharge Order (Routine); Ordered 07/27/22 Ordered By: Wilian Thayer
--- NOTE | 2022-07-30 08:26 | Colonoscopy Procedure Note ---
Colonoscopy Procedure Notes Procedure Information Patient information: Note initiated : 07/30/22 at 8:24 am Patient: Markel Edward 71 y/o M admitted on 07/26/22 for rectal bleeding. Date of Procedure: 07/27/22 Pre-op diagnosis general: Bright red blood per rectum. Post-op diagnosis: Diverticular bleed. Procedure: Colonoscopy with control of bleed Procedure narrative: The procedure, alternatives and risks were discussed with the patient and the patient's questions were answered. With endoscopist-administered intravenous sedation, the Olympus colonoscope was introduced into the rectum and advanced to the cecum. Ileocecal valve was identified. Blood staining was seen from the splenic flexure to the rectum. Proximal to this, there was no blood staining. A bleeding diverticulum was seen in the proximal sigmoid colon; it was injected with epinephrine and clipped x 2. Hemostasis achieved.No abnormalities were seen throughout the colon and terminal ileum. There were no colonic polyps. Anesthesia: conscious sedation Findings: Diverticular bleed. Recommend avoiding aspirin; may use Plavix. Complications: none Surgeon: Juan Luis Johnson Estimated blood loss: 0 Specimens Removed/Pathology: none sent Condition: stable Disposition: same day Assessment: Diverticular bleed. Recommend avoiding aspirin; may use Plavix.
== END 2022-07-27 14:25 | disposition home or self-care (01) | DRG 378 ==
LOC: ED 14:28 → ICU 07-26 11:45
PROVIDERS: ADMIT Internal Medicine; ATTEND Internal Medicine

== ENCOUNTER 2022-08-23 18:43 | Inpatient (IN) ==
[2022-08-23] MEDS ORDERED: IOPAMIDOL 100 ML BOTTLE IV ONE (18:44)
--- NOTE | 2022-08-23 18:44 | Emergency Department Note ---
HPI General Chief complaint: Shortness of Breath/Dyspnea Stated complaint: Shortness of Breath Time Seen by Provider: 08/23/22 18:44 Mode of arrival: EMS Limitations: other (BiPAP in place) History of Present Illness HPI Narrative: Narrative: 71-year-old male presents with complex medical history presents to the ER in acute respiratory failure as being brought in by EMS. Per EMS he was sitting in his chair when he suddenly became diaphoretic and could not breathe. She reports his symptoms progressed rapidly and he became very short of breath and they called EMS. She notes he has a history of COPD, CHF and he has been coughing more frequently over the last day or 2. They have also been watching his weight and noticed that has not increased over the last several days. She notes he was also diagnosed with pancreatic cancer and a supposed to be see the oncologist tomorrow. They noticed take several months to get into the onc ologist I did not want to miss the appointment. Per EMS he had 2 DuoNebs during transport which significantly helped his symptoms. Related Data Home Medications Medication Instructions Recorded Confirmed albuterol sulfate 90 mcg/actuation 2 puff inhalation QIDP PRN 07/28/15 08/02/22 aerosol inhaler (Proventil HFA) Shortness Of Breath oxygen-air delivery systems 11/23/16 08/02/22 BIPAP #1 ea 09/07/19 08/02/22 acetaminophen 1,000 mg PO Q6HP PRN Pain 02/07/22 08/02/22 furosemide 40 mg tablet 20 mg PO QAM 05/14/22 08/02/22 spironolactone 25 mg tablet 12.5 mg PO QAM 05/14/22 08/02/22 insulin degludec 100 unit/mL (3 20 unit subcut QPM 07/16/22 08/02/22 mL) subcutaneous pen (Tresiba FlexTouch U-100 insulin) Previous Rx's Medication Instructions Recorded lancets 28 gauge (FreeStyle #100 ea 06/17/20 Lancets) sildenafil 25 mg tablet 25 mg PO QDAY PRN sexual activity 11/29/20 #30 tabs pen needle, diabetic 29 gauge x #100 ea 07/04/21 1/2" (Ultra-Thin II Insulin Pen [place]) carvedilol 3.125 mg tablet 3.125 mg PO BIDCC #60 tabs 03/09/22 atorvastatin 20 mg tablet (Lipitor) 20 mg PO QDAY #90 tabs 04/09/22 metformin 1,000 mg tablet 1,000 mg PO BID #180 tabs 05/01/22 omeprazole 40 mg capsule,delayed 40 mg PO QDAY #30 caps 05/07/22 release Entresto 24 mg-26 mg tablet 1 tab PO BID #180 tabs 05/24/22 (sacubitril-valsartan) fluticasone 250 mcg-salmeterol 50 1 inh inhalation BID #180 ea 06/05/22 mcg/dose blistr powdr for inhalation (Advair Diskus) ipratropium 0.5 mg-albuterol 3 mg 3 ml inhalation QID #360 mL 07/18/22 (2.5 mg base)/3 mL nebulization soln blood sugar diagnostic (FreeStyle #150 ea 08/13/22 Lite Strips) Allergies Allergy/AdvReac Type Severity Reaction Status Date / Time NSAIDS (Non-Steroidal AdvReac Severe Other Verified 08/02/22 12:52 Anti-Inflamma Review of Systems ROS ROS Narrative: Narrative: Cardiovascular: Denies chest pain, palpitations or syncope Gastrointestinal: Denies abdominal pain, nausea or vomiting PFSH Narrative Patient History Narrative: Narrative: Medical/Surgical/Family History All Active Problems (Updated 08/23/22 @ 21:59 by ABHI Gates) Community acquired pneumonia (Acute) Acute respiratory distress syndrome (ARDS) (Acute) Pancreatic cancer (Acute) Community acquired pneumonia (Acute) Pancreatic cancer (Acute) Acute and chronic respiratory failure with hypercapnia (Acute) Hematochezia (Acute) Pancreatic mass (Acute) Upper GI bleeding (Acute) Melena (Acute) Acute blood loss anemia (Acute) Cigarette smoker (Acute) COPD exacerbation (Acute) CHF exacerbation (Acute) Pulmonary nodules/lesions, multiple (Chronic) Flash pulmonary edema (Acute) Leukocytosis (Acute) Cough (Acute) Acute GI bleeding (Acute) Anemia (Acute) Subscapular pain (Acute) Medicare annual wellness visit, subsequent (Acute) Respiratory failure with hypoxia and hypercapnia (Chronic) Abdominal aortic aneurysm (Acute) History of onychomycosis (Acute) Hypoventilation syndrome (Chronic) Hypercapnia (Chronic) Diabetes mellitus with hyperglycemia (Acute) Immunization deficiency (Acute) Bronchitis (Chronic) Emphysema, unspecified (Chronic) Elevated d-dimer (Chronic) Dyspnea on exertion (Chronic) Pleural effusion (Chronic) Lymphadenopathy, abdominal (Acute) Lobar pneumonia (Chronic) History of tonsillectomy and adenoidectomy (Chronic) Tobacco use (Chronic) Benign prostatic hyperplasia with urinary obstruction (Chronic) Lumbar radiculopathy (Chronic) Pure hypercholesterolemia, unspecified (Chronic) Leukocytosis (Chronic) Macrocytosis (Chronic) Dependent edema (Chronic) 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) Vitamin B12 deficiency (Chronic) Pancreatitis (Chronic) CHF (congestive heart failure) (Chronic) Anemia (Chronic) Obesity, unspecified (Chronic) GERD (gastroesophageal reflux disease) (Chronic) Hyperlipidemia (Chronic) Hypertension (Chronic) Chest pain, precordial (Chronic) Lumbar radiculopathy, right (Chronic) COPD (chronic obstructive pulmonary disease) (Chronic) Hypoxemia (Chronic) Erectile dysfunction (Chronic) Hyponatremia (Chronic) Hypokalemia (Chronic) Drug-induced hepatotoxicity (Chronic) Rectal bleeding (Chronic) Smoker (Chronic) Varicose veins of lower extremity with inflammation, bilateral (Chronic) BPH (benign prostatic hyperplasia) (Chronic) Medical History Abdominal aortic aneurysm Anemia Benign prostatic hyperplasia with urinary obstruction BiPAP (biphasic positive airway pressure) dependence BPH (benign prostatic hyperplasia) Bronchitis Chest pain, precordial CHF (congestive heart failure) Chronic combined systolic and diastolic heart failure Chronic hypercapnic respiratory failure Chronic hypoxemic respiratory failure COPD (chronic obstructive pulmonary disease) Dependent edema Diabetes mellitus with hyperglycemia Drug-induced hepatotoxicity Dyspnea on exertion Elevated d-dimer Emphysema, unspecified Erectile dysfunction GERD (gastroesophageal reflux disease) History of onychomycosis Hypercapnia Hyperlipidemia Hypertension Hypokalemia Hyponatremia Hypoventilation syndrome Hypoxemia Immunization deficiency Leukocytosis Lobar pneumonia Lumbar radiculopathy Lumbar radiculopathy, right Macrocytosis Medicare annual wellness visit, subsequent Obesity, unspecified Obstructive sleep apnea Pancreatitis Pleural effusion bilateral, right sided complex Pure hypercholesterolemia, unspecified Rectal bleeding Smoker Tobacco use Varicose veins of lower extremity with inflammation, bilateral with pain Vitamin B12 deficiency Surgical History History of chest tube placement History of colonoscopy (~2016) History of inguinal hernia repair History of left cataract surgery (~2018) History of tonsillectomy and adenoidectomy Family History Mother Arthritis Hypertension Father Lung cancer Hypertension Sister Hypertension Grandfather Myocardial Infarction Paternal Other Diabetes mellitus Malignant neoplasm Social History Smoking Status: Former smoker and Smokeless tobacco Alcohol Intake Frequency: does not drink Substance Use: does not use Exam Narrative Narrative: Narrative: General Limitations: other (BiPAP in place) General appearance: Present alert, grimacing, in distress (Acute respiratory distress syndrome/failure.) and obese Head Head: Present atraumatic, normocephalic and normal inspection Eye Eye: Present normal appearance and EOMI; Absent scleral icterus or conjunctival injection Respiratory Respiratory: Present respiratory distress, wheezes, accessory muscle use and decreased breath sounds (Bases) Expanded Respiratory Location: wheezes: Upper (Mild wheezing to left and right lung., Worse on right) and decreased breath sounds: Left, Right and Lower Cardiovascular Cardiovascular: Present normal rhythm, tachycardia and normal heart sounds Adbominal Abdominal: Present soft and diminished bowel sounds; Absent distention or tenderness Extremities Extremities: Present normal inspection and normal capillary refill; Absent tenderness or pedal edema Neurological Neurological: Present alert and oriented X3 Psychiatric Psychiatric: Present normal affect and normal mood Skin Skin: Present diaphoretic Course Vital Signs Vital signs: Vital Signs Temperature 98.1 F 08/23/22 18:43 Pulse Rate 115 H 08/23/22 18:43 Respiratory Rate 20 08/23/22 18:43 Blood Pressure 174/106 08/23/22 18:43 Pulse Oximetry (%) 99 08/23/22 18:43 Oxygen Delivery Method CPAP 08/23/22 18:43 Temperature 98.1 F 08/23/22 18:43 Pulse Rate 102 H 08/23/22 21:45 Respiratory Rate 20 08/23/22 21:45 Blood Pressure 123/69 08/23/22 21:45 Pulse Oximetry (%) 98 08/23/22 21:45 Oxygen Delivery Method BiPAP 08/23/22 21:00 [facility] MDM Narrative Medical decision making narrative: Narrative: Clinical considerations include but not limited to PE, pneumonia, flash pulmonary edema. On arrival patient arrives in respiratory distress. Patient had mild wheezing to left and right lungs, worse on the right. After receiving his DuoNebs his wheezing is almost completely relieved but he has persistent dullness throughout the left lung. The right lung has significantly improved air movement in comparison to the left. Due to patient's difficulty in breathing on arrival he is able to nod that he wants intubation if his respiratory symptoms do not improve. An IV is started, patient arrives with BiPAP in place. He is given steroids, DuoNeb while labs are pending. We are awaiting CBC, Pro-Vadim, lactic acid, INR, troponin, COVID/influenza, BMP, blood cultures and Chem-8. He is given 125 mg of methylprednisolone. EKG is also completed which reveals a sinus tachycardia at a rate of 117. Chest x-ray is ordered, reviewed and interpreted by me and does reveal a infiltrate to the left lower lung. Due to patient's recent history of pancreatic cancer a CTA is pending. Patient does have mild hypotension but his MAP remains elevated 84. His pulse is slowly decreasing and his work of breathing has significantly decreased since arrival. Patient is ordered 2 g of ceftriaxone via IV. CTA returns and he does has multiple pulmonary nodules suggestive of pulmonary metastasis. No PE is visualized. BNP is significantly improved from prior visit at 1179. He has minimal coronary edema suspect his symptoms are related to pulmonary edema with COPD component. Patient's work of breathing has signif icantly decreased and his remains at bedside. Hospitalist Dr. Ling, hospital agrees to set patient to ICU. Patient is given a total of 2 L NS while in the ED. Due to the multiple bedside evaluations, hospital consults with ED physician Dr. Castillo and hospitalist Dr. Ludwig would like to bill for critical care time of 180 minutes Sepsis Sepsis Identified: Yes Date Sepsis Identified: 08/23/22 Time Sepsis Identified: 19:46 Comments: Pneumonia to left lower lung Lab Data 08/23/22 19:09 Labs: Lab Results 08/23/22 08/23/22 08/23/22 Range/Units 18:50 18:50 18:52 WBC (4.5-11.0) K/mcL RBC (4.63-6.08) M/mcL Hgb (13.7-17.5) g/dL Hct (40.1-51.0) % POC Hct 35.0 L (41-55) MCV (80.0-100.0) fL MCH (26.0-34.0) pg MCHC (31.0-36.0) g/dL RDW (11.5-14.5) % Plt Count (140-440) K/mcL MPV (8.8-12.5) fL Seg Neutrophils % (38-78) % Lymphocytes % (15-49) % Monocytes % (Manual) (1-12) % Eosinophils % (Manual) (0-7) % Basophils % (Manual) (0-2) % Platelet Estimate (Normal) RBC Morphology (Normal) Hypochromasia (None Seen) Anisocytosis (None Seen) PT (11.9-14.5) sec INR (0.9-1.1) POC VBG pH 7.19 L* (7.32-7.42) POC VBG pCO2 at Temp 80.9 H* (41-51) POC VBG pO2 150 H (25-40) POC VBG HCO3 30.8 H (24-28) POC VBG Total CO2 33.0 H (25-29) POC Venous O2 Sat 99.0 H (40-70) POC VBG Base Excess 3.0 H (-2-2) VBG Lactic Acid 4.4 H* (0.5-2) POC Sodium 132 L (133-145) POC Potassium 4.6 (3.3-5.1) POC Chloride 90 L (96-108) POC Total CO2 31.0 H (22-30) POC BUN 20 (6-20) POC Creatinine 0.8 (0.6-1.2) POC Glucose 425 H (70-105) POC WB Ioniz Calcium 1.20 (1.16-1.32) NT-Pro-B Natriuret Pep (<125.0) pg/mL Procalcitonin (<0.10) ng/mL POC Troponin I < 0.02 (0.00-0.08) 08/23/22 08/23/22 08/23/22 Range/Units 19:08 19:08 19:09 WBC 14.1 H (4.5-11.0) K/mcL RBC 3.60 L (4.63-6.08) M/mcL Hgb 9.4 L (13.7-17.5) g/dL Hct 30.7 L (40.1-51.0) % POC Hct (41-55) MCV 85.3 (80.0-100.0) fL MCH 26.1 (26.0-34.0) pg MCHC 30.6 L (31.0-36.0) g/dL RDW 15.9 H (11.5-14.5) % Plt Count 403 (140-440) K/mcL MPV 10.6 (8.8-12.5) fL Seg Neutrophils % 44 (38-78) % Lymphocytes % 37 (15-49) % Monocytes % (Manual) 11 (1-12) % Eosinophils % (Manual) 7 (0-7) % Basophils % (Manual) 1 (0-2) % Platelet Estimate Normal (Normal) RBC Morphology Abnormal A (Normal) Hypochromasia 1+ A (None Seen) Anisocytosis 1+ A (None Seen) PT 13.3 (11.9-14.5) sec INR 1.0 (0.9-1.1) POC VBG pH (7.32-7.42) POC VBG pCO2 at Temp (41-51) POC VBG pO2 (25-40) POC VBG HCO3 (24-28) POC VBG Total CO2 (25-29) POC Venous O2 Sat (40-70) POC VBG Base Excess (-2-2) VBG Lactic Acid (0.5-2) POC Sodium (133-145) POC Potassium (3.3-5.1) POC Chloride (96-108) POC Total CO2 (22-30) POC BUN (6-20) POC Creatinine (0.6-1.2) POC Glucose (70-105) POC WB Ioniz Calcium (1.16-1.32) NT-Pro-B Natriuret Pep 1170.0 H (<125.0) pg/mL Procalcitonin (<0.10) ng/mL POC Troponin I (0.00-0.08) 08/23/22 Range/Units 19:09 WBC (4.5-11.0) K/mcL RBC (4.63-6.08) M/mcL Hgb (13.7-17.5) g/dL Hct (40.1-51.0) % POC Hct (41-55) MCV (80.0-100.0) fL MCH (26.0-34.0) pg MCHC (31.0-36.0) g/dL RDW (11.5-14.5) % Plt Count (140-440) K/mcL MPV (8.8-12.5) fL Seg Neutrophils % (38-78) % Lymphocytes % (15-49) % Monocytes % (Manual) (1-12) % Eosinophils % (Manual) (0-7) % Basophils % (Manual) (0-2) % Platelet Estimate (Normal) RBC Morphology (Normal) Hypochromasia (None Seen) Anisocytosis (None Seen) PT (11.9-14.5) sec INR (0.9-1.1) POC VBG pH (7.32-7.42) POC VBG pCO2 at Temp (41-51) POC VBG pO2 (25-40) POC VBG HCO3 (24-28) POC VBG Total CO2 (25-29) POC Venous O2 Sat (40-70) POC VBG Base Excess (-2-2) VBG Lactic Acid (0.5-2) POC Sodium (133-145) POC Potassium (3.3-5.1) POC Chloride (96-108) POC Total CO2 (22-30) POC BUN (6-20) POC Creatinine (0.6-1.2) POC Glucose (70-105) POC WB Ioniz Calcium (1.16-1.32) NT-Pro-B Natriuret Pep (<125.0) pg/mL Procalcitonin 0.07 (<0.10) ng/mL POC Troponin I (0.00-0.08) EKG Data EKG #1: EKG attestation: Yes I reviewed and interpreted this EKG. EKG results narrative: EKG is ordered, reviewed interpreted by me and reveals a sinus tachycardia at a rate of 117. Multiform PVCs are present. Dr. Castillo agrees no ischemic changes. Rate: tachycardia Discharge Plan Patient/Caregiver Discharge Instructions Pt seen by JEWEL SAWYER/PA only: Yes Clinical Impression: Community acquired pneumonia, Acute respiratory distress syndrome (ARDS), Pancreatic cancer Patient Disposition: Xfer As Inpt ([facility]) Follow up with: Marcus Smith MD [Primary Care Provider] - Prescriptions: No Action (DME) lancets [FreeStyle Lancets] 28 gauge misc See Protocol .ROUTE .MEDSUPPLY Qty: 100 4RF Protocol: Insulin Sliding Scale, Low Condition: HUMALOG/NOVALOG SC SLIDING Dose/Route: SCALE Condition: FSBS < 70 Dose/Route: Give 4 Oz juice, or 15gm oral Instruction: Glucose, or 25ml D50W IV if Dose/Route: unable to take PO. Recheck in Instruction: 15 min and repeat if FSBS < 70 Condition: FSBS 71-140 Dose/Route: NO COVERAGE Condition: FSBS 141-170 Dose/Route: 1 UNITS Condition: FSBS 171-200 Dose/Route: 2 UNITS Condition: FSBS 201-250 Dose/Route: 3 UNITS Condition: FSBS 251-300 Dose/Route: 4 UNITS Condition: FSBS 301-350 Dose/Route: 6 UNITS Condition: FSBS 351-400 Dose/Route: 8 UNITS Condition: FSBS > 400 Dose/Route: 10 UNITS; REPEAT Q2H X2 Instruction: CONTINUE FOLLOWING SLIDING Condition: SCALE; IF STILL > 400; CALL Dose/Route: PHYSICIAN Rx Instructions: Test twice daily am and pm (DME) pen needle, diabetic [Ultra-Thin II Ins Pen [place]] 29 gauge x 1/2" needle See Rx Instructions .ROUTE .MEDSUPPLY Qty: 100 6RF Rx Instructions: As directed once daily with Levemir pen atorvastatin [Lipitor] 20 mg tablet 20 mg PO QDAY Qty: 90 3RF Patient Comments: Pt thinks it may be 40 mg a day. Will recheck metformin 1,000 mg tablet 1,000 mg PO BID Qty: 180 3RF omeprazole 40 mg capsule,delayed release(DR/EC) 40 mg PO QDAY Qty: 30 5RF Entresto 24-26 mg tablet 1 tab PO BID Qty: 180 3RF fluticasone propion-salmeterol [Advair Diskus] 250-50 mcg/dose blister with device 1 inh INHALATION BID Qty: 180 3RF insulin degludec [Tresiba FlexTouch U-100] 100 unit/mL (3 mL) insulin pen 20 unit subcut QPM ipratropium-albuterol 0.5 mg-3 mg(2.5 mg base)/3 mL solution for nebulization 3 ml INHALATION QID Qty: 360 6RF (DME) FreeStyle Lite Strips Strip See Rx Instructions .Route Qty: 150 3RF Rx Instructions: Use to test blood sugars morning and evening. albuterol sulfate [Proventil HFA] 90 mcg/actuation HFA aerosol inhaler 2 puff INHALATION QIDP PRN (Reason: Shortness Of Breath) sildenafil 25 mg tablet 25 mg PO QDAY PRN (Reason: sexual activity) Qty: 30 7RF Rx Instructions: administer 30 minutes to 4 hours before activity acetaminophen 1,000 mg PO Q6HP PRN (Reason: Pain) furosemide 40 mg tablet 20 mg PO QAM spironolactone 25 mg tablet 12.5 mg PO QAM (DME) BIPAP Qty: 1 Rx Instructions: As directed carvedilol 3.125 mg Tablet 3.125 mg PO BIDCC Qty: 60 2RF (DME) oxygen-air delivery systems device 4 each .ROUTE .MEDSUPPLY Rx Instructions: 4 L continuously The patient's case was discussed with the JEWEL SAWYER. The patient's labs and imaging were reviewed by myself. The HPI, work-up, and assessment and plan were discussed and I agree with the documentation as detailed. Additionally, I did personally examine the patient twice. Once on arrival to the ED wherein he was noted to be diaphoretic and dyspneic on BiPAP with significantly diminished bibasilar lung sounds. He does not appear to be volume overloaded. He was given 2 DuoNebs in route to the ED and a third DuoNeb shortly after arrival to ED. He was given 125 mg Solu-Medrol, 2 g Rocephin, and 500 mg IV azithromycin. CTA chest shows findings concerning for pneumonia without evidence of PE. Unfortunately, also noted on the patient's CT was suspicion for metastatic disease, suspected secondary to recently diagnosed pancreatic cancer. Patient was given IV fluids cautiously and was not given the full 30 mg/kg fluid bolus despite having an elevated lactic acid and WBC and meeting sepsis criteria due to his history of CHF and previous hospitalization for pulmonary edema/CHF exacerbation as his blood pressures have been stable. He did improve significantly with the above treatment and is no longer dyspneic and is resting comfortably on BiPAP. Patient was accepted to the hospitalist service for adm ission.
[2022-08-23 18:54] LABS: POC Calcium, Ionized 1.2 (1.16-1.32); POC Creatinine 0.8 (0.6-1.2); POC Potassium 4.6 (3.3-5.1)
[2022-08-23] MEDS ORDERED: methylPREDNISolone SOD SUCC 125 MG/2 ML VIAL IV ONE (19:08)
[2022-08-23] MEDS ORDERED: IPRATROPIUM/ALBUTEROL 3 ML AMPUL.NEB NEB ONE ×2 (19:08→22:53)
[2022-08-23] MEDS ORDERED: cefTRIAXone 2 GM in DEXTROSE 5% IN WATER 50 ML IV SCH (19:15)
[2022-08-23 20:18] LABS: Hematocrit 30.7 % (40.1-51.0); Hemoglobin 9.4 g/dL (13.7-17.5); Mean Cell Volume 85.3 fL (80.0-100.0); Mean Corpuscular HGB Conc 30.6 g/dL (31.0-36.0); Mean Platelet Volume 10.6 fL (8.8-12.5); Platelet Count 403 K/mcL (140-440); Red Cell Distribution Width 15.9 % (11.5-14.5); WBC 14.1 K/mcL (4.5-11.0)
[2022-08-23 20:18] LABS: Prothrombin Time 13.3 sec (11.9-14.5)
[2022-08-23] MEDS ORDERED: AZITHROMYCIN 500 MG in DEXTROSE 5% IN WATER 250 ML IV ONE (20:32)
[2022-08-23 21:17] LABS: Anisocytosis 1+ (None Seen); Basophils % (Manual) 1 % (0-2); Eosinophils % (Manual) 7 % (0-7); Hypochromasia 1+ (None Seen); Lymphocytes % 37 % (15-49); Monocytes % (Manual) 11 % (1-12); Platelet Estimate NORMAL (Normal); RBC Morphology ABNORMAL (Normal); Segmented Neutrophils % 44 % (38-78)
[2022-08-23] MEDS: 0.9 % SODIUM CHLORIDE 1,000 ML IV ONE ×3 (21:29→22:48)
--- NOTE | 2022-08-23 21:44 | Internal Med History&Physical ---
HPI History of Present Illness Patient information: Note initiated : 08/23/22 at 9:34 pm Service Date, if different from initiated Date: [] Patient: Markel Edward 71 y/o M admitted on for Shortness of Breath. Chief Complaint: [shortness of breath] Chief complaint: shortness of breath History of present illness: Mr. Edward is a 71 year old M history of newly diagnosed pancreatic cancer, type 2 diabetes mellitus, CHF, COPD, BiPAP dependent, presenting with 3-day history of productive cough, respiratory wheezings, as well as shortness of breath. Over the past 3 days, patient has experienced productive cough with w aniket sputum, respiratory wheezings, and today he is experiencing acute worsening shortness of breath. He denies any chest pain. He denies any palpitations. He denies any fever chills or diaphoresis. He used BiPAP at home which is his baseline. He had a history of recently diagnosed pancreatic cancer but he has not had a chance to follow-up with oncologist just yet. In addition, he is also commenting of dips on exertions with a 40 to 50 feet's. He denies any orthopnea and he sleeps on 1 pillow. He denies any increased leg swellings. He denies any unintentional weight gain. Labs significant for leukocytosis with WBC 14.1. Lactic acid 4.4. Random serum glucose of 425. BNP 1170. Procalcitonin 0.07. Serum troponin less than 0.02. Respiratory panel negative for COVID, influenza a and B, and RSV. Chest x-ray and chest CT angiogram pending, with preliminary result negative for PE, suspicious for multiple pulmonary nodules, right lower lobe infiltrate, and decreased pulmonary edema relative to previous study. Admission request is called for acute on chronic respiratory failure with hypoxia associate with pneumonia and COPD with exacerbations. Constitutional Constitutional: Absent chills, excessive sweating, fatigue, fever(s) or weakness EENT Eyes: Absent blurry vision, change in vision, loss of vision or other visual disturbances Ears: Absent decreased hearing or tinnitus Nose, mouth and throat: Absent abnormal hearing, dry mouth, headache(s), nasal congestion or sore throat Cardiovascular Cardiovascular: Absent chest pain, chest pain at rest, edema, irregular heart rhythm or palpatations Respiratory Respiratory: Present as per HPI, cough, dyspnea, dyspnea on exertion, wheezing and excessive phlegm production Gastrointestinal Gastrointestinal: Absent abdominal pain, constipation, diarrhea, nausea or vomiting Musculoskeletal Musculoskeletal: Absent back pain, deformity, limited range of motion, muscle cramps, muscle weakness or numbness Integumentary Integumentary: Absent lesions, rash or wounds Neurological Neurological: Absent focal weakness, headache(s) or numbness Psychiatric Psychiatric: Absent anxiety, depression or hallucinations PFSH PFSH All Active Problems (Updated 08/23/22 @ 21:43 by Wilian Thayer MD) Community acquired pneumonia (Acute) Pancreatic cancer (Acute) Acute and chronic respiratory failure with hypercapnia (Acute) Hematochezia (Acute) Pancreatic mass (Acute) Upper GI bleeding (Acute) Melena (Acute) Acute blood loss anemia (Acute) Cigarette smoker (Acute) COPD exacerbation (Acute) CHF exacerbation (Acute) Pulmonary nodules/lesions, multiple (Chronic) Flash pulmonary edema (Acute) Leukocytosis (Acute) Cough (Acute) Acute GI bleeding (Acute) Anemia (Acute) Subscapular pain (Acute) Medicare annual wellness visit, subsequent (Acute) Respiratory failure with hypoxia and hypercapnia (Chronic) Abdominal aortic aneurysm (Acute) History of onychomycosis (Acute) Hypoventilation syndrome (Chronic) Hypercapnia (Chronic) Diabetes mellitus with hyperglycemia (Acute) Immunization deficiency (Acute) Bronchitis (Chronic) Emphysema, unspecified (Chronic) Elevated d-dimer (Chronic) Dyspnea on exertion (Chronic) Pleural effusion (Chronic) Lymphadenopathy, abdominal (Acute) Lobar pneumonia (Chronic) History of tonsillectomy and adenoidectomy (Chronic) Tobacco use (Chronic) Benign prostatic hyperplasia with urinary obstruction (Chronic) Lumbar radiculopathy (Chronic) Pure hypercholesterolemia, unspecified (Chronic) Leukocytosis (Chronic) Macrocytosis (Chronic) Dependent edema (Chronic) 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) Vitamin B12 deficiency (Chronic) Pancreatitis (Chronic) CHF (congestive heart failure) (Chronic) Anemia (Chronic) Obesity, unspecified (Chronic) GERD (gastroesophageal reflux disease) (Chronic) Hyperlipidemia (Chronic) Hypertension (Chronic) Chest pain, precordial (Chronic) Lumbar radiculopathy, right (Chronic) COPD (chronic obstructive pulmonary disease) (Chronic) Hypoxemia (Chronic) Erectile dysfunction (Chronic) Hyponatremia (Chronic) Hypokalemia (Chronic) Drug-induced hepatotoxicity (Chronic) Rectal bleeding (Chronic) Smoker (Chronic) Varicose veins of lower extremity with inflammation, bilateral (Chronic) BPH (benign prostatic hyperplasia) (Chronic) Medical History Abdominal aortic aneurysm Anemia Benign prostatic hyperplasia with urinary obstruction BiPAP (biphasic positive airway pressure) dependence BPH (benign prostatic hyperplasia) Bronchitis Chest pain, precordial CHF (congestive heart failure) Chronic combined systolic and diastolic heart failure Chronic hypercapnic respiratory failure Chronic hypoxemic respiratory failure COPD (chronic obstructive pulmonary disease) Dependent edema Diabetes mellitus with hyperglycemia Drug-induced hepatotoxicity Dyspnea on exertion Elevated d-dimer Emphysema, unspecified Erectile dysfunction GERD (gastroesophageal reflux disease) History of onychomycosis Hypercapnia Hyperlipidemia Hypertension Hypokalemia Hyponatremia Hypoventilation syndrome Hypoxemia Immunization deficiency Leukocytosis Lobar pneumonia Lumbar radiculopathy Lumbar radiculopathy, right Macrocytosis Medicare annual wellness visit, subsequent Obesity, unspecified Obstructive sleep apnea Pancreatitis Pleural effusion bilateral, right sided complex Pure hypercholesterolemia, unspecified Rectal bleeding Smoker Tobacco use Varicose veins of lower extremity with inflammation, bilateral with pain Vitamin B12 deficiency Surgical History History of chest tube placement History of colonoscopy (~2016) History of inguinal hernia repair History of left cataract surgery (~2018) History of tonsillectomy and adenoidectomy Family History Mother Arthritis Hypertension Father Lung cancer Hypertension Sister Hypertension Grandfather Myocardial Infarction Paternal Other Diabetes mellitus Malignant neoplasm Social History household members: spouse housing: house lives independently: Yes marital status: occupational status: retired smoking status: Former smoker and Smokeless tobacco Smokeless tobacco user details: 1 can every 2-3 days smoking status start date: 04/01/78 smoking status stop date: 04/01/14 alcohol intake frequency: does not drink substance use type: does not use MEDS/ALLERGIES Home Medications and Allergies Home Medications Medication Instructions Recorded Confirmed Type albuterol sulfate 90 mcg/actuation 2 puff inhalation QIDP PRN 07/28/15 08/02/22 History aerosol inhaler (Proventil HFA) Shortness Of Breath oxygen-air delivery systems 11/23/16 08/02/22 History BIPAP #1 ea 09/07/19 08/02/22 History lancets 28 gauge (FreeStyle #100 ea 06/17/20 08/02/22 Rx Lancets) sildenafil 25 mg tablet 25 mg PO QDAY PRN sexual activity 11/29/20 08/02/22 Rx #30 tabs pen needle, diabetic 29 gauge x #100 ea 07/04/21 08/02/22 Rx 1/2" (Ultra-Thin II Insulin Pen Marshall) acetaminophen 1,000 mg PO Q6HP PRN Pain 02/07/22 08/02/22 History carvedilol 3.125 mg tablet 3.125 mg PO BIDCC #60 tabs 03/09/22 08/02/22 Rx atorvastatin 20 mg tablet (Lipitor) 20 mg PO QDAY #90 tabs 04/09/22 08/02/22 Rx metformin 1,000 mg tablet 1,000 mg PO BID #180 tabs 05/01/22 08/02/22 Rx omeprazole 40 mg capsule,delayed 40 mg PO QDAY #30 caps 05/07/22 08/02/22 Rx release furosemide 40 mg tablet 20 mg PO QAM 05/14/22 08/02/22 History spironolactone 25 mg tablet 12.5 mg PO QAM 05/14/22 08/02/22 History Entresto 24 mg-26 mg tablet 1 tab PO BID #180 tabs 05/24/22 08/02/22 Rx (sacubitril-valsartan) fluticasone 250 mcg-salmeterol 50 1 inh inhalation BID #180 ea 06/05/22 08/02/22 Rx mcg/dose blistr powdr for inhalation (Advair Diskus) insulin degludec 100 unit/mL (3 20 unit subcut QPM 07/16/22 08/02/22 History mL) subcutaneous pen (Tresiba FlexTouch U-100 insulin) ipratropium 0.5 mg-albuterol 3 mg 3 ml inhalation QID #360 mL 07/18/22 08/02/22 Rx (2.5 mg base)/3 mL nebulization soln blood sugar diagnostic (FreeStyle #150 ea 08/13/22 Rx Lite Strips) Allergies Allergy/AdvReac Type Severity Reaction Status Date / Time NSAIDS (Non-Steroidal AdvReac Severe Other Verified 08/02/22 12:52 Anti-Inflamma EXAM Constitutional Vitals: Temp Pulse Resp BP Pulse Ox O2 Del Method 36.7 C 97 H 18 116/68 98 BiPAP 08/23/22 18:43 08/23/22 21:00 08/23/22 21:00 08/23/22 21:00 08/23/22 21:00 08/23/22 21:00 General appearance: cooperative and mild distress Head Head exam: Present atraumatic and normocephalic Eye Eye exam: Present EOMI and PERRL ENT ENT exam: Present mucous membranes moist, normal exam and normal external ear exam Additional comments: BiPAP in place Neck Neck exam: Present normal inspection; Absent lymphadenopathy, tenderness or thyromegaly Respiratory Respiratory exam: Present decreased breath sounds; Absent accessory muscle use, respiratory distress or wheezes Cardiovascular Cardiovascular exam: Present normal rate and rhythm; Absent JVD GI/Abdominal GI/Abdominal exam: Present normal bowel sounds and soft; Absent organomegaly or tenderness Rectal Rectal exam: Present deferred Extremities Exam Extremities exam: Present full ROM, normal capillary refill and normal inspection; Absent tenderness Neurological Exam Neurological exam: Present alert, CN II-XII intact and oriented X3; Absent motor sensory deficit Psychiatric Psychiatric exam: Present normal affect and normal mood; Absent anxious or depressed Skin Skin exam: Present dry and intact DATA Data Completed and Pending Labs: Labs from last 24 hours 08/23/22 08/23/22 08/23/22 19:09 19:09 19:08 WBC 14.1 H RBC 3.60 L Hgb 9.4 L Hct 30.7 L POC Hct MCV 85.3 MCH 26.1 MCHC 30.6 L RDW 15.9 H Plt Count 403 MPV 10.6 Seg Neutrophils % 44 Lymphocytes % 37 Monocytes % (Manual) 11 Eosinophils % (Manual) 7 Basophils % (Manual) 1 Platelet Estimate Normal RBC Morphology Abnormal A Hypochromasia 1+ A Anisocytosis 1+ A PT INR POC VBG pH POC VBG pCO2 at Temp POC VBG pO2 POC VBG HCO3 POC VBG Total CO2 POC Venous O2 Sat POC VBG Base Excess VBG Lactic Acid POC Sodium POC Potassium POC Chloride POC Total CO2 POC BUN POC Creatinine POC Glucose POC WB Ioniz Calcium NT-Pro-B Natriuret Pep 1170.0 H Procalcitonin 0.07 POC Troponin I 08/23/22 08/23/22 08/23/22 19:08 18:52 18:50 WBC RBC Hgb Hct POC Hct MCV MCH MCHC RDW Plt Count MPV Seg Neutrophils % Lymphocytes % Monocytes % (Manual) Eosinophils % (Manual) Basophils % (Manual) Platelet Estimate RBC Morphology Hypochromasia Anisocytosis PT 13.3 INR 1.0 POC VBG pH 7.19 L* POC VBG pCO2 at Temp 80.9 H* POC VBG pO2 150 H POC VBG HCO3 30.8 H POC VBG Total CO2 33.0 H POC Venous O2 Sat 99.0 H POC VBG Base Excess 3.0 H VBG Lactic Acid 4.4 H* POC Sodium POC Potassium POC Chloride POC Total CO2 POC BUN POC Creatinine POC Glucose POC WB Ioniz Calcium NT-Pro-B Natriuret Pep Procalcitonin POC Troponin I < 0.02 08/23/22 18:50 WBC RBC Hgb Hct POC Hct 35.0 L MCV MCH MCHC RDW Plt Count MPV Seg Neutrophils % Lymphocytes % Monocytes % (Manual) Eosinophils % (Manual) Basophils % (Manual) Platelet Estimate RBC Morphology Hypochromasia Anisocytosis PT INR POC VBG pH POC VBG pCO2 at Temp POC VBG pO2 POC VBG HCO3 POC VBG Total CO2 POC Venous O2 Sat POC VBG Base Excess VBG Lactic Acid POC Sodium 132 L POC Potassium 4.6 POC Chloride 90 L POC Total CO2 31.0 H POC BUN 20 POC Creatinine 0.8 POC Glucose 425 H POC WB Ioniz Calcium 1.20 NT-Pro-B Natriuret Pep Procalcitonin POC Troponin I A/P Assessment and plan (1) COPD exacerbation: Status: Acute (2) Acute and chronic respiratory failure with hypercapnia: Status: Acute (3) Pulmonary nodules/lesions, multiple: Status: Chronic (4) Diabetes mellitus with hyperglycemia: Status: Acute (5) CHF (congestive heart failure): Status: Chronic (6) Pancreatic cancer: Status: Acute (7) Community acquired pneumonia: Status: Acute (8) Hyperlipidemia: Status: Chronic (9) Hypertension: Status: Chronic Narrative A/P Narrative: Assessment and Plans: 1. Acute on chronic respiratory failure with hypercapnia: DDx: community acquired pneumonia, COPD exacerbation, CHF, pulmonary nodules metastases vs inflammation BiPAP Daily ABG Follow up with CXR and CT angiogram official reports Physical therapy evaluation and treatment Serial lactic acid Procalcitonin level Blood culture Sputum culture cbc w/ auto diff in the morning to trend WBC MRSA screening Vancomycin Zosyn Robitussin DM 2L IV fluid bolus followed by NS@100cc/hr Solu-Medrol DuoNEB NEB q4hr scheduled Albuterol NEB q4hr PRN wheezing Advair Diskus Vancomycin Zosyn Hold diuretics (Lasix, Aldactone) Continue Coreg Continue Entresto LVEF 49% with diastolic dysfunction from recent echocardiogram 2. T2DM with hyperglycemia: HgA1c Hold Metformin Tresiba 20 unit qPM High dose Insulin Lispro SSI AC HS Accu Check AC HS Hypoglycemia protocol Diabetic diet 3. Recently diagnosed pancreatic cancer: To be followed up with oncology 4. Essential hypertension: Hold diuretics (Lasix, Aldactone) Continue Coreg Continue Entresto 5. Hyperlipidemia: Lipitor GI ppx: Prilosec DVT ppx: Lovenox Code status: Full Prognosis: extremely guarded Disposition: inpatient PCU Time Spent With Patient Time: Total time spent is greater than 50% in coordination of care (as documented) at patient's floor/unit and/or counseling patient: Initial: Total time with patient: 55 - 74 minutes
[2022-08-23] MEDS ORDERED: 0.9 % SODIUM CHLORIDE 1,000 ML IV ONE (21:49)
[2022-08-23] MEDS ORDERED: VANCOMYCIN PER PHARMACY IV ONE (22:26)
[2022-08-23] MEDS ORDERED: DEXTROSE 31 GM ORAL.SUSP PO PRN (22:26)
[2022-08-23] MEDS ORDERED: ONDANSETRON 4 MG/2 ML VIAL IV PRN (22:26)
[2022-08-23] MEDS ORDERED: DEXTROSE 50% 50 ML VIAL IV PRN (22:26)
[2022-08-23] MEDS ORDERED: ALBUTEROL SULFATE 2.5 MG/3 ML NEBULIZER NEB PRN (22:26)
[2022-08-23] MEDS ORDERED: LACTULOSE 20 GM/30 ML ORAL.SOL PO PRN (22:26)
[2022-08-23] MEDS ORDERED: guaiFENesin/DEXTROMETHORPHAN 5ML UD CUP PO PRN (22:26)
[2022-08-23] MEDS ORDERED: SENNOSIDES 1 TABLET PO PRN (22:26)
[2022-08-23] MEDS ORDERED: VANCOMYCIN 1,000 MG in 0.9 % SODIUM CHLORIDE 250 ML IV SCH (22:30)
[2022-08-23] MEDS: IPRATROPIUM/ALBUTEROL 3 ML AMPUL.NEB NEB SCH (22:57)
[2022-08-23] MEDS: 0.9 % SODIUM CHLORIDE 1,000 ML IV SCH (22:57)
[2022-08-23] MEDS: 0.9 % SODIUM CHLORIDE 10 ML SYRINGE IV SCH (22:57)
[2022-08-23] MEDS: PIPERACILLIN SODIUM/TAZOBACTAM 3.375 GM in DEXTROSE 5% IN WATER 50 ML IV SCH (23:05)
[2022-08-23] MEDS ORDERED: INSULIN LISPRO 1 UNIT/0.01 ML UNIT SQ ONE ×2 (23:16→23:24)
[2022-08-23] MEDS ORDERED: INSULIN GLARGINE, HUMAN 1 UNIT/0.01 ML SQ ONE ×2 (23:17→23:23)
[2022-08-23] MEDS: methylPREDNISolone SOD SUCC 125 MG/2 ML VIAL IV SCH (23:51)
[2022-08-23] MEDS ORDERED: methylPREDNISolone SOD SUCC 125 MG/2 ML VIAL ONE (23:52)
--- NOTE | 2022-08-24 02:30 | XRay Report ---
CLINICAL INFORMATION: Acute respiratory failure COMPARISON: 03/05/2022 FINDINGS: Mild cardiomegaly show slightly decrease from previous exam. Mediastinum and pulmonary vessels are normal. Small vague infiltrates have developed in both lung bases. Moderate underlying COPD as previously seen. No effusion IMPRESSION: Moderate COPD with small bibasilar infiltrates Interpreted and Authenticated by: Jose Eduardo Fitzgerald 08/24/22
--- NOTE | 2022-08-24 03:18 | Cat Scan Report ---
CLINICAL INFORMATION: Shortness of breath. History of pancreatic cancer COMPARISON: 03/05/2022 and 07/18/2022 TECHNIQUE: ml of Isovue-370 were injected intravenously. Using SmartPrep to maximize pulmonary artery opacification, .625mm helical slices were obtained from the lung apices through the lung bases. Following reconstruction, 2.5 mm sagittal, coronal, and axial reformations were processed. The exam was reviewed at mediastinal, lung, and bone windows. The exam was performed using radiation dose optimization techniques including, but not limited to, automated exposure control, adjustment of the mA and/or kV according to patient size and use of iterative reconstruction technique. FINDINGS: Pulmonary parenchymal windows show moderate centrilobular emphysema featuring chronic bronchitis with elevated lung volumes and wall thickening/dilatation of bronchi. There are multiple bullae, predominantly in the upper lobes, and also scattered within both lower and right middle lobes. Scattered fibrosis in the periphery of both lungs. There are multiple small well-circumscribed pulmonary nodules ranging up to 8.5 mm in the lateral basilar segment of the right lower lobe on image 109. Most of these are stable however many in the the upper lobes show equivocal enlargement since the comparison CT one month prior. They could represent metastatic disease or granulomas. New moderate patchy alveolar infiltrate has developed in the anterior basilar segment of the left lower lobe with smaller infiltrates in the paramediastinal anterior segment left upper lobe, the anterior basilar segment of the right lower lobe, superior segment right lower lobe and the right middle lobe. Suspect infection or aspiration. Pleural spaces are unremarkable-no effusions. Mediastinal windows show the heart is grossly normal in size and configuration. The pulmonary arteries are normal diameter and well-opacified without evidence of embolus. Thoracic aorta is also normal diameter and well-opacified. There is no adenopathy in the mediastinal, hilar or axillary regions. Esophagus is grossly normal. The thyroid is unremarkable. Bones and soft tissues the chest wall are normal. Images through the superior abdomen show multiple enlarged lymph nodes in the peripancreatic region. The primary pancreatic head mass is intimately imaged. There is marked dilatation of the pancreatic duct 22 mm and moderate dilatation of the common bile duct 12 mm. Stomach is moderately dilated. Liver is grossly normal. IMPRESSION: 1. No evidence of pulmonary embolus. 2. Moderate patchy infiltrate in the anterior basilar segment left lower lobe. Other smaller infiltrates are scattered throughout the remaining lungs. Suspect aspiration. 3. Moderate centrilobular emphysema. 4. Multiple small pulmonary nodules throughout both lungs show slight increase in size. These could represent metastases from known pancreatic carcinoma. 5. Pancreatic carcinoma in the head region is incompletely imaged. There are multiple enlarged metastatic lymph nodes in the peripancreatic region and obstruction of the pancreatic duct resulting in marked upstream ductal dilatation. No change Interpreted and Authenticated by: Jose Eduardo Fitzgerald 08/24/22
[2022-08-24] MEDS ORDERED: IPRATROPIUM 2.5 ML AMPUL.NEB ONE (03:54)
[2022-08-24] MEDS: IPRATROPIUM/ALBUTEROL 3 ML AMPUL.NEB NEB SCH ×7 (03:55→23:12)
[2022-08-24] MEDS: PIPERACILLIN SODIUM/TAZOBACTAM 3.375 GM in DEXTROSE 5% IN WATER 50 ML IV SCH ×4 (03:55→23:41)
[2022-08-24] MEDS ORDERED: IPRATROPIUM/ALBUTEROL 3 ML AMPUL.NEB NEB ONE ×2 (03:56→06:25)
[2022-08-24] MEDS ORDERED: methylPREDNISolone SOD SUCC 125 MG/2 ML VIAL ONE (04:58)
[2022-08-24] MEDS: methylPREDNISolone SOD SUCC 125 MG/2 ML VIAL IV SCH ×4 (04:58→23:41)
[2022-08-24] MEDS: 0.9 % SODIUM CHLORIDE 10 ML SYRINGE IV SCH ×3 (04:59→20:24)
--- NOTE | 2022-08-24 05:49 | EKG ---
[facility] Test Date: 2022-08-23 Pat Name: Markel Edward Department: ED Room: Gender: Male [employer]: SS : [id number] Requested By: Lis Phillips Order Number: [id number] Reading MD: Nico Mathew Measurements Intervals [place] Rate: 117 P: 79 UT: 153 QRS: 3 QRSD: 96 T: 43 QT: 309 QTc: 432 Interpretive Statements Sinus tachycardia Multiform ventricular premature complexes Electronically Signed On 08-24-2022 5:49:37 PDT by Nico Mathew /store/M0/[id number]
[2022-08-24 06:22] LABS: Basophils # (Auto) 0 K/mcL (0.00-0.30); Basophils % (Auto) 0 % (0.0-2.0); Eosinophils # (Auto) 0 K/mcL (0.00-0.70); Eosinophils % (Auto) 0 % (0.0-7.0); Hematocrit 26.3 % (40.1-51.0); Lymphocytes # (Auto) 0.43 K/mcL (1.50-4.80); Lymphocytes % (Auto) 7.7 % (15.5-49.0); Mean Cell Volume 81.9 fL (80.0-100.0); Mean Corpuscular HGB Conc 30.4 g/dL (31.0-36.0); Mean Platelet Volume 10.1 fL (8.8-12.5); Monocytes # (Auto) 0.06 K/mcL (0.10-0.90); Monocytes % (Auto) 1.1 % (1.0-12.0); Neutrophils % (Auto) 90.8 % (38.0-78.0); Platelet Count 280 K/mcL (140-440); RBC 3.21 M/mcL (4.63-6.08); Red Cell Distribution Width 15.6 % (11.5-14.5); WBC 5.6 K/mcL (4.5-11.0)
[2022-08-24 06:41] LABS: Estimated Average Glucose(eAG) 171 mg/dL; Hemoglobin A1C 7.6 % Hgb (4.0-6.0)
[2022-08-24 06:49] LABS: ALT/SGPT 6 U/L (<40); AST/SGOT 9 U/L (<40); Albumin 3.7 gm/dL (3.2-5.2); Albumin/Globulin Ratio 1.2 (1.0-2.3); Alkaline Phosphatase 46 U/L (39-117); Bilirubin,Total 0.2 mg/dL (0.1-1.0); Blood Urea Nitrogen 18 mg/dL (8-23); Carbon Dioxide 28 mmol/L (22-30); Chloride 96 mmol/L (96-108); Globulin 3.1 gm/dL (2.2-3.7); Glomerular Filtration Rate 94; Glucose 252 mg/dL (70-105)
[2022-08-24] MEDS: INSULIN LISPRO 1 UNIT/0.01 ML UNIT SQ SCH ×5 (08:07→23:40)
[2022-08-24] MEDS ORDERED: VANCOMYCIN PER PHARMACY IV SCH (08:15)
[2022-08-24] MEDS ORDERED: VANCOMYCIN 1,500 MG in 0.9 % SODIUM CHLORIDE 500 ML IV SCH (09:00)
[2022-08-24] MEDS: 0.9 % SODIUM CHLORIDE 1,000 ML IV SCH (09:06)
[2022-08-24] MEDS: DOCUSATE SODIUM 100 MG CAPSULE PO SCH ×2 (09:16→20:03)
[2022-08-24] MEDS: ENOXAPARIN 40 MG/0.4 ML SYRINGE SQ SCH (09:16)
--- NOTE | 2022-08-24 10:04 | Internal Med Progress Note ---
SUBJECTIVE Subjective Patient information: Note initiated : 08/24/22 at 9:58 am Service Date, if different from initiated Date: [] Patient: Markel Edward 71 y/o M admitted on 08/23/22 for Pneumonia. Chief Complaint: [] Interval history: Mr. Edward is a 71 year old M history of newly diagnosed pancreatic cancer, type 2 diabetes mellitus, CHF, COPD, BiPAP dependent, presenting with 3-day history of productive cough, respiratory wheezings, as well as shortness of breath. Over the past 3 days, patient has experienced productive cough with wh ite sputum, respiratory wheezings, and today he is experiencing acute worsening shortness of breath. He denies any chest pain. He denies any palpitations. He denies any fever chills or diaphoresis. He used BiPAP at home which is his baseline. He had a history of recently diagnosed pancreatic cancer but he has not had a chance to follow-up with oncologist just yet. In addition, he is also commenting of dips on exertions with a 40 to 50 feet's. He denies any orthopnea and he sleeps on 1 pillow. He denies any increased leg swellings. He denies any unintentional weight gain. Labs significant for leukocytosis with WBC 14.1. Lactic acid 4.4. Random serum glucose of 425. BNP 1170. Pro calcitonin 0.07. Serum troponin less than 0.02. Respiratory panel negative for COVID, influenza a and B, and RSV. Chest x-ray and chest CT angiogram pending, with preliminary result negative for PE, suspicious for multiple pulmonary nodules, right lower lobe infiltrate, and decreased pulmonary edema relative to previous study. Admission request is called for acute on chronic respiratory failure with hypoxia associate with pneumonia and COPD with exacerbations. 08/24: Afebrile overnight. Patient was on BiPAP last night and right now is on 4 L/min OxyMask. MRSA screening negative. All cultures no growth to date. Lactic acid 4.4-->3.4-->2.8. Patient is feeling improving degree of shortness of breath. He denies any cough. He denies any wheezing. He denies any fever, chills, or diaphoresis. He denies any chest pain. Continue supplemental oxygen therapy. Discontinued vancomycin. Continue Zosyn for pneumonia. Continue Solu-Medrol, DuoNeb, and Advair Diskus for COPD exacerbations. Overall condition guarded. Stay in PCU. Constitutional Vitals: Vital Signs Temp Pulse Resp BP Pulse Ox O2 Del Method O2 Flow Rate 36.9 C 92 H 23 H 114/66 94 Nasal Cannula 4 08/24/22 08:01 08/24/22 06:30 08/24/22 08:01 08/24/22 08:01 08/24/22 08:01 08/24/22 08:01 08/24/22 08:01 Period Temp Pulse Resp BP Sys/Yoder Pulse Ox O2 Del Method O2 Flow Rate Last 24 Hr 36.7 C-37.2 C 83-117 15-26 97-188/61-120 92-100 BiPAP-Nasal Cannula, Oxymask 4-4 Intake and Output 08/23/22 08/24/22 08/24/22 19:59 03:59 11:59 Intake Total 1750 1440 Output Total 600 900 Balance 1150 540 Weight 99.79 kg 95.118 kg Intake & Output: Intake & Output 08/23/22 08/24/22 08/24/22 19:59 03:59 11:59 Intake Total 1750 1440 Output Total 600 900 Balance 1150 540 Weight 99.79 kg 95.118 kg Intake: IV 1600 1050 Sodium Chloride 0.9% 1,000 ml @ 1000 1000 100 mls/hr IV .Q10H [facility] Rx#: [id number] Zithromax 500 mg In Dextrose 5% 250 in Water 250 ml @ 250 mls/hr IV ONCE ONE Rx#:[id number] Zosyn 3.375 gm In Dextrose 5% 50 50 in Water 50 ml @ 100 mls/hr IV Q6H [facility]IC Rx#:[id number] Vancomycin 1,000 mg In Sodium 250 Chloride 0.9% 250 ml @ 250 mls/ hr IV Q12H [facility] Rx#:[id number] Rocephin 2 gm In Dextrose 5% in 50 Water 50 ml @ 100 mls/hr IV Q24H [facility] Rx#:[id number] Oral 150 390 Output: Void Amount 600 900 Other: Meal Breakfast Percent of Meal Consumed 100% Feeding Ability Independent Urine Appearance Clear Clear Urine Color Yellow Pale Urine Odor Normal Normal Head Head exam: Present atraumatic and normal inspection Eye Eye exam: Present normal appearance ENT ENT exam: Present mucous membranes moist, normal exam and normal external ear exam Additional comments: OxyMask in place Neck Neck exam: Present normal inspection Respiratory Respiratory exam: Present wheezes Cardiovascular Cardiovascular exam: Present normal rate and rhythm GI/Abdominal GI/Abdominal exam: Present normal bowel sounds Back Exam Back exam: Present normal inspection Neurological Exam Neurological exam: Present alert and oriented X3 Skin Skin exam: Present intact and warm OBJ DATA Labs 08/24/22 05:08 08/24/22 05:08 Labs: Abnormal Lab Results 08/24/22 08/24/22 08/24/22 05:08 05:08 02:20 WBC RBC 3.21 L Hgb 8.0 L Hct 26.3 L POC Hct MCH 24.9 L MCHC 30.4 L RDW 15.6 H Neut % (Auto) 90.8 H Lymph % (Auto) 7.7 L Lymph # (Auto) 0.43 L Jenkins # (Auto) 0.06 L RBC Morphology Hypochromasia Anisocytosis POC VBG pH POC VBG pCO2 at Temp POC VBG pO2 POC VBG HCO3 POC VBG Total CO2 POC Venous O2 Sat POC VBG Base Excess VBG Lactic Acid 2.8 H POC Sodium POC Chloride POC Total CO2 Glucose 252 H POC Glucose Hemoglobin A1c 7.6 H NT-Pro-B Natriuret Pep 08/23/22 08/23/22 08/23/22 23:00 19:09 19:08 WBC 14.1 H RBC 3.60 L Hgb 9.4 L Hct 30.7 L POC Hct MCH MCHC 30.6 L RDW 15.9 H Neut % (Auto) Lymph % (Auto) Lymph # (Auto) Jenkins # (Auto) RBC Morphology Abnormal A Hypochromasia 1+ A Anisocytosis 1+ A POC VBG pH POC VBG pCO2 at Temp POC VBG pO2 POC VBG HCO3 POC VBG Total CO2 POC Venous O2 Sat POC VBG Base Excess VBG Lactic Acid 3.4 H POC Sodium POC Chloride POC Total CO2 Glucose POC Glucose Hemoglobin A1c NT-Pro-B Natriuret Pep 1170.0 H 08/23/22 08/23/22 18:50 18:50 WBC RBC Hgb Hct POC Hct 35.0 L MCH MCHC RDW Neut % (Auto) Lymph % (Auto) Lymph # (Auto) Jenkins # (Auto) RBC Morphology Hypochromasia Anisocytosis POC VBG pH 7.19 L* POC VBG pCO2 at Temp 80.9 H* POC VBG pO2 150 H POC VBG HCO3 30.8 H POC VBG Total CO2 33.0 H POC Venous O2 Sat 99.0 H POC VBG Base Excess 3.0 H VBG Lactic Acid 4.4 H* POC Sodium 132 L POC Chloride 90 L POC Total CO2 31.0 H Glucose POC Glucose 425 H Hemoglobin A1c NT-Pro-B Natriuret Pep Meds: Medications Acetaminophen (Acetaminophen 325 Mg Tablet) 650 mg PO Q6HP PRN; Protocol PRN Reason: Per Pain Protocol/Fever > 101 Albuterol Sulfate (Albuterol Sulfate 2.5 Mg/3 Ml Nebulizer) 2.5 mg NEB Q4HP PRN PRN Reason: Wheezing Albuterol/Ipratropium (Ipratropium/Albuterol 3 Ml Ampul.Neb) 3 ml NEB Q4HRT [facility] Last Admin: 08/24/22 06:40 Dose: 3 ml Dextrose (Dextrose 50% 50 Ml Vial) 0 ml IV UD PRN PRN Reason: Per Sliding Scale Diagnostic Test (Pha) (Accu-Chek 1 Each Strip) 1 each FS ACHS [facility] Last Admin: 08/24/22 07:45 Dose: 1 each Docusate Sodium (Docusate Sodium 100 Mg Capsule) 100 mg PO BID [facility] Last Admin: 08/24/22 09:16 Dose: 100 mg Enoxaparin Sodium (Enoxaparin 40 Mg/0.4 Ml Syringe) 40 mg SQ DAILY [facility] Last Admin: 08/24/22 09:16 Dose: 40 mg Glucose (Dextrose 31 Gm Oral.Susp) 15 gm PO PRN PRN PRN Reason: Hypoglycemia Guaifenesin (Guaifenesin/Dextromethorphan 5ml Ud Cup) 10 ml PO Q4HP PRN PRN Reason: Cough Sodium Chloride (Sodium Chloride 0.9%) 1,000 mls @ 100 mls/hr IV .Q10H [facility] Last Admin: 08/24/22 09:06 Dose: 100 mls/hr Piperacillin Sod/Tazobactam (Sod 3.375 gm/ Dextrose) 50 mls @ 100 mls/hr IV Q6H [facility]; Protocol Last Infusion: 08/24/22 04:40 Dose: Infused Insulin Glargine (Insulin Glargine, Human 1 Unit/0.01 Ml) 20 unit SQ [facility] Insulin Human Lispro (Insulin Lispro 1 Unit/0.01 Ml Unit) 0 unit SQ [facility]; Protocol Last Admin: 08/24/22 08:07 Dose: 9 units Lactulose (Lactulose 20 Gm/30 Ml Oral.Jessica) 10 gm PO DAILYP PRN PRN Reason: Constipation Methylprednisolone Sodium Succinate (Methylprednisolone Sod Succ 125 Mg/2 Ml Vial) 125 mg IV Q6 [facility] Last Admin: 08/24/22 04:58 Dose: 125 mg Ondansetron HCl (Ondansetron 4 Mg/2 Ml Vial) 4 mg IV Q4HP PRN; Protocol PRN Reason: Nausea And Vomiting Senna (Sennosides 1 Tablet) 2 tab PO HSP PRN PRN Reason: Constipation Sodium Chloride (0.9 % Sodium Chloride 10 Ml Syringe) 10 ml IV Q8 [facility] Last Admin: 08/24/22 04:59 Dose: 10 ml A/P Assessment and plan (1) COPD exacerbation: Status: Acute (2) Acute and chronic respiratory failure with hypercapnia: Status: Acute (3) Pulmonary nodules/lesions, multiple: Status: Chronic (4) Diabetes mellitus with hyperglycemia: Status: Acute (5) CHF (congestive heart failure): Status: Chronic (6) Pancreatic cancer: Status: Acute (7) Community acquired pneumonia: Status: Acute (8) Hyperlipidemia: Status: Chronic (9) Hypertension: Status: Chronic Narrative A/P Narrative: Assessment and Plans: 1. Acute on chronic respiratory failure with hypercapnia: DDx: community acquired pneumonia, COPD exacerbation, CHF, pulmonary nodules metastases vs inflammation BiPAP at night, OxyMask during the day Daily ABG Physical therapy evaluation and treatment Serial lactic acid Procalcitonin level Blood culture, no growth to date Sputum culture, no growth to date cbc w/ auto diff in the morning to trend WBC MRSA screening negative, d/c Vancomycin Zosyn Robitussin DM PRN cough 2L IV fluid bolus followed by NS@100cc/hr Solu-Medrol DuoNEB NEB q4hr scheduled Albuterol NEB q4hr PRN wheezing Advair Diskus Hold diuretics (Lasix, Aldactone) Continue Coreg Continue Entresto LVEF 49% with diastolic dysfunction from recent echocardiogram 2. T2DM with hyperglycemia: HgA1c 7.6 Hold Metformin Lantus 20 unit qPM High dose Insulin Lispro SSI AC HS Accu Check AC HS Hypoglycemia protocol Diabetic diet 3. Recently diagnosed pancreatic cancer with likely pulmonary metastases: To be followed up with oncology 4. Essential hypertension: Hold diuretics (Lasix, Aldactone) Continue Coreg Continue Entresto 5. Hyperlipidemia: Lipitor GI ppx: Prilosec DVT ppx: Lovenox Code status: Full Prognosis: extremely guarded Disposition: inpatient PCU Time Spent With Patient Time: Total time spent is greater than 50% in coordination of care (as documented) at patient's floor/unit and/or counseling patient: Subsequent: Total time with patient: 35 - 49 minutes QUALITY VTE Deep Vein Thrombosis/Pulmonary Embolism Present on Admission: No
[2022-08-24] MEDS: NICOTINE 21 MG PATCH TOPICAL SCH (11:59)
[2022-08-24] MEDS: ACETAMINOPHEN 325 MG TABLET PO PRN ×2 (14:41→19:36)
[2022-08-24] MEDS: CARVEDILOL 3.125 MG TABLET PO SCH (18:06)
[2022-08-24] MEDS: FLUTICASONE/SALMETEROL 250/50 INHALER #14 INH SCH (20:03)
[2022-08-24] MEDS: Sacubitril-Valsartan [Entresto] 24-26 mg tablet PO SCH (20:23)
[2022-08-24] MEDS ORDERED: INSULIN GLARGINE, HUMAN 1 UNIT/0.01 ML SQ SCH (21:00)
[2022-08-25] MEDS: IPRATROPIUM/ALBUTEROL 3 ML AMPUL.NEB NEB SCH ×3 (03:47→10:15)
[2022-08-25] MEDS: 0.9 % SODIUM CHLORIDE 10 ML SYRINGE IV SCH (05:19)
[2022-08-25] MEDS: PIPERACILLIN SODIUM/TAZOBACTAM 3.375 GM in DEXTROSE 5% IN WATER 50 ML IV SCH (05:19)
[2022-08-25] MEDS: methylPREDNISolone SOD SUCC 125 MG/2 ML VIAL IV SCH (05:20)
[2022-08-25 06:22] LABS: Basophils # (Auto) 0.01 K/mcL (0.00-0.30); Basophils % (Auto) 0.1 % (0.0-2.0); Eosinophils # (Auto) 0 K/mcL (0.00-0.70); Eosinophils % (Auto) 0 % (0.0-7.0); Hematocrit 25.9 % (40.1-51.0); Hemoglobin 8.3 g/dL (13.7-17.5); Lymphocytes # (Auto) 0.57 K/mcL (1.50-4.80); Lymphocytes % (Auto) 4.5 % (15.5-49.0); Mean Cell Volume 81.2 fL (80.0-100.0); Mean Platelet Volume 10.3 fL (8.8-12.5); Monocytes # (Auto) 0.44 K/mcL (0.10-0.90); Monocytes % (Auto) 3.5 % (1.0-12.0); Neutrophils % (Auto) 91.4 % (38.0-78.0); Platelet Count 345 K/mcL (140-440); RBC 3.19 M/mcL (4.63-6.08); Red Cell Distribution Width 15.7 % (11.5-14.5); WBC 12.6 K/mcL (4.5-11.0)
[2022-08-25 06:45] LABS: ALT/SGPT 8 U/L (<40); AST/SGOT 14 U/L (<40); Albumin 3.8 gm/dL (3.2-5.2); Albumin/Globulin Ratio 1.4 (1.0-2.3); Alkaline Phosphatase 41 U/L (39-117); Bilirubin,Total 0.2 mg/dL (0.1-1.0); Blood Urea Nitrogen 14 mg/dL (8-23); Calcium 9.1 mg/dL (8.6-10.4); Carbon Dioxide 27 mmol/L (22-30); Chloride 98 mmol/L (96-108); Globulin 2.8 gm/dL (2.2-3.7); Glomerular Filtration Rate 100; Glucose 96 mg/dL (70-105)
[2022-08-25] MEDS ORDERED: OMEPRAZOLE 20 MG CAPSULE PO SCH (07:30)
[2022-08-25] MEDS: INSULIN LISPRO 1 UNIT/0.01 ML UNIT SQ SCH (07:45)
[2022-08-25] MEDS: CARVEDILOL 3.125 MG TABLET PO SCH (07:49)
[2022-08-25] MEDS: DOCUSATE SODIUM 100 MG CAPSULE PO SCH (07:51)
[2022-08-25] MEDS: ENOXAPARIN 40 MG/0.4 ML SYRINGE SQ SCH (07:56)
[2022-08-25] MEDS: FLUTICASONE/SALMETEROL 250/50 INHALER #14 INH SCH (07:57)
[2022-08-25] MEDS: Sacubitril-Valsartan [Entresto] 24-26 mg tablet PO SCH (07:57)
[2022-08-25] MEDS ORDERED: ATORVASTATIN 20 MG TABLET PO SCH (09:00)
--- NOTE | 2022-08-25 09:09 | Discharge Summary ---
Discharge Provider Provider IMPORTANT FOLLOW-UP INFORMATION FOR PCP: Patient information: Note initiated : 08/25/22 at 9:06 am Service Date, if different from initiated Date: [] Patient: Markel Edward 71 y/o M admitted on 08/23/22 for Pneumonia. Chief Complaint: [] Date of admission: 08/23/22 22:25 Discharge date: 08/25/22 Primary care physician: Marcus Smith MD Attending physician on admission: Wilian Thayer Consults: 08/23/22 Consult to Physician [CONS] Stat Comment: Consulting Provider: Wilian Thayer Reason For Exam: Physician to Consult Attending physician on discharge: Wilian Thayer COURSE Hospital Course Hospital course: Mr. Edward is a 71 year old M history of newly diagnosed pancreatic cancer, type 2 diabetes mellitus, CHF, COPD, BiPAP dependent, presenting with 3-day history of productive cough, respiratory wheezings, as well as shortness of breath. Over the past 3 days, patient has experienced productive cough with white sputum, respiratory wheezings, and today he is experiencing acute worsening shortness of breath. He denies any chest pain. He denies any palpitations. He denies any fever chills or diaphoresis. He used BiPAP at home which is his baseline. He had a history of recently diagnosed pancreatic cancer but he has not had a chance to follow-up with oncologist just yet. In addition, he is also commenting of dips on exertions with a 40 to 50 feet's. He denies any orthopnea and he sleeps on 1 pillow. He denies any increased leg swellings. He denies any unintentional weight gain. Labs significant for leukocytosis with WBC 14.1. Lactic acid 4.4. Random serum glucose of 425. BNP 1170. Procalcitonin 0.07. Serum troponin less than 0.02. Respiratory panel negative for COVID, influenza a and B, and RSV. Chest x-ray and chest CT angiogram pending, with preliminary result negative for PE, suspicious for multiple pulmonary nodules, right lower lobe infiltrate, and decreased pulmonary edema relative to previous study. Admission request is called for acute on chronic respiratory failure with hypoxia associate with pneumonia and COPD with exacerbations. 08/24: Afebrile overnight. Patient was on BiPAP last night and right now is on 4 L/min OxyMask. MRSA screening negative. All cultures no growth to date. Lactic acid 4.4-->3.4-->2.8. Patient is feeling improving degree of shortness of breath. He denies any cough. He denies any wheezing. He denies any fever, chills, or diaphoresis. He denies any chest pain. Continue supplemental oxygen therapy. Discontinued vancomycin. Continue Zosyn for pneumonia. Continue Solu-Medrol, DuoNeb, and Advair Diskus for COPD exacerbations. Overall condition guarded. Stay in PCU. 08/25: Patient had reached clinical stability. Decision made to discharge patient home with prescriptions sent to pharmacy. Follow-up ointment with PCP in 2 weeks and with oncology in 1 week will be arranged. All questions answered prior to patient being physically discharged. Discharge diagnosis: pneumonia, COPD exacerbation Time Spent with Patient Time attestation: Total time spent providing and/or coordinating discharge services: Time spent: Less than 30 minutes EXAM Constitutional Vitals: Temp Pulse Resp BP Pulse Ox O2 Del Method O2 Flow Rate 36.2 C 81 22 145/74 96 Nasal Cannula, BiPAP 4 08/25/22 07:40 08/25/22 08:01 08/25/22 08:07 08/25/22 08:01 08/25/22 08:07 08/25/22 08:00 08/25/22 08:00 General appearance: cooperative and no acute distress Head Head exam: Present atraumatic and normocephalic Eye Eye exam: Present EOMI and PERRL ENT ENT exam: Present mucous membranes moist, normal exam and normal external ear exam Additional comments: Nasal cannula in place Neck Neck exam: Present normal inspection; Absent lymphadenopathy, tenderness or thyromegaly Respiratory Respiratory exam: Present decreased breath sounds; Absent accessory muscle use, respiratory distress or wheezes Cardiovascular Cardiovascular exam: Present normal rate and rhythm; Absent JVD GI/Abdominal GI/Abdominal exam: Present normal bowel sounds and soft; Absent organomegaly or tenderness Rectal Rectal exam: Present deferred Extremities Exam Extremities exam: Present full ROM, normal capillary refill, normal inspection and pedal edema; Absent tenderness Neurological Exam Neurological exam: Present alert, CN II-XII intact and oriented X3; Absent motor sensory deficit Psychiatric Psychiatric exam: Present normal affect and normal mood; Absent anxious or depressed Skin Skin exam: Present dry and intact Discharge Data Data Completed and Pending Labs on day of discharge: Labs from last 24 hours 08/25/22 08/25/22 05:02 05:02 WBC 12.6 H RBC 3.19 L Hgb 8.3 L Hct 25.9 L MCV 81.2 MCH 26.0 MCHC 32.0 RDW 15.7 H Plt Count 345 MPV 10.3 Immature Gran % (Auto) 0.5 Neut % (Auto) 91.4 H Lymph % (Auto) 4.5 L [place] % (Auto) 3.5 Eos % (Auto) 0 Baso % (Auto) 0.1 Lymph # (Auto) 0.57 L [place] # (Auto) 0.44 Eos # (Auto) 0 Baso # (Auto) 0.01 Immature Gran # 0.06 H Absolute Neutrophils 11.52 H Sodium 137 Potassium 3.8 Chloride 98 Carbon Dioxide 27 Anion Gap 12.0 BUN 14 Creatinine 0.6 L GFR Calculation 100 Glucose 96 Calcium 9.1 Total Bilirubin 0.2 AST 14 ALT 8 Alkaline Phosphatase 41 Total Protein 6.6 Albumin 3.8 Globulin 2.8 Albumin/Globulin Ratio 1.4 Preliminary micro results at discharge 08/23/22 19:18 Blood Culture - Preliminary Blood 08/23/22 19:15 Blood Culture - Preliminary Blood Discharge Plan Patient/Caregiver Discharge Instructions Activity: increase activity as tolerated Diet: Consistent Carbohydrate Prescriptions: New dextromethorphan-guaifenesin 10-100 mg/5 mL Syrup 10 ml PO Q4HP PRN (Reason: Cough) Qty: 237 1RF nicotine [Nicoderm CQ] 21 mg/24 hr Patch 24 Hour 21 mg topical DAILY@1000 21 Days Qty: 21 1RF prednisone 20 mg tablet 40 mg PO QDAY Qty: 6 0RF amoxicillin-pot clavulanate [Augmentin XR] 1,000-62.5 mg tablet extended release 12 hr 1 tab PO BID Qty: 20 0RF Continued metformin 1,000 mg tablet 1,000 mg PO BID Qty: 180 3RF omeprazole 40 mg capsule,delayed release(DR/EC) 40 mg PO QDAY Qty: 30 5RF insulin degludec [Tresiba FlexTouch U-100] 100 unit/mL (3 mL) insulin pen 20 unit subcut QPM ipratropium-albuterol 0.5 mg-3 mg(2.5 mg base)/3 mL solution for nebulization 3 ml INHALATION QID Qty: 360 6RF albuterol sulfate [Proventil HFA] 90 mcg/actuation HFA aerosol inhaler 2 puff INHALATION QIDP PRN (Reason: Shortness Of Breath) acetaminophen 1,000 mg PO TID furosemide 40 mg tablet 20 mg PO QAM carvedilol 3.125 mg Tablet 3.125 mg PO BIDCC Qty: 60 2RF fluticasone propion-salmeterol [Advair Diskus] 250-50 mcg/dose blister with device 1 inh INHALATION BID atorvastatin [Lipitor] 20 mg tablet 40 mg PO QDAY Patient Comments: Pt thinks it may be 40 mg a day. Will recheck Entresto 24-26 mg tablet 2 tab PO BID No Action (DME) lancets [FreeStyle Lancets] 28 gauge misc See Protocol .ROUTE .MEDSUPPLY Qty: 100 4RF Protocol: Insulin Sliding Scale, Low Condition: HUMALOG/NOVALOG SC SLIDING Dose/Route: SCALE Condition: FSBS < 70 Dose/Route: Give 4 Oz juice, or 15gm oral Instruction: Glucose, or 25ml D50W IV if Dose/Route: unable to take PO. Recheck in Instruction: 15 min and repeat if FSBS < 70 Condition: FSBS 71-140 Dose/Route: NO COVERAGE Condition: FSBS 141-170 Dose/Route: 1 UNITS Condition: FSBS 171-200 Dose/Route: 2 UNITS Condition: FSBS 201-250 Dose/Route: 3 UNITS Condition: FSBS 251-300 Dose/Route: 4 UNITS Condition: FSBS 301-350 Dose/Route: 6 UNITS Condition: FSBS 351-400 Dose/Route: 8 UNITS Condition: FSBS > 400 Dose/Route: 10 UNITS; REPEAT Q2H X2 Instruction: CONTINUE FOLLOWING SLIDING Condition: SCALE; IF STILL > 400; CALL Dose/Route: PHYSICIAN Rx Instructions: Test twice daily am and pm (DME) pen needle, diabetic [Ultra-Thin II Ins Pen [place]] 29 gauge x 1/2" needle See Rx Instructions .ROUTE .MEDSUPPLY Qty: 100 6RF Rx Instructions: As directed once daily with Levemir pen (DME) FreeStyle Lite Strips Strip See Rx Instructions .Route Qty: 150 3RF Rx Instructions: Use to test blood sugars morning and evening. (DME) BIPAP Qty: 1 Rx Instructions: As directed (DME) oxygen-air delivery systems device 4 each .ROUTE .MEDSUPPLY Rx Instructions: 4 L continuously Follow Up Plan Follow up with: Irlanda Monroe MD [Physician] - 09/03/22 8:15 am (Please check in at 8:15 am) Marcus Smith MD [Primary Care Provider] - Patient Disposition: Home, Self-Care Rehab Potential: Good I certify that the patient requires SNF services: No Overall status at discharge: patient is progressing back to baseline Discharge Orders: Discharge Order (Routine); Ordered 08/25/22 Ordered By: Wilian DE LA CRUZ VTE Deep Vein Thrombosis/Pulmonary Embolism Present on Admission: No
[2022-08-25] MEDS: NICOTINE 21 MG PATCH TOPICAL SCH (09:27)
== END 2022-08-25 10:26 | disposition home or self-care (01) | DRG 190 ==
LOC: ED 18:43 → ICU 22:25
PROVIDERS: ADMIT Internal Medicine; ATTEND Internal Medicine